=== PATIENT | male | born 1940 | race Caucasian/White ===

== ENCOUNTER 2018-07-29 11:56 | Observation (INO) | payer OTHER ==
[2018-07-29 12:14] LABS: Absolute Lymphocytes (CBC) 5.3 K/uL (0.7-4.9); Absolute Neutrophil 5.7 K/uL (1.8-8.0); Basophils % 0.9 % (0-1.3); Eosinophils % 2.3 % (0-4.4); Hematocrit 43.7 % (39.6-49.0); Lymphocytes % 42.9 % (15.3-44.8); MPV 7.6 fL (7.6-11.3); RBC Red Blood Cell Count 4.57 M/uL (4.33-5.43)
[2018-07-29 12:20] LABS: Protime INR 1.13
[2018-07-29] MEDS ORDERED: ONDANSETRON 4 MG/2 ML VIAL ONE ×2 (12:21→16:03)
--- NOTE | 2018-07-29 12:21 | RAD REPORT ---
EXAM DESCRIPTION: CT - CTHCSPWOC - 07/29/2018 12:07 pm CLINICAL HISTORY: Trauma, head and neck injury. TRAUMA COMPARISON: No comparisons TECHNIQUE: Axial 5 mm thick images of the head were obtained. Axial 2 mm thick images of the cervical spine were obtained with sagittal and coronal reconstruction images generated and reviewed. All CT scans are performed using dose optimization technique as appropriate and may include automated exposure control or mA/KV adjustment according to patient size. FINDINGS: CT HEAD WITHOUT CONTRAST: No acute hemorrhage, hydrocephalus or extra-axial collection is identified.Generalized brain atrophy is noted.No areas of brain edema or midline shift. Chronic sphenoid sinusitis is present. The remainder of the paranasal sinuses and mastoids are clear. The calvarium is intact. Moderate right posterior scalp hematoma. CT CERVICAL SPINE WITHOUT CONTRAST: No fracture or subluxation.Moderate lower cervical degenerative changes are present.No prevertebral s oft tissues swelling is identified. Atherosclerotic carotid arteries. IMPRESSION: No acute intracranial or cervical spine findings.
[2018-07-29 12:50] LABS: ALT/SGPT 53 U/L (12-78); AST/SGOT 80 U/L (15-37); Albumin 3.7 g/dL (3.4-5.0); Alkaline Phosphatase 48 U/L (45-117); BUN Blood Urea Nitrogen 13 mg/dL (7-18); Bicarbonate 26 mmol/L (21-32); Bilirubin Direct 0.2 mg/dL (0-0.2); Bilirubin Total 0.5 mg/dL (0.2-1.0); Glucose Level 165 mg/dL (74-106); Magnesium 1.8 mg/dL (1.8-2.4); NT PRO-BNP 203 pg/mL (<450); Potassium 3.3 mmol/L (3.5-5.1); Protein, Total 7.2 g/dL (6.4-8.2); Sodium Level 139 mmol/L (136-145); Troponin (Emerg Dept Use Only) < 0.02 ng/mL (0.0-0.045)
--- NOTE | 2018-07-29 12:59 | RAD REPORT ---
EXAM DESCRIPTION: RAD - Chest Single View - 07/29/2018 12:50 pm CLINICAL HISTORY: TRAUMA Chest pain. COMPARISON: Chest Pa And Lat (2 Views) dated 12/15/2016; CHEST SINGLE VIEW dated 11/08/2014; CHEST PA AND LAT 2 VIEW dated 06/25/2014; CHEST PA AND LAT 2 VIEW dated 05/31/2013; Head C Spine Mpr Wo Con raisa ed 07/29/2018 FINDINGS: Portable technique limits examination quality. Backboard artifact is present. The lungs appear grossly clear. The heart is normal in size.Sternotomy wires present. IMPRESSION: No acute intrathoracic process suspected.
[2018-07-29 13:17] LABS: Blood Morphology Comment NOT SEEN (NOT SEEN); Platelet Estimate ADEQ; Urine White Blood Cell Casts OK
[2018-07-29] MEDS ORDERED: ACETAMINOPHEN 500 MG TAB ONE (14:16)
--- NOTE | 2018-07-29 16:14 | EKG ---
Test Date: 2018-07-29 Test Time: 12:18:03 Patternmaker Hand: PABLO MEASUREMENT RESULTS: Intervals: Rate: 72 NJ: 176 QRSD: 92 QT: 406 QTc: 444 Turney: P: 46 NJ: 176 QRS: 13 T: 74 INTERPRETIVE STATEMENTS: Normal sinus rhythm Nonspecific ST abnormality Abnormal ECG Compared to ECG 12/12/2016 09:46:14 ST (T wave) deviation now present Electronically Signed On 07-29-18 16:13:50 PEDIATRIC NEPHROLOGIST by Parish Liao
--- NOTE | 2018-07-29 16:41 | RAD REPORT ---
EXAM DESCRIPTION: MRI - Brain Wo Cont - 07/29/2018 4:25 pm CLINICAL HISTORY: Confused;Dizziness;Headache COMPARISON: Head Brain Wo Cont dated 12/12/2016 TECHNIQUE: Multi-sequence, multiplanar MR imaging of the brain was performed without contrast. FINDINGS: No intracranial hemorrhage, hydrocephalus or extra-axial fluid collections.Mild T2/FLAIR h yperintensities in the periventricular region are most compatible chronic microvascular ischemic dey ges. No edema or shift of midline structures. No findings to suspect brain mass. DWI is negative for acute CVA. Midline structures are normally formed. Chronic sphenoid sinus thickening is noted. Right posterior scalp hematoma seen. IMPRESSION: No acute intracranial abnormality is seen. Chronic sphenoid sinusitis.
--- NOTE | 2018-07-29 17:30 | ER ---
Nurse's Notes [facility] Name: Bebeto Wells Age: 78 yrs Sex: Male : 1940 Arrival Date: 07/29/2018 Time: 11:59 Bed 4 Private MD: Diagnosis: Syncope and collapse;Superficial injury of head;Vomiting;Confusional arousals;Concussion Presentation: 07/29 11:54 Presenting complaint: EMS states: Fell down several stairs at bank. Positive LOC. Vomit hb x 3. AOx2, does not recall event. Skin tears to left forearm and left hand, no other obvious injuries. CCollar and backboard in place. 18g RIGHT AC, Zofran 4 mg IVP administered TAGMAN. Care prior to arrival: None. Mechanism of Injury: Fall down steps. Trauma event details: Injury occurred in the [facility], Injury occurred: in a public building. Injury occurred: July 29, 2018. 11:54 Acuity: KRISTIAN 2 hb 11:54 Method Of Arrival: EMS: [facility] hb 12:07 Transition of care: patient was not received from another setting of care. Onset of hb symptoms was July 29, 2018. Risk Assessment: Do you want to hurt yourself or someone else? Patient reports no desire to harm self or others. Initial Sepsis Screen: Does the patient meet any 2 criteria? No. Patient's initial sepsis screen is negative. Does the patient have a suspected source of infection? No. Patient's initial sepsis screen is negative. Trauma Activation: Alert Physician: ED Physician; Name: ; Notified At: ; Arrived At: Physician: General Surgeon; Name: ; Notified At: ; Arrived At: Physician: Radiology; Name: ; Notified At: ; Arrived At: Physician: Respiratory; Name: ; Notified At: ; Arrived At: Physician: Lab; Name: ; Notified At: ; Arrived At: Historical: - Allergies: 12:18 Codeine; hb 12:18 PENICILLINS; hb 12:18 Sulfa (Sulfonamide Antibiotics); hb - Home Meds: 12:18 allopurinol 300 mg Oral tab 1 tab 2 times per day [Active]; aspirin 81 mg Oral chew 1 hb tab once daily [Active]; colchicine 0.6 mg Oral cap 1 cap once daily [Active]; furosemide 20 mg Oral tab 1 tab 2 times per day [Active]; loratadine 10 mg Oral tab 1 tab once daily [Active]; metformin 1,000 mg Oral tab 1 tab 2 times per day [Active]; metoprolol tartrate 25 mg Oral tab [Active]; sildenafil 100mg Oral tab [Active]; simvastatin 20 mg Oral tab 1 tab once daily [Active]; - PMHx: 12:18 Diabetes - NIDDM; Gout; Hypertension; hb - Immunization history:: Adult Immunizations up to date. - Social history:: Smoking status: Patient/guardian denies using tobacco. - Immunization history: Last tetanus immunization: - up to date. - Ebola Screening: : No symptoms or risks identified at this time. Screenin:17 Abuse screen: Denies threats or abuse. Denies injuries from another. Tuberculosis hb screening: No symptoms or risk factors identified. 12:19 Nutritional screening: No deficits noted. Fall Risk Total Franklin Fall Scale indicates hb High Risk Score (45 or more points). Fall prevention measures have been instituted. Side Rails Up X 2 Frequent Obs/Assessments Occuring As available patient and family educated on Fall Prevention Program and Strategies. Primary Survey: 12:06 NO uncontrolled hemorrhage observed. A: The patient is alert. Airway: patent, No hb supplemental oxygen in use on arrival. Oral cavity: clear. Breathing/Chest: Respiratory pattern: regular, Respiratory effort: spontaneous, unlabored, Chest inspection: symmetrical rise and fall of the chest. Circulation: Skin color: pink, Skin temperature: warm, dry. Disability Alert. Exposure/Environment: There is no evidence of uncontrolled external bleeding. Obvious injury(ies) are noted at this time: skin tears to left hand and forearm. 12:35 Reassessment Airway Airway Patent Breathing/Chest Respiratory pattern Regular sg Respiratory effort Spontaneous Unlabored Breath sounds Clear Chest inspection Symmetrical Disability Alert. Secondary Survey: 12:20 HEENT: Head No injury/deformity Face No injury/deformity Eyes: No injury or deformity sg noted. Ears: clear bilaterally. Nose: clear to bilateral nares. Throat: No injury or deformity noted. is clear. Gastrointestinal: Abdomen is soft, Bowel sounds present in all quadrants. : No signs and/or symptoms were reported regarding the genitourinary system. Musculoskeletal: Circulation, motion, and sensation intact. Range of motion: intact in all extremities, Swelling absent Reports pain in coccyx, right knee and neck. Injury Description: Skin tears sustained to left hand, left elbow and palmar aspect of left forearm. Assessment: 11:50 General: Appears in no apparent distress. slender, well developed, well nourished, sg Behavior is calm, cooperative, appropriate for age. Pain: Complains of pain in coccyx and right knee Pain does not radiate. Quality of pain is described as tender. Neuro: Level of Consciousness is awake, alert, obeys commands, Oriented to person, place, time, situation, Intelligence Applications are equal bilaterally Moves all extremities. Full function Gait is steady, Speech is normal, Facial symmetry appears normal. Cardiovascular: Capillary refill is brisk in bilateral fingers Chest pain is denied. Respiratory: Airway is patent Respiratory effort is even, unlabored, Respiratory pattern is regular, symmetrical. GI: No signs and/or symptoms were reported involving the gastrointestinal system. : No signs and/or symptoms were reported regarding the genitourinary system. EENT: No signs and/or symptoms were reported regarding the EENT system. Derm: Skin is intact, is thin, Skin is dry, Skin is pale, Skin temperature is cool. Musculoskeletal: Circulation, motion, and sensation intact. Range of motion: Swelling absent Reports pain in coccyx, right knee and neck. 12:17 Reassessment: $1779 and one $2 dollar bill counted and given to security to place in safe. 12:17 Reassessment: counting of money and given to security as witnessed with Michelle ALANIS and sg security. 14:40 Reassessment: Patient appears in no apparent distress at this time. Patient and/or sg family updated on plan of care and expected duration. Pain level reassessed. Patient is alert, oriented x 3, equal unlabored respirations, skin warm/dry/pink. pt aa\T\ox4 at this time, pt speaking on cell phone with family members, awaiting new orders at this time. Derm: Bruising that is dark purple, green, on right parietal area. 15:27 Reassessment: Patient and/or family updated on plan of care and expected duration. Pain sg level reassessed. Patient is alert, oriented x 3, equal unlabored respirations, skin warm/dry/pink. pt family/friend at bedside at this time. 15:40 Reassessment: Patient appears in no apparent distress at this time. Patient and/or sg family updated on plan of care and expected duration. Pain level reassessed. Patient is alert, oriented x 3, equal unlabored respirations, skin warm/dry/pink. Neuro: Level of Consciousness is awake, alert, obeys commands, Oriented to person, place, time, Speech is normal. Neuro: Reports dizziness, notified of pt complaints of dizziness while sitting up at the side of the bed using a urinal, pt girlfrienyara Be remains at bedside a tt his time, pt using a urinal while sitting upright in bed with back flat on bed surface, no falls encountered. Derm: Skin is pink, warm \T\ dry. 16:00 Reassessment: pt reports nausea and vomiting per Katlyln in MRI, notified, sg pt medicated see EMAR. 16:10 Reassessment: pt Aminahienyara Be has taken the dawn money and bank cards in her sg possesion. 17:20 Reassessment: Patient appears in no apparent distress at this time. Patient and/or sg family updated on plan of care and expected duration. Pain level reassessed. Patient is alert, oriented x 3, equal unlabored respirations, skin warm/dry/pink. 17:35 Reassessment: at bedside evaluating pt at this time. sg Vital Signs: 11:55 BP 104 / 58; Pulse 88; Resp 16; Temp 97.9; Pulse Ox 100% on R/A; hb 12:45 BP 131 / 70; Pulse 70; Resp 19; Temp 98.2; Pulse Ox 93% on R/A; sg 13:40 BP 133 / 70; Pulse 77; Resp 17; Temp 98.2; Pulse Ox 97% on R/A; sg 14:40 BP 142 / 70; Pulse 77; Resp 16; Temp 98.2; Pulse Ox 97% on R/A; sg 15:24 BP 148 / 64; Pulse 72; Resp 17; Temp 98.2; Pulse Ox 98% on R/A; sg 16:24 BP 145 / 62; Pulse 72; Resp 16; Temp 98.2; Pulse Ox 97% on R/A; sg Onyx Coma Score: 12:45 Eye Response: spontaneous(4). Verbal Response: oriented(5). Motor Response: obeys sg commands(6). Total: 15. 13:40 Eye Response: spontaneous(4). Verbal Response: oriented(5). Motor Response: obeys sg commands(6). Total: 15. 13:40 Eye Response: spontaneous(4). Verbal Response: oriented(5). Motor Response: obeys sg commands(6). Total: 15. 16:24 Eye Response: spontaneous(4). Verbal Response: oriented(5). Motor Response: obeys sg commands(6). Total: 15. Trauma Score (Adult): 11:55 Eye Response: spontaneous(1); Verbal Response: confused(1); Motor Response: obeys hb commands(2); Systolic BP: > 89 mm Hg(4); Respiratory Rate: 10 to 29 per min(4); Sandhya Score: 14; Trauma Score: 12 13:40 Eye Response: spontaneous(1); Verbal Response: oriented(1); Motor Response: obeys sg commands(2); Systolic BP: > 89 mm Hg(4); Respiratory Rate: 10 to 29 per min(4); Onyx Score: 15; Trauma Score: 12 15:24 Eye Response: spontaneous(1); Verbal Response: oriented(1); Motor Response: obeys sg commands(2); Systolic BP: > 89 mm Hg(4); Respiratory Rate: 10 to 29 per min(4); Sandhya Score: 15; Trauma Score: 12 16:24 Eye Response: spontaneous(1); Verbal Response: oriented(1); Motor Response: obeys sg commands(2); Systolic BP: > 89 mm Hg(4); Respiratory Rate: 10 to 29 per min(4); Onyx Score: 15; Trauma Score: 12 ED Course: 11:50 Patient has correct armband on for positive identification. Bed in low position. Side sg rails up X2. longwall shearer operator on. Pulse ox on. NIBP on. Warm blanket given. Head of bed elevated. 11:59 Patient arrived in ED. hb 12:00 Patient maintains SpO2 saturation greater than 95% on room air. Thermoregulation: warm hb blanket given to patient. 12:06 Triage completed. hb 12:07 CT Head C Spine In Process Unspecified. EDMS 12:07 Sandro Hancock MD is Attending Physician. kdr 12:07 Arm band placed on. hb 12:39 Yaya Cedeño, RN is Primary Nurse. sg 12:51 XRAY Chest (1 view) In Process Unspecified. EDMS 16:00 Patient moved to MRI via stretcher. ka 16:12 MRI - Brain Wo Cont In Process Unspecified. EDMS 17:28 Veena Salgado MD is Hospitalizing Provider. kdr 18:20 No provider procedures requiring assistance completed. Patient admitted, IV remains in sg place. intact, No redness/swelling at site. Administered Medications: 14:33 Drug: Tylenol 1000 mg Route: PO; sg 15:31 Follow up: Response: No adverse reaction; Pain is unchanged, physician notified sg 16:01 Drug: Zofran 4 mg Route: IVP; Site: right antecubital; bp Output: 18:40 Urine: 300ml (Voided); Total: 300ml. sg Outcome: 17:30 Decision to Hospitalize by Provider. kdr 18:35 Admitted to Tele accompanied by tech, via wheelchair, room 201, with chart. sg 18:35 Condition: stable 18:35 Instructed on the need for admit, safety practices, Demonstrated understanding of instructions. 18:35 Patient's length of stay in the Emergency Department was greater than 2 hours. sg Patient's length of stay was extended due to staffing issues within the emergency department. 18:40 Patient left the ED. sg Signatures: Dispatcher [employer] EDMS Yaya Cedeño, RN RN Sandro Hancock MD MD kdr Aguilera, Katelyn ka Baxter, Heather, RN RN hb Peltier, Brian, RN RN bp Corrections: (The following items were deleted from the chart) 12:08 11:54 Presenting complaint: EMS states: Fell down several stairs at bank. Positive LOC. hb AOx2, Does not recall event. Skin tears to left forearm and left hand, no other obvious injuries. CCollar and backboard i nplace hb
--- NOTE | 2018-07-29 17:31 | EDPHYS ---
Physician Documentation [facility] Name: Bebeto Wells Age: 78 yrs Sex: Male : 1940 Arrival Date: 07/29/2018 Time: 11:59 Bed 4 Private MD: ED Physician Sandro Hancock HPI: 07/29 18:45 This 78 yrs old Male presents to ER via EMS with complaints of Fall Injury. kdr 18:45 The patient was found down on the ground where he may have fallen down two steps. He kdr was noted to be confused. He was put on back brd and c-clr. On arrival, he was vomiting and require tilting the board to the side to protect his airway. He was A\T\O x 1 on arrival. Onset: The symptoms/episode began/occurred suddenly, just prior to arrival. Severity of symptoms: At their worst the symptoms were mild in the emergency department the symptoms are unchanged. It is unknown whether or not the patient has had similar symptoms in the past. It is unknown whether or not the patient has recently seen a physician. Historical: - Allergies: 12:18 Codeine; hb 12:18 PENICILLINS; hb 12:18 Sulfa (Sulfonamide Antibiotics); hb - Home Meds: 12:18 allopurinol 300 mg Oral tab 1 tab 2 times per day [Active]; aspirin 81 mg Oral chew 1 hb tab once daily [Active]; colchicine 0.6 mg Oral cap 1 cap once daily [Active]; furosemide 20 mg Oral tab 1 tab 2 times per day [Active]; loratadine 10 mg Oral tab 1 tab once daily [Active]; metformin 1,000 mg Oral tab 1 tab 2 times per day [Active]; metoprolol tartrate 25 mg Oral tab [Active]; sildenafil 100mg Oral tab [Active]; simvastatin 20 mg Oral tab 1 tab once daily [Active]; - PMHx: 12:18 Diabetes - NIDDM; Gout; Hypertension; hb - Immunization history:: Adult Immunizations up to date. - Social history:: Smoking status: Patient/guardian denies using tobacco. - Immunization history: Last tetanus immunization: - up to date. - Ebola Screening: : No symptoms or risks identified at this time. ROS: 18:45 Constitutional: The patient is a poor historian and confused Eyes: Negative for injury, kdr pain, redness, and discharge. 18:45 Unable to obtain ROS due to altered mental status. Exam: 18:45 Constitutional: This is a well developed, well nourished patient who is awake, alert, kdr and in no acute distress. Head/Face: Normocephalic, constuion posteriorly Eyes: Pupils equal round and reactive to light, extra-ocular motions intact. Lids and lashes normal. Conjunctiva and sclera are non-icteric and not injected. Cornea within normal limits. Periorbital areas with no swelling, redness, or edema. Neck: Trachea midline, no thyromegaly or masses palpated, and no cervical lymphadenopathy. Supple, full range of motion without nuchal rigidity, or vertebral point tenderness. No Meningismus. Chest/axilla: Normal chest wall appearance and motion. Nontender with no deformity. No lesions are appreciated. Cardiovascular: Regular rate and rhythm with a normal S1 and S2. No gallops, murmurs, or rubs. Normal PMI, no JVD. No pulse deficits. Respiratory: Lungs have equal breath sounds bilaterally, clear to auscultation and percussion. No rales, rhonchi or wheezes noted. No increased work of breathing, no retractions or nasal flaring. Abdomen/GI: Soft, non-tender, with normal bowel sounds. No distension or tympany. No guarding or rebound. No evidence of tenderness throughout. Back: No spinal tenderness. No costovertebral tenderness. Full range of motion. Skin: Warm, dry with normal turgor. Normal color with no rashes, no lesions, and no evidence of cellulitis. MS/ Extremity: Pulses equal, no cyanosis. Neurovascular intact. Full, normal range of motion. 18:45 Neuro: Orientation: to person, Mentation: able to follow commands, slow to respond, confused, Cerebellar function: no acute changes, Motor: is grossly normal based on the patient's age, moves all fours. Vital Signs: 11:55 BP 104 / 58; Pulse 88; Resp 16; Temp 97.9; Pulse Ox 100% on R/A; hb 12:45 BP 131 / 70; Pulse 70; Resp 19; Temp 98.2; Pulse Ox 93% on R/A; sg 13:40 BP 133 / 70; Pulse 77; Resp 17; Temp 98.2; Pulse Ox 97% on R/A; sg 14:40 BP 142 / 70; Pulse 77; Resp 16; Temp 98.2; Pulse Ox 97% on R/A; sg 15:24 BP 148 / 64; Pulse 72; Resp 17; Temp 98.2; Pulse Ox 98% on R/A; sg 16:24 BP 145 / 62; Pulse 72; Resp 16; Temp 98.2; Pulse Ox 97% on R/A; sg Porterfield Coma Score: 12:45 Eye Response: spontaneous(4). Verbal Response: oriented(5). Motor Response: obeys sg commands(6). Total: 15. 13:40 Eye Response: spontaneous(4). Verbal Response: oriented(5). Motor Response: obeys sg commands(6). Total: 15. 13:40 Eye Response: spontaneous(4). Verbal Response: oriented(5). Motor Response: obeys sg commands(6). Total: 15. 16:24 Eye Response: spontaneous(4). Verbal Response: oriented(5). Motor Response: obeys sg commands(6). Total: 15. Trauma Score (Adult): 11:55 Eye Response: spontaneous(1); Verbal Response: confused(1); Motor Response: obeys hb commands(2); Systolic BP: > 89 mm Hg(4); Respiratory Rate: 10 to 29 per min(4); Sandhya Score: 14; Trauma Score: 12 13:40 Eye Response: spontaneous(1); Verbal Response: oriented(1); Motor Response: obeys sg commands(2); Systolic BP: > 89 mm Hg(4); Respiratory Rate: 10 to 29 per min(4); Sandhya Score: 15; Trauma Score: 12 15:24 Eye Response: spontaneous(1); Verbal Response: oriented(1); Motor Response: obeys sg commands(2); Systolic BP: > 89 mm Hg(4); Respiratory Rate: 10 to 29 per min(4); Sandhya Score: 15; Trauma Score: 12 16:24 Eye Response: spontaneous(1); Verbal Response: oriented(1); Motor Response: obeys sg commands(2); Systolic BP: > 89 mm Hg(4); Respiratory Rate: 10 to 29 per min(4); Sandhya Score: 15; Trauma Score: 12 MDM: 17:30 Patient medically screened. kdr 18:45 Data reviewed: vital signs, nurses notes. Counseling: I had a detailed discussion with kdr the patient and/or guardian regarding: the historical points, exam findings, and any diagnostic results supporting the discharge/admit diagnosis, lab results, radiology results, the need for further work-up and treatment in the hospital. 07/29 12:01 Order name: Basic Metabolic Panel; Complete Time: 13:09 hb 07/29 12:01 Order name: CBC with Diff; Complete Time: 14:04 hb 07/29 12:01 Order name: LFT's; Complete Time: 13:09 hb 07/29 12:01 Order name: Magnesium; Complete Time: 13:09 hb 07/29 12:01 Order name: NT PRO-BNP; Complete Time: 13:09 hb 07/29 12:01 Order name: PT-INR; Complete Time: 12:24 hb 07/29 12:01 Order name: Troponin (emerg Dept Use Only); Complete Time: 13:09 hb 07/29 12:16 Order name: CBC Smear Scan; Complete Time: 14:04 EDMS 07/29 18:08 Order name: CBC with Automated Diff EDMS 07/29 18:08 Order name: CBC with Automated Diff EDMS 07/29 18:08 Order name: CBC with Automated Diff EDMS 07/29 18:08 Order name: CBC with Automated Diff EDMS / 18:08 Order name: Comprehensive Metabolic Panel EDMS 07/29 18:08 Order name: Comprehensive Metabolic Panel EDMS 07/29 12:01 Order name: XRAY Chest (1 view); Complete Time: 13:09 hb 07/29 12:01 Order name: EKG; Complete Time: 12:02 hb 07/29 12:01 Order name: Cardiac monitoring; Complete Time: 12:31 hb 07/29 12:01 Order name: EKG - Nurse/Tech; Complete Time: 12:31 hb 07/29 12:01 Order name: IV Saline Lock; Complete Time: 12:31 hb 07/29 12:01 Order name: Labs collected and sent; Complete Time: 12:31 hb 07/29 12:01 Order name: O2 Per Protocol; Complete Time: 12:31 hb 07/29 12:01 Order name: O2 Sat Monitoring; Complete Time: 12:31 hb 07/29 12:01 Order name: CT Head C Spine; Complete Time: 12:24 hb 07/29 15:01 Order name: MRI - Brain Wo Cont; Complete Time: 17:19 kdr 07/29 18:08 Order name: Physical Therapy Consult [facility] 07/29 18:08 Order name: Heart Healthy [facility] 07/29 18:08 Order name: Comprehensive Metabolic Panel [facility] 07/29 18:08 Order name: Comprehensive Metabolic Panel [facility] Administered Medications: 14:33 Drug: Tylenol 1000 mg Route: PO; 15:31 Follow up: Response: No adverse reaction; Pain is unchanged, physician notified 16:01 Drug: Zofran 4 mg Route: IVP; Site: right antecubital; bp Disposition: 07/29/18 17:30 Hospitalization ordered by Veena Salgado for Observation. Preliminary diagnosis are Syncope and collapse, Superficial injury of head, Vomiting, Confusional arousals, Concussion. - Bed requested for Telemetry/MedSurg (observation). - Status is Observation. sg - Condition is Fair. - Problem is new. - Symptoms have improved. UTI on Admission? No Signatures: Dispatcher [employer] EDCO Yaya Cedeño RN RN sg Sandro Hancock MD MD kdr Michelle Mendez RN RN Renan Herrera RN RN bp Jo-Ann Jimenes Corrections: (The following items were deleted from the chart) 18:15 17:30 Hospitalization Ordered by Veena Salgado MD for Observation. Preliminary eb diagnosis is Syncope and collapse; Superficial injury of head; Vomiting; Confusional arousals; Concussion. Bed requested for Telemetry/MedSurg (observation). Status is Observation. Condition is Fair. Problem is new. Symptoms have improved. UTI on Admission? No. kdr 18:40 18:15 07/29/2018 17:30 Hospitalization Ordered by Veena Salgado MD for Observation. sg Preliminary diagnosis is Syncope and collapse; Superficial injury of head; Vomiting; Confusional arousals; Concussion. Bed requested for Telemetry/MedSurg (observation). Status is Observation. Condition is Fair. Problem is new. Symptoms have improved. UTI on Admission? No. eb
[2018-07-29] MEDS ORDERED: ONDANSETRON 4 MG/2 ML VIAL IV PRN (18:06)
[2018-07-29] MEDS ORDERED: GLUCAGON 1 MG/VIAL IM PRN (18:08)
[2018-07-29] MEDS ORDERED: D50W 25 GM/50 ML SYRINGE IV PRN (18:08)
--- NOTE | 2018-07-29 18:17 | P.HP ---
Certification for Inpatient Patient admitted to: Observation With expected LOS: <2 Midnights Patient will require the following post-hospital care: None Practitioner: I am a practitioner with admitting privileges, knowledge of patient current condition, hospital course, and medical plan of care. Services: Services provided to patient in accordance with Admission requirements found in Title 42 Section 412.3 of the Code of Federal Regulations Patient History Date of Service: 07/29/18 Reason for admission: Fall History of Present Illness: 78 y/o M hx of HTN and type 2 DM presented to the ED after having mechanical fall at the [place] from the stairs. Pt fall and passed out. EMS was called and was brought to the hospital for further evaluation. Pt LOC < 30mins and does not recollect any information of the fall and ambulance ride. Now denies having NAVARRETE, Blurry vision, CP or SOB. C/o of having dizziness and n/v on movement. Allergies codeine Allergy (Verified 11/08/14 04:30) Itching Penicillins Allergy (Verified 11/08/14 04:29) Hives/Rash Sulfa (Sulfonamide Antibiotics) Allergy (Verified 11/08/14 04:30) Itching/Hives/Rash Home Medications: Furosemide [Lasix] 20 mg PO BIDL 11/08/14 Metformin HCl [Glucophage] 500 mg PO BID 11/08/14 Aspirin [Adult Low Dose Aspirin EC] 81 mg PO DAILY 08/27/16 Codeine/APAP [Tylenol W/Codeine #3 tab] 1 tab PO Q4HP PRN #30 tab 08/28/16 - Past Medical/Surgical History Diabetic: Yes -: htn -: high cholesterol -: Diabetes -: triple bypass -: tonsilectomy -: Left Knee Surgery x2 for Gout -: Right Elbow Surgery (Gout) - Family History Family History: Reviewed- Non-Contributory - Family History Father -: Cancer, Other (see notes) Notes: cerebral hemmorhage Brother -: Lung disease - Social History Alcohol use: No CD- Drugs: No Caffeine use: Yes Review of Systems 10-point ROS is otherwise unremarkable Physical Examination - Physical Exam General: Alert, In no apparent distress HEENT: PERRLA, Mucous membr. moist/pink, Other (hematoma on the back of the head on the right side. No active bleeding noted. ), EOMI, Sclerae nonicteric Neck: Supple, 2+ carotid pulse no bruit, No LAD, Without JVD or thyroid abnormality Respiratory: Clear to auscultation bilaterally, Normal air movement Cardiovascular: Regular rate/rhythm, Normal S1 S2 Gastrointestinal: Normal bowel sounds, No tenderness Musculoskeletal: No tenderness Integumentary: No rashes Neurological: Normal speech, Normal strength at 5/5 x4 extr, Normal tone, Cranial nerves 3-12 intact, Normal reflexes 2+, Normal affect Lymphatics: No axilla or inguinal lymphadenopathy - Studies Laboratory Data (last 24 hrs) 07/29/18 12:08: PT 13.3 H, INR 1.13 07/29/18 12:08: WBC 12.3 H, Hgb 14.8, Hct 43.7, Plt Count 359 07/29/18 12:08: Sodium 139, Potassium 3.3 L, BUN 13, Creatinine 1.28, Glucose 165 H, Magnesium 1.8, Total Bilirubin 0.5, AST 80 H, ALT 53, Alkaline Phosphatase 48 Assessment and Plan - Problems (Diagnosis) (1) Fall Current Visit: Yes Status: Acute Plan: S/P mechanical fall -Fall precautions -PT consulted. Qualifiers: Encounter type: initial encounter Qualified Code(s): W19.XXXA - Unspecified fall, initial encounter (2) Head contusion Current Visit: Yes Status: Acute Plan: S/p Fall head Contusion -head CT and MRI negative for acute abnormality -neurocheck q4h -Monitor for next 24 hrs for worsening -Vertigo Noted in the ER Qualifiers: Encounter type: initial encounter Contusion of head detail: other part of head Qualified Code(s): S00.83XA - Contusion of other part of head, initial encounter (3) Concussion Current Visit: Yes Status: Acute Plan: Concussion LOC < 30 mins -Currently AAOX3 -Head CT negative and MRI negative -Continue to monitor for next 24 hrs Qualifiers: Encounter type: initial encounter Loss of consciousness presence/duration: with LOC of 30 min or less Qualified Code(s): S06.0X1A - Concussion with loss of consciousness of 30 minutes or less, initial encounter (4) Hypertension Current Visit: No Status: Chronic Plan: Will restart home medication Qualifiers: Hypertension type: essential hypertension (5) Diabetes mellitus Onset Date: 11/08/14 Current Visit: No Status: Chronic Plan: Insulin Sliding scale Qualifiers: Diabetes mellitus type: type 2 Diabetes mellitus 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
[2018-07-29 18:50] VITALS: O2SAT 97
[2018-07-29] MEDS ORDERED: POTASSIUM 25 MEQ EFFERV TAB PO ONE (19:58)
[2018-07-29] MEDS: INSULIN -REGULAR HUMAN 50 UNIT/0.5 ML ML SQ SCH (21:00)
[2018-07-30 00:15] VITALS: BMI 26.3
[2018-07-30] MEDS: ACETAMINOPHEN 500 MG TAB PO PRN (03:45)
[2018-07-30 05:42] LABS: Absolute Lymphocytes (CBC) 2.5 K/uL (0.7-4.9); Absolute Neutrophil 5.8 K/uL (1.8-8.0); Basophils % 0.5 % (0-1.3); Eosinophils % 1.1 % (0-4.4); Lymphocytes % 26.2 % (15.3-44.8); MPV 7.6 fL (7.6-11.3); Monocytes % 10.4 % (3.3-12.3)
[2018-07-30 06:11] LABS: Albumin 3.4 g/dL (3.4-5.0); Bilirubin Total 0.9 mg/dL (0.2-1.0); Potassium 4.1 mmol/L (3.5-5.1); Protein, Total 6.4 g/dL (6.4-8.2)
[2018-07-30] MEDS: INSULIN -REGULAR HUMAN 50 UNIT/0.5 ML ML SQ SCH ×4 (07:30→21:00)
--- NOTE | 2018-07-30 11:25 | P.PN ---
Subjective Date of Service: 07/30/18 Chief Complaint: Fall Subjective: Tolerating diet, Ambulating, Improving, C/O voiced (Right Rib pain and Right Ear Pain), Working w/ PT, Doing well Review of Systems 10-point ROS is otherwise unremarkable Physical Examination - Vital Signs Temperature: 97.9 F Blood Pressure: 119/60 Pulse: 75 Respirations: 16 Pulse Ox (%): 96 - Physical Exam General: Alert, In no apparent distress HEENT: PERRLA, Other (hematoma of the right scalp and Behind the right ear), EOMI Neck: Supple, JVD not distended Respiratory: Clear to auscultation bilaterally, Normal air movement Cardiovascular: Regular rate/rhythm, Normal S1 S2 Gastrointestinal: Normal bowel sounds, No tenderness Musculoskeletal: No tenderness Integumentary: No rashes Neurological: Normal speech, Normal tone, Normal affect Lymphatics: No axilla or inguinal lymphadenopathy - Studies Laboratory Data (last 24 hrs) 07/29/18 12:08: PT 13.3 H, INR 1.13 07/29/18 12:08: WBC 12.3 H, Hgb 14.8, Hct 43.7, Plt Count 359 07/29/18 12:08: Sodium 139, Potassium 3.3 L, BUN 13, Creatinine 1.28, Glucose 165 H, Magnesium 1.8, Total Bilirubin 0.5, AST 80 H, ALT 53, Alkaline Phosphatase 48 Medications List Reviewed: Yes Assessment And Plan - Current Problems (Diagnosis) (1) Fall Current Visit: Yes Status: Acute Plan: S/P mechanical fall -Fall precautions -PT consulted. Qualifiers: Encounter type: initial encounter Qualified Code(s): W19.XXXA - Unspecified fall, initial encounter (2) Head contusion Current Visit: Yes Status: Acute Plan: S/p Fall head Contusion -head CT and MRI negative for acute abnormality -neurocheck q4h WNL -Complaining of NAVARRETE and earache. -Repeat Head CT as still having vertigo -Monitor for next 24 hrs for worsening Qualifiers: Encounter type: initial encounter Contusion of head detail: other part of head Qualified Code(s): S00.83XA - Contusion of other part of head, initial encounter (3) Concussion Current Visit: Yes Status: Acute Plan: Concussion LOC < 30 mins -Currently AAOX3 -Head CT negative and MRI negative -Continue to monitor for next 24 hrs Qualifiers: Encounter type: initial encounter Loss of consciousness presence/duration: with LOC of 30 min or less Qualified Code(s): S06.0X1A - Concussion with loss of consciousness of 30 minutes or less, initial encounter (4) Hypertension Current Visit: No Status: Chronic Plan: Will restart home medication Qualifiers: Hypertension type: essential hypertension (5) Diabetes mellitus Onset Date: 11/08/14 Current Visit: No Status: Chronic Plan: Insulin Sliding scale Qualifiers: Diabetes mellitus type: type 2 Diabetes mellitus mcfp insulin use: without terminal clerk use Diabetes mellitus complication status: without complication Qualified Code(s): E11.9 - Type 2 diabetes mellitus without complications Discharge Plan: Home Plan to discharge in: 48 Hours - Code Status/Comfort Care Code Status Assessed: Yes Critical Care: No
--- NOTE | 2018-07-30 13:58 | RAD REPORT ---
EXAM DESCRIPTION: CT - Head Brain Wo Cont - 07/30/2018 12:53 pm CLINICAL HISTORY: Fall, head injury COMPARISON: MRI July 29 TECHNIQUE: Axial 5 mm thick images of the head were obtained without IV contrast. All CT scans are performed using dose optimization technique as appropriate and may include automated exposure control or mA/KV adjustment according to patient size. FINDINGS: No intracranial hemorrhage, mass, edema or shift of mid-line structures. No acute infarcti on changes seen. No cortical edema or sulcal effacement identified. Mild atrophy and chronic ischemic changes are present. Ventricles are in proportion to volume loss. Small posterior right scalp hemato ma is present. Mastoid air cells and visualized portions of the paranasal sinuses are clear. No acute bony findings. IMPRESSION: No hemorrhage or acute intracranial finding. Small posterior scalp hematoma is present. No identifiable changes from prior day imaging.
--- NOTE | 2018-07-30 14:19 | RAD REPORT ---
EXAM DESCRIPTION: RAD - Elbow Right 2 View - 07/30/2018 12:59 pm CLINICAL HISTORY: Fall, elbow pain COMPARISON: None. FINDINGS: No fracture is identified and no elevated posterior fat pad. There is no dislocation or pe riosteal reaction noted. No destructive bone process identifiable. Degenerative changes are present a long the posterior margin of the olecranon. Patient has a large spur at the triceps tendon attachment . Calcification proximal to the olecranon spur is probably a triceps tendon posttraumatic calcificati on. A 5 millimeter oval calcification is present in the posterior soft tissues possibly posttraumatic soft tissue calcification or possible calcified loose body within the olecranon bursa. Joint effusio n is not seen. No air or foreign body in the soft tissues. IMPRESSION: Degenerative changes are present to the posterior ulna with large spur at the triceps at tachment. Probable triceps tendon calcification seen. Soft tissue or possible olecranon bursa soft tissue calcification.
[2018-07-30] MEDS ORDERED: COLCHICINE 0.6 MG TAB PO ONE (16:54)
[2018-07-30] MEDS: MORPHINE 4 MG/ML SYR IV PRN (21:47)
[2018-07-31 05:07] LABS: Absolute Lymphocytes (CBC) 2.3 K/uL (0.7-4.9); Absolute Monocytes 1.3 K/uL (0.1-1.3); Absolute Neutrophil 7.4 K/uL (1.8-8.0); Basophils % 0.7 % (0-1.3); Eosinophils % 1.2 % (0-4.4); Lymphocytes % 20.4 % (15.3-44.8); MPV 7.4 fL (7.6-11.3); Monocytes % 11.5 % (3.3-12.3); RBC Red Blood Cell Count 4.43 M/uL (4.33-5.43)
[2018-07-31] MEDS: ACETAMINOPHEN 500 MG TAB PO PRN (05:08)
[2018-07-31] MEDS: MORPHINE 4 MG/ML SYR IV PRN (05:22)
[2018-07-31 05:24] LABS: Albumin 3.5 g/dL (3.4-5.0); Bilirubin Total 0.9 mg/dL (0.2-1.0); Potassium 4.4 mmol/L (3.5-5.1); Protein, Total 6.9 g/dL (6.4-8.2)
[2018-07-31] MEDS: INSULIN -REGULAR HUMAN 50 UNIT/0.5 ML ML SQ SCH ×2 (07:30→11:30)
--- NOTE | 2018-07-31 11:05 | P.DS ---
Admission Date: 07/29/18 Discharge Date: 07/31/18 Disposition: ROUTINE DISCHARGE Discharge Condition: GOOD Reason for Admission: Fall - Problems (1) Fall Current Visit: Yes Status: Acute Qualifiers: Encounter type: initial encounter Qualified Code(s): W19.XXXA - Unspecified fall, initial encounter (2) Head contusion Current Visit: Yes Status: Acute Qualifiers: Encounter type: initial encounter Contusion of head detail: other part of head Qualified Code(s): S00.83XA - Contusion of other part of head, initial encounter (3) Concussion Current Visit: Yes Status: Acute Qualifiers: Encounter type: initial encounter Loss of consciousness presence/duration: with LOC of 30 min or less Qualified Code(s): S06.0X1A - Concussion with loss of consciousness of 30 minutes or less, initial encounter (4) Hypertension Current Visit: No Status: Chronic Qualifiers: Hypertension type: essential hypertension (5) Diabetes mellitus Onset Date: 11/08/14 Current Visit: No Status: Chronic Qualifiers: Diabetes mellitus type: type 2 Diabetes mellitus 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 Pt fall and passed out. EMS was called and was brought to the hospital for further evaluation. Pt LOC < 30mins and does not recollect any information of the fall and ambulance ride. Now denies having NAVARRETE, Blurry vision, CP or SOB. C/o of having dizziness and n/v on movement. Hospital Course: Overall during the hospital stay patient remained stable Patient was initially admitted to the hospital status post fall and having concussion. Patient was monitored here in the hospital had head CT and MRI of the brain done which was negative for any acute abnormality. Patient had a scalp hematoma which remained stable while here in the hospital. Patient initially was exhibiting symptoms of vertigo and dizziness upon getting up and out of bed. Most likely secondary to orthostatics hypotension. Patient worked with physical therapy here had marked improvement in his symptoms and thus was discharged home under stable condition. Patient also noted having right-sided elbow swelling in his acute gout attack from the fall. Patient was started on colchicine and had improvement in his symptoms. Patient then was discharged home under stable condition was asked to resume taking his aspirin from tomorrow. Was asked to follow up with primary care provider in about 1-2 days post discharge Vital Signs/Physical Exam: Temp Pulse Resp BP Pulse Ox 97.2 F 82 18 125/65 91 07/31/18 08:00 07/31/18 08:00 07/31/18 08:00 07/31/18 08:00 07/31/18 08:00 General: Alert, In no apparent distress HEENT: Atraumatic, PERRLA, EOMI Neck: Supple, JVD not distended Respiratory: Clear to auscultation bilaterally, Normal air movement Cardiovascular: Regular rate/rhythm, Normal S1 S2 Gastrointestinal: Normal bowel sounds, No tenderness Musculoskeletal: No tenderness Integumentary: No rashes Neurological: Normal speech, Normal tone, Normal affect Lymphatics: No axilla or inguinal lymphadenopathy Laboratory Data at Discharge: WBC 11.1 K/uL (4.3-10.9) H D 07/31/18 04:41 Hgb 14.5 g/dL (13.6-17.9) 07/31/18 04:41 Hct 42.0 % (39.6-49.0) 07/31/18 04:41 Plt Count 289 K/uL (152-406) 07/31/18 04:41 PT 13.3 SECONDS (9.5-12.5) H 07/29/18 12:08 INR 1.13 07/29/18 12:08 Sodium 137 mmol/L (136-145) 07/31/18 04:41 Potassium 4.4 mmol/L (3.5-5.1) 07/31/18 04:41 BUN 10 mg/dL (7-18) 07/31/18 04:41 Creatinine 1.01 mg/dL (0.55-1.3) 07/31/18 04:41 Glucose 139 mg/dL (74-106) H 07/31/18 04:41 Magnesium 3.0 mg/dL (1.8-2.4) H D 07/30/18 05:07 Total Bilirubin 0.9 mg/dL (0.2-1.0) 07/31/18 04:41 AST 20 U/L (15-37) 07/31/18 04:41 ALT 29 U/L (12-78) 07/31/18 04:41 Alkaline Phosphatase 48 U/L (45-117) 07/31/18 04:41 Home Medications: Metformin HCl [Glucophage] 1,000 mg PO BID 11/08/14 Aspirin [Adult Low Dose Aspirin EC] 81 mg PO DAILY 08/27/16 Cyanocobalamin (Vitamin B-12) [Vitamin B-12] 2,500 mcg PO DAILY 07/30/18 Furosemide 10 mg PO BID 07/30/18 Levothyroxine [Synthroid*] 50 mcg PO [id number] 07/30/18 Metoprolol Tartrate [Lopressor*] 12.5 mg PO DAILY 07/30/18 Pioglitazone HCl 30 mg PO DAILY 07/30/18 Simvastatin 20 mg PO DAILY 07/30/18 Diet: Regular Activity: Ad rupali
[2018-07-31 12:04] VITALS: BP 158/66; TEMP 98.5
== END 2018-07-31 12:35 | disposition home or self-care (01) ==
LOC: ER 11:56 → ERHOLD 18:05 → 2ND 18:29
PROVIDERS: ADMIT Family Medicine; ATTEND Family Medicine
DX: S06.0X1A Concussion with loss of consciousness of 30 minutes or less, initial encounter (principal); S00.03XA Contusion of scalp, initial encounter; W01.0XXA Fall on same level from slipping, tripping and stumbling without subsequent striking against object, initial encounter; Y92.510 Bank as the place of occurrence of the external cause; I10 Essential (primary) hypertension; E11.9 Type 2 diabetes mellitus without complications; M10.9 Gout, unspecified; Z88.0 Allergy status to penicillin; Z88.2 Allergy status to sulfonamides; Z95.1 Presence of aortocoronary bypass graft
CPT/HCPCS: 36415 ×2; 70450 ×2; 70551; 71045; 72125; 73070; 80048; 80053 ×2; 80076; 82962 ×7; 83735 ×2; 83880; 84484; 85025 ×3; 85610; 93005; 96374; 97162; 99285; G0378 ×2; J2405 ×2

== ENCOUNTER 2019-04-29 03:57 | Emergency (ER) | payer OTHER ==
--- NOTE | 2019-04-29 05:02 | ER ---
Nurse's Notes [facility] Name: Bebeto Wells Age: 79 yrs Sex: Male : 1940 Arrival Date: 04/29/2019 Time: 03:58 Bed 5 Private MD: Diagnosis: Gout;Type 2 diabetes mellitus Presentation: 04/29 04:08 Presenting complaint: Patient states: L hand pain x 2 days; States hx of gout. lp1 Transition of care: patient was not received from another setting of care. Onset of symptoms was April 27, 2019. Risk Assessment: Do you want to hurt yourself or someone else? Patient reports no desire to harm self or others. Initial Sepsis Screen: Does the patient meet any 2 criteria? No. Patient's initial sepsis screen is negative. Does the patient have a suspected source of infection? No. Patient's initial sepsis screen is negative. Care prior to arrival: None. 04:08 Method Of Arrival: Ambulatory lp1 04:08 Acuity: KRISTIAN 4 lp1 Historical: - Allergies: 04:10 Codeine; lp1 04:10 PENICILLINS; lp1 04:10 Sulfa (Sulfonamide Antibiotics); lp1 - Home Meds: 04:10 allopurinol 300 mg Oral tab 1 tab 2 times per day [Active]; aspirin 81 mg Oral chew 1 lp1 tab once daily [Active]; colchicine 0.6 mg Oral cap 1 cap once daily [Active]; furosemide 20 mg Oral tab 1 tab 2 times per day [Active]; metformin 1,000 mg Oral tab 1 tab 2 times per day [Active]; metoprolol tartrate 25 mg Oral tab [Active]; - PMHx: 04:10 Diabetes - NIDDM; Gout; Hypertension; lp1 - PSHx: 04:10 CABG; lp1 - Immunization history:: Adult Immunizations up to date. - Social history:: Smoking status: Patient/guardian denies using tobacco. - Ebola Screening: : No symptoms or risks identified at this time. - Family history:: not pertinent. Screenin:11 Abuse screen: Denies threats or abuse. Denies injuries from another. Nutritional lp1 screening: No deficits noted. Tuberculosis screening: No symptoms or risk factors identified. Fall Risk None identified. Assessment: 04:10 General: Appears in no apparent distress. Behavior is calm, cooperative, appropriate lp1 for age. Pain: Complains of pain in left hand Pain currently is 10 out of 10 on a pain scale. Neuro: No deficits noted. Cardiovascular: No deficits noted. Respiratory: No deficits noted. GI: No deficits noted. : No deficits noted. EENT: No deficits noted. Derm: Skin is pink, warm \T\ dry. Musculoskeletal: Swelling present in left hand. 05:15 Reassessment: Patient appears in no apparent distress at this time. Patient and/or jb4 family updated on plan of care and expected duration. Pain level reassessed. Patient is alert, oriented x 3, equal unlabored respirations, skin warm/dry/pink. D/c pending adminstration of second dose of Colcrys per providers orders to administer second dose one hour after the first. 06:22 Reassessment: Patient appears in no apparent distress at this time. Patient and/or jb4 family updated on plan of care and expected duration. Pain level reassessed. Patient is alert, oriented x 3, equal unlabored respirations, skin warm/dry/pink. PT refused wrist x-ray. Administered 0.6 mg of Colcrys at discharge. Pt verbalized understanding of d/c and follow up instructions. Ambulated out of ED with a steady gait. Vital Signs: 04:09 BP 154 / 72; Pulse 62; Resp 18; Temp 97.5(O); Pulse Ox 100% on R/A; Weight 83.01 kg; lp1 Height 5 ft. 9 in. (175.26 cm); Pain 10/10; 06:00 BP 128 / 71; Pulse 63; Resp 16; Pulse Ox 98% on R/A; jb4 04:09 Body Mass Index 27.02 (83.01 kg, 175.26 cm) lp1 ED Course: 03:58 Patient arrived in ED. ds1 04:08 Mary Delgado, ZEKE is Primary Nurse. lp1 04:09 Triage completed. lp1 04:09 Arm band placed on right wrist. lp1 04:11 Patient has correct armband on for positive identification. lp1 04:17 Dontae Sellers MD is Attending Physician. enriqueta 05:01 Yaya Noriega MD is Referral Physician. enriqueta 06:00 No provider procedures requiring assistance completed. Patient did not have IV access jb4 during this emergency room visit. Velcro wrist splint applied to left wrist. Administered Medications: 05:14 Drug: Colcrys 1.2 mg Route: PO; jb4 05:14 Drug: predniSONE 20 mg Route: PO; jb4 05:14 Drug: TORadol 60 mg Route: IM; Site: left gluteus; jb4 Outcome: 05:01 Discharge ordered by . enriqueta 06:25 Discharged to home ambulatory. jb4 06:25 Condition: stable 06:25 Discharge instructions given to patient, family, Instructed on discharge instructions, follow up and referral plans. medication usage, Demonstrated understanding of instructions, follow-up care, medications, Prescriptions given X 2. 06:25 Patient left the ED. jb4 Signatures: Dontae Sellers MD MD cha Sanford, Demi ds1 Mary Delgado, RN RN lp1 Sai Nichols RN RN jb4
--- NOTE | 2019-04-29 05:02 | EDPHYS ---
Physician Documentation [facility] Name: Bebeto Wells Age: 79 yrs Sex: Male : 1940 Arrival Date: 04/29/2019 Time: 03:58 Bed 5 Private MD: ED Physician Dontae Sellers HPI: 04/29 04:50 This 79 yrs old Male presents to ER via Ambulatory with complaints of Hand enriqueta Pain. 04:50 The patient or guardian reports decreased range of motion. The complaints affect the enriqueta left hand diffusely. Context: The problem was sustained at home. Onset: The symptoms/episode began/occurred 3 day(s) ago. Modifying factors: The symptoms are alleviated by holding still, splinting, the symptoms are aggravated by movement, dependent position. Associated signs and symptoms: The patient has no apparent associated signs or symptoms. Severity of symptoms: At their worst the symptoms were mild, moderate, in the emergency department the symptoms are unchanged. The patient has not experienced similar symptoms in the past. 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 - Social history:: Smoking status: Patient/guardian denies using tobacco. - Ebola Screening: : No symptoms or risks identified at this time. - Family history:: not pertinent. ROS: 04:50 Constitutional: Negative for fever, chills, and weight loss, Eyes: Negative for injury, enriqueta pain, redness, and discharge, ENT: Negative for injury, pain, and discharge, Neck: Negative for injury, pain, and swelling, Cardiovascular: Negative for chest pain, palpitations, and edema, Respiratory: Negative for shortness of breath, cough, wheezing, and pleuritic chest pain, Abdomen/GI: Negative for abdominal pain, nausea, vomiting, diarrhea, and constipation, Back: Negative for injury and pain, : Negative for injury, bleeding, discharge, and swelling, Skin: Negative for injury, rash, and discoloration, Neuro: Negative for headache, weakness, numbness, tingling, and seizure, Psych: Negative for depression, anxiety, suicide ideation, homicidal ideation, and hallucinations, Allergy/Immunology: Negative for hives, rash, and allergies, Endocrine: Negative for neck swelling, polydipsia, polyuria, polyphagia, and marked weight changes, Hematologic/Lymphatic: Negative for swollen nodes, abnormal bleeding, and unusual bruising. 04:50 MS/extremity: Positive for decreased range of motion, pain, swelling, tenderness. Exam: 04:50 Constitutional: This is a well developed, well nourished patient who is awake, alert, enriqueta and in no acute distress. Head/Face: Normocephalic, atraumatic. Eyes: Pupils equal round and reactive to light, extra-ocular motions intact. Lids and lashes normal. Conjunctiva and sclera are non-icteric and not injected. Cornea within normal limits. Periorbital areas with no swelling, redness, or edema. ENT: Nares patent. No nasal discharge, no septal abnormalities noted. Tympanic membranes are normal and external auditory canals are clear. Oropharynx with no redness, swelling, or masses, exudates, or evidence of obstruction, uvula midline. Mucous membranes moist. Neck: Trachea midline, no thyromegaly or masses palpated, and no cervical lymphadenopathy. Supple, full range of motion without nuchal rigidity, or vertebral point tenderness. No Meningismus. Chest/axilla: Normal chest wall appearance and motion. Nontender with no deformity. No lesions are appreciated. Cardiovascular: Regular rate and rhythm with a normal S1 and S2. No gallops, murmurs, or rubs. Normal PMI, no JVD. No pulse deficits. Respiratory: Lungs have equal breath sounds bilaterally, clear to auscultation and percussion. No rales, rhonchi or wheezes noted. No increased work of breathing, no retractions or nasal flaring. Abdomen/GI: Soft, non-tender, with normal bowel sounds. No distension or tympany. No guarding or rebound. No evidence of tenderness throughout. Back: No spinal tenderness. No costovertebral tenderness. Full range of motion. Male : Normal genitalia with no discharge or lesions. Skin: Warm, dry with normal turgor. Normal color with no rashes, no lesions, and no evidence of cellulitis. Neuro: Awake and alert, GCS 15, oriented to person, place, time, and situation. Cranial nerves II-XII grossly intact. Motor strength 5/5 in all extremities. Sensory grossly intact. Cerebellar exam normal. Normal gait. Psych: Awake, alert, with orientation to person, place and time. Behavior, mood, and affect are within normal limits. 04:50 Musculoskeletal/extremity: Extremities: noted in the left wrist: decreased ROM, pain, ROM: no acute changes, Pulses: are normal with no appreciated deficits, Perfusion: the patient is normally perfused throughout, Perfusion: the extremity is normally perfused throughout, Sensation intact. Compartment Syndrome exam of affected extremity: is normal. Joints: effusion, limited range of motion, pain at rest, painful range of motion, swelling, DVT Exam: negative Homans' sign noted on exam, no appreciated bluish discoloration, pain, swelling, tenderness, erythema, increased warmth. Vital Signs: 04:09 BP 154 / 72; Pulse 62; Resp 18; Temp 97.5(O); Pulse Ox 100% on R/A; Weight 83.01 kg; lp1 Height 5 ft. 9 in. (175.26 cm); Pain 10/10; 06:00 BP 128 / 71; Pulse 63; Resp 16; Pulse Ox 98% on R/A; jb4 04:09 Body Mass Index 27.02 (83.01 kg, 175.26 cm) lp1 MDM: 04:17 Patient medically screened. [facility] 04:54 Data reviewed: vital signs, nurses notes, radiologic studies, plain films. [facility] 04/29 04:56 Order name: Splint - Wrist: COCK UP; Complete Time: 05:42 [facility] 04/29 04:56 Order name: Ice pack; Complete Time: 05:14 enriqueta Administered Medications: 05:14 Drug: Colcrys 1.2 mg Route: PO; jb4 05:14 Drug: predniSONE 20 mg Route: PO; jb4 05:14 Drug: TORadol 60 mg Route: IM; Site: left gluteus; jb4 Disposition: 04/29/19 05:01 Discharged to Home. Impression: Gout, Type 2 diabetes mellitus. - Condition is Stable. - Discharge Instructions: Type 2 Diabetes Mellitus, Diagnosis, Adult, Gout, Gout, [id number], Type 2 Diabetes Mellitus, Diagnosis, Adult, Inym-ng-Prpz, Type 2 Diabetes Mellitus, Self Care, Adult. - Prescriptions for indomethacin 25 mg Oral capsule - take 1 capsule by ORAL route 3 times per day with food; 21 capsule. Medrol (Rancho) 4 mg Oral Tablets, Dose Pack - take 1 tablet by ORAL route as directed - follow package instructions; 1 packet. - Medication Reconciliation Form, Thank You Letter, Antibiotic Education, Prescription Opioid Use form. - Follow up: Private Physician; When: 2 - 3 days; Reason: Recheck today's complaints, Continuance of care, Re-evaluation by your physician. Follow up: Yaya Noriega; When: 2 - 3 days; Reason: Recheck today's complaints, Continuance of care, Re-evaluation by your physician. - Problem is new. - Symptoms have improved. Signatures: Dispatcher [employer] Dontae Sellers MD MD cha Pena, Laura, RN RN lp1 Sai Nichols RN RN jb4 Corrections: (The following items were deleted from the chart) 06:23 06:11 Wrist Left 2 View ordered. [facility] 06:25 05:01 04/29/2019 05:01 Discharged to Home. Impression: Gout; Type 2 diabetes mellitus. jb4 Condition is Stable. Discharge Instructions: Gout, Gout, [id number], Type 2 Diabetes Mellitus, Diagnosis, Adult, Type 2 Diabetes Mellitus, Diagnosis, Adult, Amue-cg-Eufc, Type 2 Diabetes Mellitus, Self Care, Adult. Prescriptions for indomethacin 25 mg Oral capsule - take 1 capsule by ORAL route 3 times per day with food; 21 capsule, Medrol (Rancho) 4 mg Oral Tablets, Dose Pack - take 1 tablet by ORAL route as directed - follow package instructions; 1 packet. and Forms are Medication Reconciliation Form, Thank You Letter, Antibiotic Education, Prescription Opioid Use. Follow up: Private Physician; When: 2 - 3 days; Reason: Recheck today's complaints, Continuance of care, Re-evaluation by your physician. Follow up: Yaya Noriega; When: 2 - 3 days; Reason: Recheck today's complaints, Continuance of care, Re-evaluation by your physician. Problem is new. Symptoms have improved. enriqueta
[2019-04-29] MEDS ORDERED: predniSONE 20 MG TAB ONE (05:08)
[2019-04-29] MEDS ORDERED: KETOROLAC 30 MG/ML INJ ONE (05:08)
[2019-04-29] MEDS ORDERED: COLCHICINE 0.6 MG TAB ONE ×2 (05:09→06:19)
[2019-04-29 06:37] VITALS: TEMP 97.5
[2019-04-29 06:39] VITALS: BP 128/71; O2SAT 98
== END 2019-04-29 06:25 | disposition home or self-care (01) ==
LOC: ER 03:57
DX: M10.9 Gout, unspecified (principal); E11.9 Type 2 diabetes mellitus without complications; Z88.0 Allergy status to penicillin; Z88.6 Allergy status to analgesic agent; Z88.2 Allergy status to sulfonamides; I10 Essential (primary) hypertension
CPT/HCPCS: 96372; 99283; J7512

== ENCOUNTER 2019-05-26 09:56 | Emergency (ER) | payer OTHER ==
[2019-05-26] MEDS ORDERED: COLCHICINE 0.6 MG TAB ONE (11:07)
[2019-05-26] MEDS ORDERED: predniSONE 10 MG TAB ONE (11:07)
[2019-05-26] MEDS ORDERED: KETOROLAC 30 MG/ML INJ ONE (11:07)
--- NOTE | 2019-05-26 11:09 | EDPHYS ---
Physician Documentation [facility] Name: Bebeto Wells Age: 79 yrs Sex: Male : 1940 Arrival Date: 05/26/2019 Time: 09:58 Bed 25 Private MD: Renan Bernardo ED Physician Sandro Hancock HPI: 05/26 11:21 This 79 yrs old Male presents to ER via Ambulatory with complaints of Hand kdr Swelling. 11:21 The patient or guardian complains of Pain and swelling to left wrist that has spread in kdr to the left hand. The patient had similar problems a few months ago which have resolved. This is his typical gout presentation in the same wrist/hand. The complaints affect the left wrist and left hand. Context: The problem was sustained at home, resulted from Gout flare. Onset: The symptoms/episode began/occurred gradually, 2 day(s) ago. Treatment prior to arrival includes: no previous treatment. Modifying factors: The symptoms are alleviated by nothing. the symptoms are aggravated by movement. Associated signs and symptoms: Pertinent positives: decreased range of motion, erythema, pain, swelling, warmth. Historical: - Allergies: 10:06 Codeine; aa5 10:06 PENICILLINS; aa5 10:06 Sulfa (Sulfonamide Antibiotics); aa5 - PMHx: 10:06 Diabetes - NIDDM; Gout; Hypertension; aa5 - PSHx: 10:06 CABG; aa5 - Immunization history:: Adult Immunizations unknown. - Social history:: Smoking status: Patient/guardian denies using tobacco. - Ebola Screening: : No symptoms or risks identified at this time. ROS: 17:19 Constitutional: Negative for fever, chills, and weight loss, Eyes: Negative for injury, kdr pain, redness, and discharge, Neck: Negative for injury, pain, and swelling, Cardiovascular: Negative for chest pain, palpitations, and edema, Respiratory: Negative for shortness of breath, cough, wheezing, and pleuritic chest pain, Abdomen/GI: Negative for abdominal pain, nausea, vomiting, diarrhea, and constipation. 17:19 MS/extremity: Positive for erythema, pain, swelling, tenderness, warmth, of the Dorsum of left wrist and hand with mild restrictive motion due to swelling and pain. Exam: 17:19 Constitutional: This is a well developed, well nourished patient who is awake, alert, kdr and in no acute distress. Head/Face: Normocephalic, atraumatic. 17:19 Musculoskeletal/extremity: Extremities: grossly normal except: pain, As noted above with left hand erythema and swelling. Vital Signs: 10:07 BP 127 / 79; Pulse 74; Resp 16 S; Temp 98.0(TE); Pulse Ox 100% on R/A; Pain 6/10; aa5 MDM: 11:08 Patient medically screened. kdr 17:19 Data reviewed: vital signs, nurses notes, lab test result(s), radiologic studies. kdr Counseling: I had a detailed discussion with the patient and/or guardian regarding: the historical points, exam findings, and any diagnostic results supporting the discharge/admit diagnosis, the need for outpatient follow up. Administered Medications: 11:11 Drug: TORadol - Ketorolac 15 mg Route: IM; Site: right deltoid; 11:20 Follow up: Response: No adverse reaction 11:11 Drug: predniSONE 20 mg Route: PO; 11:19 Follow up: Response: No adverse reaction 11:12 Drug: Colchicine-Probenecid 2 tabs Route: PO; 11:20 Follow up: Response: No adverse reaction Disposition: 05/26/19 11:08 Discharged to Home. Impression: Gout. - Condition is Stable. - Discharge Instructions: Gout, Mbcg-ei-Hpon. - Prescriptions for indomethacin 25 mg Oral capsule - take 1 capsule by ORAL route 3 times per day with food; 21 capsule. Medrol (Rancho) 4 mg Oral Tablets, Dose Pack - take 1 tablet by ORAL route as directed - follow package instructions; 1 packet. Tramadol 50 mg Oral Tablet - take 1 tablet by ORAL route every 8 hours As needed as needed; 12 tablet. - Medication Reconciliation Form, Thank You Letter, Prescription Opioid Use form. - Follow up: Renan Bernardo MD; When: 2 - 3 days; Reason: If symptoms return, Further diagnostic work-up, Recheck today's complaints, Continuance of care, Re-evaluation by your physician. - Problem is an acute exacerbation. - Symptoms have improved. Signatures: Sandro Hancock MD MD [facility] Renetta Strong RN RN aa5 Stephany Gaston Corrections: (The following items were deleted from the chart) 11:20 11:08 05/26/2019 11:08 Discharged to Home. Impression: Gout. Condition is Stable. Forms wh are Medication Reconciliation Form, Thank You Letter, Antibiotic Education, Prescription Opioid Use. Follow up: Renan Bernardo; When: 2 - 3 days; Reason: If symptoms return, Further diagnostic work-up, Recheck today's complaints, Continuance of care, Re-evaluation by your physician. Problem is an acute exacerbation. Symptoms have improved. kdr
--- NOTE | 2019-05-26 11:09 | ER ---
Nurse's Notes [facility] Name: Bebeto Wells Age: 79 yrs Sex: Male : 1940 Arrival Date: 05/26/2019 Time: 09:58 Bed 25 Private MD: Renan Bernardo Diagnosis: Gout Presentation: 05/26 10:05 Presenting complaint: Patient states: "It started with my left wrist swelling and now aa5 it's spreading to my left hand". Transition of care: patient was not received from another setting of care. Onset of symptoms was April 2019. Risk Assessment: Do you want to hurt yourself or someone else? Patient reports no desire to harm self or others. Initial Sepsis Screen: Does the patient meet any 2 criteria? No. Patient's initial sepsis screen is negative. Does the patient have a suspected source of infection? No. Patient's initial sepsis screen is negative. Care prior to arrival: None. 10:05 Acuity: KRISTIAN 5 aa5 10:05 Method Of Arrival: Ambulatory aa5 Historical: - Allergies: 10:06 Codeine; aa5 10:06 PENICILLINS; aa5 10:06 Sulfa (Sulfonamide Antibiotics); aa5 - PMHx: 10:06 Diabetes - NIDDM; Gout; Hypertension; aa5 - PSHx: 10:06 CABG; aa5 - Immunization history:: Adult Immunizations unknown. - Social history:: Smoking status: Patient/guardian denies using tobacco. - Ebola Screening: : No symptoms or risks identified at this time. Screenin:09 Abuse screen: Denies threats or abuse. Denies injuries from another. Nutritional wh screening: No deficits noted. Tuberculosis screening: No symptoms or risk factors identified. Fall Risk None identified. Assessment: 10:09 General: Appears in no apparent distress. Behavior is calm, cooperative, appropriate wh for age. Neuro: Level of Consciousness is awake, alert, obeys commands, Oriented to person, place, time, situation, Appropriate for age. Cardiovascular: Heart tones S1 S2. Respiratory: Airway is patent Respiratory effort is even, unlabored, Respiratory pattern is regular, symmetrical, Breath sounds are clear bilaterally. : No signs and/or symptoms were reported regarding the genitourinary system. EENT: No signs and/or symptoms were reported regarding the EENT system. Derm: Skin is intact, is healthy with good turgor, Skin is pink, warm \\T\\ dry. normal. Musculoskeletal: Circulation, motion, and sensation intact. 10:09 Pain: Complains of pain in Left wrist Pain does not radiate. Pain currently is 8 out of wh 10 on a pain scale. Pain began 5 days ago. GI: Abdomen is flat, non-distended. 11:18 Reassessment: Patient appears in no apparent distress at this time. No changes from previously documented assessment. Patient and/or family updated on plan of care and expected duration. Pain level reassessed. Patient is alert, oriented x 3, equal unlabored respirations, skin warm/dry/pink. Vital Signs: 10:07 BP 127 / 79; Pulse 74; Resp 16 S; Temp 98.0(TE); Pulse Ox 100% on R/A; Pain 6/10; aa5 ED Course: 09:58 Patient arrived in ED. mr 09:59 Renan Bernardo MD is Private Physician. mr 10:04 Sandro Hancock MD is Attending Physician. kdr 10:05 Arm band placed on. aa5 10:06 Triage completed. aa5 10:08 Stephany Gaston is Primary Nurse. wh 10:11 Patient has correct armband on for positive identification. Bed in low position. Call light in reach. Side rails up X 1. Pulse ox on. NIBP on. 11:07 Renan Bernardo MD is Referral Physician. kdr 11:18 No provider procedures requiring assistance completed. Patient did not have IV access during this emergency room visit. Administered Medications: 11:11 Drug: TORadol - Ketorolac 15 mg Route: IM; Site: right deltoid; 11:20 Follow up: Response: No adverse reaction 11:11 Drug: predniSONE 20 mg Route: PO; wh 11:19 Follow up: Response: No adverse reaction 11:12 Drug: Colchicine-Probenecid 2 tabs Route: PO; 11:20 Follow up: Response: No adverse reaction Outcome: 11:08 Discharge ordered by . kdr 11:19 Discharged to home ambulatory. wh 11:19 Condition: stable 11:19 Discharge instructions given to patient, Instructed on discharge instructions, follow up and referral plans. no drinking with medication, no driving heavy equipment, medication usage, POC Gout Demonstrated understanding of instructions, follow-up care, medications, POC Prescriptions given X 3. 11:20 Patient left the ED. Signatures: Sandro Hancock MD MD [facility] Lian Armendariz Audri RN RN aa5 Stephany Gaston Corrections: (The following items were deleted from the chart) 10:08 10:07 BP 127 / 79; Pulse 74bpm; Resp 16bpm; Spontaneous; Pulse Ox 100% RA; Temp 98.0F aa5 Temporal; aa5 10:17 10:09 Pain: Complains of pain in right upper quadrant Pain does not radiate. Pain wh currently is 8 out of 10 on a pain scale. Quality of pain is described as burning, Pain began 2 hours ago. 10:17 10:09 GI: Abdomen is flat, non-distended, Bowel sounds present X 4 quads. Abd is soft wh Abdomen is tender to palpation in right upper quadrant 11:03 10:11 Patient has correct armband on for positive identification. Placed in gown. Bed wh in low position. Call light in reach. Side rails up X 1. wh
[2019-05-26 18:04] VITALS: BP 127/79; TEMP 98; O2SAT 100
== END 2019-05-26 11:20 | disposition home or self-care (01) ==
LOC: ER 09:56
DX: M10.9 Gout, unspecified (principal); I10 Essential (primary) hypertension; E11.9 Type 2 diabetes mellitus without complications; Z95.1 Presence of aortocoronary bypass graft; Z88.0 Allergy status to penicillin; Z88.2 Allergy status to sulfonamides; Z88.5 Allergy status to narcotic agent
CPT/HCPCS: 96372; 99283; J7512

== ENCOUNTER 2019-06-25 15:16 | Emergency (ER) | payer OTHER ==
--- OUTSIDE RECORDS SUMMARY | 2019-06-25 15:18 | XMS REPORT ---
:1940 Author [facility] Address [address] [place] [address] Dr. Pena [address] [place] [id number] Care Team Providers Name Role Phone Unavailable Unavailable Unavailable Problems This patient has no known problems. Allergies, Adverse Reactions, Alerts This patient has no known allergies or adverse reactions. Medications This patient has no known medications.
[2019-06-25 17:16] LABS: Absolute Lymphocytes (CBC) 2.5 K/uL (0.7-4.9); Basophils % 0.6 % (0-1.3); Hematocrit 42.8 % (39.6-49.0); Lymphocytes % 22.5 % (15.3-44.8); MPV 7.3 fL (7.6-11.3); RBC Red Blood Cell Count 4.55 M/uL (4.33-5.43)
[2019-06-25 17:33] LABS: Albumin 3.6 g/dL (3.4-5.0); Bilirubin Direct 0.2 mg/dL (0-0.2); Bilirubin Total 0.8 mg/dL (0.2-1.0); Potassium 3.9 mmol/L (3.5-5.1); Protein, Total 7.3 g/dL (6.4-8.2)
[2019-06-25] MEDS ORDERED: FENTANYL CITR 100 MCG/2 ML ONE (17:35)
--- NOTE | 2019-06-25 17:51 | RAD REPORT ---
EXAM DESCRIPTION: CT - Stone Protocol - 06/25/2019 5:30 pm CLINICAL HISTORY: Abdominal pain. COMPARISON: 2014 TECHNIQUE: Computed axial tomography of the abdomen pelvis was obtained without oral or IV contrast. Lack of IV and oral contrast limits evaluation of solid organs, bowel, and vessels. Coronal reformat apollo images were obtained and reviewed. All CT scans are performed using dose optimization technique as appropriate and may include automated exposure control or mA/KV adjustment according to patient size. FINDINGS: A renal calculus is not seen. An ureteral calculus is not noted. A bladder calculus is not present. The prostate gland is mildly to moderately enlarged The liver, spleen, pancreas and adrenals appear grossly normal There is no evidence of diverticulitis. The appendix appears normal Spondylolysis L5 . Atherosclerotic disease Moderate amount of stool throughout the colon IMPRESSION: Negative for a genitourinary calculus
--- NOTE | 2019-06-25 18:15 | EDPHYS ---
Physician Documentation [facility] Name: Bebeto Wells Age: 79 yrs Sex: Male : 1940 Arrival Date: 06/25/2019 Time: 15:19 Bed 23 Private MD: Renan Bernardo ED Physician Dontae Sellers HPI: 06/25 16:44 This 79 yrs old Male presents to ER via Ambulatory with complaints of Back pm1 Pain. 16:44 The patient presents with pain that is acute, with no known mechanism of injury. The pm1 symptoms are located in the left low back. Onset: The symptoms/episode began/occurred today. The pain does not radiate. Associated signs and symptoms: Pertinent negatives: abdominal pain, chest pain, dysuria, fever, headache, nausea, numbness, tingling, vomiting. The problem was sustained from unknown cause, history of kidney stones. Modifying factors: The patient symptoms are alleviated by remaining still, the patient symptoms are aggravated by movement. Severity of symptoms: in the emergency department the symptoms are actually worse. The patient has experienced similar episodes in the past, a few times. Historical: - Allergies: 16:05 Codeine; rb1 16:05 PENICILLINS; rb1 16:05 Sulfa (Sulfonamide Antibiotics); rb1 - PMHx: 16:05 Diabetes - NIDDM; Gout; Hypertension; rb1 - PSHx: 16:05 CABG; rb1 - Immunization history:: Adult Immunizations up to date. - Social history:: Smoking status: Patient/guardian denies using tobacco. - Ebola Screening: : Patient negative for fever greater than or equal to 101.5 degrees Fahrenheit, and additional compatible Ebola Virus Disease symptoms. ROS: 16:44 Constitutional: Negative for fever, chills, and weight loss, Neck: Negative for injury, pm1 pain, and swelling, Cardiovascular: Negative for chest pain, palpitations, and edema, Respiratory: Negative for shortness of breath, cough, wheezing, and pleuritic chest pain, Abdomen/GI: Negative for abdominal pain, nausea, vomiting, diarrhea, and constipation, MS/Extremity: Negative for injury and deformity. 16:44 : Negative for injury, bleeding, discharge, and swelling, Skin: Negative for injury, rash, and discoloration, Neuro: Negative for headache, weakness, numbness, tingling, and seizure. 16:44 Back: Positive for pain with movement, of the left low back, Negative for pain at rest. Exam: 16:44 Constitutional: This is a well developed, well nourished patient who is awake, alert, pm1 and in no acute distress. Head/Face: Normocephalic, atraumatic. Neck: Trachea midline, no thyromegaly or masses palpated, and no cervical lymphadenopathy. Supple, full range of motion without nuchal rigidity, or vertebral point tenderness. No Meningismus. Chest/axilla: Normal chest wall appearance and motion. Nontender with no deformity. No lesions are appreciated. Cardiovascular: Regular rate and rhythm with a normal S1 and S2. No gallops, murmurs, or rubs. Normal PMI, no JVD. No pulse deficits. Respiratory: Lungs have equal breath sounds bilaterally, clear to auscultation and percussion. No rales, rhonchi or wheezes noted. No increased work of breathing, no retractions or nasal flaring. Abdomen/GI: Soft, non-tender, with normal bowel sounds. No distension or tympany. No guarding or rebound. No evidence of tenderness throughout. Skin: Warm, dry with normal turgor. Normal color with no rashes, no lesions, and no evidence of cellulitis. MS/ Extremity: Pulses equal, no cyanosis. Neurovascular intact. Full, normal range of motion. 16:44 Back: pain, that is mild, of the left low back, vertebral tenderness, is not appreciated. 16:44 Neuro: Orientation: is normal, to person, place, time, situation, Mentation: is normal, pm1 Cranial nerves: CN II- XII are normal as tested, Motor: is normal, Gait: is steady, at a normal pace, without difficulty. Vital Signs: 16:05 BP 108 / 89; Pulse 84; Resp 17; Temp 97.9(O); Pulse Ox 96% on R/A; Weight 81.65 kg (R); rb1 Height 5 ft. 9 in. (175.26 cm); Pain 10/10; 17:55 BP 113 / 69; Pulse 78; Resp 18; Pulse Ox 100% ; Pain 10/10; jp3 16:05 Body Mass Index 26.58 (81.65 kg, 175.26 cm) rb1 MDM: 16:18 Patient medically screened. pm1 16:48 Data reviewed: vital signs. Data interpreted: Pulse oximetry: on room air is 96 %. pm1 Interpretation: normal. 18:12 Counseling: I had a detailed discussion with the patient and/or guardian regarding: the pm1 historical points, exam findings, and any diagnostic results supporting the discharge/admit diagnosis, lab results, radiology results, the need for outpatient follow up, to return to the emergency department if symptoms worsen or persist or if there are any questions or concerns that arise at home. 06/25 16:44 Order name: Basic Metabolic Panel; Complete Time: 17:39 pm1 06/25 16:44 Order name: CBC with Diff; Complete Time: 17:23 pm1 06/25 16:44 Order name: Creatinine for Radiology; Complete Time: 17:39 pm1 06/25 16:44 Order name: Hepatic Function; Complete Time: 17:39 pm1 06/25 16:44 Order name: Lipase; Complete Time: 17:39 pm1 06/25 16:44 Order name: CT Stone Protocol; Complete Time: 18:12 pm1 06/25 16:44 Order name: IV Saline Lock; Complete Time: 16:52 pm1 06/25 16:44 Order name: Labs collected and sent; Complete Time: 16:52 pm1 Administered Medications: 17:40 Drug: NS 0.9% 1000 ml Route: IV; Rate: 1000 ml; Site: left antecubital; tr5 20:38 Follow up: IV Status: Completed infusion; IV Intake: 1000ml tr5 17:40 Drug: fentaNYL (PF) 25 mcg {Note: Rass:0.} Route: IVP; Site: left antecubital; tr5 18:20 Follow up: Response: Pain is decreased; RASS: Alert and Calm (0) tr5 Disposition: 06/25/19 18:13 Discharged to Home. Impression: Low back pain. - Condition is Stable. - Discharge Instructions: Back Pain, Adult. - Prescriptions for Tramadol 50 mg Oral Tablet - take 1 tablet by ORAL route every 8 hours As needed as needed; 20 tablet. - Medication Reconciliation Form, Thank You Letter, Antibiotic Education, Prescription Opioid Use form. - Follow up: Emergency Department; When: As needed; Reason: Worsening of condition. Follow up: Private Physician; When: 2 - 3 days; Reason: Recheck today's complaints, Continuance of care, Re-evaluation by your physician. - Problem is new. - Symptoms have improved. Addendum: 07/03/2019 11:14 Co-signature as Attending Physician, Dontae Sellers MD I agree with the assessment and c perez plan of care. Signatures: Dispatcher [employer] EDDontae Storm MD MD cha Barber, Rebecca, RN RN rb1 Ruddy Dumas NP WEIGHT CONTROL ENGINEER pm1 Ozzy Tavera RN RN tr5 Corrections: (The following items were deleted from the chart) 06/25 18:42 18:13 06/25/2019 18:13 Discharged to Home. Impression: Low back pain. Condition is tr5 Stable. Forms are Medication Reconciliation Form, Thank You Letter, Antibiotic Education, Prescription Opioid Use. Follow up: Emergency Department; When: As needed; Reason: Worsening of condition. Follow up: Private Physician; When: 2 - 3 days; Reason: Recheck today's complaints, Continuance of care, Re-evaluation by your physician. Problem is new. Symptoms have improved. pm1
--- NOTE | 2019-06-25 18:15 | ER ---
Nurse's Notes [facility] Name: Bebeto Wells Age: 79 yrs Sex: Male : 1940 Arrival Date: 06/25/2019 Time: 15:19 Bed 23 Private MD: Renan Bernardo Diagnosis: Low back pain Presentation: 06/25 16:04 Presenting complaint: Patient states: Left lower back pain 10/10 x 1 day. Transition of rb1 care: patient was not received from another setting of care. Onset of symptoms was June 24, 2019. 16:04 Method Of Arrival: Ambulatory rb1 16:04 Acuity: KRISTIAN 3 rb1 18:41 Risk Assessment: Do you want to hurt yourself or someone else? Patient reports no tr5 desire to harm self or others. Initial Sepsis Screen: Does the patient meet any 2 criteria? No. Patient's initial sepsis screen is negative. Does the patient have a suspected source of infection? No. Patient's initial sepsis screen is negative. Care prior to arrival: None. Triage Assessment: 16:05 Pain: Complains of pain in left lower back Pain currently is 10 out of 10 on a pain rb1 scale. Neuro: Level of Consciousness is awake, alert, obeys commands, Oriented to person, place, time, situation. Respiratory: Airway is patent Respiratory effort is even, unlabored, Respiratory pattern is regular, symmetrical. : No signs and/or symptoms were reported regarding the genitourinary system. Musculoskeletal: Range of motion: intact in all extremities. 18:41 General: Behavior is. tr5 Historical: - Allergies: 16:05 Codeine; rb1 16:05 PENICILLINS; rb1 16:05 Sulfa (Sulfonamide Antibiotics); rb1 - PMHx: 16:05 Diabetes - NIDDM; Gout; Hypertension; rb1 - PSHx: 16:05 CABG; rb1 - Immunization history:: Adult Immunizations up to date. - Social history:: Smoking status: Patient/guardian denies using tobacco. - Ebola Screening: : Patient negative for fever greater than or equal to 101.5 degrees Fahrenheit, and additional compatible Ebola Virus Disease symptoms. Screenin:30 Abuse screen: Denies threats or abuse. Nutritional screening: No deficits noted. tr5 Tuberculosis screening: No symptoms or risk factors identified. Fall Risk None identified. Assessment: 17:30 General: Appears in no apparent distress. Pain: Complains of pain in back. Neuro: Level tr5 of Consciousness is awake, alert, obeys commands, Oriented to person, place, time. Cardiovascular: Heart tones present. Respiratory: Airway is patent Respiratory effort is even, unlabored, Respiratory pattern is regular, symmetrical. GI: No signs and/or symptoms were reported involving the gastrointestinal system. : No signs and/or symptoms were reported regarding the genitourinary system. EENT: No signs and/or symptoms were reported regarding the EENT system. Derm: No signs and/or symptoms reported regarding the dermatologic system. Musculoskeletal: No signs and/or symptoms reported regarding the musculoskeletal system. Vital Signs: 16:05 BP 108 / 89; Pulse 84; Resp 17; Temp 97.9(O); Pulse Ox 96% on R/A; Weight 81.65 kg (R); rb1 Height 5 ft. 9 in. (175.26 cm); Pain 10/10; 17:55 BP 113 / 69; Pulse 78; Resp 18; Pulse Ox 100% ; Pain 10/10; jp3 16:05 Body Mass Index 26.58 (81.65 kg, 175.26 cm) rb1 ED Course: 15:19 Patient arrived in ED. ag5 15:19 Renan Bernardo MD is Private Physician. ag5 16:05 Arm band placed on left wrist. rb1 16:06 Triage completed. rb1 16:14 Ruddy Dumas NP is PHCP. pm1 16:14 Dontae Sellers MD is Attending Physician. pm1 16:30 Ozzy Tavera, ZEKE is Primary Nurse. tr5 16:55 Missed attempt(s): 22 gauge in right forearm. jp3 17:00 Inserted saline lock: 20 gauge in left antecubital area, using aseptic technique. Blood jp3 collected. Patient maintains SpO2 saturation greater than 95% on room air. 17:00 Initial lab(s) drawn, by me, sent to lab. jp3 17:02 CT Stone Protocol In Process Unspecified. EDMS 17:07 Safety checks: Family/friend present: yes. Family/friends encouraged to stay with jp3 patient. Bed in low position. Call light in reach. Side rails up X 1. Warm blanket given. Pillow given. Verbal reassurance given. Pulse ox on. NIBP on. 17:31 CT completed. Patient tolerated procedure well. Patient moved back from CT. bq 18:39 No provider procedures requiring assistance completed. Patient did not have IV access tr5 during this emergency room visit. Administered Medications: 17:40 Drug: NS 0.9% 1000 ml Route: IV; Rate: 1000 ml; Site: left antecubital; tr5 20:38 Follow up: IV Status: Completed infusion; IV Intake: 1000ml tr5 17:40 Drug: fentaNYL (PF) 25 mcg {Note: Rass:0.} Route: IVP; Site: left antecubital; tr5 18:20 Follow up: Response: Pain is decreased; RASS: Alert and Calm (0) tr5 Intake: 20:38 IV: 1000ml; Total: 1000ml. tr5 Outcome: 18:13 Discharge ordered by . pm1 18:39 Discharged to home ambulatory, with family. tr5 18:39 Condition: stable 18:39 Discharge instructions given to patient, Instructed on discharge instructions, follow up and referral plans. medication usage, Demonstrated understanding of instructions, follow-up care, medications, Prescriptions given X 1. 18:42 Patient left the ED. tr5 Signatures: Dispatcher [employer] EDMS Ruthann Peterson Rebecca, RN RN rb1 Ruddy Dumas NP INFORMATION SYSTEMS OPERATOR pm1 Primitivo Manuel 3 Félix Moran 5 Ozzy Tavera RN RN tr5 Corrections: (The following items were deleted from the chart) 18:40 18:39 Patient did not have IV access during this emergency room visit. tr5 tr5
[2019-06-25 20:32] VITALS: TEMP 97.9
[2019-06-25 20:33] VITALS: BP 113/69; O2SAT 100
[2019-06-26] MEDS ORDERED: ONDANSETRON 4 MG/2 ML VIAL ONE (10:59)
== END 2019-06-25 18:42 | disposition home or self-care (01) ==
LOC: ER 15:16
DX: M54.5 Low back pain (principal); I10 Essential (primary) hypertension; E11.9 Type 2 diabetes mellitus without complications; Z88.0 Allergy status to penicillin; Z88.2 Allergy status to sulfonamides; Z88.5 Allergy status to narcotic agent; Z95.1 Presence of aortocoronary bypass graft
CPT/HCPCS: 96361; 85025; 80048; 36415; 80076; 83690; 76377; 74176; 96374; 99285; J3010

== ENCOUNTER 2022-06-08 15:53 | Emergency (ER) | payer OTHER ==
--- OUTSIDE RECORDS SUMMARY | 2022-06-08 16:00 | XMS REPORT | Continuity of Care Document ---
:1940 Author Organization [facility] t Address [address] [place] [address] Care Team Providers Name Role Phone FELIPE MORFIN Primary Care Physician Unavailable JUAN ANTONIO ROGERS Attending Clinician Unavailable LAB90 Attending Clinician Unavailable MADHAVI GOLDMAN Attending Clinician Unavailable Juan Antonio Rogers DO Attending Clinician DINO BARCENAS Attending Clinician Unavailable Madhavi Goldman MD Attending Clinician [phone] SHAYNA DIAMOND Attending Clinician Unavailable SHIKHA STALLINGS Attending Clinician Unavailable RADIOLOGY Attending Clinician Unavailable Radiology Attending Clinician Unavailable Doctor Unassigned, Porter Attending Clinician Unavailable Shayna Johnson Attending Clinician KIRAN LEIJA Attending Clinician Unavailable DARRIAN SIDDIQUI Attending Clinician Unavailable Meagan Doe MD Attending Clinician ANA HAJI Attending Clinician Unavailable Darrian Siddiqui MD Attending Clinician [facility], [facility] Neurology Continuity Attending Clinician Unavail able ALYSSIA OCONNOR Admitting Clinician Unavailable MIS SILVER Admitting Clinician Unavailable Payers Payer Name Policy Type Policy Number Effective Date Expiration Date S ource KCNoel [place] HMO 7 [id number] 2022 00:00:00 CIGNA TOTAL CARE [id number] 2021 MEDICARE HMO DSNP 00:00:00 [place] [id number] 2020 HEALTHCARE/AARP 00:00:00 MEDICARE PART A \T\ [id number] 2007 B 00:00:00 [place] [facility] [id number] 2007 MEDICARE SUPPLEMENT 00:00:00 AETNA MEDICARE ADV [id number] 2018 00:00:00 Problems Condition Condition Condition Status Onset Resolution Last Treating Co mments Source Name Details Category Date Date Treatment Clinician Date Primary Primary Disease Active 2021-06 Daisy hypertensi hypertensi 1-16 Se ybold on on 00:00: - 00 Externa l Primary Primary Disease Active 2021-06 Daisy osteoarthr osteoarthr 1-16 Se ybold itis of itis of 00:00: - right knee right knee 00 Ex terna l Acquired Acquired Disease Active 2021-06 Kelse y hypothyroi hypothyroi 1-16 Se ybold dism dism 00:00: - 00 Externa l 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 1-16 Seybold gout gout 00:00: - 00 Externa l PVD PVD Disease Active 2021-06 Daisy (periphera (periphera 1-16 Se ybold l vascular l vascular 00:00: - disease) disease) 00 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 Acute pain Acute pain Disease Active K elsey of right of right 4-11 Seybol d knee knee 00:00: - 00 Externa l 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 4-11 Se ybold gout of gout of 00:00: - right knee right knee 00 Ex terna l Acute gout Acute gout Disease Active K elsey of left of left 3-01 Seybold wrist wrist 00:00: - 00 Externa l Pulmonary Pulmonary Disease Active Josue sey emphysema emphysema 1-18 Seyb old 00:00: - 00 Externa l 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 00:00: - with with 00 Externa atheroscle atheroscle l rosis rosis 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 Alfredo quiroz sterolemia sterolemia 02-07 Se ybold 00:00: - 00 Externa l History of History of Disease Active K richie 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 Seybol d artery artery 00:00: - bypass bypass 00 Externa graft x 3 graft x 3 l Hx of Hx of Disease Active Daisy acute acute 02-07 Seybold myocardial myocardial 00:00: - infarction infarction 00 Ex terna l 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 00:00: - carotid carotid 00 Externa arteries arteries l CAD CAD Disease Active Daisy (coronary (coronary 02-07 Seyb old artery artery 00:00: - disease) disease) 00 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 [id number] Arthritis Problem Co mmon [id number] of knee, [facility] No known No known Disease [facility] active active Levasy problems problems of Medicin e Allergies, Adverse Reactions, Alerts Allergy Allergy Status Severity Reaction(s) Onset Inactive Treating Comm ents Source Name Type Date Date Clinician Penicill Propensi Active Hiv 2018-06 Daisy ins ty to 08-06 Seybold adverse 00:00: reaction 00 s Penicill Propensi Active Hives 2018-06 Daisy ins ty to 08-06 Seybold adverse 00:00: - reaction 00 Externa s l Penicill Propensi Active 2018-06 [facility] ins ty to 08-06 Levasy adverse 00:00: of reaction 00 Medicin s to e drug penicill penicill Active Unknown Commo n in V in V [facility] NO KNOWN Drug Active [facility]ERGIE [facility] [place] [facility] Social History Social Habit Start Date Stop Date Quantity Comments Source Sex Assigned At Common Sp rodolfo - [facility] History of tobacco Smoker Daisy Sewell use - External History SDOH Daisy mosley Alcohol Frequency - Exter nal History HAJA mosley Alcohol Std Drinks - Exte rnal History SOFIYAOH Daisy mosley Alcohol Binge - External Alcohol intake 2022-06-08 2022-06-08 Current drinker of Juan mendoza Seybhoward 00:00:00 00:00:00 alcohol (finding) - Exter nal Cigarettes smoked 2022-05-13 2022-05-13 Daisy Sewell current (pack per 00:00:00 00:00:00 - Exter nal day) - Reported Cigarette 2022-05-13 2022-05-13 Daisy Sewell pack-years 00:00:00 00:00:00 - External Tobacco use and 2022-05-13 2022-05-13 Smokeless tobacco Ke tashiey Seybold exposure 00:00:00 00:00:00 non-user - External Alcohol Comment 2022-05-13 2022-05-13 occasionally Daisy Sewell 00:00:00 00:00:00 - External Education 2022-05-13 2022-05-13 16 Daisy Sewell 00:00:00 00:00:00 - External Exposure to 2021-07-22 2021-08-21 Not sure Daisy livingston SARS-CoV-2 (event) 00:00:00 17:05:00 Smoking Status Start Date Stop Date Source Ex-smoker 2022-05-13 00:00:00 2022-05-13 00:00:00 Daisy khanbold - External Unknown if ever smoked [facility] Never smoker [facility] Medications Ordered Filled Start Stop Current Ordering Indication Dosage Frequency Signature Comments Components Source Medication Medication Date Date Medication? Clinician (SIG) Name Name Simvastatin 2021-06 Yes 10mg Take 10 mg Daisy 10 MG oral 2-12 by mouth Seybo ld Tablet 10:12: at bedtime - 33 Externa l Thyroid 2021-06 Yes .05mg Take 0.05 Megha ey (LEVOTHYROX 2-12 mg by Seybold INE-LIOTHYR 10:12: mouth once - ONINE OR) 33 Externa l Loratadine 2021-06 Yes 10mg Take 10 mg K elsey 10 MG oral 2-12 by mouth Seybo ld Capsule 10:12: daily - 33 Externa l Aspirin 81 2021-06 Yes 81mg Take 81 mg K elsey MG oral 2-12 by mouth Seybold Tablet 10:12: every - Delayed 33 other day Externa Response l Lisinopril 2021-06 Yes 5mg Take 5 mg Ke lsey 5 MG oral 2-12 by mouth Seybol d Tablet 10:12: daily - 33 Externa l Cyanocobala 2021-06 Yes 1000ug Take 1,000 Daisy min (B-12 2-12 mcg by Seybhoward TR) 1000 10:12: mouth - MCG oral 33 daily Externa Tab CR l predniSONE 2021-06 Yes [id number] 10mg Take 1 Daisy (DELTASONE) 2-12 tablet (10 Se ybold 10 MG oral 00:00: mg total) - tablet 00 by mouth Externa daily l Meloxicam 2021-06 Yes [id number] 15mg QD Take 1 Daisy 15 MG oral 2-12 9100 tablet (15 Sey bold Tablet 00:00: mg total) - 00 by mouth Externa daily as l needed for pain Simvastatin 2021-06 Yes 10mg Take 10 mg Daisy 10 MG oral 1-16 by mouth Seybo ld Tablet 07:55: at bedtime - 05 Externa l Thyroid 2021-06 Yes .05mg Take 0.05 Megha ey (LEVOTHYROX 1-16 mg by Seybold INE-LIOTHYR 07:55: mouth once - ONINE OR) 05 Externa l Loratadine 2021-06 Yes 10mg Take 10 mg K elsey 10 MG oral 1-16 by mouth Seybo ld Capsule 07:55: daily - 05 Externa l Aspirin 81 2021-06 Yes 81mg Take 81 mg K elsey MG oral 1-16 by mouth Seybold Tablet 07:55: every - Delayed 05 other day Externa Response l Lisinopril 2021-06 Yes 5mg Take 5 mg Ke lsey 5 MG oral 1-16 by mouth Seybol d Tablet 07:55: daily - 05 Externa l Cyanocobala 2021-06 Yes 1000ug Take 1,000 Daisy min (B-12 1-16 mcg by Melodie TR) 1000 07:55: mouth - MCG oral 05 daily Externa Tab CR l Simvastatin 2021-06 Yes 10mg Take 10 mg Daisy 10 MG oral 0-12 by mouth Seybo ld Tablet 09:47: at bedtime - 32 Externa l Thyroid 2021-06 Yes .05mg Take 0.05 Megha ey (LEVOTHYROX 0-12 mg by Seybold INE-LIOTHYR 09:47: mouth once - ONINE OR) 32 Externa l Loratadine 2021-06 Yes 10mg Take 10 mg K elsey 10 MG oral 0-12 by mouth Seybo ld Capsule 09:47: daily - 32 Externa l Aspirin 81 2021-06 Yes 81mg Take 81 mg K elsey MG oral 0-12 by mouth Seybold Tablet 09:47: every - Delayed 32 other day Externa Response l Lisinopril 2021-06 Yes 5mg Take 5 mg Ke lsey 5 MG oral 0-12 by mouth Seybol d Tablet 09:47: daily - 32 Externa l Cyanocobala 2021-06 Yes 1000ug Take 1,000 Daisy min (B-12 0-12 mcg by Seybold TR) 1000 09:47: mouth - MCG oral 32 daily Externa Tab CR l Glimepiride Yes [id number] 2mg Take 1 Daisy 2 MG oral 9-09 tablet (2 Seybo ld Tablet 00:00: mg total) - 00 by mouth Externa every l morning (before breakfast) Glimepiride Yes [id number] 2mg Take 1 Daisy 2 MG oral 9-09 tablet (2 Seybo ld Tablet 00:00: mg total) - 00 by mouth Externa every l morning (before breakfast) Glimepiride Yes [id number] 2mg Take 1 Daisy 2 MG oral 9-09 tablet (2 Seybo ld Tablet 00:00: mg total) - 00 by mouth Externa every l morning (before breakfast) predniSONE 2021- No [id number] One pill Daisy (DELTASONE) 03-05 10-12 twice Seybol d 10 MG oral 00:00: 00:00 daily for - tablet 00 :00 5 days Externa then one l pill daily for 5 days. Meloxicam Yes TAKE 1 Daisy 15 MG oral 6-06 TABLET BY Seyb old Tablet 00:00: MOUTH - 00 EVERY DAY Externa NEEDED l FOR PAIN Meloxicam Yes TAKE 1 Daisy 15 MG oral 6-06 TABLET BY Seyb old Tablet 00:00: MOUTH - 00 EVERY DAY Externa NEEDED l FOR PAIN Meloxicam 2021- No TAKE 1 Kelse y 15 MG oral 6-06 12-12 TABLET BY Sey bold Tablet 00:00: 00:00 MOUTH - 00 :00 EVERY DAY Externa NEEDED l FOR PAIN Simvastatin 2021-0 Yes 10mg Take 10 mg Daisy 10 MG oral 4-25 by mouth Seybo ld Tablet 08:05: at bedtime 13 Thyroid 2021-0 Yes .05mg Take 0.05 Megha ey (LEVOTHYROX 4-25 mg by Melodie INE-LIOTHYR 08:05: mouth once ONINE OR) 13 Loratadine 2021-0 Yes 10mg Take 10 mg K elsey 10 MG oral 4-25 by mouth Seybo ld Capsule 08:05: daily 13 Aspirin 81 2021-0 Yes 81mg Take 81 mg K elsey MG oral 4-25 by mouth Seybold Tablet 08:05: every Delayed 13 other day Response Lisinopril 0 Yes 5mg Take 5 mg Ke lsey 5 MG oral 4-25 by mouth Seybol d Tablet 08:05: daily 13 Cyanocobala Yes 1000ug Take 1,000 Dasiy min (B-12 4-25 mcg by Melodie TR) 1000 08:05: mouth MCG oral 13 daily Tab CR Allopurinol Yes [id number] 300mg Take 1 Daisy 300 MG oral 4-13 tablet Seybol d Tablet 00:00: (300 mg 00 total) by mouth daily Allopurinol 0 Yes [id number] 300mg Take 1 Daisy 300 MG oral 4-13 tablet Seybol d Tablet 00:00: (300 mg - 00 total) by Externa mouth l daily Allopurinol 2021-0 Yes [id number] 300mg Take 1 Daisy 300 MG oral 4-13 tablet Seybol d Tablet 00:00: (300 mg - 00 total) by Externa mouth l daily Allopurinol 0 Yes [id number] 300mg Take 1 Daisy 300 MG oral 4-13 tablet Seybol d Tablet 00:00: (300 mg - 00 total) by Externa mouth l daily Simvastatin 2021-0 Yes 10mg Take 10 mg Daisy 10 MG oral 4-11 by mouth Seybo ld Tablet 14:19: at bedtime 16 Thyroid 2021-0 Yes .05mg Take 0.05 Megha ey (LEVOTHYROX 4-11 mg by Seybold INE-LIOTHYR 14:19: mouth once ONINE OR) 16 Loratadine 0 Yes 10mg Take 10 mg K elsey 10 MG oral 4-11 by mouth Seybo ld Capsule 14:19: daily 16 Allopurinol 0 Yes 100mg Take 100 K elsey 100 MG oral 4-11 mg by Seybold Tablet 14:19: mouth 16 daily Aspirin 81 2021-0 Yes 81mg Take 81 mg K elsey MG oral 4-11 by mouth Seybold Tablet 14:19: every Delayed 16 other day Response Lisinopril 0 Yes 5mg Take 5 mg Ke lsey 5 MG oral 4-11 by mouth Seybol d Tablet 14:19: daily 16 Cyanocobala 0 Yes 1000ug Take 1,000 Daisy min (B-12 4-11 mcg by Seybold TR) 1000 14:19: mouth MCG oral 16 daily Tab CR predniSONE 0 Yes [id number] One pill Daisy (DELTASONE) 4-11 9105 twice Seybold 10 MG oral 00:00: daily for tablet 00 5 days then one pill daily for 5 days. Meloxicam 2021-0 Yes 15mg QD Take 1 Daisy 15 MG oral 4-11 tablet (15 Sey bold Tablet 00:00: mg total) 00 by mouth daily as needed for pain predniSONE 2021-0 Yes [id number] One pill Daisy (DELTASONE) 4-11 9105 twice Seybold 10 MG oral 00:00: daily for tablet 00 5 days then one pill daily for 5 days. Meloxicam 2021-0 Yes 15mg QD Take 1 Daisy 15 MG oral 4-11 tablet (15 Sey bold Tablet 00:00: mg total) 00 by mouth daily as needed for pain Simvastatin 2021-0 Yes 10mg Take 10 mg Daisy 10 MG oral 3-22 by mouth Seybo ld Tablet 08:28: at bedtime 58 Thyroid 2021-0 Yes .05mg Take 0.05 Megha ey (LEVOTHYROX 3-22 mg by Seybold INE-LIOTHYR 08:28: mouth once ONINE OR) 58 Loratadine 2021-0 Yes 10mg Take 10 mg K elsey 10 MG oral 3-22 by mouth Seybo ld Capsule 08:28: daily 58 Allopurinol 2021-0 Yes 100mg Take 100 K elsey 100 MG oral 3-22 mg by Seybold Tablet 08:28: mouth 58 daily Aspirin 81 2021-0 Yes 81mg Take 81 mg K elsey MG oral 3-22 by mouth Seybold Tablet 08:28: every Delayed 58 other day Response Lisinopril 2021-0 Yes 5mg Take 5 mg Ke lsey 5 MG oral 3-22 by mouth Seybol d Tablet 08:28: daily 58 Cyanocobala 2021-0 Yes 1000ug Take 1,000 Daisy min (B-12 3-22 mcg by Seybold TR) 1000 08:28: mouth MCG oral 58 daily Tab CR Simvastatin 2021-0 Yes 10mg Take 10 mg Daisy 10 MG oral 3-01 by mouth Seybo ld Tablet 08:58: at bedtime 41 Thyroid 2021-0 Yes .05mg Take 0.05 Megha ey (LEVOTHYROX 3-01 mg by Seybold INE-LIOTHYR 08:58: mouth once ONINE OR) 41 Loratadine 2021-0 Yes 10mg Take 10 mg K elsey 10 MG oral 3-01 by mouth Seybo ld Capsule 08:58: daily 41 Allopurinol 2021-0 Yes 100mg Take 100 K elsey 100 MG oral 3-01 mg by Seybold Tablet 08:58: mouth 41 daily Aspirin 2021-0 Yes 81mg Take 81 mg Megha ey (Baljinder 3-01 by mouth Seybold Aspirin EC 08:58: every Low Dose) 41 other day 81 MG oral Tablet Delayed Response Lisinopril 2021-0 Yes 5mg Take 5 mg Ke lsey 5 MG oral 3-01 by mouth Seybol d Tablet 08:58: daily 41 Cyanocobala 2021-0 Yes 1000ug Take 1,000 Daisy min (B-12 3-01 mcg by Seybold TR) 1000 08:58: mouth MCG oral 41 daily Tab CR predniSONE 2021-0 Yes [id number] Take 3 Daisy (DELTASONE) 3-01 9101 tablets by Se ybold 10 MG oral 00:00: mouth for tablet 00 7 days then 1 tablet by mouth for 7 day predniSONE 2-0 Yes [id number] Take 3 Daisy (DELTASONE) 3-01 9101 tablets by Se ybold 10 MG oral 00:00: mouth for tablet 00 7 days then 1 tablet by mouth for 7 day predniSONE 2021-0 2- No [id number] Take 3 Daisy (DELTASONE) 08-26 9101 tablets by Cornelius khanbold 10 MG oral 00:00: 00:00 mouth for tablet 00 :00 7 days then 1 tablet by mouth for 7 day Simvastatin 2021-0 Yes 10mg Take 10 mg Daisy 10 MG oral 2-22 by mouth Seybo ld Tablet 09:46: at bedtime 39 Thyroid 2021-0 Yes .05mg Take 0.05 Megha ey (LEVOTHYROX 2-22 mg by Seybold INE-LIOTHYR 09:46: mouth once ONINE OR) 39 Loratadine 0 Yes 10mg Take 10 mg K elsey 10 MG oral 2-22 by mouth Seybo ld Capsule 09:46: daily 39 Allopurinol 0 Yes 100mg Take 100 K elsey 100 MG oral 2-22 mg by Seybold Tablet 09:46: mouth 39 daily Aspirin 2021-0 Yes 81mg Take 81 mg Megha ey (Baljinder 2-22 by mouth Seybold Aspirin EC 09:46: every Low Dose) 39 other day 81 MG oral Tablet Delayed Response Lisinopril 0 Yes 5mg Take 5 mg Ke lsey 5 MG oral 2-22 by mouth Seybol d Tablet 09:46: daily 39 Cyanocobala 2021-0 Yes 1000ug Take 1,000 Daisy min (B-12 2-22 mcg by Melodie TR) 1000 09:46: mouth MCG oral 39 daily Tab CR Clindamycin 2021-0 Yes [id number] 300mg Take 1 Daisy HCl 300 MG 2-22 capsule Seybol d oral 00:00: (300 mg Capsule 00 total) by mouth 3 times daily Mupirocin 2021-0 Yes [id number] Apply to Daisy (BACTROBAN) 2-22 affected Seyb old 2 % apply 00:00: toe twice externally 00 a day Ointment Clindamycin 2021-0 Yes [id number] 300mg Take 1 Daisy HCl 300 MG 2-22 capsule Seybol d oral 00:00: (300 mg Capsule 00 total) by mouth 3 times daily Mupirocin 2022-0 Yes [id number] Apply to Daisy (BACTROBAN) 2-22 affected Seyb old 2 % apply 00:00: toe twice externally 00 a day Ointment Clindamycin 2021-0 Yes [id number] 300mg Take 1 Daisy HCl 300 MG 2-22 capsule Seybol d oral 00:00: (300 mg Capsule 00 total) by mouth 3 times daily Mupirocin 2021-0 Yes [id number] Apply to Daisy (BACTROBAN) 2-22 affected Seyb old 2 % apply 00:00: toe twice externally 00 a day Ointment Mupirocin 2021-0 Yes [id number] Apply to Daisy (BACTROBAN) 2-22 affected Seyb old 2 % apply 00:00: toe twice externally 00 a day Ointment Mupirocin 2021-0 Yes [id number] Apply to Daisy (BACTROBAN) 2-22 affected Seyb old 2 % apply 00:00: toe twice - externally 00 a day Externa Ointment l Mupirocin 2021-0 Yes [id number] Apply to Daisy (BACTROBAN) 2-22 affected Seyb old 2 % apply 00:00: toe twice - externally 00 a day Externa Ointment l Mupirocin 2021-0 Yes [id number] Apply to Daisy (BACTROBAN) 2-22 affected Seyb old 2 % apply 00:00: toe twice - externally 00 a day Externa Ointment l Clindamycin 2021-0 Yes [id number] 300mg Take 1 Daisy HCl 300 MG 2-22 capsule Seybol d oral 00:00: (300 mg Capsule 00 total) by mouth 3 times daily Mupirocin 2021-0 Yes [id number] Apply to Daisy (BACTROBAN) 2-22 affected Seyb old 2 % apply 00:00: toe twice externally 00 a day Ointment Clindamycin 2021-0 2- No [id number] 300mg Take 1 Daisy HCl 300 MG 2-22 04-25 capsule Seybo ld oral 00:00: 00:00 (300 mg Capsule 00 :00 total) by mouth 3 times daily Metoprolol 2021-0 Yes 50mg Take 50 mg K elsey Tartrate 50 2-10 by mouth Seyb old MG oral 13:37: Tablet 18 Simvastatin 2021-0 Yes 20mg Take 20 mg Daisy 20 MG oral 2-10 by mouth Seybo ld Tablet 13:37: 18 Celecoxib 2021-0 Yes [id number] 200mg Take 1 K elsey (CeleBREX) 2-10 capsule Seybol d 200 MG oral 00:00: (200 mg Capsule 00 total) by mouth 2 times daily Colchicine 2021-0 Yes TAKE 1 Kelse y 0.6 MG oral 2-04 TABLET BY Sey bold Tablet 00:00: MOUTH 00 EVERY DAY Gabapentin 2021-0 Yes TAKE 1 Kelse y 300 MG oral 2-01 CAPSULE BY Se ybold Capsule 00:00: MOUTH 00 THREE TIMES A DAY Empaglifloz 2021-0 Yes [id number] 1{tbl} Take 1 Daisy in 1-20 tablet by Seybold (Jardiance) 00:00: mouth 10 MG oral 00 daily Tablet Furosemide 2021-0 2022- No 20mg Take 20 mg Daisy 20 MG oral 1-18 01-18 by mouth Seyb old Tablet 10:08: 00:00 37 :00 Metformin 2-0 2022- No 500mg Take 500 Ke lsey HCl 500 MG 1-18 01-18 mg by Seybold oral Tablet 10:00: 00:00 mouth 30 :00 Metoprolol 2021-0 Yes 50mg Take 50 mg K elsey Tartrate 50 1-18 by mouth Seyb old MG oral 09:39: Tablet 16 Simvastatin 2021-0 Yes 20mg Take 20 mg Daisy 20 MG oral 1-18 by mouth Seybo ld Tablet 09:39: 16 Colchicine 2021-0 Yes TAKE 1 Kelse y 0.6 MG oral 1-12 TABLET BY Sey bold Tablet 00:00: MOUTH 00 EVERY DAY Tramadol 2020-06 Yes 50mg Q6H Take 1 Daisy HCl 50 MG 2-27 tablet (50 Seyb old oral Tablet 00:00: mg total) 00 by mouth every 6 hours as needed FOR PAIN Gabapentin 2020-06 Yes 300mg Take 1 Megha ey 300 MG oral 2-27 capsule Seybo ld Capsule 00:00: (300 mg 00 total) by mouth 3 times daily Tramadol 2020-06 Yes 50mg Q6H Take 1 Daisy HCl 50 MG 2-27 tablet (50 Seyb old oral Tablet 00:00: mg total) 00 by mouth every 6 hours as needed FOR PAIN Albuterol Yes Daisy HFA 108 (90 5-07 Seybold Base) 00:00: MCG/ACT IN 00 AERS Albuterol 0 Yes Daisy HFA 108 (90 5-07 Seybold Base) 00:00: MCG/ACT IN 00 AERS metformin 2019-06 Yes 500mg Take 500 Spink neha (GLUCOPHAGE 0-23 mg by College ) 500 MG 12:43: mouth. of tablet 32 Medicin e simvastatin 2019-06 Yes 20mg Take 20 mg David (ZOCOR) 20 0-23 by mouth. Justin ege MG tablet 12:43: of 32 Medicin e metoprolol 2019-06 Yes 50mg Take 50 mg B aylor (LOPRESSOR) 0-23 by mouth. Col lege 50 MG 12:43: of tablet 32 Medicin e furosemide 2019-06 Yes 20mg Take 20 mg B aylor (LASIX) 20 0-23 by mouth. Justin ege MG tablet 12:43: of 32 Medicin e tramadol Yes TAKE 1 David (ULTRAM) 50 8-13 TABLET BY Col lege MG tablet 00:00: MOUTH of 00 EVERY 6 Medicin HOURS e NEEDED FOR PAIN furosemide Yes 20mg Take 20 mg U nivers 20 mg 6-17 by mouth. ity of tablet 15:37: [address] metFORMIN 0 Yes 500mg Take 500 Uni vers 500 mg 6-17 mg by ity of tablet 15:37: mouth. [address] metoprolol Yes 50mg Take 50 mg U nivers tartrate 50 6-17 by mouth. ity of mg tablet 15:37: [address] simvastatin 0 Yes 20mg Take 20 mg Univers 20 mg 6-17 by mouth. ity of tablet 15:37: [address] furosemide 0 Yes 20mg Take 20 mg U nivers 20 mg 6-17 by mouth. ity of tablet 15:37: [address] metFORMIN 0 Yes 500mg Take 500 Uni vers 500 mg 6-17 mg by ity of tablet 15:37: mouth. [address] metoprolol 0 Yes 50mg Take 50 mg U nivers tartrate 50 6-17 by mouth. ity of mg tablet 15:37: [address] simvastatin 2020-0 Yes 20mg Take 20 mg Univers 20 mg 6-17 by mouth. ity of tablet 15:37: [address] furosemide 2020-0 Yes 20mg Take 20 mg U nivers 20 mg 6-17 by mouth. ity of tablet 10:37: [address] metFORMIN 2020-0 Yes 500mg Take 500 Uni vers 500 mg 6-17 mg by ity of tablet 10:37: mouth. [address] metoprolol 2020-0 Yes 50mg Take 50 mg U nivers tartrate 50 6-17 by mouth. ity of mg tablet 10:37: [address] simvastatin 2020-0 Yes 20mg Take 20 mg Univers 20 mg 6-17 by mouth. ity of tablet 10:37: [address] furosemide 2020-0 Yes 20mg Take 20 mg U nivers 20 mg 6-17 by mouth. ity of tablet 10:37: [address] metFORMIN 2020-0 Yes 500mg Take 500 Uni vers 500 mg 6-17 mg by ity of tablet 10:37: mouth. [address] metoprolol 2020-0 Yes 50mg Take 50 mg U nivers tartrate 50 6-17 by mouth. ity of mg tablet 10:37: [address] simvastatin 2020-0 Yes 20mg Take 20 mg Univers 20 mg 6-17 by mouth. ity of tablet 10:37: [address] colchicine 2020-0 2020- No .6mg Take 0.6 Un lennox 0.6 mg 5-24 06-17 mg by ity of tablet 00:00: 00:00 mouth [place] 00 :00 daily. [facility] colchicine 2020-0 2020- No .6mg Take 0.6 Un lennox 0.6 mg 5-24 06-17 mg by ity of tablet 00:00: 00:00 mouth [place] 00 :00 daily. [facility] indomethaci 2018- Yes TAKE 1 Univ ers n 25 mg - CAPSULE BY ity of capsule 00:00: MOUTH 3 [place] 00 TIMES A Medical DAY WITH Branch FOOD traMADol 50 2018-06 Yes Univer s mg tablet 07-26 ity of 00:00: [place] 00 [facility] indomethaci 2018- Yes TAKE 1 Univ ers n 25 mg - CAPSULE BY ity of capsule 00:00: MOUTH 3 [place] 00 TIMES A Medical DAY WITH Branch FOOD traMADol 50 2018-06 Yes Univer s mg tablet 07-26 ity of 00:00: [place] [facility] indomethaci 2018-06 Yes TAKE 1 Univ ers n 25 mg -29 CAPSULE BY ity of capsule 00:00: MOUTH 3 TIMES A Medical DAY WITH Branch FOOD traMADol 50 2018-06 Yes Univer s mg tablet 29 ity of 00:00: [place] [facility] Branch indomethaci 2018-06 Yes TAKE 1 Univ ers n 25 mg -29 CAPSULE BY ity of capsule 00:00: MOUTH 3 TIMES A Medical DAY WITH Branch FOOD traMADol 50 2018-06 Yes Univer s mg tablet 07-26 ity of 00:00: [address] indomethaci 2018-06 Yes TAKE 1 [facility] (INDOCIN) 07-26 CAPSULE BY Co llege 25 MG 00:00: MOUTH 3 of capsule 00 TIMES A Medicin DAY WITH e FOOD febuxostat 2018-06 Yes 40mg Take 40 mg U nivers 40 mg 1-26 by mouth. ity of tablet 00:00: [facility] febuxostat 2018-06 Yes 40mg Take 40 mg U nivers 40 mg 1-26 by mouth. ity of tablet 00:00: [place] [facility] febuxostat 2018-06 Yes 40mg Take 40 mg U nivers 40 mg 1-26 by mouth. ity of tablet 00:00: [facility] febuxostat 2018-06 Yes 40mg Take 40 mg U nivers 40 mg 1-26 by mouth. ity of tablet 00:00: [place] [facility] tiZANidine 2018-06 Yes Univers 4 mg tablet 0-14 ity of 00:00: [facility] tiZANidine 2018-06 Yes Univers 4 mg tablet 0-14 ity of 00:00: [place] [facility] tiZANidine 2018-06 Yes Univers 4 mg tablet 0-14 ity of 00:00: [place] [facility] tiZANidine 2018-06 Yes Univers 4 mg tablet 0-14 ity of 00:00: [facility] tizanidine 2018-06 Yes David (ZANAFLEX) 0-14 College 4 MG tablet 00:00: Medicin e gabapentin 2018-06 Yes Univers 300 mg 0-07 ity of capsule 00:00: [address] gabapentin 2018- Yes Univers 300 mg 0-07 ity of capsule 00:00: [place] [facility] gabapentin 2018- Yes Univers 300 mg 0-07 ity of capsule 00:00: [address] gabapentin 2018- Yes Univers 300 mg 0-07 ity of capsule 00:00: [address] gabapentin 2018- Yes [facility] (NEURONTIN) 0-07 College 300 MG 00:00: of capsule 00 Medicin e allopurinoL Yes Univer s 100 mg 9-24 ity of tablet 00:00: [address] allopurinoL Yes Univer s 100 mg 9-24 ity of tablet 00:00: [address] allopurinoL Yes Univer s 100 mg 9-24 ity of tablet 00:00: [address] allopurinoL Yes Univer s 100 mg 9-24 ity of tablet 00:00: [address] allopurinol Yes [facility] (ZYLOPRIM) 9-24 College 100 MG 00:00: of tablet 00 Medicin e Jardiance Jardiance No Jardiance Glimepiride Glimepiride No Glimepirid e ASA-APAP-Ca ASA-APAP-Ca No ASA-APAP-C ff Buffered ff Buffered aff Buffered Simvastatin Simvastatin No Simvastati n Metoprolol Metoprolol No Metoprolol Tartrate Tartrate Tartrate Levothyroxi Levothyroxi No Levothyrox ne Sodium ne Sodium ine Sodium Lisinopril Lisinopril No Lisinopril Aspirin Aspirin No Aspirin Allopurinol Allopurinol No Allopurino l Loratadine Loratadine No Loratadine B-12 B-12 No B-12 Immunizations Ordered Immunization Filled Immunization Date Status Commen ts Source Name Name COVID-19 Bivalent 2022-05-13 Completed Daisy Martinezold Booster vaccine 00:00:00 - Externa l PFIZER 12+ COVID-19 Bivalent 2022-05-13 Completed Daisy Iveyybold Booster vaccine 00:00:00 - Externa l PFIZER 12+ Influenza Virus 2022-04-08 Completed Daisy sanders Vaccine, 00:00:00 - External Quadrivalent, High Dose, Age 65 And Up Influenza Virus 2022-04-08 Completed Daisy Se ybold Vaccine, 00:00:00 - External Quadrivalent, High Dose, Age 65 And Up Influenza Virus 2022-04-08 Completed Daisy Se ybold Vaccine, 00:00:00 - External Quadrivalent, High Dose, Age 65 And Up Shingles IM 2021-07-03 Completed Daisy Seybol d (Shingrix) 00:00:00 - External Shingles IM 2021-07-03 Completed Daisy Seybol d (Shingrix) 00:00:00 - External Shingles IM 2021-07-03 Completed Daisy Seybol d (Shingrix) 00:00:00 - External Influenza vaccine, 2021-03-19 Completed Daisy Seybold quadrivalent, 00:00:00 - External adjuvanted Shingles IM 2021-03-19 Completed Daisy Seybol d (Shingrix) 00:00:00 - External Influenza vaccine, 2021-03-19 Completed Daisy Seybold quadrivalent, 00:00:00 - External adjuvanted Shingles IM 2021-03-19 Completed Daisy Seybol d (Shingrix) 00:00:00 - External Influenza vaccine, 2021-03-19 Completed Daisy Seybold quadrivalent, 00:00:00 - External adjuvanted Shingles IM 2021-03-19 Completed Daisy Seybol d (Shingrix) 00:00:00 - External Covid-19 Vaccine 2020-08-30 Completed Daisy silverman ([employer]), Mrna-lnp, 00:00:00 - Ext ernal Mark Protein, Pf, 30mcg/0.3ml,IM Covid-19 Vaccine 2020-08-30 Completed Daisy silverman ([facility]), Mrna-lnp, 00:00:00 - Ext ernal Mark Protein, Pf, 30mcg/0.3ml,IM Covid-19 Vaccine 2020-08-30 Completed Daisy silverman ([facility]), Mrna-lnp, 00:00:00 - Ext ernal Mark Protein, Pf, 30mcg/0.3ml,IM Covid-19 Vaccine 2020-08-09 Completed Daisy silverman ([facility]), Mrna-lnp, 00:00:00 Mark Protein, Pf, 30mcg/0.3ml,IM Covid-19 Vaccine 2020-08-09 Completed Daisy Stanley eybold (Pfizer), Mrna-lnp, 00:00:00 Mark Protein, Pf, 30mcg/0.3ml,IM Covid-19 Vaccine 2020-08-09 Completed Daisy Stanley eybold (Pfizer), Mrna-lnp, 00:00:00 Mark Protein, Pf, 30mcg/0.3ml,IM Covid-19 Vaccine 2020-08-09 Completed Daisy khanbold ([facility]), Mrna-lnp, 00:00:00 Mark Protein, Pf, 30mcg/0.3ml,IM Covid-19 Vaccine 2020-08-09 Completed Daisy khanbomelany ([employer]), Mrna-lnp, 00:00:00 - Ext ernal Mark Protein, Pf, 30mcg/0.3ml,IM Covid-19 Vaccine 2020-08-09 Completed Daisy khanbomelany ([facility]), Mrna-lnp, 00:00:00 - Ext ernal Mark Protein, Pf, 30mcg/0.3ml,IM Covid-19 Vaccine 2020-08-09 Completed Daisy Stanley eybold ([facility]), Mrna-lnp, 00:00:00 Mark Protein, Pf, 30mcg/0.3ml,IM Covid-19 Vaccine 2020-08-09 Completed Daisy khanbold (Pfizer), Mrna-lnp, 00:00:00 - Ext ernal Mark Protein, Pf, 30mcg/0.3ml,IM Covid-19 Vaccine 2020-08-09 Completed Daisy khanbomelany ([facility]), Mrna-lnp, 00:00:00 Mark Protein, Pf, 30mcg/0.3ml,IM Covid-19 Vaccine 2020-08-09 Completed Daisy khanbold (Pfizer), Mrna-lnp, 00:00:00 Mark Protein, Pf, 30mcg/0.3ml,IM Influenza Virus 2020-04-23 Completed Daisy Ivey ybold Vaccine, Unspecified 00:00:00 - Ex ternal Formulation Influenza Virus 2020-04-23 Completed Daisy Ivey ybold Vaccine, Unspecified 00:00:00 - Ex ternal Formulation Influenza Virus 2020-04-23 Completed Daisy Se ybold Vaccine, Unspecified 00:00:00 - Ex ternal Formulation Influenza Virus 2020-04-04 Completed Daisy Se ybold Vaccine, age 6 months 00:00:00 and up Influenza Virus 2020-04-04 Completed Daisy Se ybold Vaccine, age 6 months 00:00:00 and up Influenza Virus 2020-04-04 Completed Daisy Se ybold Vaccine, age 6 months 00:00:00 and up Influenza Virus 2020-04-04 Completed Daisy Se ybold Vaccine, age 6 months 00:00:00 and up Influenza Virus 2020-04-04 Completed Daisy Se ybold Vaccine, age 6 months 00:00:00 - E xternal and up Influenza Virus 2020-04-04 Completed Daisy Se ybold Vaccine, age 6 months 00:00:00 - E xternal and up Influenza Virus 2020-04-04 Completed Daisy Se ybold Vaccine, age 6 months 00:00:00 and up Influenza Virus 2020-04-04 Completed Daisy Se ybold Vaccine, age 6 months 00:00:00 - E xternal and up Influenza Virus 2020-04-04 Completed Daisy Se ybold Vaccine, age 6 months 00:00:00 and up Influenza Virus 2020-04-04 Completed Daisy Se ybold Vaccine, age 6 months 00:00:00 and up Pneumococcal Vaccine, 2019-05-30 Completed Josue sey Seybold Polysaccharide 00:00:00 - External Pneumococcal Vaccine, 2019-05-30 Completed Josue sey Seybold Polysaccharide 00:00:00 - External Pneumococcal Vaccine, 2019-05-30 Completed Josue sey Seybold Polysaccharide 00:00:00 - External Influenza Virus 2019-04-04 Completed Daisy Se ybold Vaccine, Unspecified 00:00:00 - Ex ternal Formulation Influenza Virus 2019-04-04 Completed Daisy Se ybold Vaccine, Unspecified 00:00:00 - Ex ternal Formulation Influenza Virus 2019-04-04 Completed Daisy Se ybold Vaccine, Unspecified 00:00:00 - Ex ternal Formulation Influenza Virus 2019-04-03 Completed Daisy Se ybold Vaccine, age 6 months 00:00:00 and up Influenza Virus 2019-04-03 Completed Daisy Se ybold Vaccine, age 6 months 00:00:00 and up Influenza Virus 2019-04-03 Completed Daisy Se ybold Vaccine, age 6 months 00:00:00 and up Influenza Virus 2019-04-03 Completed Daisy Se ybold Vaccine, age 6 months 00:00:00 and up Influenza Virus 2019-04-03 Completed Daisy Se ybold Vaccine, age 6 months 00:00:00 - E xternal and up Influenza Virus 2019-04-03 Completed Daisy Se ybold Vaccine, age 6 months 00:00:00 - E xternal and up Influenza Virus 2019-04-03 Completed Daisy Se ybold Vaccine, age 6 months 00:00:00 and up Influenza Virus 2019-04-03 Completed Daisy Se ybold Vaccine, age 6 months 00:00:00 - E xternal and up Influenza Virus 2019-04-03 Completed Daisy Se ybold Vaccine, age 6 months 00:00:00 and up Influenza Virus 2019-04-03 Completed Daisy Se ybold Vaccine, age 6 months 00:00:00 and up Seasonal Trivalent 2018-03-29 Completed Daisy Seybold Influenza Vaccine, 00:00:00 - Exte rnal Adjuvanted, Preserve Seasonal Trivalent 2018-03-29 Completed Daisy Seybold Influenza Vaccine, 00:00:00 - Exte rnal Adjuvanted, Preserve Seasonal Trivalent 2018-03-29 Completed Daisy Seybold Influenza Vaccine, 00:00:00 - Exte rnal Adjuvanted, Preserve Pneumococcal Vaccine, 2018-01-24 Completed Josue sey Seybold Conjugate 13 00:00:00 - External Tdap- (Boostrix, 2018-01-24 Completed Daisy S eybold Adacel) 00:00:00 - External Pneumococcal Vaccine, 2018-01-24 Completed Josue sey Seybold Conjugate 13 00:00:00 - External Tdap- (Boostrix, 2018-01-24 Completed Daisy S eybold Adacel) 00:00:00 - External Pneumococcal Vaccine, 2018-01-24 Completed Josue sey Seybold Conjugate 13 00:00:00 - External Tdap- (Boostrix, 2018-01-24 Completed Daisy S eybold Adacel) 00:00:00 - External Influenza Virus 2017-04-26 Completed Daisy Se ybold Vaccine, age 6 months 00:00:00 and up Influenza Virus 2017-04-26 Completed Daisy Se ybold Vaccine, age 6 months 00:00:00 and up Influenza Virus 2017-04-26 Completed Daisy Se ybold Vaccine, age 6 months 00:00:00 and up Influenza Virus 2017-04-26 Completed Daisy Se ybold Vaccine, age 6 months 00:00:00 and up Influenza Virus 2017-04-26 Completed Daisy Se ybold Vaccine, age 6 months 00:00:00 - E xternal and up Influenza Virus 2017-04-26 Completed Daisy Se ybold Vaccine, age 6 months 00:00:00 - E xternal and up Influenza Virus 2017-04-26 Completed Daisy Se ybold Vaccine, age 6 months 00:00:00 and up Influenza Virus 2017-04-26 Completed Daisy Se ybold Vaccine, age 6 months 00:00:00 - E xternal and up Influenza Virus 2017-04-26 Completed Daisy Se ybold Vaccine, age 6 months 00:00:00 and up Influenza Virus 2017-04-26 Completed Daisy Se ybold Vaccine, age 6 months 00:00:00 and up Influenza Virus 2016-04-15 Completed Daisy Se ybold Vaccine, High Dose, 00:00:00 - Ext ernal Age 65 And Up Influenza Virus 2016-04-15 Completed Daisy Se ybold Vaccine, High Dose, 00:00:00 - Ext ernal Age 65 And Up Influenza Virus 2016-04-15 Completed Daisy Se ybold Vaccine, High Dose, 00:00:00 - Ext ernal Age 65 And Up Influenza Virus 2015-06-14 Completed Daisy Se ybold Vaccine, High Dose, 00:00:00 - Ext ernal Age 65 And Up Influenza Virus 2015-06-14 Completed Daisy Se ybold Vaccine, High Dose, 00:00:00 - Ext ernal Age 65 And Up Influenza Virus 2015-06-14 Completed Daisy Se ybold Vaccine, High Dose, 00:00:00 - Ext ernal Age 65 And Up Td- Tetanus & 2014-11-20 Completed Daisy Seyb old Diphtheria Vaccine 00:00:00 (age 7+ years) Td- Tetanus & 2014-11-20 Completed Daisy Seyb old Diphtheria Vaccine 00:00:00 (age 7+ years) Td- Tetanus & 2014-11-20 Completed Daisy Seyb old Diphtheria Vaccine 00:00:00 (age 7+ years) Td- Tetanus & 2014-11-20 Completed Daisy Seyb old Diphtheria Vaccine 00:00:00 (age 7+ years) Td- Tetanus & 2014-11-20 Completed Daisy Seyb old Diphtheria Vaccine 00:00:00 - Exte rnal (age 7+ years) Td- Tetanus & 2014-11-20 Completed Daisy Seyb old Diphtheria Vaccine 00:00:00 - Exte rnal (age 7+ years) Td- Tetanus & 2014-11-20 Completed Daisy Seyb old Diphtheria Vaccine 00:00:00 (age 7+ years) Td- Tetanus & 2014-11-20 Completed Daisy Seyb old Diphtheria Vaccine 00:00:00 - Exte rnal (age 7+ years) Td- Tetanus & 2014-11-20 Completed Daisy Seyb old Diphtheria Vaccine 00:00:00 (age 7+ years) Td- Tetanus & 2014-11-20 Completed Daisy Seyb old Diphtheria Vaccine 00:00:00 (age 7+ years) Influenza Virus 2014-05-01 Completed Daisy Se ybold Vaccine, High Dose, 00:00:00 - Ext ernal Age 65 And Up Influenza Virus 2014-05-01 Completed Daisy Se ybold Vaccine, High Dose, 00:00:00 - Ext ernal Age 65 And Up Influenza Virus 2014-05-01 Completed Daisy Se ybold Vaccine, High Dose, 00:00:00 - Ext ernal Age 65 And Up Influenza Virus 2013-05-11 Completed Daisy Se ybold Vaccine, High Dose, 00:00:00 - Ext ernal Age 65 And Up Influenza Virus 2013-05-11 Completed Daisy Se ybold Vaccine, High Dose, 00:00:00 - Ext ernal Age 65 And Up Influenza Virus 2013-05-11 Completed Daisy Se ybold Vaccine, High Dose, 00:00:00 - Ext ernal Age 65 And Up Shingles SQ 2012-10-10 Completed Daisy Seybol d (Zostavax) 00:00:00 - External Shingles SQ 2012-10-10 Completed Daisy Seybol d (Zostavax) 00:00:00 - External Shingles SQ 2012-10-10 Completed Daisy Seybol d (Zostavax) 00:00:00 - External Influenza Virus 2012-03-21 Completed Daisy Se ybold Vaccine, Unspecified 00:00:00 - Ex ternal Formulation Influenza Virus 2012-03-21 Completed Daisy Se ybold Vaccine, Unspecified 00:00:00 - Ex ternal Formulation Influenza Virus 2012-03-21 Completed Daisy Se ybold Vaccine, Unspecified 00:00:00 - Ex ternal Formulation Influenza Virus 2010-04-28 Completed Daisy Se ybold Vaccine, Unspecified 00:00:00 - Ex ternal Formulation Influenza Virus 2010-04-28 Completed Daisy Se ybold Vaccine, Unspecified 00:00:00 - Ex ternal Formulation Influenza Virus 2010-04-28 Completed Daisy Se ybold Vaccine, Unspecified 00:00:00 - Ex ternal Formulation Influenza Virus 2009-02-26 Completed Daisy Se ybold Vaccine, Unspecified 00:00:00 - Ex ternal Formulation Influenza Virus 2009-02-26 Completed Daisy Se ybold Vaccine, Unspecified 00:00:00 - Ex ternal Formulation Influenza Virus 2009-02-26 Completed Daisy Se ybold Vaccine, Unspecified 00:00:00 - Ex ternal Formulation Influenza Virus 2008-05-04 Completed Daisy Se ybold Vaccine, Unspecified 00:00:00 - Ex ternal Formulation Influenza Virus 2008-05-04 Completed Daisy Se ybold Vaccine, Unspecified 00:00:00 - Ex ternal Formulation Influenza Virus 2008-05-04 Completed Daisy Se ybold Vaccine, Unspecified 00:00:00 - Ex ternal Formulation Influenza Virus 2007-04-28 Completed Daisy Se ybold Vaccine, Unspecified 00:00:00 - Ex ternal Formulation Influenza Virus 2007-04-28 Completed Daisy Se ybold Vaccine, Unspecified 00:00:00 - Ex ternal Formulation Influenza Virus 2007-04-28 Completed Daisy Se ybold Vaccine, Unspecified 00:00:00 - Ex ternal Formulation Influenza Virus 2006-04-05 Completed Daisy Se ybold Vaccine, Unspecified 00:00:00 - Ex ternal Formulation pneumococcal, 2006-04-05 Completed Daisy lawrence unspecified 00:00:00 - External formulation Influenza Virus 2006-04-05 Completed Daisy Se ybold Vaccine, Unspecified 00:00:00 - Ex ternal Formulation pneumococcal, 2006-04-05 Completed Daisy lawrence unspecified 00:00:00 - External formulation Influenza Virus 2006-04-05 Completed Daisy Ivey ybold Vaccine, Unspecified 00:00:00 - Ex ternal Formulation pneumococcal, 2006-04-05 Completed Daisy Iveyyb old unspecified 00:00:00 - External formulation Influenza Virus 2006-03-28 Completed Daisy Ivey ybold Vaccine, Unspecified 00:00:00 - Ex ternal Formulation Influenza Virus 2006-03-28 Completed Daisy Ivey ybold Vaccine, Unspecified 00:00:00 - Ex ternal Formulation Influenza Virus 2006-03-28 Completed Daisy Ivey ybold Vaccine, Unspecified 00:00:00 - Ex ternal Formulation Influenza Virus 2005-03-28 Completed Daisy Ivey ybold Vaccine, Unspecified 00:00:00 - Ex ternal Formulation Influenza Virus 2005-03-28 Completed Daisy Ivey ybold Vaccine, Unspecified 00:00:00 - Ex ternal Formulation Influenza Virus 2005-03-28 Completed Daisy pinedaold Vaccine, Unspecified 00:00:00 - Ex ternal Formulation Vital Signs Vital Name Observation Time Observation Value Comments Source Systolic blood 2022-06-08 16:09:00 140 mm[Hg] Daisy Seybold - pressure External Diastolic blood 2022-06-08 16:09:00 62 mm[Hg] Kelse y Seybold - pressure External Heart rate 2022-06-08 16:09:00 88 /min Daisy S eybold - External Body temperature 2022-06-08 16:09:00 36.56 Luisana Megha khan Seybold - External Respiratory rate 2022-06-08 16:09:00 14 /min Megha khan Seybold - External Body height 2022-06-08 16:09:00 175.3 cm Daisy Stanley eybold - External Body weight 2022-06-08 16:09:00 88.451 kg Daisy Stanley eybold - External BMI 2022-06-08 16:09:00 28.80 kg/m2 Daisy Stanley eybold - External Systolic blood 2022-05-13 14:03:00 110 mm[Hg] Daisy Seybold - pressure External Diastolic blood 2022-05-13 14:03:00 60 mm[Hg] Kelse y Seybold - pressure External Heart rate 2022-05-13 13:50:00 70 /min Daisy S eybold - External Body temperature 2022-05-13 13:50:00 35.67 Luisana Megha ey Seybold - External Respiratory rate 2022-05-13 13:50:00 16 /min Megha ey Seybold - External Body height 2022-05-13 13:50:00 175.3 cm Daisy Stanley eybold - External Body weight 2022-05-13 13:50:00 87.998 kg Daisy Stanley eybold - External BMI 2022-05-13 13:50:00 28.65 kg/m2 Daisy Stanley eybold - External height 2022-04-28 08:00:00 69 [in_i] [facility] weight 2022-04-28 08:00:00 183 [lb_av] [facility] temperature 2022-04-28 08:00:00 97.5 [degF] [facility] bmi 2022-04-28 08:00:00 27.02 kg/m2 [facility] blood pressure 2022-04-28 08:00:00 126 mm[Hg] [facility] - systolic [facility] blood pressure 2022-04-28 08:00:00 76 mm[Hg] [facility] - diastolic [facility] Systolic blood 2022-04-08 14:45:00 123 mm[Hg] Daisy Iveyybold - pressure External Diastolic blood 2022-04-08 14:45:00 59 mm[Hg] Denny y Seybold - pressure External Heart rate 2022-04-08 14:45:00 65 /min Daisy Stanley eybold - External Body temperature 2022-04-08 14:45:00 36.56 Luisana Megha ey Seybold - External Respiratory rate 2022-04-08 14:45:00 14 /min Megha ey Seybold - External Body height 2022-04-08 14:45:00 175.3 cm Daisy khanbold - External Body weight 2022-04-08 14:45:00 84.278 kg Daisy Stanley eybold - External BMI 2022-04-08 14:45:00 27.44 kg/m2 Daisy Stanley eybold - External Oxygen saturation in 2022-04-08 14:45:00 99 /min Daisy Iveyybold - Arterial blood by External Pulse oximetry Systolic blood 2021-10-20 13:00:00 116 mm[Hg] Daisy Seybold pressure Diastolic blood 2021-10-20 13:00:00 54 mm[Hg] Kelse y Seybold pressure Heart rate 2021-10-20 13:00:00 66 /min Daisy S eybold Body temperature 2021-10-20 13:00:00 36.67 Luisana Megha ey Seybold Respiratory rate 2021-10-20 13:00:00 15 /min Megha ey Seybold Body height 2021-10-20 13:00:00 175.3 cm Daisy S eybold Body weight 2021-10-20 13:00:00 82.555 kg Daisy S eybold BMI 2021-10-20 13:00:00 26.88 kg/m2 Daisy S eybold Systolic blood 2021-10-06 19:17:00 104 mm[Hg] Daisy Seybold pressure Diastolic blood 2021-10-06 19:17:00 53 mm[Hg] Kelse y Seybold pressure Heart rate 2021-10-06 19:17:00 75 /min Daisy S eybold Body temperature 2021-10-06 19:17:00 37.83 Luisana Megha ey Seybold Respiratory rate 2021-10-06 19:17:00 15 /min Megha ey Seybold Body height 2021-10-06 19:17:00 175.3 cm Daisy S eybold Body weight 2021-10-06 19:17:00 83.008 kg Daisy S eybold BMI 2021-10-06 19:17:00 27.02 kg/m2 Daisy S eybold Oxygen saturation in 2021-10-06 19:17:00 98 /min Daisy Iveyybold Arterial blood by Pulse oximetry Systolic blood 2021-09-16 13:23:00 102 mm[Hg] Daisy Seybold pressure Diastolic blood 2021-09-16 13:23:00 58 mm[Hg] Kelse y Seybold pressure Heart rate 2021-09-16 13:23:00 76 /min Daisy S eybold Body temperature 2021-09-16 13:23:00 36.06 Luisana Megha ey Seybold Respiratory rate 2021-09-16 13:23:00 14 /min Megha ey Seybold Body height 2021-09-16 13:23:00 175.3 cm Daisy S eybold Body weight 2021-09-16 13:23:00 80.74 kg Daisy S eybold BMI 2021-09-16 13:23:00 26.29 kg/m2 Daisy S eybold Systolic blood 2021-08-26 14:53:00 126 mm[Hg] Daisy Seybold pressure Diastolic blood 2021-08-26 14:53:00 52 mm[Hg] Kelse y Seybold pressure Heart rate 2021-08-26 14:53:00 99 /min Daisy S eybold Body temperature 2021-08-26 14:53:00 36 Luisana Megha ey Seybold Respiratory rate 2021-08-26 14:53:00 14 /min Megha ey Seybold Body height 2021-08-26 14:53:00 175.3 cm Daisy S eybold Body weight 2021-08-26 14:53:00 83.462 kg Daisy S eybold BMI 2021-08-26 14:53:00 27.17 kg/m2 Daisy S eybold Systolic blood 2021-08-19 15:44:00 103 mm[Hg] Daisy Seybold pressure Diastolic blood 2021-08-19 15:44:00 66 mm[Hg] Kelse y Seybold pressure Heart rate 2021-08-19 15:44:00 67 /min Daisy S eybold Body temperature 2021-08-19 15:44:00 36.94 Luisana Megha ey Seybold Respiratory rate 2021-08-19 15:44:00 14 /min Megha ey Seybold Body height 2021-08-19 15:44:00 175.3 cm Daisy S eybold Body weight 2021-08-19 15:44:00 83.462 kg Daisy S eybold BMI 2021-08-19 15:44:00 27.17 kg/m2 Daisy S eybold Systolic blood 2021-08-07 19:35:00 100 mm[Hg] Daisy Seybold pressure Diastolic blood 2021-08-07 19:35:00 62 mm[Hg] Kelse y Seybold pressure Heart rate 2021-08-07 19:35:00 98 /min Daisy Stanley eybold Body temperature 2021-08-07 19:35:00 36.56 Luisana Megha ey Seybold Respiratory rate 2021-08-07 19:35:00 14 /min Megha ey Seybold Body height 2021-08-07 19:35:00 175.3 cm Daisy Stanley eybold Body weight 2021-08-07 19:35:00 81.194 kg Daisy Stanley eybold BMI 2021-08-07 19:35:00 26.43 kg/m2 Daisy S eybold Systolic blood 2021-07-15 15:34:00 100 mm[Hg] Daisy Seybold pressure Diastolic blood 2021-07-15 15:34:00 52 mm[Hg] Kelse y Seybold pressure Heart rate 2021-07-15 15:34:00 84 /min Daisy Stanley eybold Body temperature 2021-07-15 15:34:00 36.39 Luisana Megha ey Seybold Respiratory rate 2021-07-15 15:34:00 14 /min Megha khan Seybold Body height 2021-07-15 15:34:00 175.3 cm Daisy Stanley eybold Body weight 2021-07-15 15:34:00 82.555 kg Daisy Stanley eybold BMI 2021-07-15 15:34:00 26.88 kg/m2 Daisy Stanley eybold Systolic blood 2019-12-13 15:37:00 127 mm[Hg] Univer sity of pressure [facility] Diastolic blood 2019-12-13 15:37:00 82 mm[Hg] Unive rsity of pressure [facility] Heart rate 2019-12-13 15:37:00 66 /[facility] 2019-12-13 15:37:00 [facility].56 [facility] 2019-12-13 15:37:00 175.3 cm [facility] Body weight 2019-12-13 15:37:00 72.576 kg [facility] BMI 2019-12-13 15:37:00 23.63 kg/m2 Universi ty [facility] Oxygen saturation in 2019-12-13 15:37:00 95 /min University of Arterial blood by [facility] Pulse oximetry Branch Systolic blood 2019-12-13 15:37:00 127 mm[Hg] Univer sity of pressure [facility] Diastolic blood 2019-12-13 15:37:00 82 mm[Hg] Unive rsity of pressure [facility] Heart rate 2019-12-13 15:37:00 66 /min Universi ty [facility] Body temperature 2019-12-13 15:37:00 36.56 Luisana Univ ersity of [facility] Body height 2019-12-13 15:37:00 [facility] Body weight 2019-12-13 15:37:00 [facility] BMI 2019-12-13 15:37:00 23.63 kg/m2 [facility] Oxygen saturation in 2019-12-13 15:37:00 95 /min [facility] Arterial blood by [facility] Pulse oximetry Branch Procedures Procedure Date / Time Performed Performing Clinician Chang WALTER 2022-05-13 14:27:33 Juan Antonio Rogers ld - External XR CHEST 2 VW 2021-12-22 16:14:26 Alyssia Oconnor [facility] ASSIGNMENT OF BENEFITS 2021-12-22 15:46:38 Doctor Unassigned, No [facility] Plan of Care Planned Activity Planned Date Details Comments Source Future Scheduled [place] DESTRUC Ordered: [facility] ege of Test PREMALIGNANT, FIRST 04/19/2020 Medicine LESION([id number]) [code = 55055] Future Scheduled [place] DESTRUC Ordered: [facility] Justin ege of Test PREMALIGNANT,2-14 04/19/2020 Medicine LESIONS([id number]) [code = 49884] Future Scheduled TETANUS SHOT [facility] ege of Test (ADULT) [code = Medicine TETANUS SHOT (ADULT)] Future Scheduled HEPATITIS C [facility] ege of Test SCREENING [code = Medicine HEPATITIS C SCREENING] Future Scheduled ZOSTER VACCINE (1 [facility] of Test of 2) [code = Medicine ZOSTER VACCINE (1 of 2)] Future Scheduled MEDICARE AWV [facility] Justin ege of Test (Initial) [code = Medicine MEDICARE AWV (Initial)] Future Scheduled FALL SCREEN [code = [facility] of Test FALL SCREEN] Medicine Future Scheduled PNEUMOVAX >=65 [facility] of Test (PPSV23) [code = Medicine PNEUMOVAX >=65 (PPSV23)] Future Scheduled FLU VACCINE > 6 [facility] C [facility]lege of Test MONTHS [code = FLU Medicine VACCINE > 6 MONTHS] Encounters Start End Encounter Admission Attending Care Care Encounter Source Date/Time Date/Time Type Type Clinicians Facility Department ID 2022-04-28 Outpatient [facility] [id number] [facility] 08:01:02 [id number] [facility] 2022-06-08 2022-06-08 Outpatient DAISY ROGERS [id number] Daisy 16:45:00 16:45:00 JUAN ANTONIO Seybol d 2022-06-05 2022-06-05 Outpatient DAISY HASKINS [id number] Daisy 00:00:00 00:00:00 Seybol d 2022-05-13 2022-05-13 Outpatient LAB90 DAISY HASKINS [id number] Daisy 08:45:00 08:45:00 Seybol d 2022-05-13 2022-05-13 Outpatient DAISY ROGERS [id number] Daisy 08:15:00 08:15:00 JUAN ANTONIO Seybol d 2022-05-12 2022-05-12 Outpatient DAISY ROGERS [id number] Daisy 08:00:00 08:00:00 JUAN ANTONIO Seybol d 2022-04-28 2022-04-28 OFFICE [facility] [id number] [facility] 00:00:00 00:00:00 [facility] [facility] PT - CHI LEVEL 4 [facility] 2022-04-08 2022-04-08 Outpatient LAB90 DAISY HASKINS [id number] Daisy 10:15:00 10:15:00 Seybol d 2022-04-08 2022-04-08 Outpatient DAISY ROGERS [id number] Daisy 09:45:00 09:45:00 JUAN ANTONIO Seybol d 2022-04-082022-04-08 Outpatient LOW DAISY HASKINS [id number] Daisy 00:00:00 00:00:00 JUAN ANTONIO Seybol d 2022-03-18 2022-03-18 Outpatient DAISY GOLDMAN [id number] Daisy 00:00:00 00:00:00 MADHAVI Seybol d 2022-03-16 2022-03-16 Outpatient DAISY ROGERS [id number] Daisy 10:30:00 10:30:00 JUAN ANTONIO Seybol d 2022-03-12 2022-03-12 Outpatient DAISY ROGERS [id number] Daisy 00:00:00 00:00:00 JUAN ANTONIO Seybol d 2022-03-10 2022-03-10 Outpatient DAISY ROGERS [id number] Daisy 00:00:00 00:00:00 JUAN ANTONIO Seybol d 2022-03-05 2022-03-05 Office Dino Rogers 1.2.840.114 [id number] Daisy 11:45:00 12:00:00 Visit Juan Antonio Lin 350.1.13.13 Se ybold 1.2.7.2.686 [id number] 2022-03-05 2022-03-05 Outpatient LAB90 DAISY HASKINS [id number] Daisy 11:05:00 11:05:00 Seybol d 2022-02-27 2022-02-27 Outpatient DINO BARCENAS [id number] Daisy 11:30:00 11:30:00 Seybol d 2022-02-27 2022-02-27 Outpatient DINO BARCENAS [id number] Daisy 11:00:00 11:00:00 Seybol d 2022-02-27 2022-02-27 Outpatient DAISY ROGERS [id number] Daisy 00:00:00 00:00:00 JUAN ANTONIO Seybol d 2022-02-25 2022-02-25 Outpatient DAISY GOLDMAN [id number] Daisy 00:00:00 00:00:00 MADHAVI Seybol d 2022-02-19 2022-02-19 Outpatient LAB90 DAISY HASKINS [id number] Daisy 09:00:00 09:00:00 Seybol d 2022-02-19 2022-02-19 Office Ary, Whyte 1.2.840.114 [id number] Daisy 08:00:00 08:45:00 Visit Madhavi Lin 350.1.13.13 Se ybold Somogyi 1.2.7.2.686 [id number] 2022-02-18 2022-02-18 Outpatient DAISY DIAMOND [id number] Daisy 00:00:00 00:00:00 SHAYNA Seybol d 2022-02-17 2022-02-17 Office HonorioDino 1.2.840.114 [id number] Daisy 14:45:00 15:15:00 Visit Madhavi Lin 350.1.13.13 Se ybold Somogyi 1.2.7.2.686 [id number] 2022-02-17 2022-02-17 Outpatient DAISY GOLDMAN [id number] Daisy 00:00:00 00:00:00 MADHAVI Seybol d 2022-02-12 2022-02-12 Outpatient LAB90 DAISY HASKINS [id number] Daisy 10:10:00 10:10:00 Seybol d 2022-02-12 2022-02-12 Office Honorio, Whyte 1.2.840.114 [id number] Daisy 09:15:00 09:45:00 Visit Madhavi Lin 350.1.13.13 Se ybold Somogyi 1.2.7.2.686 [id number] 2022-02-09 2022-02-09 Outpatient DAISY GOLDMAN [id number] Daisy 00:00:00 00:00:00 MADHAVI Seybol d 2022-02-02 2022-02-02 Outpatient DAISY STALLINGS [id number] Daisy 00:00:00 00:00:00 SHIKHA Seybol d 2022-01-26 2022-01-26 Outpatient DAISY GOLDMAN [id number] Daisy 00:00:00 00:00:00 MADHAVI Seybol d 2021-12-22 2021-12-22 Outpatient R RADIOLOGY [facility] [id number] Univers 10:51:29 23:59:00 ity of [facility] 2021-12-22 2021-12-22 Hospital Radiology [facility] 1.2.840.114 [id number] Univers 10:45:00 23:59:00 Encounter [place] 350.1.13.10 ity of [place] 4.2.7.2.686 [facility] [id number] [facility] [address] 2021-12-22 2021-12-22 Orders Doctor ELE 1.2.840.114 [id number] Univers 00:00:00 00:00:00 Only Unassigned, VIVIENNE 350.1.13.[address] [facility] 4.2.7.2.686 [facility] [id number] [facility] [address] 2021-11-20 2021-11-20 Outpatient LAB90 DAISY HASKINS [id number] Daisy 09:05:00 09:05:00 Seybol d 2021-11-19 2021-11-19 Outpatient DAISY GOLDMAN [id number] Daisy 00:00:00 00:00:00 MADHAVI Seybol d 2021-11-19 2021-11-19 Outpatient DAISY GOLDMAN [id number] Daisy 00:00:00 00:00:00 MADHAVI Seybol d 2021-10-27 2021-10-27 Outpatient DAISY GOLDMAN [id number] Daisy 00:00:00 00:00:00 MADHAVI Seybol d 2021-10-20 2021-10-20 Outpatient LAB90 DAISY HASKINS [id number] Daisy 09:00:00 09:00:00 Seybol d 2021-10-20 2021-10-20 Office Dino Goldman 1.2.840.114 [id number] Daisy 08:00:00 08:45:00 Visit Madhavi Lin 350.1.13.13 Se ybold Jess 1.2.7.2.686 [id number] 2021-10-20 2021-10-20 Outpatient DAISY GOLDMAN [id number] Daisy 00:00:00 00:00:00 MADHAVI Seybol d 2021-10-15 2021-10-15 Outpatient DAISY GOLDMAN [id number] Daisy 00:00:00 00:00:00 MADHAVI Seybol d 2021-10-07 2021-10-07 Outpatient JOSUE ROGERSCHRIST HASKINS [id number] Daisy 00:00:00 00:00:00 JUAN ANTONIO Seybol d 2021-10-06 2021-10-06 Outpatient LAB90 DAISY HASKINS [id number] Daisy 15:05:00 15:05:00 Seybol d 2021-10-06 2021-10-06 Office Dino Rogers 1.2.840.114 [id number] Daisy 14:15:00 14:30:00 Visit Juan Antonio Riley 350.1.13.13 Se ybold 1.2.7.2.686 [id number] 2021-09-16 2021-09-16 Outpatient LAB90 DAISY HASKINS [id number] Daisy 09:20:00 09:20:00 Seybol d 2021-09-16 2021-09-16 Office Dino Goldman 1.2.840.114 [id number] Daisy 08:45:00 09:00:00 Visit Madhavi Riley 350.1.13.13 Se ybold Somogyi 1.2.7.2.686 [id number] 2021-09-16 2021-09-16 Outpatient DAISY HASKINS [id number] Daisy 00:00:00 00:00:00 Seybol d 2021-09-16 2021-09-16 Outpatient DAISY HASKINS [id number] Daisy 00:00:00 00:00:00 Seybol d 2021-08-26 2021-08-26 Outpatient DAISY GOLDMAN [id number] Daisy 10:00:00 10:00:00 MADHAVI Seybol d 2021-08-26 2021-08-26 Office Dino Goldman 1.2.840.114 [id number] Daisy 09:00:00 09:45:00 Visit Madhavi Riley 350.1.13.13 Se ybold Somogyi 1.2.7.2.686 [id number] 2021-08-19 2021-08-19 Office Dino Goldman 1.2.840.114 [id number] Daisy 10:00:00 10:15:00 Visit Madhavi Lin 350.1.13.13 Se ybold Somogyi 1.2.7.2.686 [id number] 2021-08-08 2021-08-08 Outpatient DAISY DIAMOND [id number] Daisy 00:00:00 00:00:00 SHAYNA Seybol d 2021-08-07 2021-08-07 Office Radha Whyte 1.2.840.114 [id number] Daisy 13:30:00 14:00:00 Visit Shayna Lin 350.1.13.13 Se ybold 1.2.7.2.686 [id number] 2021-08-07 2021-08-07 Outpatient DAISY DIAMOND [id number] Daisy 00:00:00 00:00:00 SHAYNA Seybol d 2021-08-01 2021-08-01 Outpatient DAISY GOLDMAN [id number] Daisy 00:00:00 00:00:00 MADHAVI Seybol d 2021-07-29 2021-07-29 Outpatient DAISY GOLDMAN [id number] Daisy 00:00:00 00:00:00 MADHAVI Seybol d 2021-07-17 2021-07-17 Outpatient DAISY DIAMOND [id number] Daisy 00:00:00 00:00:00 SHAYNA Seybol d 2021-07-15 2021-07-15 Outpatient LAB90 DAISY HASKINS [id number] Daisy 10:30:00 10:30:00 Seybol d 2021-07-15 2021-07-15 Office Radha Dino 1.2.840.114 [id number] Daisy 09:45:00 10:15:00 Visit Shayna Lin 350.1.13.13 Se ybold 1.2.7.2.686 [id number] 2021-07-06 2021-07-06 Outpatient DAISY GOLDMAN [id number] Daisy 00:00:00 00:00:00 MADHAVI Seybol d 2021-06-23 2021-06-23 Outpatient DAISY GOLDMAN [id number] Daisy 00:00:00 00:00:00 MADHAVI Seybol d 2021-06-23 2021-06-23 Outpatient DAISY GOLDMAN [id number] Daisy 00:00:00 00:00:00 MADHAVI Seybol d 2021-06-23 2021-06-23 Outpatient DAISY GOLDMAN [id number] Daisy 00:00:00 00:00:00 MADHAVI Seybol d 2021-06-12 2021-06-12 Outpatient DAISY GOLDMAN [id number] Daisy 00:00:00 00:00:00 MADHAVI Seybol d 2021-05-21 2021-05-21 Outpatient DAISY GOLDMAN [id number] Daisy 00:00:00 00:00:00 MADHAVI Seybol d 2021-03-10 2021-03-10 Outpatient LAB90 DAISY HASKINS [id number] Daisy 10:25:00 10:25:00 Seybol d 2021-02-28 2021-02-28 Outpatient DAISY GOLDMAN [id number] Daisy 13:30:00 13:30:00 MADHAVI Seybol d 2021-02-20 2021-02-20 Outpatient DAISY GOLDMAN [id number] Daisy 00:00:00 00:00:00 MADHAVI Seybol d 2021-02-10 2021-02-10 Outpatient LAB90 DAISY HASKINS [id number] Daisy 09:15:00 09:15:00 Seybol d 2021-02-07 2021-02-07 Outpatient DAISY GOLDMAN [id number] Daisy 08:30:00 08:30:00 MADHAVI Seybol d 2021-01-07 2021-01-07 Outpatient DAISY LEIJA [id number] Daisy 13:45:00 13:45:00 KIRAN Seybol d 2021-01-07 2021-01-07 Outpatient DAISY HASKINS [id number] Daisy 13:05:00 13:05:00 Seybol yara 2021-01-06 2021-01-06 Outpatient HELADIO, DAISY HASKINS [id number] Daisy 00:00:00 00:00:00 KIRAN livingston 2020-05-16 2020-05-16 Outpatient R DARRIAN SIDDIQUI [facility] [id number] Univers 10:30:00 10:30:00 [facility] 2020-04-19 2020-04-19 Office Meagan Doe 1.2.840.114 [id number] 07:23:34 07:38:34 Visit AMBULATOR 350.1.13.21 Y 0.2.7.2.686 [id number] 2020-04-19 2020-04-19 Office Meagan Doe 1.2.840.114 [id number] [facility] 07:23:34 07:38:34 Visit AMBULATOR 350.1.13.21 College Y 0.2.7.2.686 of [id number] [facility] 300 e 2020-02-15 2020-02-15 Outpatient R ADITHYA [facility] [id number] Univers 08:30:00 08:30:00 ANA [facility] 2019-12-13 2019-12-13 Office Darrian Siddiqui [facility] 1.2.840.114 [id number] 10:19:19 11:35:41 Visit Health 350.1.13.10 [place] 4.2.7.2.686 Whyte [id number] [place] [address] Office Building 2019-12-13 2019-12-13 Office Darrian Siddiqui [facility] 1.2.840.114 [id number] Univers 10:19:19 11:35:41 Visit Health 350.1.13.10 it y of [place] 4.2.7.2.686 Alexa cornelius Whyte [id number] [address] Office Building 2019-12-13 2019-12-13 Outpatient R DARRIAN SIDDIQUI [facility] [id number] Univers 11:00:00 11:00:00 [facility] 2019-07-25 2019-07-25 Letter Clinic, [facility] UNIVERSIT 1.2.840.114 [id number] Univers 00:00:00 00:00:00 (Out) Neurology Y HEALTH 350.1.13.10 ity of [facility] CLINICS 4.2.7.2.686 T estefania [id number] [place] [id number] Branch 2019-06-13 2019-06-13 Outpatient R RADIOLOGY [facility] [id number] Univers 11:21:12 23:59:00 ity of [facility] Results Test Description Test Time Test Comments Results Result Comments Source [place] 2022-05-13 14:28:32 Test Item Value Reference Range Interpretation Comme nts [facility] left side (test code See_Comment L [Automated message] The system = 75562-0J) which generated this result transmitted ref erence range: 1.40 - 0.90 NA. The reference range was not u sed to interpret this result as normal/abnormal. [facility] right [facility] (test See_Comment L P resentation Factors: code = 61028-1H) Hypertensio n, Hyperlipidemia, DiabetesExercis e Modality: At RestNormal - 1. 40 - 1.00Borderline - 0.99 - 0.90Mild - 0.89 - 0.60Mo derate - 0.59 - 0.30Severe - 0. 29 - 0.00 [Automated mess age] The system which generated this result transmitted ref erence range: 1.40 - 0.90 NA. The reference range was not u sed to interpret this result as normal/abnormal. Lab Interpretation (test code Abnormal = 99364-2) Daisy Sewell - External
--- NOTE | 2022-06-08 17:07 | RAD REPORT ---
EXAM DESCRIPTION: US - Extremity Venous Uni Ltd - 06/08/2022 4:49 pm CLINICAL HISTORY: Pain COMPARISON: None. TECHNIQUE: Real-time sonographic evaluation of the right lower extremity deep venous system was perf ormed. FINDINGS: Normal compressibility, flow augmentation, phasic flow and spontaneous flow is identified in the right lower extremity deep venous system. No intraluminal filling defects seen. IMPRESSION: No DVT in the right lower extremity.
[2022-06-08] MEDS ORDERED: IBUPROFEN 400 MG TAB ONE (17:33)
[2022-06-08] MEDS ORDERED: HYDROCODONE/APAP 7.5/325 MG TAB ONE (17:33)
--- NOTE | 2022-06-08 18:45 | RAD REPORT ---
EXAM DESCRIPTION: RAD - Knee Right 3 View - 06/08/2022 6:27 pm CLINICAL HISTORY: Pain COMPARISON: Knee Right 3 View dated 08/08/2021; Knee Right 3 View dated 06/23/2021 FINDINGS/IMPRESSION: No acute fracture. No malalignment. Moderate medial compartmental narrowing. Mi ld lateral compartment spurring. Moderate patellofemoral compartment degenerative changes. Peripheral vascular calcifications.
--- NOTE | 2022-06-08 18:58 | ER ---
Nurse's Notes [facility] Name: Bebeto Wells Age: 82 yrs Sex: Male : 1940 Arrival Date: 06/08/2022 Time: 15:58 Bed 10 Private MD: Diagnosis: Pain in right knee Presentation: 06/08 16:16 Chief complaint: Patient states: Right knee pain - trying to schedule knee replacement ld1 with Dr. Boss. Chronic knee pain. Coronavirus screen: At this time, the client does not indicate any symptoms associated with coronavirus-19. Ebola Screen: No symptoms or risks identified at this time. Initial Sepsis Screen: Does the patient meet any 2 criteria? No. Patient's initial sepsis screen is negative. Does the patient have a suspected source of infection? No. Patient's initial sepsis screen is negative. Risk Assessment: Do you want to hurt yourself or someone else? Patient reports no desire to harm self or others. Onset of symptoms was June 08, 2022. 16:16 Method Of Arrival: Ambulatory ld1 16:16 Acuity: KRISTIAN 4 ld1 Triage Assessment: 16:17 General: Appears in no apparent distress. comfortable, Behavior is calm, cooperative, ld1 appropriate for age. Pain: Complains of pain in right knee Pain does not radiate. Pain currently is 9 out of 10 on a pain scale. Quality of pain is described as throbbing. EENT: No signs and/or symptoms were reported regarding the EENT system. Neuro: Level of Consciousness is awake, alert, obeys commands, Oriented to person, place, time, situation. Cardiovascular: Capillary refill < 3 seconds Patient's skin is warm and dry. Respiratory: Airway is patent Respiratory effort is even, unlabored. GI: Abdomen is flat, non-distended. : No signs and/or symptoms were reported regarding the genitourinary system. Derm: No signs and/or symptoms reported regarding the dermatologic system. Musculoskeletal: No signs and/or symptoms reported regarding the musculoskeletal system. Historical: - Allergies: 16:17 Codeine; ld1 16:17 PENICILLINS; ld1 16:17 Sulfa (Sulfonamide Antibiotics); ld1 - PMHx: 16:17 Gout; Diabetes - NIDDM; Hypertension; ld1 - PSHx: 16:17 Triple Bypass; ld1 - Immunization history:: Adult Immunizations up to date, Client reports receiving the 2nd dose of the Covid vaccine. - Social history:: Smoking status: Patient denies any tobacco usage or history of. Patient/guardian denies using alcohol. Screenin:57 Abuse screen: Denies threats or abuse. Nutritional screening: No deficits noted. em6 Tuberculosis screening: No symptoms or risk factors identified. Fall Risk Total Franklin Fall Scale indicates No Risk (0-24 pts). Assessment: 18:56 General: Appears in no apparent distress. Behavior is cooperative. Pain: Complains of em6 pain in right leg and right knee Pain does not radiate. Pain currently is 6 out of 10 on a pain scale. Quality of pain is described as pressure, throbbing. Neuro: Level of Consciousness is awake, alert, obeys commands, Oriented to person, place, time, situation. Cardiovascular: Patient's skin is warm and dry. Respiratory: Airway is patent Respiratory effort is even, unlabored, Respiratory pattern is regular, symmetrical. GI: No signs and/or symptoms were reported involving the gastrointestinal system. : No signs and/or symptoms were reported regarding the genitourinary system. EENT: No signs and/or symptoms were reported regarding the EENT system. Derm: No signs and/or symptoms reported regarding the dermatologic system. Musculoskeletal: Range of motion: limited in right leg. Vital Signs: 16:17 BP 141 / 67; Pulse 77; Resp 18; Temp 97.6(TE); Pulse Ox 97% on R/A; Weight 84.37 kg; ld1 Height 5 ft. 11 in. (180.34 cm); Pain 9/10; 19:07 BP 136 / 74; Pulse 74; Resp 18; Pulse Ox 97% on R/A; em6 16:17 Body Mass Index 25.94 (84.37 kg, 180.34 cm) ld1 ED Course: 15:58 Patient arrived in ED. rg4 16:01 Dontae Li PA is PHCP. cp 16:01 Tank Campa DO is Attending Physician. cp 16:17 Triage completed. ld1 16:51 US Extremity Venous Unilateral Ltd In Process Unspecified. EDMS 18:29 XRAY Knee RIGHT 3 view In Process Unspecified. EDMS 18:55 Diane Cooper, RN is Primary Nurse. em6 18:57 Eyal Boss MD is Referral Physician. cp 18:57 Arm band placed on. em6 18:57 Bed in low position. Call light in reach. Side rails up X 1. Pulse ox on. NIBP on. Warm em6 blanket given. 19:07 Alberto wrap to right knee. em6 19:08 No provider procedures requiring assistance completed. Patient did not have IV access em6 during this emergency room visit. Administered Medications: 17:34 Drug: Hydrocodone-Acetaminophen (7.5 mg-325 mg) 1 tabs Route: PO; ld1 19:07 Follow up: Response: No adverse reaction; RASS: Alert and Calm (0) em6 17:34 Drug: Ibuprofen 800 mg Route: PO; ld1 19:07 Follow up: Response: No adverse reaction em6 Medication: 18:57 VIS not applicable for this client. em6 Outcome: 18:58 Discharge ordered by MD. cp 19:13 Discharged to home via wheelchair, with significant other. em6 19:13 Condition: stable 19:13 Discharge instructions given to patient, significant other, Instructed on discharge instructions, follow up and referral plans. medication usage, Demonstrated understanding of instructions, follow-up care, medications, Prescriptions given X 2. 19:13 Patient left the ED. em6 Signatures: Dispatcher [employer] EDMS Dontae Li PA PA cp Garcia, Rubi rg4 Mirna Griffin RN RN ld1 Diane Cooper RN RN em6
--- NOTE | 2022-06-08 18:58 | EDPHYS ---
Physician Documentation [facility] Name: Bebeto Wells Age: 82 yrs Sex: Male : 1940 Arrival Date: 06/08/2022 Time: 15:58 Bed 10 Private MD: ED Physician Tank Campa HPI: 06/08 16:30 This 82 yrs old Male presents to ER via Ambulatory with complaints of Knee Pain. cp 16:30 The patient presents with pain, swelling, tenderness. cp 16:30 The complaints affect the right knee. Onset: The symptoms/episode began/occurred cp chronic right knee pain, increased pain and swelling over past several days. Associated signs and symptoms: The patient has no apparent associated signs or symptoms. Severity of symptoms: in the emergency department the symptoms are unchanged, despite home interventions. Historical: - Allergies: 16:17 Codeine; ld1 16:17 PENICILLINS; ld1 16:17 Sulfa (Sulfonamide Antibiotics); ld1 - PMHx: 16:17 Gout; Diabetes - NIDDM; Hypertension; ld1 - PSHx: 16:17 Triple Bypass; ld1 - Immunization history:: Adult Immunizations up to date, Client reports receiving the 2nd dose of the Covid vaccine. - Social history:: Smoking status: Patient denies any tobacco usage or history of. Patient/guardian denies using alcohol. ROS: 16:35 Constitutional: Negative for body aches, chills, fever, poor PO intake. cp 16:35 Eyes: Negative for injury, pain, redness, and discharge. cp 16:35 ENT: Negative for drainage from ear(s), ear pain, sore throat, difficulty swallowing, difficulty handling secretions. 16:35 Cardiovascular: Negative for chest pain, edema, palpitations. 16:35 Respiratory: Negative for cough, shortness of breath, wheezing. 16:35 Abdomen/GI: Negative for abdominal pain, nausea, vomiting, and diarrhea. 16:35 Back: Negative for injury or acute deformity, decreased range of motion. 16:35 MS/extremity: Positive for pain, swelling, tenderness, of the right knee, Negative for injury or acute deformity, decreased range of motion, erythema, paresthesias. 16:35 Neuro: Negative for altered mental status, dizziness, headache, weakness. 16:35 All other systems are negative. Exam: 16:40 Constitutional: The patient appears in no acute distress, alert, awake, cp non-diaphoretic, non-toxic, well developed, well nourished, uncomfortable. 16:40 Head/Face: Normocephalic, atraumatic. cp 16:40 Chest/axilla: Inspection: normal. 16:40 Cardiovascular: Rate: normal, Edema: is not appreciated, JVD: is not appreciated. 16:40 Respiratory: the patient does not display signs of respiratory distress, Respirations: normal, no use of accessory muscles, no retractions, labored breathing, is not present. 16:40 Abdomen/GI: Inspection: abdomen appears normal, Palpation: abdomen is soft and non-tender, in all quadrants. 16:40 Back: pain, is absent, ROM is normal. 16:40 Musculoskeletal/extremity: Extremities: noted in the right knee: pain, swelling, medial and lateral joint line tenderness, posterior knee tenderness, ROM: limited passive range of motion due to pain, in the right knee, Weight bearing: able to fully bear weight, DVT Exam: no erythema, no increased warmth, pain, that is moderate, of the posterior knee. 16:40 Skin: overlying skin of right knee appears w/o erythema. Vital Signs: 16:17 BP 141 / 67; Pulse 77; Resp 18; Temp 97.6(TE); Pulse Ox 97% on R/A; Weight 84.37 kg; ld1 Height 5 ft. 11 in. (180.34 cm); Pain 9/10; 19:07 BP 136 / 74; Pulse 74; Resp 18; Pulse Ox 97% on R/A; em6 16:17 Body Mass Index 25.94 (84.37 kg, 180.34 cm) ld1 MDM: 16:35 Patient medically screened. cp 17:00 Differential diagnosis: closed fracture, tendonitis, septic joint, effusion, cp cellulitis, DVT. 18:58 Data reviewed: vital signs, nurses notes, radiologic studies, plain films. cp 18:58 Test interpretation: by ED physician or midlevel provider: plain radiologic studies. cp Counseling: I had a detailed discussion with the patient and/or guardian regarding: the historical points, exam findings, and any diagnostic results supporting the discharge/admit diagnosis, radiology results, the need for outpatient follow up, a orthopedic surgeon, to return to the emergency department if symptoms worsen or persist or if there are any questions or concerns that arise at home. Response to treatment: the patient's symptoms have mildly improved after treatment. ED course: VSS. Pain improved with meds. Radiology studies negative for acute findings. Low suspicion for septic joint. Will discharge to home for continued monitoring. 06/08 16:17 Order name: XRAY Knee RIGHT 3 view; Complete Time: 18:48 cp 06/08 18:48 Interpretation: Report reviewed. cp 06/08 16:17 Order name: US Extremity Venous Unilateral Ltd; Complete Time: 17:30 cp 06/08 17:30 Interpretation: Report reviewed. cp 06/08 18:48 Order name: Alberto wrap-joint; Complete Time: 19:07 cp Administered Medications: 17:34 Drug: Hydrocodone-Acetaminophen (7.5 mg-325 mg) 1 tabs Route: PO; ld1 19:07 Follow up: Response: No adverse reaction; RASS: Alert and Calm (0) em6 17:34 Drug: Ibuprofen 800 mg Route: PO; ld1 19:07 Follow up: Response: No adverse reaction em6 Disposition: 06/09 18:48 Co-signature as Attending Physician, Tank Campa DO I was immediately available onsite ms3 in the emergency department for consultation in the care of the patient. Disposition Summary: 06/08/22 18:58 Discharge Ordered Location: Home cp Problem: an acute exacerbation cp Symptoms: have improved cp Condition: Stable cp Diagnosis - Pain in right knee cp Followup: cp - With: Eyal Boss MD - When: 2 - 3 days - Reason: Recheck today's complaints Discharge Instructions: - Discharge Summary Sheet cp - Elastic Bandage and RICE Therapy cp - Chronic Knee Pain, Adult cp Forms: - Medication Reconciliation Form cp - Thank You Letter cp - Antibiotic Education cp - Prescription Opioid Use cp Prescriptions: - Mobic 7.5 mg Oral Tablet - take 1 tablet by ORAL route once daily take with food; 20 tablet; Refills: 0, cp Product Selection Permitted - Tramadol 50 mg Oral Tablet - take 1 tablet by ORAL route every 8 hours as needed; 12 tablet; Refills: 0, cp Product Selection Permitted Signatures: Dispatcher [employer] EDMS Dontae Li PA PA cp Sims, Marcus, DO DO ms3 Mirna Griffin RN RN ld1 Kenneth, Diane RN em6
[2022-06-08 19:18] VITALS: TEMP 97.6; O2SAT 97
[2022-06-08 19:20] VITALS: BP 136/74
== END 2022-06-08 19:13 | disposition home or self-care (01) ==
LOC: ER 15:53
DX: M25.561 Pain in right knee (principal); Z88.0 Allergy status to penicillin; Z88.2 Allergy status to sulfonamides; Z88.5 Allergy status to narcotic agent
CPT/HCPCS: 93971; 99284

== ENCOUNTER 2022-08-12 06:00 | Observation (INO) | payer OTHER ==
[2022-08-07 09:39] LABS: Absolute Lymphocytes (CBC) 3.1 K/uL (0.7-4.9); Hematocrit 43.2 % (39.6-49.0); Lymphocytes % 37.1 % (15.3-44.8); MPV 7.1 fL (7.6-11.3)
[2022-08-07 09:41] LABS: Protime INR 1.1
--- NOTE | 2022-08-07 09:41 | RAD REPORT ---
EXAM DESCRIPTION: Xavier Land (2 Views)08/07/2022 9:33 am CLINICAL HISTORY: Cough COMPARISON: 2019 FINDINGS: The lungs appear clear of acute infiltrate. The heart is normal size Postsurgical changes involve the chest IMPRESSION: No acute abnormalities displayed
[2022-08-07 10:01] LABS: Potassium 4.3 mmol/L (3.5-5.1)
[2022-08-07 10:16] LABS: SARS-CoV-2 Antigen Rapid Res Negative (Negative)
[2022-08-12] MEDS ORDERED: LIDOCAINE 1% MPF 5 ML VIAL ONE (06:18)
[2022-08-12] MEDS ORDERED: GABAPENTIN 100 MG CAP ONE (06:19)
[2022-08-12] MEDS ORDERED: dexAMETHasone 10 MG/ML VIAL ONE ×2 (06:19→09:09)
[2022-08-12] MEDS ORDERED: CELECOXIB 100 MG CAPSULE ONE (06:19)
[2022-08-12] MEDS ORDERED: EPINEPHRINE/PF 1 MG/ML AMP ONE (06:19)
[2022-08-12] MEDS ORDERED: propofoL 200 MG/20 ML VIAL IV ONE ×3 (06:19→08:18)
[2022-08-12] MEDS ORDERED: MIDAZOLAM HCL 2 MG/2 ML INJ ONE (06:19)
[2022-08-12] MEDS ORDERED: FENTANYL CITR 100 MCG/2 ML ONE (06:19)
[2022-08-12] MEDS ORDERED: CLINDAMYCIN 600MG/D5W 0 ML IV ONE (06:20)
[2022-08-12] MEDS ORDERED: NA CHLORIDE 0.9% 1,000 ML ONE ×2 (06:20→10:39)
[2022-08-12] MEDS ORDERED: ACETAMINOPHEN 500 MG TAB ONE (06:20)
[2022-08-12] MEDS ORDERED: Oxycodone HCl/Acetaminophen 1 TAB TAB ONE (06:20)
[2022-08-12] MEDS ORDERED: BUPIVACAINE 0.25% PF 30 ML VIAL ONE (06:20)
[2022-08-12] MEDS ORDERED: HYDROMORPHONE HCL 1 MG/ML INJ ONE (06:34)
[2022-08-12] MEDS ORDERED: CLINDAMYCIN 600MG/D5W 50 ML IV SCH (07:00)
[2022-08-12] MEDS ORDERED: TRANEXAMIC ACID 1,000 MG/10 ML VIAL IV ONE (08:06)
[2022-08-12] MEDS ORDERED: ONDANSETRON 4 MG/2 ML VIAL ONE (08:18)
[2022-08-12] MEDS ORDERED: KETOROLAC 30 MG/ML INJ ONE (08:18)
[2022-08-12] MEDS ORDERED: LIDOCAINE 2% MPF 5 ML VIAL ONE (08:18)
[2022-08-12] MEDS ORDERED: KETAMINE HCL 500 MG/5 ML VIAL ONE (08:27)
[2022-08-12] MEDS ORDERED: Phenylephrine HCl 10 MG/ML 1 ML VIAL ONE (08:46)
[2022-08-12] MEDS ORDERED: EPHEDRINE SULF 50 MG/ML VIAL ONE (08:46)
[2022-08-12] MEDS ORDERED: NS 0.9% VIAL 20 ML ONE (08:47)
--- NOTE | 2022-08-12 11:03 | P.BOP ---
Preoperative diagnosis: right knee osteoarthritis Postoperative diagnosis: same Primary procedure: right total knee arthroplasty Brand Executive: NONE,NONE Estimated blood loss: 40 cc Specimen: right knee bone remnants Findings: see dictation Anesthesia: General Complications: None Implants: Biomet Roland Persona 9 CR femur, F tibia, 32 patella, 10 mm poly Fluids & blood products: per anesthesia record; TT: 69 mins @ 300 mmHg Transferred to: Recovery Room Condition: Good
[2022-08-12] MEDS ORDERED: ACETAMINOPHEN 325 MG TABLET PO PRN (11:04)
[2022-08-12] MEDS ORDERED: ONDANSETRON 4 MG/2 ML VIAL IV PRN (11:04)
[2022-08-12] MEDS ORDERED: DOCUSATE NA 100 MG CAP PO PRN (11:04)
[2022-08-12] MEDS ORDERED: TRAMADOL HCL 50 MG TAB PO PRN (11:07)
--- OUTSIDE RECORDS SUMMARY | 2022-08-12 11:23 | XMS REPORT | Continuity of Care Document ---
:1940 Author Organization [facility] t Address [address] [place] [address] Care Team Providers Name Role Phone TOMFELIPE GERMAIN Primary Care Physician Unavailable JUAN ANTONIO ROGESR Attending Clinician Unavailable LAB90 Attending Clinician Unavailable MADHAVI GOLDMAN Attending Clinician Unavailable Juan Antonio Rogers DO Attending Clinician DINO BARCENAS Attending Clinician Unavailable Madhavi Goldman MD Attending Clinician [phone] SHAYNA DIAMOND Attending Clinician Unavailable SHIKHA STALLINGS Attending Clinician Unavailable RADIOLOGY Attending Clinician Unavailable Radiology Attending Clinician Unavailable Doctor Unassigned, [place] Attending Clinician Unavailable Shayna Johnson Attending Clinician KIRAN LEIJA Attending Clinician Unavailable DARRIAN SIDDIQUI Attending Clinician Unavailable Meagan Doe MD Attending Clinician ANA HAJI Attending Clinician Unavailable Darrian Siddiqui MD Attending Clinician [facility] Neurology Continuity Attending Clinician Unavail able ALYSSIA WU Admitting Clinician Unavailable MIS SILVER Admitting Clinician Unavailable Payers Payer Name Policy Type Policy Number Effective Date Expiration Date S ource KCNoel [place] HMO 7 [id number] 2022 00:00:00 [employer] TOTAL CARE [id number] 2021 MEDICARE HMO DSNP 00:00:00 [place] [id number] 2020 HEALTHCARE/AARP 00:00:00 MEDICARE PART A \T\ [id number] 2007 B 00:00:00 [place] [facility] [id number] 2007 MEDICARE SUPPLEMENT 00:00:00 AETNA MEDICARE ADV [id number] 2018 00:00:00 Problems Condition Condition Condition Status Onset Resolution Last Treating Co mments Source Name Details Category Date Date Treatment Clinician Date Primary Primary Disease Active 2021-06 Daisy hypertensi hypertensi 1-16 Se ybold on on 00:00: - 00 Externa l Acquired Acquired Disease Active 2021-06 Kelse y hypothyroi hypothyroi -16 Se ybold dism dism 00:00: - 00 Externa l 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 1-16 Seybold gout gout 00:00: - 00 Externa l PVD PVD Disease Active 2021-06 Daisy (periphera (periphera -16 Se ybold l vascular l vascular 00:00: - disease) disease) 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 Acute pain Acute pain Disease [...] Artery Bilateral Bilateral Hyperchole Hyperchole Disease Active K elsey sterolemia sterolemia 8-13 Se ybold 00:00: - 00 Externa l 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 [...] artery artery 00:00: - disease) disease) 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 No known No known Disease [facility] problems problems of Medicin e [id number] Arthritis Problem Co mmon [id number] of knee, [facility] [id number] Primary Problem Comm on osteoarthr [facility] right knee [facility] Allergies, Adverse Reactions, Alerts Allergy Allergy Status Severity Reaction(s) Onset Inactive Treating Comm ents Source Name Type Date Date Clinician Penicill Propensi Active [facility] 2018-06 Daisy ins ty to 2-09 Seybold adverse 00:00: reaction 00 s Penicill Propensi Active [facility] 2018-06 Daisy ins ty to 2 Seybold adverse 00:00: - reaction 00 Externa s l Penicill Propensi Active 2018-06 [facility] ins ty to 209 Morgan adverse 00:00: of reaction 00 Medicin s to e drug Codeine Propensi Active Other Daisy ty to 5-17 reaction( Seybold adverse 00:00: s): - reaction 00 Itching Externa s l Sulfa Propensi Active Daisy Drugs ty to 5-17 Seybold adverse 00:00: - reaction 00 Externa s l NO KNOWN Drug Active Univers ALLERGIE Class ity of S [facility] [id number] Drug Active Unknown Common 85 allergy [facility] Social History Social Habit Start Date Stop Date Quantity Comments Source Sex Assigned At Common Sp rodolfo - [facility] History of tobacco Smoker Daisy Sewell use - External History SDOH Daisy Mixon ld Alcohol Frequency - Exter nal History SDOH Daisy mosley Alcohol Std Drinks - Exte rnal History SDOH Daisy mosley Alcohol Binge - External Alcohol intake 2022-07-30 2022-07-30 Current drinker of Juan tashibill Iveymarilyn 00:00:00 00:00:00 alcohol (finding) - Exter nal Cigarettes smoked 2022-05-13 2022-05-13 Daisy Sewell current (pack per 00:00:00 00:00:00 - Exter nal day) - Reported Cigarette 2022-05-13 2022-05-13 Daisy Sewell pack-years 00:00:00 00:00:00 - External Tobacco use and 2022-05-13 2022-05-13 Smokeless tobacco Juan tashibill Iveymarilyn exposure 00:00:00 00:00:00 non-user - External Alcohol Comment 2022-05-13 2022-05-13 occasionally Daisy Sewell 00:00:00 00:00:00 - External Education 2022-05-13 2022-05-13 16 Daisy Sewell 00:00:00 00:00:00 - External Exposure to 2021-07-22 2021-08-21 Not sure Daisy livingstno SARS-CoV-2 (event) 00:00:00 17:05:00 Smoking Status Start Date Stop Date Source Ex-smoker 2022-05-13 00:00:00 2022-05-13 00:00:00 Daisy silverman - External Unknown if ever smoked [facility] Never smoker [facility] Medications Ordered Filled Start Stop Current Ordering Indication Dosage Frequency Signature Comments Components Source Medication Medication Date Date Medication? Clinician (SIG) Name Name Simvastatin Yes 10mg Take 10 mg Daisy 10 MG oral 2-02 by mouth Seybo ld Tablet 11:45: at bedtime - 26 Externa l Thyroid Yes .05mg Take 0.05 Megha ey (LEVOTHYROX 2-02 mg by Seybold INE-LIOTHYR 11:45: mouth once - ONINE OR) 26 Externa l Loratadine Yes 10mg Take 10 mg K elsey 10 MG oral 2-02 by mouth Seybo ld Capsule 11:45: daily - 25 Externa l Aspirin 81 Yes 81mg Take 81 mg K elsey MG oral 2-02 by mouth Seybold Tablet 11:45: every - Delayed 25 other day Externa Response l Lisinopril Yes 5mg Take 5 mg Ke lsey 5 MG oral 2-02 by mouth Seybol d Tablet 11:45: daily - 25 Externa l Cyanocobala Yes 1000ug Take 1,000 Daisy min (B-12 2-02 mcg by Seybold TR) 1000 11:45: mouth - MCG oral 25 daily Externa Tab CR l Allopurinol Yes [id number] TAKE 1 Daisy 300 MG oral 1-03 TABLET BY Sey bold Tablet 00:00: MOUTH - 00 EVERY DAY Externa l Tramadol 2021-06 Yes 1{tbl} [id number] Take 1 Daisy HCl 2-13 [id number] tablet by Seyb old (ULTRAM) 50 00:00: 3D mouth - MG oral 00 every 8 Externa Tablet hours as l needed Simvastatin 2021-06 Yes 10mg Take 10 mg [...] 1,000 Daisy min (B-12 2-12 mcg by Seybold TR) 1000 10:12: mouth - MCG oral 33 daily Externa Tab CR l predniSONE 2021-06 Yes [id number] 10mg Take 1 Daisy (DELTASONE) 2-12 tablet (10 Se ybold 10 MG oral 00:00: mg total) - tablet 00 by mouth Externa daily l Meloxicam 2021-06 Yes [id number] 15mg QD Take 1 Daiys 15 MG oral 2-12 9100 tablet (15 Sey bold Tablet 00:00: mg total) - 00 by mouth Externa daily as l needed for pain predniSONE 2021-06 Yes [id number] 10mg Take 1 Daisy (DELTASONE) 2-12 tablet (10 Se ybold 10 MG oral 00:00: mg total) - tablet 00 by mouth Externa daily l Meloxicam 2021-06 Yes [id number] 15mg QD Take 1 Daisy 15 MG [...] 1,000 Daisy min (B-12 1-16 mcg by Seybold TR) 1000 07:55: mouth - MCG oral [...] 1,000 Daisy min (B-12 0-12 mcg by ybhoward TR) 1000 09:47: mouth - MCG oral 32 daily Externa Tab CR l Glimepiride Yes [id number] 2mg Take 1 Daisy 2 MG oral 9-09 tablet (2 Seybo ld Tablet 00:00: mg total) - 00 by mouth Externa every l morning (before breakfast) Glimepiride Yes [id number] 2mg Take 1 Daisy 2 MG oral 9-09 tablet (2 Seybo ld Tablet 00:00: mg total) - 00 by mouth Externa every l morning (before breakfast) Glimepiride Yes [id number] 2mg Take 1 Daisy 2 MG oral 9-09 tablet (2 Seybo ld Tablet 00:00: mg total) - 00 by mouth Externa every l morning (before breakfast) Glimepiride Yes [id number] 2mg Take 1 Daisy 2 MG oral 9-09 tablet (2 Seybo ld Tablet 00:00: mg total) - 00 by mouth Externa every l morning (before breakfast) predniSONE 2021-0 2021- No [id number] One pill Daisy (DELTASONE) 03-05 10-12 twice [...] DAY Externa NEEDED l FOR PAIN Meloxicam 2021-0 2021- No TAKE 1 Kelse y 15 MG oral 6-06 12-12 TABLET BY Sey bold Tablet 00:00: 00:00 MOUTH - 00 :00 EVERY DAY Externa NEEDED l FOR PAIN Simvastatin 2021-0 Yes 10mg Take 10 mg Daisy 10 MG oral 4-25 by mouth Seybo ld Tablet 08:05: at bedtime 13 Thyroid 2021-0 Yes .05mg Take 0.05 Megha ey (LEVOTHYROX 4-25 mg by Seybold INE-LIOTHYR 08:05: mouth once ONINE OR) 13 Loratadine Yes 10mg Take 10 mg K elsey 10 MG oral 4-25 by mouth Seybo ld Capsule 08:05: daily 13 Aspirin 81 2021-0 Yes 81mg Take 81 mg K elsey MG oral 4-25 by mouth Seybold Tablet 08:05: every Delayed 13 other day Response Lisinopril Yes 5mg Take 5 mg Ke lsey 5 MG oral 4-25 by mouth Seybol d Tablet 08:05: daily 13 Cyanocobala Yes 1000ug Take 1,000 Daisy min (B-12 4-25 mcg by Melodie TR) 1000 08:05: mouth MCG oral 13 daily Tab CR Allopurinol Yes [id number] 300mg Take 1 Daisy 300 MG oral 4-13 tablet Seybol d Tablet 00:00: (300 mg 00 total) by mouth daily Allopurinol 2021- Yes [id number] 300mg Take 1 Daisy 300 MG oral 4-13 tablet Seybol d Tablet 00:00: (300 mg - 00 total) by Externa mouth l daily Allopurinol 2021- Yes [id number] 300mg Take 1 Daisy 300 MG oral 4-13 tablet Seybol d Tablet 00:00: (300 mg - 00 total) by Externa mouth l daily Allopurinol 2021- Yes [id number] 300mg Take 1 Daisy 300 MG oral [...] 16 daily Tab CR predniSONE 0 Yes [id number] One pill Daisy (DELTASONE) 4-11 9105 twice Seybold 10 MG oral 00:00: daily for tablet 00 5 days then one pill daily for 5 days. Meloxicam 2021-0 Yes 15mg QD Take 1 Daisy 15 MG oral 4-11 tablet (15 Sey bold Tablet 00:00: mg total) 00 by mouth daily as needed for pain predniSONE 2021-0 Yes [id number] One pill Daisy (DELTASONE) 4-11 9105 twice [...] Seybol d Tablet 08:58: daily 41 Cyanocobala 202-0 Yes 1000ug Take 1,000 Daisy min (B-12 3-01 mcg by Seybold TR) 1000 08:58: mouth MCG oral 41 daily Tab CR predniSONE 2021-0 Yes [id number] Take 3 Daisy (DELTASONE) 3-9100 tablets by Se ybold 10 MG oral 00:00: mouth for tablet 00 7 days then 1 tablet by mouth for 7 day predniSONE 2021-0 Yes [id number] Take 3 Daisy (DELTASONE) 3- 91 tablets by Se ybold 10 MG oral 00:00: mouth for tablet 00 7 days then 1 tablet by mouth for 7 day predniSONE 2021-0 2022- No [id number] Take 3 Daisy (DELTASONE) 3- 04- 91 tablets by S eybold 10 MG oral 00:00: 00:00 mouth for tablet 00 :00 7 days then 1 tablet by mouth for 7 day Simvastatin 2021-0 Yes 10mg Take 10 mg Daisy 10 MG oral 2-22 by mouth Seybo ld Tablet 09:46: at bedtime 39 Thyroid 2021-0 Yes .05mg Take 0.05 Megha ey (LEVOTHYROX 2-22 mg by Seybold INE-LIOTHYR 09:46: mouth once ONINE OR) 39 Loratadine Yes 10mg Take 10 mg K elsey [...] 1,000 Daisy min (B-12 2-22 mcg by Seybold TR) 1000 09:46: mouth MCG oral 39 daily Tab CR Clindamycin Yes [id number] 300mg Take 1 Daisy HCl 300 MG 2-22 capsule Seybol d oral 00:00: (300 mg Capsule 00 total) by mouth 3 times daily Mupirocin 0 Yes [id number] Apply to Daisy (BACTROBAN) 2-22 affected Seyb old 2 % apply 00:00: toe twice externally 00 a day Ointment Clindamycin 2022-0 Yes [id number] 300mg Take 1 Daisy HCl 300 MG 2-22 capsule Seybol d oral 00:00: (300 mg Capsule 00 total) by mouth 3 times daily Mupirocin 2022-0 Yes [id number] Apply to Daisy (BACTROBAN) 2-22 affected Seyb old 2 % apply 00:00: toe twice externally 00 a day Ointment Clindamycin 2022-0 Yes [id number] 300mg Take 1 Daisy HCl 300 MG 2-22 capsule Seybol d oral 00:00: (300 mg Capsule 00 total) by mouth 3 times daily Mupirocin 2022-0 Yes [id number] Apply to Daisy (BACTROBAN) 2-22 affected Seyb old 2 % apply 00:00: toe twice externally 00 a day Ointment Mupirocin 2-0 Yes [id number] Apply to Daisy (BACTROBAN) 2-22 affected Seyb old 2 % apply 00:00: toe twice externally 00 a day Ointment Mupirocin 2-0 Yes [id number] Apply to Daisy (BACTROBAN) 2-22 affected Seyb old 2 % apply 00:00: toe twice - externally 00 a day Externa Ointment l Mupirocin 2-0 Yes [id number] Apply to Daisy (BACTROBAN) 2-22 affected Seyb old 2 % apply 00:00: toe twice - externally 00 a day Externa Ointment l Mupirocin 2-0 Yes [id number] Apply to Daisy (BACTROBAN) 2-22 affected Seyb old 2 % apply 00:00: toe twice - externally 00 a day Externa Ointment l Mupirocin 2-0 Yes [id number] Apply to Daisy (BACTROBAN) 2-22 affected Seyb old 2 % apply 00:00: toe twice - externally 00 a day Externa Ointment l Clindamycin 2022-0 Yes [id number] 300mg Take 1 Daisy HCl 300 MG 2-22 capsule Seybol d oral 00:00: (300 mg Capsule 00 total) by mouth 3 times daily Mupirocin 2022-0 Yes [id number] Apply to Daisy (BACTROBAN) 2-22 affected Seyb old 2 % apply 00:00: toe twice externally 00 a day Ointment Clindamycin 0 2021- No [id number] 300mg Take 1 Daisy HCl 300 MG 2-22 04-25 capsule Seybo ld oral 00:00: 00:00 (300 mg Capsule 00 :00 total) by mouth 3 times daily Metoprolol 2021-0 Yes 50mg Take 50 mg K elsey Tartrate 50 2-10 by mouth Seyb old MG oral 13:37: Tablet 18 Simvastatin 0 Yes 20mg Take 20 mg Daisy 20 MG oral 2-10 by mouth Seybo ld Tablet 13:37: 18 Celecoxib Yes [id number] 200mg Take 1 K elsey (CeleBREX) 2-10 capsule Seybol d 200 MG oral 00:00: (200 mg Capsule 00 total) by mouth 2 times daily Colchicine Yes TAKE 1 Kelse y 0.6 MG oral 2-04 TABLET BY Sey bold Tablet 00:00: MOUTH 00 EVERY DAY Gabapentin Yes TAKE 1 Kelse y 300 MG oral 2-01 CAPSULE BY Se ybold Capsule 00:00: MOUTH 00 THREE TIMES A DAY Empaglifloz Yes [id number] 1{tbl} Take 1 Daisy in 1-20 tablet by Seybold (Jardiance) 00:00: mouth 10 MG oral 00 daily Tablet Furosemide 2021-0 2021- No 20mg Take 20 mg Daisy 20 MG oral -18 01-18 by mouth Seyb old Tablet 10:08: 00:00 37 :00 Metformin 2021-0 2021- No 500mg Take 500 Ke lsey HCl 500 MG 1-18 01-18 mg by Seybold oral Tablet 10:00: 00:00 mouth 30 :00 Metoprolol 2021-0 Yes 50mg Take 50 mg K elsey Tartrate 50 1-18 by mouth Seyb old MG oral 09:39: Tablet 16 Simvastatin 0 Yes 20mg Take 20 mg Daisy 20 [...] Base) 00:00: MCG/ACT IN 00 AERS Albuterol Yes Daisy HFA 108 (90 5-07 Seybold Base) 00:00: MCG/ACT IN 00 AERS metformin 2019-06 Yes 500mg Take 500 [place] neha (GLUCOPHAGE 0-23 mg by College ) 500 MG 12:43: mouth. of tablet 32 Medicin e simvastatin 2019-06 Yes 20mg Take 20 mg [facility] (ZOCOR) 20 0-23 by mouth. Justin ege [...] 6-17 by mouth. ity of tablet 15:37: [address] metFORMIN 0 Yes 500mg Take 500 Uni vers 500 mg 6-17 mg by ity of tablet 15:37: mouth. [address] metoprolol Yes 50mg Take 50 mg U nivers tartrate 50 6-17 by mouth. ity of mg tablet 15:37: [address] simvastatin Yes 20mg Take 20 mg Univers 20 mg 6-17 by mouth. ity of tablet 15:37: [address] furosemide 2020-0 Yes 20mg Take 20 mg U nivers 20 mg 6-17 by mouth. ity of tablet 15:37: [address] metFORMIN 2020-0 Yes 500mg Take 500 Uni vers 500 mg 6-17 mg by ity of tablet 15:37: mouth. [address] metoprolol 2020-0 Yes 50mg Take 50 mg U nivers tartrate 50 6-17 by mouth. ity of mg tablet 15:37: [address] simvastatin 2020-0 Yes 20mg Take 20 mg Univers 20 mg 6-17 by mouth. ity of tablet 15:37: [address] furosemide 2020-0 Yes 20mg Take 20 mg U nivers 20 mg 6-17 by mouth. ity of tablet 10:37: [address] metFORMIN 2020-0 Yes 500mg Take 500 Uni vers 500 mg 6-17 mg by ity of tablet 10:37: mouth. [address] metoprolol 2020-0 Yes 50mg Take 50 mg U nivers tartrate 50 6-17 by mouth. ity of mg tablet 10:37: [address] simvastatin 2020-0 Yes 20mg Take 20 mg Univers 20 mg 6-17 by mouth. ity of tablet 10:37: [address] furosemide 2020-0 Yes 20mg Take 20 mg U nivers 20 mg 6-17 by mouth. ity of tablet 10:37: [address] metFORMIN 2020-0 Yes 500mg Take 500 Uni vers 500 mg 6-17 mg by ity of tablet 10:37: mouth. [address] metoprolol 2020-0 Yes 50mg Take 50 mg U nivers tartrate 50 6-17 by mouth. ity of mg tablet 10:37: [address] simvastatin 2020-0 Yes 20mg Take 20 mg Univers 20 mg 6-17 by mouth. ity of tablet 10:37: [address] colchicine 2020-0 2020- No .6mg Take 0.6 Un lennox 0.6 mg 5-24 06-17 mg by ity of tablet 00:00: 00:00 mouth [place] 00 :[address] [facility] colchicine 2020-0 2020- No .6mg Take 0.6 Un lennox 0.6 mg 5-24 06-17 mg by ity of tablet 00:00: 00:00 mouth [place] 00 :00 daily. [facility] indomethaci 2018-06 Yes TAKE 1 Univ ers n 25 mg 1-29 CAPSULE BY ity of capsule 00:00: MOUTH 3 [place] 00 TIMES A Medical DAY WITH Branch FOOD traMADol 50 2018-06 Yes Univer s mg tablet 1-29 ity of 00:00: [place] 00 [facility] indomethaci 2018-06 Yes TAKE 1 Univ ers n 25 mg 1-29 CAPSULE BY ity of capsule 00:00: MOUTH 3 [place] 00 TIMES A Medical DAY WITH Branch FOOD traMADol 50 2018-06 Yes Univer s mg tablet 1-29 ity of 00:00: [place] 00 [facility] indomethaci 2018-06 Yes TAKE 1 Univ ers n 25 mg 1-29 CAPSULE BY ity of capsule 00:00: MOUTH 3 [place] 00 TIMES A Medical DAY WITH Branch FOOD traMADol 50 2018-06 Yes Univer s mg tablet 1-29 ity of 00:00: [place] 00 [facility] indomethaci 2018-06 Yes TAKE 1 Univ ers n 25 mg 1-29 CAPSULE BY ity of capsule 00:00: MOUTH 3 [place] 00 TIMES A Medical DAY WITH Branch FOOD traMADol 50 2018-06 Yes Univer s mg tablet 1-29 ity of 00:00: [place] 00 [facility] indomethaci 2018-06 Yes TAKE 1 [facility] (INDOCIN) 1-29 CAPSULE BY Co llege 25 MG 00:00: MOUTH 3 of capsule 00 TIMES A Medicin DAY WITH e FOOD febuxostat 2018-06 Yes 40mg Take 40 mg U nivers 40 mg 1-26 by mouth. ity of tablet 00:00: [place] [facility] febuxostat 2018-06 Yes 40mg Take 40 mg U nivers 40 mg 1-26 by mouth. ity of tablet 00:00: [place] [facility] febuxostat 2018-06 Yes 40mg Take 40 mg U nivers 40 mg 1-26 by mouth. ity of tablet 00:00: [place] [facility] febuxostat 2018-06 Yes 40mg Take 40 mg U nivers 40 mg 1-26 by mouth. ity of tablet 00:00: [place] [facility] tiZANidine 2018-06 Yes Univers 4 mg tablet 0-14 ity of 00:00: [place] [facility] tiZANidine 2018-06 Yes Univers 4 mg tablet 0-14 ity of 00:00: [place] [facility] tiZANidine 2019- Yes Univers 4 mg tablet 0-14 ity of 00:00: [place] [facility] tiZANidine 2019- Yes Univers 4 mg tablet 0-14 ity of 00:00: [place] [facility] tizanidine 2018-06 Yes [facility] (ZANAFLEX) 0-14 College 4 MG tablet 00:00: of Medicin e gabapentin 2019- Yes Univers 300 mg 0-07 ity of capsule 00:00: [address] gabapentin 2019- Yes Univers 300 mg 0-07 ity of capsule 00:00: [address] gabapentin 2019- Yes Univers 300 mg 0-07 ity of capsule 00:00: [address] gabapentin 2019- Yes Univers 300 mg 0-07 ity of capsule 00:00: [address] gabapentin 2019- Yes [facility] (NEURONTIN) 0-07 College 300 MG 00:00: of capsule 00 Medicin e allopurinoL 2019-0 Yes Univer s 100 mg 9-24 ity of tablet 00:00: [address] allopurinoL 2019-0 Yes Univer s 100 mg 9-24 ity of tablet 00:00: [address] allopurinoL 2019-0 Yes Univer s 100 mg 9-24 ity of tablet 00:00: [address] allopurinoL 2019-0 Yes Univer s 100 mg 9-24 ity of tablet 00:00: [address] allopurinol 2019-0 Yes [facility] (ZYLOPRIM) 9-24 College 100 MG 00:00: of tablet 00 Medicin e B-12 B-12 No B-12 Jardiance Jardiance No Jardiance Glimepiride Glimepiride No Glimepirid e ASA-APAP-Ca ASA-APAP-Ca No ASA-APAP-C ff Buffered ff Buffered aff Buffered Simvastatin Simvastatin No Simvastati n Metoprolol Metoprolol No Metoprolol Tartrate Tartrate Tartrate Levothyroxi Levothyroxi No Levothyrox ne Sodium ne Sodium ine Sodium Lisinopril Lisinopril No Lisinopril Aspirin Aspirin No Aspirin Allopurinol Allopurinol No Allopurino l Loratadine Loratadine No Loratadine B-12 B-12 No B-12 Jardiance Jardiance No Jardiance Glimepiride Glimepiride No Glimepirid e ASA-APAP-Ca ASA-APAP-Ca No ASA-APAP-C ff Buffered ff Buffered aff Buffered Simvastatin Simvastatin No Simvastati n Metoprolol Metoprolol No Metoprolol Tartrate Tartrate Tartrate Levothyroxi Levothyroxi No Levothyrox ne Sodium ne Sodium ine Sodium Lisinopril Lisinopril No Lisinopril Aspirin Aspirin No Aspirin Allopurinol Allopurinol No Allopurino l Loratadine Loratadine No Loratadine B-12 B-12 No B-12 Jardiance Jardiance No Jardiance Glimepiride Glimepiride No Glimepirid e ASA-APAP-Ca ASA-APAP-Ca No ASA-APAP-C ff Buffered ff Buffered aff Buffered Simvastatin Simvastatin No Simvastati n Metoprolol Metoprolol No Metoprolol Tartrate Tartrate Tartrate Levothyroxi Levothyroxi No Levothyrox ne Sodium ne Sodium ine Sodium Lisinopril Lisinopril No Lisinopril Aspirin Aspirin No Aspirin Allopurinol Allopurinol No Allopurino l Loratadine Loratadine No Loratadine B-12 B-12 No B-12 Jardiance Jardiance No Jardiance Glimepiride Glimepiride No Glimepirid e ASA-APAP-Ca ASA-APAP-Ca No ASA-APAP-C ff Buffered ff Buffered aff Buffered Simvastatin Simvastatin No Simvastati n Metoprolol Metoprolol No Metoprolol Tartrate Tartrate Tartrate Levothyroxi Levothyroxi No Levothyrox ne Sodium ne Sodium ine Sodium Lisinopril Lisinopril No Lisinopril Aspirin Aspirin No Aspirin Allopurinol Allopurinol No Allopurino l Loratadine Loratadine No Loratadine Immunizations Ordered Immunization Filled Immunization Date Status Commen ts Source Name Name COVID-19 Bivalent 2022-05-13 Completed Daisy Sewell Booster vaccine 00:00:00 - Externa l PFIZER + COVID-19 Bivalent 2022-05-13 Completed Daisy Sewell Booster vaccine 00:00:00 - Externa l PFIZER + COVID-19 Bivalent 2022-05-13 Completed Daisy Sewell Booster vaccine 00:00:00 - Externa l PFIZER 12+ Influenza Virus 2022-04-08 Completed Daisy Se ybold [...] And Up Shingles IM 2021-07-03 Completed Daisy Iveyybol d (Shingrix) 00:00:00 - External Shingles IM 2021-07-03 Completed Daisy Seybol d (Shingrix) 00:00:00 - External Shingles IM 2021-07-03 Completed Daisy Martinezol d (Shingrix) 00:00:00 - External Shingles IM 2021-07-03 Completed Daisy Seybol d (Shingrix) 00:00:00 - External Influenza vaccine, 2021-03-19 Completed Daisy Sewell quadrivalent, 00:00:00 - External adjuvanted Shingles IM 2021-03-19 Completed Daisy Seybol d (Shingrix) 00:00:00 - External Influenza vaccine, 2021-03-19 Completed Daisy Sewell quadrivalent, 00:00:00 - External adjuvanted Shingles IM 2021-03-19 Completed Daisy Seybol d (Shingrix) 00:00:00 - External Influenza vaccine, 2021-03-19 Completed Daisy Iveyybold quadrivalent, 00:00:00 - External adjuvanted Shingles IM 2021-03-19 Completed Daisy Seybol d (Shingrix) 00:00:00 - External Influenza vaccine, 2021-03-19 Completed Daisy Semiriamold quadrivalent, 00:00:00 - External adjuvanted Shingles IM 2021-03-19 Completed Daisy Seybol d (Shingrix) 00:00:00 - External Covid-19 Vaccine 2020-08-30 Completed Daisy silverman ([facility]), Mrna-lnp, 00:00:00 - Ext ernal Mark Protein, Pf, 30mcg/0.3ml,IM Covid-19 Vaccine 2020-08-30 Completed Daisy Stanley eybold ([facility]), Mrna-lnp, 00:00:00 - Ext ernal Mark Protein, Pf, 30mcg/0.3ml,IM Covid-19 Vaccine 2020-08-30 Completed Daisy Stanley eybold ([facility]), Mrna-lnp, 00:00:00 - Ext ernal Mark Protein, Pf, 30mcg/0.3ml,IM Covid-19 Vaccine 2020-08-30 Completed Daisy Stanley eybold ([facility]), Mrna-lnp, 00:00:00 - Ext ernal Mark Protein, Pf, 30mcg/0.3ml,IM Covid-19 Vaccine 2020-08-09 Completed Daisy Stanley eybold ([facility]), Mrna-lnp, 00:00:00 Mark Protein, Pf, 30mcg/0.3ml,IM Covid-19 Vaccine 2020-08-09 Completed Daisy S eybold ([facility]), Mrna-lnp, 00:00:00 Mark Protein, Pf, 30mcg/0.3ml,IM Covid-19 Vaccine 2020-08-09 Completed Daisy Stanley eybold ([facility]), Mrna-lnp, 00:00:00 Mark Protein, Pf, 30mcg/0.3ml,IM Covid-19 Vaccine 2020-08-09 Completed Daisy Stanley eybold ([facility]), Mrna-lnp, 00:00:00 Mark Protein, Pf, 30mcg/0.3ml,IM Covid-19 Vaccine 2020-08-09 Completed Daisy Stanley eybold ([facility]), Mrna-lnp, 00:00:00 - Ext ernal Mark Protein, Pf, 30mcg/0.3ml,IM Covid-19 Vaccine 2020-08-09 Completed Daisy S eybold ([facility]), Mrna-lnp, 00:00:00 - Ext ernal Mark Protein, Pf, 30mcg/0.3ml,IM Covid-19 Vaccine 2020-08-09 Completed Daisy S eybold ([facility] [facility] Mrna-lnp, 00:00:00 Mark Protein, Pf, 30mcg/0.3ml,IM Covid-19 Vaccine 2020-08-09 Completed Daisy S eybold ([employer]), Mrna-lnp, 00:00:00 - Ext ernal Mark Protein, Pf, 30mcg/0.3ml,IM Covid-19 Vaccine 2020-08-09 Completed Daisy S eybold ([employer]), Mrna-lnp, 00:00:00 - Ext ernal Mark Protein, Pf, 30mcg/0.3ml,IM Covid-19 Vaccine 2020-08-09 Completed Daisy S eybold ([employer]), Mrna-lnp, 00:00:00 Mark Protein, Pf, 30mcg/0.3ml,IM Covid-19 Vaccine 2020-08-09 Completed Daisy S eybold ([employer]), Mrna-lnp, 00:00:00 Mark Protein, Pf, 30mcg/0.3ml,IM Influenza Virus 2020-04-23 Completed Daisy Se ybold [...] Up Td- Tetanus & 2014-11-20 Completed Daisy Iveyyb old Diphtheria Vaccine 00:00:00 (age 7+ years) Td- Tetanus & 2014-11-20 Completed Daisy Seyb old Diphtheria Vaccine 00:00:00 (age 7+ years) Td- Tetanus & 2014-11-20 Completed Daisy Iveyyb old Diphtheria Vaccine 00:00:00 (age 7+ years) Td- Tetanus & 2014-11-20 Completed Daisy Seyb old Diphtheria Vaccine 00:00:00 (age 7+ years) Td- Tetanus & 2014-11-20 Completed Daisy Seyb old Diphtheria Vaccine 00:00:00 - Exte rnal (age 7+ years) Td- Tetanus & 2014-11-20 Completed Daisy Iveyyb old Diphtheria Vaccine 00:00:00 - Exte rnal (age 7+ years) Td- Tetanus & 2014-11-20 Completed Daisy Iveyyb old Diphtheria Vaccine 00:00:00 (age 7+ years) Td- Tetanus & 2014-11-20 Completed Daisy Iveyyb old Diphtheria Vaccine 00:00:00 - Exte rnal (age 7+ years) Td- Tetanus & 2014-11-20 Completed Daisy Iveyyb old Diphtheria Vaccine 00:00:00 - Exte rnal (age 7+ years) Td- Tetanus & 2014-11-20 Completed Daisy Iveyyb old Diphtheria Vaccine 00:00:00 (age 7+ years) Td- Tetanus & 2014-11-20 Completed Daisy Iveyyb old Diphtheria Vaccine 00:00:00 (age 7+ years) [...] Ex ternal Formulation pneumococcal, 2006-04-05 Completed Daisy Martinez old unspecified 00:00:00 - External formulation Influenza Virus 2006-04-05 Completed Daisy Se ybold Vaccine, Unspecified 00:00:00 - Ex ternal Formulation pneumococcal, 2006-04-05 Completed Daisy Martinez old unspecified 00:00:00 - External formulation Influenza Virus 2006-04-05 Completed Daisy Se ybold Vaccine, Unspecified 00:00:00 - Ex ternal Formulation pneumococcal, 2006-04-05 Completed aDisy Iveyyb old unspecified 00:00:00 - External formulation Influenza Virus 2006-04-05 Completed Daisy Se ybold Vaccine, Unspecified 00:00:00 - Ex ternal Formulation pneumococcal, 2006-04-05 Completed Daisy Iveyyb old unspecified 00:00:00 - External formulation Influenza Virus 2006-03-28 Completed Daisy Se ybold Vaccine, Unspecified 00:00:00 - Ex ternal Formulation Influenza Virus 2006-03-28 Completed Daisy Se ybold Vaccine, Unspecified 00:00:00 - Ex ternal Formulation Influenza Virus 2006-03-28 Completed Daisy sanders Vaccine, Unspecified 00:00:00 - Ex ternal Formulation Influenza Virus 2006-03-28 Completed Daisy pinedaold Vaccine, Unspecified 00:00:00 - [...] Time Observation Value Comments Source Systolic blood 2022-07-30 17:44:00 115 mm[Hg] Daisy Iveyybold - pressure External Diastolic blood 2022-07-30 17:44:00 67 mm[Hg] Denny manley Seybold - pressure External Heart rate 2022-07-30 17:44:00 72 /min Daisy khanbomelany - External Body temperature 2022-07-30 17:44:00 36.72 Luisana Megha ey Seybold - External Respiratory rate 2022-07-30 17:44:00 14 /min Megha khan Seybold - External Body height 2022-07-30 17:44:00 175.3 cm Daisy khanbomelany - External Body weight 2022-07-30 17:44:00 84.823 kg Daisy khanbomelany - External BMI 2022-07-30 17:44:00 27.62 kg/m2 Daisy khanbomelany - External Oxygen saturation in 2022-07-30 17:44:00 99 /min Daisy Sewell - Arterial blood by External Pulse oximetry Systolic blood 2022-06-08 16:09:00 140 mm[Hg] Daisy Iveyybold - pressure External Diastolic blood 2022-06-08 16:09:00 62 mm[Hg] Kelse y Seybold - pressure External Heart rate 2022-06-08 16:09:00 88 /min Daisy khanbold - External Body temperature 2022-06-08 16:09:00 36.56 Luisana Megha ey Seybold - External Respiratory rate 2022-06-08 16:09:00 14 /min Megha khan Seybold - External Body height 2022-06-08 16:09:00 175.3 cm Daisy Stanley eybold - External Body weight 2022-06-08 16:09:00 88.451 kg Daisy Stanley eybold - External BMI 2022-06-08 16:09:00 28.80 kg/m2 Daisy Stanley eybold - External Systolic blood 2022-05-13 14:03:00 110 mm[Hg] Daisy Seybold - pressure External Diastolic blood 2022-05-13 14:03:00 60 mm[Hg] Denny manley Seybold - pressure External Heart rate 2022-05-13 13:50:00 70 /min Daisy Stanley eybold - External Body temperature 2022-05-13 13:50:00 35.67 Luisana eMgha khan Seybold - External Respiratory rate 2022-05-13 13:50:00 16 /min Megha khan Seybold - External Body height 2022-05-13 13:50:00 175.3 cm Daisy Stanley eybold - External Body weight 2022-05-13 13:50:00 87.998 kg Daisy Stanley eybold - External BMI 2022-05-13 13:50:00 28.65 kg/m2 Daisy Stanley eybold - External height 2022-04-28 08:00:00 69 [in_i] [facility] 2022-04-28 08:00:00 183 [lb_av] Common S [facility] temperature 2022-04-28 08:00:00 97.5 [degF] Common [facility] bmi 2022-04-28 08:00:00 27.02 kg/m2 Common S [facility] blood pressure 2022-04-28 08:00:00 126 mm[Hg] [facility] - [facility] blood pressure 2022-04-28 08:00:00 76 mm[Hg] [facility] - diastolic [facility] Systolic blood 2022-04-08 14:45:00 123 mm[Hg] Daisy Seybold - pressure External Diastolic blood 2022-04-08 14:45:00 59 mm[Hg] Kelse y Seybold - pressure External Heart rate 2022-04-08 14:45:00 65 /min Daisy S eybold - External Body temperature 2022-04-08 14:45:00 36.56 Luisana Megha ey Seybold - External Respiratory rate 2022-04-08 14:45:00 14 /min Megha ey Seybold - External Body height 2022-04-08 14:45:00 175.3 cm Daisy S eybold - External Body weight 2022-04-08 14:45:00 84.278 kg Daisy S eybold - External BMI 2022-04-08 14:45:00 27.44 kg/m2 Daisy S eybold - External Oxygen saturation in 2022-04-08 [...] saturation in 2021-10-06 19:17:00 98 /min Daisy Seybold Arterial blood by Pulse oximetry Systolic blood [...] Heart rate 2021-08-07 19:35:00 98 /min Daisy S eybold Body temperature 2021-08-07 19:35:00 36.56 Luisana Megha ey Seybold Respiratory rate 2021-08-07 19:35:00 14 /min Megha ey Seybold Body height 2021-08-07 19:35:00 175.3 cm Daisy S eybold Body weight 2021-08-07 19:35:00 81.194 kg Daisy S eybold BMI 2021-08-07 19:35:00 26.43 kg/m2 Daisy S eybold Systolic blood 2021-07-15 15:34:00 100 mm[Hg] Daisy Seybold pressure Diastolic blood 2021-07-15 15:34:00 52 mm[Hg] Kelse y Seybold pressure Heart rate 2021-07-15 15:34:00 84 /min Daisy S eybold Body temperature 2021-07-15 15:34:00 36.39 Luisana Megha ey Seybold Respiratory rate 2021-07-15 15:34:00 14 /min Megha ey Seybold Body height 2021-07-15 15:34:00 175.3 cm Daisy S eybold Body weight 2021-07-15 15:34:00 82.555 kg Daisy Stanley eybold BMI 2021-07-15 15:34:00 26.88 kg/m2 Daisy khanbomelany Systolic blood 2019-12-13 15:37:00 127 mm[Hg] Univer sity of pressure [facility] Diastolic blood 2019-12-13 15:37:00 82 mm[Hg] Unive rsity of pressure [facility] Heart rate 2019-12-13 15:37:00 66 /min Universi ty of [facility] Body temperature 2019-12-13 15:37:00 36.56 Luisana Univ ersity of [facility] Body height 2019-12-13 15:37:00 175.3 cm Universi ty of [facility] Body weight 2019-12-13 15:37:00 72.576 kg [facility]i ty [facility] BMI 2019-12-13 15:37:00 23.63 kg/m2 Universi ty of [facility] Oxygen saturation in 2019-12-13 15:37:00 95 /min University of Arterial blood by [facility] Pulse oximetry Branch Systolic blood 2019-12-13 15:37:00 127 mm[Hg] Univer sity of pressure [facility] Diastolic blood 2019-12-13 15:37:00 82 mm[Hg] Unive rsity of pressure [facility] Heart rate 2019-12-13 15:37:00 66 /min [facility]i ty [facility] Body temperature 2019-12-13 15:37:00 36.56 Luisana Univ ersity of [facility] Body height 2019-12-13 15:37:00 175.3 cm Universi ty of [facility] Body weight 2019-12-13 15:37:00 72.576 kg [facility] BMI 2019-12-13 15:37:00 23.63 kg/m2 Universi ty of [facility] Branch Oxygen saturation in 2019-12-13 15:37:00 95 /min University of Arterial blood by [facility] Pulse oximetry Branch Procedures Procedure Date / Time Performed Performing Clinician Chang WALTER 2022-05-13 14:27:33 Juan Antonio Rogers ld - External XR CHEST 2 VW 2021-12-22 16:14:26 Colbert NatachaAlyssia [facility] ASSIGNMENT OF BENEFITS 2021-12-22 15:46:38 Doctor Unassigned, No [facility] Plan of Care Planned Activity Planned Date Details Comments Source Future Scheduled NH DESTRUC Ordered: David Justin ege of Test PREMALIGNANT, FIRST 04/19/2020 Medicine LESION(84853) [code = 21196] Future Scheduled NH DESTRUC Ordered: [facility] Justin ege of Test PREMALIGNANT,2-14 04/19/2020 Medicine LESIONS(26438) [code = 04863] Future Scheduled TETANUS SHOT [facility] Justin ege of Test (ADULT) [code = Medicine TETANUS SHOT (ADULT)] Future Scheduled HEPATITIS C [facility] Justin ege of Test SCREENING [code = Medicine HEPATITIS C SCREENING] Future Scheduled ZOSTER VACCINE (1 [facility] of Test of 2) [code = Medicine ZOSTER VACCINE (1 of 2)] Future Scheduled MEDICARE AWV [facility] Justin ege of Test (Initial) [code = Medicine MEDICARE AWV (Initial)] Future Scheduled FALL SCREEN [code = [facility] of Test FALL SCREEN] Medicine Future Scheduled PNEUMOVAX >=65 [facility] llege of Test (PPSV23) [code = Medicine PNEUMOVAX >=65 (PPSV23)] Future Scheduled FLU VACCINE > 6 [facility] C ollege of Test MONTHS [code = FLU Medicine VACCINE > 6 MONTHS] Encounters Start End Encounter Admission Attending Care Care Encounter Source Date/Time Date/Time Type Type Clinicians Facility Department ID 2022-04-28 Outpatient [facility] [id number] Common 08:01:02 [id number] [facility] 2022-08-11 2022-08-11 Outpatient DAISY ROGERS [id number] Daisy 00:00:00 00:00:00 JUAN ANTONIO Seybol d 2022-08-06 2022-08-06 Outpatient DAISY HASKINS [id number] Daisy 00:00:00 00:00:00 Seybol d 2022-07-30 2022-07-30 Outpatient DAISY ROGERS [id number] Daisy 11:45:00 11:45:00 JUAN ANTONIO Seybol d 2022-07-29 2022-07-29 (TEL) [facility] [id number] Co mmon 00:00:00 00:00:00 [facility] 2022-07-27 2022-07-27 Outpatient DAISY ROGERS [id number] Daisy 00:00:00 00:00:00 JUAN ANTONIO Seybol d 2022-07-08 2022-07-08 Outpatient DAISY HASKINS [id number] Daisy 00:00:00 00:00:00 Seybol d 2022-06-30 2022-06-30 Outpatient DAISY HASKINS [id number] Daisy 00:00:00 00:00:00 Seybol d 2022-06-28 2022-06-28 Outpatient PREZADAISY Stanley [id number] Daisy 00:00:00 00:00:00 JUAN ANTONIO Seybol d 2022-06-26 2022-06-26 Outpatient DAISY HASKINS [id number] Daisy 00:00:00 00:00:00 Seybol d 2022-06-18 2022-06-18 Outpatient DAISY ROGERS [id number] Daisy 00:00:00 00:00:00 JUAN ANTONIO Seybol d 2022-06-08 2022-06-08 Outpatient DAISY ROGERS [id number] Daiys 16:45:00 16:45:00 JUAN ANTONIO Seybol d 2022-06-08 2022-06-08 (TEL) STLMLC STLMLC [id number] Co mmon 00:00:00 00:00:00 [facility] 2022-06-05 2022-06-05 Outpatient DAISY HASKINS [id number] Daisy 00:00:00 00:00:00 Seybol d 2022-05-13 2022-05-13 Outpatient LAB90 DAISY HASKINS [id number] Daisy 08:45:00 08:45:00 Seybol d 2022-05-13 2022-05-13 Outpatient DAISY ROGERS [id number] Daisy 08:15:00 08:15:00 JUAN ANTONIO Seybol d 2022-05-12 2022-05-12 Outpatient DAISY ROGERS [id number] Daisy 08:00:00 08:00:00 JUAN ANTONIO Seybol d 2022-04-29 2022-04-29 [facility]TEL[facility] [id number] Co mmon 00:00:00 00:00:00 [facility] - [facility] 2022-04-28 2022-04-28 OFFICE STLMLC STLMLC [id number] Co mmon 00:00:00 00:00:00 VISIT Spirit ESTAB PT - [facility] LEVEL 4 [facility] 2022-04-08 2022-04-08 Outpatient LAB90 DAISY HASKINS [id number] Daisy 10:15:00 10:15:00 Seybol d 2022-04-08 2022-04-08 Outpatient DAISY ROGERS [id number] Daisy 09:45:00 09:45:00 JUAN ANTONIO Seybol d 2022-04-08 2022-04-08 Outpatient DAISY ROGERS [id number] Daisy 00:00:00 00:00:00 JUAN ANTONIO Seybol d 2022-03-18 2022-03-18 Outpatient DAISY GOLDMAN [id number] Daisy 00:00:00 00:00:00 MADHAVI Seybol d 2022-03-16 2022-03-16 Outpatient DAISY ROGERS [id number] Daisy 10:30:00 10:30:00 JUAN ANTONIO Seybol d 2022-03-12 2022-03-12 Outpatient PREDAISY CHACON [id number] Daisy 00:00:00 00:00:00 JUAN ANTONIO Seybol d 2022-03-10 2022-03-10 Outpatient PREZASDAISY [id number] Daisy 00:00:00 00:00:00 JUAN ANTONIO Seybol d 2022-03-05 2022-03-05 Office Dino Rogers 1.2.840.114 [id number] Daisy 11:45:00 12:00:00 Visit Juan Antonio Lin 350.1.13.13 Se ybold 1.2.7.2.686 [id number] 2022-03-05 2022-03-05 Outpatient LAB90 DAISY HASKINS [id number] Daisy 11:05:00 11:05:00 Seybol d 2022-02-27 2022-02-27 Outpatient DINO BARCENAS DAISY HASKINS [id number] Daisy 11:30:00 11:30:00 Seybol d 2022-02-27 2022-02-27 Outpatient DINO BARCENAS DAISY [id number] Daisy 11:00:00 11:00:00 Seybol d 2022-02-27 2022-02-27 Outpatient PREZAJaden DAISY HASKINS [id number] Daisy 00:00:00 00:00:00 JUAN ANTONIO Seybol d 2022-02-25 2022-02-25 Outpatient DAISY GOLDMAN [id number] Daisy 00:00:00 00:00:00 MADHAVI Seybol d 2022-02-19 2022-02-19 Outpatient LAB90 DAISY HASKINS [id number] Daisy 09:00:00 09:00:00 Seybol d 2022-02-19 2022-02-19 Office Dino Goldman 1.2.840.114 [id number] Daisy 08:00:00 08:45:00 Visit Madhavikalie Lin 350.1.13.13 Se ybold Somogyi 1.2.7.2.686 [id number] 2022-02-18 2022-02-18 Outpatient LOBO DAISY HASKINS [id number] Daisy 00:00:00 00:00:00 SHAYNA Seybol d 2022-02-17 2022-02-17 Office Dino Goldman 1.2.840.114 [id number] Daisy 14:45:00 15:15:00 Visit Madhavi Riley 350.1.13.13 Se ybold Somogyi 1.2.7.2.686 [id number] 2022-02-17 2022-02-17 Outpatient DAISY GOLDMAN [id number] Daisy 00:00:00 00:00:00 MADHAVI Seybol d 2022-02-12 2022-02-12 Outpatient LAB90 DAISY HASKINS [id number] Daisy 10:10:00 10:10:00 Seybol d 2022-02-12 2022-02-12 Office Dino Goldman 1.2.840.114 [id number] Daisy 09:15:00 09:45:00 Visit Madhavi Lin 350.1.13.13 Se marilyn Mercado 1.2.7.2.686 [id number] 2022-02-09 2022-02-09 Outpatient DAISY GOLDMAN [id number] Daisy 00:00:00 00:00:00 MADHAVI Seybol yara 2022-02-02 2022-02-02 Outpatient DAISY STALLNIGS [id number] Daisy 00:00:00 00:00:00 SHIKHA Seybol yara 2022-01-26 2022-01-26 Outpatient DAISY GOLDMAN [id number] Daisy 00:00:00 00:00:00 MADHAVI Seybol yara 2021-12-22 2021-12-[address] [facility] [id number] Univers 10:51:29 23:59:00 ity of [facility] 2021-12-22 2021-12-22 Hospital Radiology [facility] 1.2.840.114 [id number] Univers 10:45:00 23:59:00 Encounter TYRELL 350.1.13.10 ity of [place] 4.2.7.2.686 [facility] [id number] [facility] 8[address] Branch 2021-12-22 2021-12-22 Orders Doctor ELE 1.2.840.114 [id number] Univers 00:00:00 00:00:00 Only Unassigned, VIVIENNE 350.1.13.10 ity of [facility] 4.2.7.2.[address] [facility] [id number] [facility] 009 Branch 2021-11-20 2021-11-20 Outpatient LAB90 DAISY HASKINS [id number] Daisy 09:05:00 09:05:00 Seybol d 2021-11-19 2021-11-19 Outpatient DAISY GOLDMAN [id number] Daisy 00:00:00 00:00:00 MADHAVI Seybol yara 2021-11-19 2021-11-19 Outpatient DAISY GOLDMAN [id number] Daisy 00:00:00 00:00:00 MADHAVI Seybol d 2021-10-27 2021-10-27 Outpatient DAISY GOLDMAN [id number] Daisy 00:00:00 00:00:00 MADHAVI Seybol d 2021-10-20 2021-10-20 Outpatient LAB90 DAISY HASKINS [id number] Daisy 09:00:00 09:00:00 Seybol d 2021-10-20 2021-10-20 Office Dino Goldman 1.2.840.114 [id number] Daisy 08:00:00 08:45:00 Visit Madhavi Lin 350.1.13.13 Se ybold Somogyi 1.2.7.2.686 [id number] 2021-10-20 2021-10-20 Outpatient DAISY GOLDMAN [id number] Daisy 00:00:00 00:00:00 MADHAVI Seybol d 2021-10-15 2021-10-15 Outpatient DAISY GOLDMAN [id number] Daisy 00:00:00 00:00:00 MADHAVI Seybol d 2021-10-07 2021-10-07 Outpatient LAURENKENNETHJaden DAISY HASKINS [id number] Daisy 00:00:00 00:00:00 JUAN ANTONIO Seybol d 2021-10-06 2021-10-06 Outpatient LAB90 DAISY HASKINS [id number] Daisy 15:05:00 15:05:00 Seybol d 2021-10-06 2021-10-06 Office Dino Rogers 1.2.840.114 [id number] Daisy 14:15:00 14:30:00 Visit Juan Antonio Lin 350.1.13.13 Se ybold 1.2.7.2.686 [id number] 2021-09-16 2021-09-16 Outpatient LAB90 DAISY HASKINS [id number] Daisy 09:20:00 09:20:00 Seybol d 2021-09-16 2021-09-16 Office HonorioDino 1.2.840.114 [id number] Daisy 08:45:00 09:00:00 Visit Madhavi Lin 350.1.13.13 Se ybold Somogyi 1.2.7.2.686 [id number] 2021-09-16 2021-09-16 Outpatient DAISY HASKINS [id number] Daisy 00:00:00 00:00:00 Seybol d 2021-09-16 2021-09-16 Outpatient DAISY HASKINS [id number] Daisy 00:00:00 00:00:00 Seybol d 2021-08-26 2021-08-26 Outpatient DAISY GOLDMAN [id number] Daisy 10:00:00 10:00:00 MADHAVI Seybol d 2021-08-26 2021-08-26 Office iDno Goldman 1.2.840.114 [id number] Daisy 09:00:00 09:45:00 Visit Madhavi Lin 350.1.13.13 Se ybold Somogyi 1.2.7.2.686 [id number] 2021-08-19 2021-08-19 Office Dino Goldman 1.2.840.114 [id number] Daisy 10:00:00 10:15:00 Visit Madhavi Lin 350.1.13.13 Se ybold Somogyi 1.2.7.2.686 [id number] 2021-08-08 2021-08-08 Outpatient DAISY DIAMOND [id number] Daisy 00:00:00 00:00:00 SHAYNA Seybol d 2021-08-07 2021-08-07 Office Dino Diamond 1.2.840.114 [id number] Daisy 13:30:00 14:00:00 Visit Shayna Lin 350.1.13.13 Se ybold 1.2.7.2.686 [id number] 2021-08-07 2021-08-07 Outpatient DAISY DIAMOND [id number] Daisy 00:00:00 00:00:00 SHAYNA Seybol d 2021-08-01 2021-08-01 Outpatient DAISY GOLDMAN [id number] Daisy 00:00:00 00:00:00 MADHAVI Seybol d 2021-07-29 2021-07-29 Outpatient DAISY GOLDMAN [id number] Daisy 00:00:00 00:00:00 MADHAVI Seybol d 2021-07-17 2021-07-17 Outpatient DAISY DIAMOND [id number] Daisy 00:00:00 00:00:00 SHAYNA Seybol d 2021-07-15 2021-07-15 Outpatient LAB90 DAISY HASKINS [id number] Daisy 10:30:00 10:30:00 Seybol d 2021-07-15 2021-07-15 Office Dino Diamond 1.2.840.114 [id number] Daisy 09:45:00 10:15:00 Visit Shayna Riley 350.1.13.13 Se miriamhoward 1.2.7.2.686 [id number] 2021-07-06 2021-07-06 Outpatient DAISY GOLDMAN [id number] Daisy 00:00:00 00:00:00 MADHAVI Seybol d 2021-06-23 2021-06-23 Outpatient DAISY GOLDMAN [id number] Daisy 00:00:00 00:00:00 MADHAVI Seybol d 2021-06-23 2021-06-23 Outpatient DAISY GOLDMAN [id number] Daisy 00:00:00 00:00:00 MADHAVI Seybol d 2021-06-23 2021-06-23 Outpatient DAISY GOLDMAN [id number] Daisy 00:00:00 00:00:00 MADHAVI Seybol d 2021-06-12 2021-06-12 Outpatient DAISY GOLDMAN [id number] Daisy 00:00:00 00:00:00 MADHAVI Seybol d 2021-05-21 2021-05-21 Outpatient DAISY GOLDMAN [id number] Daisy 00:00:00 00:00:00 MADHAVI Seybol d 2021-03-10 2021-03-10 Outpatient LAB90 DAISY HASKINS [id number] Daisy 10:25:00 10:25:00 Seybol d 2021-02-28 2021-02-28 Outpatient DAISY GOLDMAN [id number] Daisy 13:30:00 13:30:00 MADHAVI Seybol d 2021-02-20 2021-02-20 Outpatient DAISY GOLDMAN [id number] Daisy 00:00:00 00:00:00 MADHAVI Seybol d 2021-02-10 2021-02-10 Outpatient LAB90 DAISY HASKINS [id number] Daisy 09:15:00 09:15:00 Seybol d 2021-02-07 2021-02-07 Outpatient DAISY GOLDMAN [id number] Daisy 08:30:00 08:30:00 MADHAVI Seybol d 2021-01-07 2021-01-07 Outpatient DAISY LEIJA [id number] Daisy 13:45:00 13:45:00 KIRAN Seybol d 2021-01-07 2021-01-07 Outpatient DAISY HASKINS [id number] Daisy 13:05:00 13:05:00 Seybol d 2021-01-06 2021-01-06 Outpatient DAISY LEIJA [id number] Daisy 00:00:00 00:00:00 KIRAN Seybol d 2020-05-16 2020-05-16 Outpatient R DARRIAN SIDDIQUI [facility] [id number] Univers 10:30:00 10:30:00 [facility] 2020-04-19 2020-04-19 Office Meagan Doe 1.2.840.114 [id number] 07:23:34 07:38:34 Visit AMBULATOR 350.1.13.21 Y 0.2.7.2.686 [id number] [facility] 2020-04-19 2020-04-19 Office Meagan Doe 1.2.840.114 [id number] [facility] 07:23:34 07:38:34 Visit AMBULATOR 350.1.13.21 College Y 0.2.7.2.[id number] [facility] 300 e 2020-02-15 2020-02-[address] [facility] [id number] Univers 08:30:00 08:30:00 ANA [facility] 2019-12-13 2019-12-13 Office Darrian Siddiqui [facility] 1.2.840.114 [id number] 10:19:19 11:35:41 Visit Health 350.1.13.10 Clear 4.2.7.2.686 Whyte [id number] Medical [facility] Office Building 2019-12-13 2019-12-13 Office Darrian Siddiqui [facility] 1.2.840.114 [id number] Univers 10:19:19 11:35:41 Visit Health 350.1.13.10 it y of [place] 4.2.7.2.686 Yohannes Whyte [id number] [place] [address] Branch Office Building 2019-12-13 2019-12-13 Outpatient R DARRIAN SIDDIQUI [facility] [id number] Univers 11:00:00 11:00:00 ity of [facility] 2019-07-25 2019-07-25 Letter Clinic, [facility] UNIVERSIT 1.2.840.114 [id number] Univers 00:00:00 00:00:00 (Out) Neurology Y HEALTH 350.1.13.10 ity of [facility] 4.2.7.2.686 [place] [id number] [address] 2019-06-13 2019-06-[address] [facility] [id number] Univers 11:21:12 23:59:00 ity of [facility] Results Test Description Test Time Test Comments Results Result Comments Source [facility] 2022-05-13 14:28:32 Test Item Value Reference Range Interpretation Comme nts [facility] left side (test code See_Comment L [Automated message] The system = 38462-4V) which generated this result transmitted ref erence range: 1.40 - 0.90 NA. The reference range was not u sed to interpret this result as normal/abnormal. [facility] right side (test See_Comment L P resentation Factors: code = 92791-7C) Hypertensio n, Hyperlipidemia, DiabetesExercis e Modality: At [...] normal/abnormal. Lab Interpretation (test code Abnormal = 35721-4) Daisy Sewell - ExternalMRI Knee Right Wo ContMRI Knee Right Wo Cont
[2022-08-12 11:47] LABS: Hematocrit 36.8 % (39.6-49.0)
--- NOTE | 2022-08-12 11:49 | RAD REPORT ---
EXAM DESCRIPTION: RAD - Knee Right 2 View - 08/12/2022 11:26 am CLINICAL HISTORY: Knee surgery FINDINGS: Postoperative changes knee arthroplasty. Prosthesis is in good position. No fracture or dislocation
[2022-08-12 12:48] VITALS: BMI 26.7
[2022-08-12] MEDS ORDERED: D50W 25 GM/50 ML SYRINGE IV PRN (12:58)
[2022-08-12] MEDS ORDERED: GLUCAGON 1 MG/VIAL IM PRN (12:58)
--- NOTE | 2022-08-12 13:00 | P.CNS ---
Date of Consult: 08/12/22 Reason for Consult: Medical management. Requesting Physician: Eyal Boss Chief Complaint: Right knee pain History of Present Illness: Patient is an 82-year-old male with a past medical history significant for hypothyroidism, DM2, hypertension, osteoarthritis, CAD, CABG, gout who presents for a planned procedure with his orthopedic surgeon. Patient reported that he has been having pain in the right knee for the past 5 years. Patient has attempted conservative measures to include use of NSAIDs and home exercise therapy but patient had no relief but patient indicates that symptoms have become worse over time. Patient reported that pain is aggravated with movement\walking and relieved by nothing. Patient agreed with his surgeon to perform a right knee arthroplasty. Patient successfully had the procedure. Patient currently denies any signs and symptoms of distress. Patient resting in bed with right knee on a CPM machine. Allergies Penicillins Allergy (Verified 08/12/22 07:16) Hives/Rash Sulfa (Sulfonamide Antibiotics) Allergy (Verified 08/12/22 07:16) Itching/Hives/Rash banana Adverse Reaction (Verified 08/12/22 07:16) High potassium codeine Adverse Reaction (Verified 08/12/22 07:16) Itching Home Medications: Aspirin [Adult Low Dose Aspirin EC] 81 mg PO DAILY 08/27/16 Cyanocobalamin (Vitamin B-12) [Vitamin B-12] 1,000 mcg PO DAILY 07/30/18 Levothyroxine [Synthroid*] 50 mcg PO [id number] 07/30/18 Metoprolol Tartrate [Lopressor*] 12.5 mg PO BEDTIME 07/30/18 Simvastatin 10 mg PO BEDTIME 07/30/18 Allopurinol 300 mg PO DAILY 08/07/22 Glimepiride [Amaryl] 2 mg PO DAILY 08/07/22 Lisinopril [Zestril] 5 mg PO DAILY 08/07/22 Loratadine [Claritin] 10 mg PO DAILY 08/07/22 - Past Medical/Surgical History Diabetic: Yes -: Hypo thyroid -: CAD -: HTN -: OA -: Goit -: arthritis -: triple bypass 2000 -: foot -: left knee arthroscopy -: Right Elbow Surgery (Gout) - Family History Mother History Unknown: Yes Father Medical History: Cancer, Other (see notes) Notes: cerebral hemmorhage Brother Medical History: Lung disease, Diabetes - Social History Smoking Status: Former smoker Alcohol use: Yes CD- Drugs: No Caffeine use: Yes Place of Residence: Home Review of Systems General: Unremarkable Eyes: Unremarkable ENT: Unremarkable Respiratory: Unremarkable Cardiovascular: Unremarkable Gastrointestinal: Unremarkable Genitourinary: Unremarkable Musculoskeletal: Other (Right knee pain) Integumentary: Unremarkable Neurological: Unremarkable Lymphatics: Unremarkable Physical Examination Temp Pulse Resp BP Pulse Ox 97.8 F 66 18 114/56 L 08/12/22 11:34 08/12/22 11:34 08/12/22 11:34 08/12/22 11:34 General: Alert, In no apparent distress, Oriented x3, Cooperative HEENT: Atraumatic, Normocephalic, PERRLA Neck: Supple, 2+ carotid pulse no bruit, JVD not distended, No Thyromegaly, Without JVD or thyroid abnormality Respiratory: Clear to auscultation bilaterally, Normal air movement Cardiovascular: No edema, Normal pulses, Regular rate/rhythm, Normal S1 S2, No murmurs Capillary refill: <2 Seconds Gastrointestinal: Normal bowel sounds, Soft and benign Musculoskeletal: No clubbing, No contractures Integumentary: No rashes, No breakdown, No significant lesion Neurological: Normal speech, Sensation intact, Normal affect Lymphatics: No axilla or inguinal lymphadenopathy Laboratory Data (last 24 hrs) 08/12/22 11:26: Hgb 12.5 L, Hct 36.8 L Conclusions/Impression: --Right knee pain. Status post right total knee arthroplasty. Continue CPM therapy. Orthopedic surgeon on board. . Further management per orthopedic surgery. --DM2. BS monitor with sliding scale insulin. --Osteoarthritis. Continue current pain medication regimen --Hyperlipidemia. Continue statin. --Hypothyroidism. Continue Synthroid. --History of CAD\CABG. Continue statin. Continue aspirin when appropriate. --Hypertension. Stable. Continue home medications. --CKD 2. Stable. Continue to monitor renal functions. --DVT prophylaxis with SCDs. Continue chemical prophylaxis in a.m. Physician Review: Patient Assessed, Agree with Above Assessment and Plan Critical Care: No
[2022-08-12] MEDS ORDERED: D10W 125 ML IV PRN (13:01)
[2022-08-12 15:11] LABS: Magnesium 1.9 mg/dL (1.6-2.4); Phosphorus 2.9 mg/dL (2.5-4.9)
[2022-08-12] MEDS: CLINDAMYCIN 600MG/D5W 50 ML IV SCH (16:10)
[2022-08-12] MEDS: INSULIN -REGULAR HUMAN 50 UNIT/0.5 ML ML SQ SCH ×2 (16:10→20:56)
[2022-08-12 19:12] LABS: Specific Gravity 1.017 (1.005-1.030); Urine Bacteria None Seen /HPF (<20); Urine Bilirubin NEGATIVE (Negative); Urine Blood Negative (Negative); Urine Clarity Clear (Clear); Urine Color Light-Yellow (Yellow); Urine Glucose NEGATIVE (Negative); Urine Mucus Slight /HPF (None Seen); Urine Protein NEGATIVE (Negative); Urine RBC <5 /HPF (None Seen); Urine Urobilinogen Normal (Normal); Urine pH 5.5 (5.0-7.0)
--- NOTE | 2022-08-12 19:26 | P.OP ---
Preoperative diagnosis: right knee osteoarthritis Postoperative diagnosis: same Primary procedure: right total knee arthroplasty Anesthesia: general Estimated blood loss: 40 cc Specimen: right knee bone remnants Findings: see dictation Operative Technique: Indication For Procedure: Bebeto is an 82 year-old male presenting to my clinic with signs, symptoms and x-ray findings consistent with severe right knee osteoarthritis. I discussed with the patient at length risks and benefits associated with operative and nonoperative treatment. He had failed conservative treatment measures and had significant difficulties with ADLs secondary to his pain. We discussed operative treatment and elected to proceed with right total knee arthroplasty. He expressed understanding and elected to proceed with operative treatment. Description Of Procedure: After informed consent was obtained, the patient was identified in the preoperative holding area. The right lower extremity was marked. The patient was then taken to the PACU where he underwent a right lower extremity adductor canal block performed by Anesthesia. He was then taken to the operating room, transferred to the operating table in supine fashion, and placed under general anesthesia. The right lower extremity was then prepped and draped in usual sterile fashion. A time-out was initiated. The correct patient and procedure were confirmed and identified. The patient did receive his preoperative prophylactic antibiotics. The right lower extremity was then exsanguinated and tourniquet was inflated to 300 mmHg. Approximately 18 cm longitudinal incision was made centered over the anterior aspect of the right knee. Dissection was then taken to the extensor mechanism and a medial parapatellar arthrotomy was performed. The patella was everted and dislocated laterally and the knee was flexed in the fat pad. Medial lateral meniscus and ACL were all excised exposing the distal femur. Excess hypertrophic synovium was also excised within the suprapatellar pouch. The patient had an MRI of his right knee preoperatively for surgical planning and creation of cutting blocks. The cutting block was then placed over the distal femur and pins were then placed. The distal femoral cutting block was then placed over the pins. Knee joint was then used to ensure proper depth cut and the distal femur was then cut. The chamfer cutting guide was then placed over the distal end of the femur. Anterior, posterior cuts as well as anterior and posterior chamfer cuts were then made again confirming proper depth of the cut using an Azar wing. Excess bone remnants were then sent to pathology for further evaluation. Next, attention was taken to the proximal tibia. A tibial jig and tibial cutting bl ock was then placed on proximal aspect of the right tibia and locked into position. Pins were then placed and alignment guide was then used to confirm proper alignment of the cut and then coronal and sagittal planes. Once this was confirmed, the cutting jig was placed over the pins and the proximal tibia was cut. Sizing trays were then selected and size 10 mm spacer was used and there was good overall balance in flexion and extension. Next, the trial implants were then placed using the size 9 standard CR femur and a size F tibia with an 10 mm CR poly. There was overall good range of motion and good stability. The trial implants were then removed. This improved the overall stability of the knee and components. The wound was then irrigated thoroughly with normal saline and the knee was then injected with 30 cc of 0.5% Marcaine both in the posterior capsule and mediallateral gutters as well as quadriceps tendon and periosteum. The tibia was then punched. The femur was drilled. The cement was then prepared on the back table. Cement was then placed first on the tibial surface followed by size F tibia. Excess cement was removed with Lovejoy elevators. Size 9 standard CR femur was then placed on the distal femur after cement was placed on the distal femur. Excess cement was then removed and a size 10 mm CR trial poly was then placed. The knee was held in extension as the cement hardened. Undersurface of the patella was prepared debriding osteophytes using rongeurs as well as osteophytes.. Cement was placed on the undersurface of the patella after it was cut and a size 32 patella was placed. Once the cement was hardened, the knee was ranged, there was good overall stability both in flexion, extension and as well as stability with varus and valgus stresses. Trial poly was then removed and a size 10 mm CR poly was then placed and locked into position. The knee was then ranged again. There was good overall range of motion both for flexion and extension with good stability. The wound was then irrigated again thoroughly with normal saline using pulse lavage. Tourniquet was let down. Hemostasis was achieved using Bovie electrocautery. Extensor mechanism was then approximated using a #1 Vicryl both in interrupted and running fashion. The fascia was then approximated using 0 Vicryl. Subcutaneous tissue was approximated with a 2-0 Vicryl. Skin was approximated using max. Sterile dressings were applied. The patient was awakened and transferred back in stable condition Complications: None Implants: Biomet Roland Persona 9 CR femur, F tibia, 32 patella, 10 CR poly Fluids & blood products: per anesthesia record; TT: 69 mins @ 300 mmHg Transferred to: Recovery Room Condition: Good
[2022-08-12] MEDS ORDERED: ATORVASTATIN 10 MG TAB PO SCH (21:00)
[2022-08-12] MEDS ORDERED: METOPROLOL TAR 25 MG TAB PO SCH (21:00)
[2022-08-12] MEDS ORDERED: HOME MED 1 EA UNK (Simvastatin [Simvastatin] 20 MG Tablet) PO SCH (21:00)
[2022-08-13] MEDS ORDERED: MELATONIN 5 MG TABLET PO PRN
[2022-08-13] MEDS: CLINDAMYCIN 600MG/D5W 50 ML IV SCH ×2 (00:13→07:53)
[2022-08-13 04:31] LABS: Absolute Lymphocytes (CBC) 1.6 K/uL (0.7-4.9); Hematocrit 35.4 % (39.6-49.0); Lymphocytes % 11.3 % (15.3-44.8); MCV 95.6 fL (80-100); MPV 7.2 fL (7.6-11.3)
[2022-08-13 04:46] LABS: Potassium 4.1 mmol/L (3.5-5.1)
[2022-08-13] MEDS ORDERED: LEVOTHYROXINE SOD 0.05 MG TABLET PO SCH (06:00)
[2022-08-13] MEDS: INSULIN -REGULAR HUMAN 50 UNIT/0.5 ML ML SQ SCH ×2 (07:56→12:04)
[2022-08-13] MEDS ORDERED: GLIMEPIRIDE 2 MG TABLET PO SCH (08:00)
[2022-08-13] MEDS ORDERED: LORATADINE 10 MG TAB PO SCH (09:00)
[2022-08-13] MEDS ORDERED: CYANOCOBALAMIN 1,000 MCG TAB PO SCH (09:00)
[2022-08-13] MEDS ORDERED: lisinopriL 5 MG TAB PO SCH (09:00)
[2022-08-13] MEDS ORDERED: CELECOXIB 100 MG CAPSULE PO SCH (09:00)
[2022-08-13] MEDS ORDERED: allopurinoL 300 MG TAB PO SCH (09:00)
[2022-08-13] MEDS ORDERED: ENOXAPARIN 30 MG/0.3 ML SQ ONE (12:33)
[2022-08-13 12:55] VITALS: O2SAT 99
[2022-08-13 16:04] VITALS: BP 134/62; TEMP 96.9
--- NOTE | 2022-08-13 22:40 | P.PN ---
Date of Service: 08/13/22 Subjective: no acute events overnight feeling well, ambulating with PT pain tolerable, looking forward to going home ROS: A complete review of systems was performed and is negative except as mentioned above Physical Exam: Gen: NAD, AOx3 HEENT: normal conjunctiva, sclera anicteric CV: regular rate & rhythm, no edema Pulm: non-labored respirations, clear bilaterally Abd: soft, non-tender, non-distended MSK: surgical dressing c/d/i Neuro: normal speech, normal affect vitals reviewed Problem List R knee arthritis, now s/o right total knee arthroplasty NIDDM2 HTN HLD Hypothyroidism h/o CAD, s/p CABG CKD2 stable doing well post-op ambulating ~300 ft with walker, working with PT pain tolerable with medication continue home meds has support, reports neighbor is caregiver, and will be planning to help him for the next week or longer if needed stable for discharge home, once cleared by ortho
== END 2022-08-13 16:32 | disposition home health service (06) ==
LOC: OR 06:00 → 4TH 11:18
PROVIDERS: ADMIT Orthopaedic Surgery Sports Medicine; ATTEND Orthopaedic Surgery Sports Medicine
PROC: 0SRC069 Replacement of Right Knee Joint with Oxidized Zirconium on Polyethylene Synthetic Substitute, Cemented, Open Approach (ICD-10-PCS; principal; 2022-08-12 08:00)
DX: M17.11 Unilateral primary osteoarthritis, right knee (principal)
CPT/HCPCS: 85025 ×2; 81001; 80048 ×2; 36415 ×3; 83735; 84100; 85610; 82947 ×6; 88305; 88311; 85018; 85014; 71046; 73560; 97116 ×3; 97139; 97161; 97530 ×2; 94010; 87811; 27447; J2704 ×3; J0171; J2001 ×2; J2370; J1815 ×4; J1650; J3010; J1100 ×2; A4216; J1170; J7030 ×2; J2405; 88304; G0378; G0379; J2250

== ENCOUNTER 2024-04-18 16:41 | Emergency (ER) | payer MEDICAID ==
--- OUTSIDE RECORDS SUMMARY | 2024-04-18 16:47 | XMS REPORT | Continuity of Care Document ---
Author Name Unknown Address [address] [facility] [place]. [address] [place] [address] [facility] thconnect Address [address] [facility] [place]. [address] [place] [address] Care Team Providers Care Director Of Radio Services Name Role Phone FELIPE MORFIN Primary Care Physician Unavaila ble [id number] Attending Clinician Unavailable SHAYNA DIAMOND Attending Clinician Unavailable FADY SCHAFFER Attending Clinician Unavailab le LAB90 Attending Clinician Unavailable NT90 Attending Clinician Unavailable JUAN ANTONIO ROGERS Attending Clinician Unavailable [facility] Attending Clinician UnavailMATEUS Contreras Attending Clinician Unavailable SAMUEL Attending Clinician Unavailable MADHAVI GOLDMAN Attending Clinician Unava ilNATA Rodriguez Attending Clinician UnavailHARIKA Abreu Attending Clinician Unavailable SHAWNEE HAAS Attending Clinician Unavaila ble FRANCOISE CARY Attending Clinician Unavail able Juan Antonio Rogers DO Attending Clinician [phone] Madhavi Goldman MD Attending Clinician [phone] SHIKHA STALLINGS Attending Clinician Unavailable RADIOLOGY Attending Clinician Unavailable Radiology Attending Clinician Unavailable Doctor Unassigned, [place] Attending Clinician U jeniseailchaz CRUZ-Shayna Perez Attending Clinician [phone] KIRAN LEIJA Attending Clinician Unavail able DARRIAN SIDDIQUI Attending Clinician Unavailable ANA HAJI Attending Clinician Unavailable Darrian Siddiqui MD Attending Clinician Clinic, [facility] Neurology Continuity Attending Deshaun rodrigues Unavailable [id number] Admitting Clinician Unavailable ALYSSIA OCONNOR Admitting Clinician Unavail able MIS SILVER Admitting Clinician Unavailable Payers Payer Name Policy Type Policy Number Effective Date Expirati on Date Source HUMAIRA GERARDO [id number] [employer] SIGNATURE HMO 7 [id number] 2022 00:00:00 [employer] (MEDICARE REPLACEMENT HMO) [id number] 2023 00:00:00 CIGNA TOTAL CARE MEDICARE HMO [id number] 2021 00:00:00 [facility] [id number] 2020 00:00:00 MEDICARE PART A \T\ B [id number] 2007 00:00:00 [facility] MEDICARE SUPPLEMENT [id number] 2007 00:00:00 [employer] MEDICARE ADV [id number] 00:00:00 Problems Condition Name Condition Details Condition Category Status Onset Date Resolution Date Last Treatment Date Treating Clinician Comments Source Chronic cough Chronic cough Disease Active 02-28 00:00: 00 Daisy Arnett Externa marlene Wheezing Wheezing Disease Active -03 00:00: 00 Daisy Mortona marlene Sprain of groin Sprain of groin Disease Active 2-20 00:00: 00 Daisy Sewell - Externa marlene 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 peripheral vascular disease (multi HCC) Disease Active 1- 00:00: 00 Daisy Arnett Externa marlene 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 peripheral vascular disease (multi HCC) Disease Active 1-04 00:00: 00 Daisy Sewell - Externa marlene Risk for falls Risk for falls Disease Active 03-09 00:00: 00 Daisy Sewell - Externa marlene Dementia Dementia Disease Active 9-12 00:00: 00 Daisy Sewell - Externa marlene Primary hypertensi on Primary hypertensi on Disease Active 2021-06 00:00: 00 Daisy Sewell - Externa l Acquired hypothyroi dism Acquired hypothyroi dism Disease Active 2021-06 00:00: 00 Daisy Sewell - Externa l 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 Active 2021-06 00:00: 00 Daisy Sewell - Externa marlene PVD (periphera l vascular disease) PVD (periphera l vascular disease) Disease Active 2021-06 00:00: 00 Daisy Sewell - Externa marlene 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 Active 2021-06 00:00: 00 Daisy Sewell - Externa marlene Acute pain of right knee Acute pain of right knee Disease Active 4 00:00: 00 Daisy Sewell - Externa marlene Acute idiopathic gout of right knee Acute idiopathic gout of right knee Disease Active 4 00:00: 00 Daisy Sewell - Externa marlene Acute gout of left wrist Acute gout of left wrist Disease Active 3- 00:00: 00 Daisy Sewell - Externa marlene Pulmonary emphysema Pulmonary emphysema Disease Active 07-15 00:00: 00 Daisy Sewell - Externa marlene Type 2 diabetes mellitus with atheroscle rosis Carotid Artery Bilateral Type 2 diabetes mellitus with atheroscle rosis Carotid Artery Bilateral Disease Active 02-07 00:00: 00 Daisy Sewell - Externa marlene Hyperchole sterolemia Hyperchole sterolemia Disease Active 02-07 00:00: 00 Daisy Sewell - Externa l 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 Disease Active 02-07 00:00: 00 Daisy Sewell - Externa marlene Hx of acute myocardial infarction Hx of acute myocardial infarction Disease Active 02-07 00:00: 00 Daisy Sewell - Externa marlene 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 Disease Active 02-07 00:00: 00 Daisy Martinezold - Externa l CAD (coronary artery disease) CAD (coronary artery disease) Disease Active 02-07 00:00: 00 Daisy Sewell - Externa l [id number] Status post total right knee replacemen t Problem [facility] [id number] Primary osteoarthr itis of left shoulder Problem [facility] [id number] Arthritis of knee, right Problem [facility] [id number] Primary osteoarthr itis of right knee Problem [facility] Allergies, Adverse Reactions, Alerts Allergy Name Allergy Type Status Severity Reaction(s) Onset Date Inactive Date Treating Clinician Comments Source Banana Propensi ty to adverse reaction s Active 08-07 00:00: 00 Other reaction( s): High potassium Daisy Sewell - Externa l Penicill ins Propensi ty to adverse reaction s Active [facility] 2018-06 00:00: 00 Daisy Sewell Penicill ins Propensi ty to adverse reaction s Active [facility] 2018-06 00:00: 00 Daisy Sewell - Externa l Codeine Propensi ty to adverse reaction s Active 11-11 00:00: 00 Other reaction( s): Itching Daisy Martinezold - Externa l Sulfa Drugs Propensi ty to adverse reaction s Active 11-11 00:00: 00 Daisy Martinezold - Externa l [id number] Drug allergy Active Unknown [facility] NO KNOWN ALLERGIE S Drug Class Active [facility] Social History Social Habit Start Date Stop Date Quantity Comments Source History of Occupation Daisy Iveyybhoward - External History of tobacco use Cigarette Smoker Daisy Iveyyb old - External History SDOH Alcohol Frequency Daisy pittman - External History SDOH Alcohol Std Drinks Daisy sanders - External History SDOH Alcohol Binge Daisy Sewell - External Gender identity Megha khan Seybold - External Sexual orientation Alfredo quiroz Seybold - External Sex Assigned At [facility] Alcoholic beverage intake 2024-04-11 00:00:00 2024-04-11 00:00:00 Current drinker of alcohol (finding) Daisy Sewell - External Cigarettes smoked current (pack per day) - Reported 2023-10-21 00:00:00 2023-10-21 00:00:00 Daisy Sewell - External Cigarette pack-years 2023-10-21 00:00:00 2023-10-21 00:00:00 Daisy Sewell - External Tobacco use and exposure 2023-10-21 00:00:00 2023-10-21 00:00:00 Smokeless tobacco non-user Daisy Sewell - External Alcohol intake 2023-09-02 00:00:00 2023-09-02 00:00:00 Current drinker of alcohol (finding) Daisy Sewell - External History of Social function 2023-03-15 00:00:00 2023-03-15 00:00:00 Daisy Sewell - External Alcohol Comment 2022-05-13 00:00:00 2022-05-13 00:00:00 occasionally Daisy Sewell - External Education 2022-05-13 00:00:00 2022-05-13 00:00:00 16 Daisy Sewell - External Exposure to SARS-CoV-2 (event) 2021-07-22 00:00:00 2021-08-21 17:05:00 Not sure Daisy Sewell Sex 2020-09-24 17:06:25 2020-09-24 17:06:25 Male (finding) Daisy Sewell - External Smoking Status Start Date Stop Date Source Unknown if ever smoked Unive [facility] Ex-smoker 2023-10-21 00:00:00 2023-10-21 00:00:00 Alfredo Sewell - External Never smoker [facility] Medications Ordered Medication Name Filled Medication Name Start Date Stop Date Current Medication? Ordering Clinician Indication Dosage Frequency Signature (SIG) Comments Components Source Aspirin 81 MG oral Tablet Delayed Response 2023-06 08:30: 26 Yes 81mg Take 1 tablet (81 mg total) by mouth every other day. Daisy Sewell - Externa l Cetirizine (ZYRTEC) 10 MG oral Tablet 2023-06 00:00: 00 Yes [id number] 10mg QD Take 1 tablet (10 mg total) by mouth daily. Daisy rosario FLUTICASONE PROPIONATE, NASAL, 50 MCG/ACT nasal Suspension 2023-06 00:00: 00 Yes [id number] 50ug QD Use 1 spray (50 mcg total) in each nostril daily. Daisy rosario Aspirin 81 MG oral Tablet Delayed Response 02-28 09:15: 24 Yes 81mg Take 1 tablet (81 mg total) by mouth every other day. Daisy rosario Lisinopril 5 MG oral Tablet 02-28 00:00: 00 Yes 5mg Take 1 tablet (5 mg total) by mouth. Daisy rosario methylPREDN ISolone 4 MG oral Tablet Therapy Pack 02-28 00:00: 00 04-11 00:00 :00 No [id number] 1{aditya} Take 1 aditya by mouth See Admin Instructio ns Use as directed. Daisy rosario Glimepiride 2 MG oral Tablet 02-23 00:00: 00 Yes [id number] 2mg Take 1 tablet (2 mg total) by mouth every morning (before breakfast) . Daisy rosario Albuterol-I pratropium 0.5-2.5 (3) MG/3ML inhalation Solution 02-23 00:00: 00 Yes [id number] 2.5mg Q6H Inhale 3 mL (2.5 mg total) into the lungs every 6 (six) hours. Daisy rosario Guaifenesin (Mucinex) 600 MG oral Tablet 12 Hour Sustained Release 02-23 00:00: 00 Yes [id number] 1200mg Q.5D Take 2 tablets (1,200 mg total) by mouth 2 times daily. Daisy rosario Respiratory Therapy Supplies (Nebulizer/ Tubing/Mout hpiece) does not apply Kit 02-23 00:00: 00 Yes [id number] Use every 6 hours as needed for SOB and wheezing.. Daisy rosario methylPREDN ISolone 4 MG oral Tablet Therapy Pack 02-23 00:00: 00 02-28 00:00 :00 No [id number] 1{aditya} Take 1 aditya by mouth See Admin Instructio ns Use as directed. Daisy rosario Cyanocobala min (B-12 TR) 1000 MCG oral Tab CR 11-28 09:33: 28 11-28 00:00 :00 No 1000ug Take 1 tablet (1,000 mcg total) by mouth daily. Daisy rosario Aspirin 81 MG oral Tablet Delayed Response 11-28 09:28: 30 Yes 81mg Take 1 tablet (81 mg total) by mouth every other day. Daisy rosario Guaifenesin (Mucinex) 600 MG oral Tablet 12 Hour Sustained Release 11-28 00:00: 00 Yes [id number] 1200mg Take 2 tablets (1,200 mg total) by mouth 2 times daily. Daisy rosario Albuterol-I pratropium 0.5-2.5 (3) MG/3ML inhalation Solution 11-28 00:00: 00 Yes [id number] 2.5mg Inhale 3 mL (2.5 mg total) into the lungs every 6 (six) hours. Daisy rosario Cetirizine (ZYRTEC) 10 MG oral Tablet 11-14 00:00: 00 04-11 00:00 :00 No [id number] 10mg QD Take 1 tablet (10 mg total) by mouth daily. Daisy rosario Benzonatate 100 MG oral Capsule 11-11 00:00: 00 02-28 00:00 :00 No TAKE 1 CAPSULE BY MOUTH 3 TIMES DAILY FOR 10 DAYS Daisy rosario methylPREDN ISolone 4 MG oral Tablet Therapy Pack 11-11 00:00: 00 11-28 00:00 :00 No Take by mouth See Admin Instructio ns DIRECTED. Daisy rosario predniSONE (DELTASONE) 5 MG oral Tablet -14 00:00: 00 11-28 00:00 :00 No [id number] Take 2 tabs for 5 days and then 1 tab for 5 days. Daisy rosario Capsaicin 0.025 % apply externally Cream 11-02 00:00: 00 Yes Apply topically. Daisy rosario Lidocaine 5 % apply externally Patch 11-02 00:00: [address] the skin. Daisy rosario Ibuprofen (MOTRIN) 800 MG oral Tablet 10-31 00:00: 00 Yes 800mg [id number] 3D Take 1 tablet (800 mg total) by mouth 3 times daily as needed. Daisy rosario Cetirizine HCl (ZyrTEC Allergy) 10 MG oral TABLET DISPERSIBLE 10-20 00:00: 00 Yes [id number] 1{tbl} Take 1 tablet by mouth daily. Daisy rosario Albuterol HFA 108 (90 Base) MCG/ACT IN AERS 10-20 00:00: 00 Yes [id number] 2{puff} Q.25D Inhale 2 puffs into the lungs every 6 hours as needed for wheezing. Daisy rosario Cetirizine (ZYRTEC) 10 MG oral Tablet 10-20 00:00: 00 02-28 00:00 :00 No 10mg QD Take 1 tablet (10 mg total) by mouth daily. Daisy rosario Trazodone HCl 50 MG oral Tablet 10-20 00:00: 00 11-28 00:00 :00 No [id number] 25mg Take 0.5 tablets (25 mg total) by mouth nightly. Daisy rosario Guaifenesin (Mucinex) 600 MG oral Tablet 12 Hour Sustained Release 10-20 00:00: 00 11-28 00:00 :00 No [id number] 1200mg Take 2 tablets (1,200 mg total) by mouth 2 times daily. Daiys rosario Loratadine (CLARITIN) 10 MG oral tablet 10-12 00:00: 00 04-11 00:00 :00 No [id number] 10mg Take 1 tablet (10 mg total) by mouth. Daisy Mortona l Loratadine 10 MG oral Capsule 09-01 12:57: 41 Yes 10mg Take 1 capsule (10 mg total) by mouth daily. Daisy Mortona l Aspirin 81 MG oral Tablet Delayed Response 09-01 12:57: 41 Yes 81mg Take 1 tablet (81 mg total) by mouth every other day. Daisy Mortona l Cyanocobala min (B-12 TR) 1000 MCG oral Tab CR 09-01 12:57: 41 Yes 1000ug Take 1 tablet (1,000 mcg total) by mouth daily. Daisy rosario Loratadine 10 MG oral Capsule 08-17 11:52: 38 Yes 10mg Take 1 capsule (10 mg total) by mouth daily. Daisy rosario Aspirin 81 MG oral Tablet Delayed Response 08-17 11:52: 38 Yes 81mg Take 1 tablet (81 mg total) by mouth every other day. Daisy Mortona l Cyanocobala min (B-12 TR) 1000 MCG oral Tab CR 08-17 11:52: 38 Yes 1000ug Take 1 tablet (1,000 mcg total) by mouth daily. Daisy rosario Trulicity 0.75 MG/0.5ML subcutaneou s Solution Pen-injecto r 08-05 00:00: 00 10-20 00:00 :00 No [id number] .75mg Inject 0.75 mg into the skin once a week. Daisy Mortona l Loratadine 10 MG oral Capsule 07-22 14:35: 27 Yes 10mg Take 1 capsule (10 mg total) by mouth daily. Daisy Mortona l Aspirin 81 MG oral Tablet Delayed Response 07-22 14:35: 27 Yes 81mg Take 1 tablet (81 mg total) by mouth every other day. Daisy Arnett Externa l Cyanocobala min (B-12 TR) 1000 MCG oral Tab CR 07-22 14:35: 27 Yes 1000ug Take 1 tablet (1,000 mcg total) by mouth daily. Daisy rosario Aspirin 81 MG oral Tablet Delayed Response 06-30 13:16: 54 Yes 81mg Take 1 tablet (81 mg total) by mouth every other day. Daisy rosario Cyanocobala min (B-12 TR) 1000 MCG oral Tab CR 06-30 13:16: 54 Yes 1000ug Take 1 tablet (1,000 mcg total) by mouth daily. Daisy rosario Loratadine 10 MG oral Capsule 06-30 13:16: 54 10-20 00:00 :00 No 10mg Take 1 capsule (10 mg total) by mouth daily. Daisy rosario Thyroid (LEVOTHYROX INE-LIOTHYR ONINE OR) 06-30 13:01: 37 06-30 00:00 :00 No .05mg Take 0.05 mg by mouth once Daisy rosario Lisinopril 5 MG oral Tablet 06-30 13:01: 18 06-30 00:00 :00 No 5mg Take 1 tablet (5 mg total) by mouth daily. Daisy rosario Azithromyci n 250 MG oral Tablet 06-30 00:00: 00 07-06 05:59 :00 No [id number] Take 2 tablets by mouth on day 1 then 1 tablet by mouth daily for 4 days thereafter .. Daisy rosario Thyroid (LEVOTHYROX INE-LIOTHYR ONINE OR) 2022-06 09:58: 28 Yes .05mg Take 0.05 mg by mouth once Daisy rosario Loratadine 10 MG oral Capsule 2022-06 09:58: 28 Yes 10mg Take 1 capsule (10 mg total) by mouth daily. Daisy rosario Aspirin 81 MG oral Tablet Delayed Response 2022-06 09:58: 28 Yes 81mg Take 1 tablet (81 mg total) by mouth every other day. Daisy rosario Lisinopril 5 MG oral Tablet 2022-06 09:58: 28 Yes 5mg Take 1 tablet (5 mg total) by mouth daily. Daisy rosario Cyanocobala min (B-12 TR) 1000 MCG oral Tab CR 2022-06 09:58: 28 Yes 1000ug Take 1 tablet (1,000 mcg total) by mouth daily. Daisy rosario OZEMPIC (1 mg/dose) 4 mg/3 mL SQ Solution Pen-Injecto r 2022-06 00:00: 00 07-22 00:00 :00 No [id number] 1mg Inject 1 mg into the skin once a week. Daisy rosario Glimepiride 2 MG oral Tablet 2022-06 00:00: 00 02-23 00:00 :00 No TAKE 1 TABLET (2 MG) BY MOUTH EVERY MORNING BEFORE BREAKFAST Daisy rosario DONEPEZIL HYDROCHLORI DE 10 MG oral Tablet 2022-06 00:00: 00 Yes Daisy rosario Memantine HCl 10 MG oral Tablet 2022-06 00:00: 00 Yes 5mg 0.5 tablets (5 mg total). Daisy rosario Semaglutide (0.25 or 0.5 mg/dose) 2 mg/3 mL SQ Solution Pen-Injecto r 2022-06 00:00: 00 04-11 00:00 :00 No Inject into the skin. Daisy rosario Simvastatin 20 MG oral Tablet 2022-0612 00:00: 00 Yes 20mg Take 1 tablet (20 mg total) by mouth at bedtime. Daisy rosario Simvastatin 10 MG oral Tablet 2022-06 09:36: 50 Yes 10mg Take 1 tablet (10 mg total) by mouth at bedtime. Daisy rosario Thyroid (LEVOTHYROX INE-LIOTHYR ONINE OR) 2022-06 09:36: 50 Yes .05mg Take 0.05 mg by mouth once Daisy rosario Loratadine 10 MG oral Capsule 2022-06 09:36: 50 Yes 10mg Take 1 capsule (10 mg total) by mouth daily. Daisy rosario Aspirin 81 MG oral Tablet Delayed Response 2022-06 09:36: 50 Yes 81mg Take 1 tablet (81 mg total) by mouth every other day. Daisy rosario Lisinopril 5 MG oral Tablet 2022-06 09:36: 50 Yes 5mg Take 1 tablet (5 mg total) by mouth daily. Daisy rosario Cyanocobala min (B-12 TR) 1000 MCG oral Tab CR 2022-06 09:36: 50 Yes 1000ug Take 1 tablet (1,000 mcg total) by mouth daily. Daisy rosario methylPREDN ISolone 4 MG oral Tablet Therapy Pack 2022-06 00:00: 00 06-30 00:00 :00 No [id number] 1{aditya} Take 1 aditya by mouth See Admin Instructio ns Use as directed. Daisy rosario OZEMPIC (0.25 or 0.5 mg/dose) 2 mg/3 mL SQ Solution Pen-Injecto r 2022-06 00:00: 00 06-02 05:59 :00 No [id number] .5mg Inject 0.5 mg into the skin once a week. Daisy rosario Simvastatin 10 MG oral Tablet 03-09 08:13: 31 Yes 10mg Take 1 tablet (10 mg total) by mouth at bedtime. Daisy rosario Thyroid (LEVOTHYROX INE-LIOTHYR ONINE OR) 03-09 08:13: 31 Yes .05mg Take 0.05 mg by mouth once Daisy rosario Loratadine 10 MG oral Capsule 03-09 08:13: 31 Yes 10mg Take 1 capsule (10 mg total) by mouth daily. Daisy rosario Aspirin 81 MG oral Tablet Delayed Response 03-09 08:13: 31 Yes 81mg Take 1 tablet (81 mg total) by mouth every other day. Daisy rosario Lisinopril 5 MG oral Tablet 03-09 08:13: 31 Yes 5mg Take 1 tablet (5 mg total) by mouth daily. Daisy rosario Cyanocobala min (B-12 TR) 1000 MCG oral Tab CR 03-09 08:13: 31 Yes 1000ug Take 1 tablet (1,000 mcg total) by mouth daily. Daisy rosario OZEMPIC (0.25 or 0.5 mg/dose) 2 mg/3 mL SQ Solution Pen-Injecto r 03-09 00:00: 00 05-05 05:59 :00 No [id number] .25mg Inject 0.25 mg into the skin once a week. Daisy rosario Glimepiride 2 MG oral Tablet 02-24 00:00: 00 03-09 00:00 :00 No [id number] TAKE 1 TABLET (2 MG) BY MOUTH EVERY MORNING BEFORE BREAKFAST Daisy rosario Bupivicaine [place] Bupivicaine [place] 02-11 00:00: 00 No 5mL [facility] Kenalog (Triamcinol one) Kenalog (Triamcinol one) 02-11 00:00: 00 No 1mL [facility] Bupivicaine [place] Bupivicaine [place] 0 02-11 00:00: 00 No 5mL [facility] Kenalog (Triamcinol one) Kenalog (Triamcinol one) 02-11 00:00: 00 No 1mL [facility] Bupivicaine [place] Bupivicaine [place] 2022-0 02-11 00:00: 00 No 5mL [facility] Kenalog (Triamcinol one) Kenalog (Triamcinol one) 02-11 00:00: 00 No 1mL [facility] Bupivicaine [place] Bupivicaine [place] 2022-0 8-17 00:00: 00 No 5mL [facility] Kenalog (Triamcinol one) Kenalog (Triamcinol one) 0 8-17 00:00: 00 No 1mL [facility] Bupivicaine [place] Bupivicaine [place] 2022-0 8-17 00:00: 00 No 5mL [facility] Kenalog (Triamcinol one) Kenalog (Triamcinol one) 0 8-17 00:00: 00 No 1mL [facility] Bupivicaine [place] Bupivicaine [place] 0 8-17 00:00: 00 No 5mL [facility] Kenalog (Triamcinol one) Kenalog (Triamcinol one) 0 8-17 00:00: 00 No 1mL [facility] Bupivicaine [place] Bupivicaine [place] 2022-0 817 00:00: 00 No 5mL [facility] Kenalog (Triamcinol one) Kenalog (Triamcinol one) 0 8-17 00:00: 00 No 1mL [facility] Bupivicaine [place] Bupivicaine [place] 2022-0 8-17 00:00: 00 No 5mL [facility] Kenalog (Triamcinol one) Kenalog (Triamcinol one) 0 8-17 00:00: 00 No 1mL [facility] Bupivicaine [place] Bupivicaine [place] 2022-0 8-17 00:00: 00 No 5mL [facility] Kenalog (Triamcinol one) Kenalog (Triamcinol one) 0 8-17 00:00: 00 No 1mL [facility] Bupivicaine [place] Bupivicaine [place] 2022-0 8-17 00:00: 00 No 5mL [facility] Kenalog (Triamcinol one) Kenalog (Triamcinol one) 2022-0 8-17 00:00: 00 No 1mL [facility] Bupivicaine [place] Bupivicaine [place] 2023-0 8-17 00:00: 00 No 5mL [facility] Kenalog (Triamcinol one) Kenalog (Triamcinol one) 0 8-17 00:00: 00 No 1mL [facility] Bupivicaine [place] Bupivicaine [place] 0 8-17 00:00: 00 No 5mL [facility] Kenalog (Triamcinol one) Kenalog (Triamcinol one) 0 8-17 00:00: 00 No 1mL [facility] Bupivicaine [place] Bupivicaine [place] 0 8-17 00:00: 00 No 5mL [facility] Kenalog (Triamcinol one) Kenalog (Triamcinol one) 0 8-17 00:00: 00 No 1mL [facility] Bupivicaine [place] Bupivicaine [place] 0 8-17 00:00: 00 No 5mL [facility] Kenalog (Triamcinol one) Kenalog (Triamcinol one) 0 8-17 00:00: 00 No 1mL [facility] Bupivicaine [place] Bupivicaine [place] 0 8-17 00:00: 00 No 5mL [facility] Kenalog (Triamcinol one) Kenalog (Triamcinol one) 0 8-17 00:00: 00 No 1mL [facility] DONEPEZIL HYDROCHLORI DE 5 MG oral Tablet 7-11 00:00: 00 06-30 00:00 :00 No 5mg Take 1 tablet (5 mg total) by mouth daily. Diasy rosario Simvastatin 10 MG oral Tablet 12-24 13:12: 08 Yes 10mg Take 1 tablet (10 mg total) by mouth at bedtime Daisy rosario Thyroid (LEVOTHYROX INE-LIOTHYR ONINE OR) 12-24 13:12: 08 Yes .05mg Take 0.05 mg by mouth once Daisy rosario Loratadine 10 MG oral Capsule 12-24 13:12: 08 Yes 10mg Take 1 capsule (10 mg total) by mouth daily Daisy rosario Aspirin 81 MG oral Tablet Delayed Response 12-24 13:12: 08 Yes 81mg Take 1 tablet (81 mg total) by mouth every other day Daisy rosario Lisinopril 5 MG oral Tablet 12-24 13:12: 08 Yes 5mg Take 1 tablet (5 mg total) by mouth daily Daisy rosario Cyanocobala min (B-12 TR) 1000 MCG oral Tab CR 12-24 13:12: 08 Yes 1000ug Take 1 tablet (1,000 mcg total) by mouth daily Daisy rosario predniSONE (DELTASONE) 10 MG oral tablet 12-09 00:00: 00 12-24 00:00 :00 No [id number] 10mg Take 1 tablet (10 mg total) by mouth daily Daisy rosario Allopurinol 300 MG oral Tablet 11-25 00:00: 00 Yes [id number] TAKE 1 TABLET BY MOUTH EVERY DAY Daisy rosario Simvastatin 10 MG oral Tablet 11-24 13:39: 35 Yes 10mg Take 1 tablet (10 mg total) by mouth at bedtime Daisy rosario Thyroid (LEVOTHYROX INE-LIOTHYR ONINE OR) 11-24 13:39: 35 Yes .05mg Take 0.05 mg by mouth once Daisy rosario Loratadine 10 MG oral Capsule 11-24 13:39: 35 Yes 10mg Take 1 capsule (10 mg total) by mouth daily Daisy rosario Aspirin 81 MG oral Tablet Delayed Response 11-24 13:39: 35 Yes 81mg Take 1 tablet (81 mg total) by mouth every other day Daisy rosario Lisinopril 5 MG oral Tablet 11-24 13:39: 35 Yes 5mg Take 1 tablet (5 mg total) by mouth daily Daisy rosario Cyanocobala min (B-12 TR) 1000 MCG oral Tab CR 11-24 13:39: 35 Yes 1000ug Take 1 tablet (1,000 mcg total) by mouth daily Daisy rosario predniSONE (DELTASONE) 10 MG oral tablet 11-24 00:00: 00 Yes [id number] One pill twice daily for 5 days then one pill daily for 5 days. Daisy rosario Lisinopril 5 MG oral Tablet 10-15 00:00: 00 09-01 00:00 :00 No 5mg 1 tablet (5 mg total). Daisy rosario Glimepiride 2 MG oral Tablet 10-14 00:00: 00 Yes [id number] 2mg Take 1 tablet (2 mg total) by mouth every morning (before breakfast) Daisy rosario Diclofenac Sodium 50 MG Diclofenac Sodium 50 MG 09-28 00:00: 00 No 1{table t_as_ne eded} BID Diclofenac Sodium 50 MG Diclofenac Sodium 50 MG Diclofenac Sodium 50 MG 0 09-28 00:00: 00 No 1{table t_as_ne eded} BID Diclofenac Sodium 50 MG Diclofenac Sodium 50 MG Diclofenac Sodium 50 MG 0 09-28 00:00: 00 No 1{table t_as_ne eded} BID Diclofenac Sodium 50 MG Diclofenac Sodium 50 MG Diclofenac Sodium 50 MG 09-28 00:00: 00 No 1{table t_as_ne eded} BID Diclofenac Sodium 50 MG Diclofenac Sodium 50 MG Diclofenac Sodium 50 MG 2022-0 09-28 00:00: 00 No 1{table t_as_ne eded} BID Diclofenac Sodium 50 MG Diclofenac Sodium 50 MG Diclofenac Sodium 50 MG 0 09-28 00:00: 00 No 1{table t_as_ne eded} BID Diclofenac Sodium 50 MG Diclofenac Sodium 50 MG Diclofenac Sodium 50 MG 0 09-28 00:00: 00 No 1{table t_as_ne eded} BID Diclofenac Sodium 50 MG Diclofenac Sodium 50 MG Diclofenac Sodium 50 MG 2022-0 09-28 00:00: 00 No 1{table t_as_ne eded} BID Diclofenac Sodium 50 MG Diclofenac Sodium 50 MG Diclofenac Sodium 50 MG 09-28 00:00: 00 No 1{table t_as_ne eded} BID Diclofenac Sodium 50 MG Diclofenac Sodium 50 MG Diclofenac Sodium 50 MG 0 09-28 00:00: 00 No 1{table t_as_ne eded} BID Diclofenac Sodium 50 MG Diclofenac Sodium 50 MG Diclofenac Sodium 50 MG 0 09-28 00:00: 00 No 1{table t_as_ne eded} BID Diclofenac Sodium 50 MG Diclofenac Sodium 50 MG Diclofenac Sodium 50 MG 0 09-28 00:00: 00 No 1{table t_as_ne eded} BID Diclofenac Sodium 50 MG Diclofenac Sodium 50 MG Diclofenac Sodium 50 MG 09-28 00:00: 00 No 1{table t_as_ne eded} BID Diclofenac Sodium 50 MG Diclofenac Sodium 50 MG Diclofenac Sodium 50 MG 0 09-28 00:00: 00 No 1{table t_as_ne eded} BID Diclofenac Sodium 50 MG Diclofenac Sodium 50 MG Diclofenac Sodium 50 MG 09-28 00:00: 00 No 1{table t_as_ne eded} BID Diclofenac Sodium 50 MG Simvastatin 10 MG oral Tablet 09-08 15:41: 30 Yes 10mg Take 10 mg by mouth at bedtime Daisy Bryson l Thyroid (LEVOTHYROX INE-LIOTHYR ONINE OR) 09-08 15:41: 30 Yes .05mg Take 0.05 mg by mouth once Daisy rosario Loratadine 10 MG oral Capsule 09-08 15:41: 30 Yes 10mg Take 10 mg by mouth daily Daisy Mortona marlene Aspirin 81 MG oral Tablet Delayed Response 09-08 15:41: 30 Yes 81mg Take 81 mg by mouth every other day Daisy Sewell - [place] rosario Lisinopril 5 MG oral Tablet 09-08 15:41: 30 Yes 5mg Take 5 mg by mouth daily Daisy Sewell - Praveena marlene Cyanocobala min (B-12 TR) 1000 MCG oral Tab CR 2023-0 3-14 15:41: 30 Yes 1000ug Take 1,000 mcg by mouth daily Daisy rosario traMADol HCl 50 MG traMADol HCl 50 MG 3-0 3- 00:00: 00 No 1{table t_as_ne eded} traMADol HCl 50 MG traMADol HCl 50 MG traMADol HCl 50 MG 2023-0 3- 00:00: 00 No 1{table t_as_ne eded} traMADol HCl 50 MG traMADol HCl 50 MG traMADol HCl 50 MG 3-0 3- 00:00: 00 No 1{table t_as_ne eded} traMADol HCl 50 MG traMADol HCl 50 MG traMADol HCl 50 MG 3-0 3- 00:00: 00 No 1{table t_as_ne eded} traMADol HCl 50 MG traMADol HCl 50 MG traMADol HCl 50 MG 3-0 3- 00:00: 00 No 1{table t_as_ne eded} traMADol HCl 50 MG traMADol HCl 50 MG traMADol HCl 50 MG 3-0 3- 00:00: 00 No 1{table t_as_ne eded} traMADol HCl 50 MG traMADol HCl 50 MG traMADol HCl 50 MG 3-0 3- 00:00: 00 No 1{table t_as_ne eded} traMADol HCl 50 MG traMADol HCl 50 MG traMADol HCl 50 MG 3-0 3- 00:00: 00 No 1{table t_as_ne eded} traMADol HCl 50 MG traMADol HCl 50 MG traMADol HCl 50 MG 3-0 3- 00:00: 00 No 1{table t_as_ne eded} traMADol HCl 50 MG traMADol HCl 50 MG traMADol HCl 50 MG 3-0 3- 00:00: 00 No 1{table t_as_ne eded} traMADol HCl 50 MG traMADol HCl 50 MG traMADol HCl 50 MG 2023-0 3- 00:00: 00 No 1{table t_as_ne eded} traMADol HCl 50 MG traMADol HCl 50 MG traMADol HCl 50 MG 2023-0 3- 00:00: 00 No 1{table t_as_ne eded} traMADol HCl 50 MG traMADol HCl 50 MG traMADol HCl 50 MG 2023-0 3-02 00:00: 00 No 1{table t_as_ne eded} traMADol HCl 50 MG traMADol HCl 50 MG traMADol HCl 50 MG 3-0 3-02 00:00: 00 No 1{table t_as_ne eded} traMADol HCl 50 MG traMADol HCl 50 MG traMADol HCl 50 MG 3-0 3-02 00:00: 00 No 1{table t_as_ne eded} traMADol HCl 50 MG Xarelto 10 MG Xarelto 10 MG 2023-0 2-16 00:00: 00 No 1{table t} QD Xarelto 10 MG traMADol HCl 50 MG traMADol HCl 50 MG 2023-0 2-16 00:00: 00 No 1{table t_as_ne eded} QD traMADol HCl 50 MG Xarelto 10 MG Xarelto 10 MG 2023-0 2-16 00:00: 00 No 1{table t} QD Xarelto 10 MG traMADol HCl 50 MG traMADol HCl 50 MG 3-0 2-16 00:00: 00 No 1{table t_as_ne eded} QD traMADol HCl 50 MG Xarelto 10 MG Xarelto 10 MG 3-0 2-16 00:00: 00 No 1{table t} QD Xarelto 10 MG traMADol HCl 50 MG traMADol HCl 50 MG 3-0 2-16 00:00: 00 No 1{table t_as_ne eded} QD traMADol HCl 50 MG Xarelto 10 MG Xarelto 10 MG 3-0 2-16 00:00: 00 No 1{table t} QD Xarelto 10 MG traMADol HCl 50 MG traMADol HCl 50 MG 3-0 2-16 00:00: 00 No 1{table t_as_ne eded} QD traMADol HCl 50 MG traMADol HCl 50 MG traMADol HCl 50 MG 3-0 2-16 00:00: 00 No 1{table t_as_ne eded} QD traMADol HCl 50 MG Xarelto 10 MG Xarelto 10 MG 2023-0 2-16 00:00: 00 No 1{table t} QD Xarelto 10 MG traMADol HCl 50 MG traMADol HCl 50 MG 2023-0 2-16 00:00: 00 No 1{table t_as_ne eded} QD traMADol HCl 50 MG Xarelto 10 MG Xarelto 10 MG 2023-0 2-16 00:00: 00 No 1{table t} QD Xarelto 10 MG Xarelto 10 MG Xarelto 10 MG 2023-0 2-16 00:00: 00 No 1{table t} QD Xarelto 10 MG traMADol HCl 50 MG traMADol HCl 50 MG 2023-0 2-16 00:00: 00 No 1{table t_as_ne eded} QD traMADol HCl 50 MG Xarelto 10 MG Xarelto 10 MG 2023-0 2-16 00:00: 00 No 1{table t} QD Xarelto 10 MG traMADol HCl 50 MG traMADol HCl 50 MG 2023-0 2-16 00:00: 00 No 1{table t_as_ne eded} QD traMADol HCl 50 MG Xarelto 10 MG Xarelto 10 MG 2023-0 2-16 00:00: 00 No 1{table t} QD Xarelto 10 MG traMADol HCl 50 MG traMADol HCl 50 MG 2023-0 2-16 00:00: 00 No 1{table t_as_ne eded} QD traMADol HCl 50 MG Xarelto 10 MG Xarelto 10 MG 2023-0 2-16 00:00: 00 No 1{table t} QD Xarelto 10 MG traMADol HCl 50 MG traMADol HCl 50 MG 2023-0 2-16 00:00: 00 No 1{table t_as_ne eded} QD traMADol HCl 50 MG Xarelto 10 MG Xarelto 10 MG 2023-0 2-16 00:00: 00 No 1{table t} QD Xarelto 10 MG traMADol HCl 50 MG traMADol HCl 50 MG 2023-0 2-16 00:00: 00 No 1{table t_as_ne eded} QD traMADol HCl 50 MG Xarelto 10 MG Xarelto 10 MG 2023-0 2-16 00:00: 00 No 1{table t} QD Xarelto 10 MG traMADol HCl 50 MG traMADol HCl 50 MG 2023-0 2-16 00:00: 00 No 1{table t_as_ne eded} QD traMADol HCl 50 MG Xarelto 10 MG Xarelto 10 MG 2-16 00:00: 00 No 1{table t} QD Xarelto 10 MG traMADol HCl 50 MG traMADol HCl 50 MG 0 2-16 00:00: 00 No 1{table t_as_ne eded} QD traMADol HCl 50 MG Xarelto 10 MG Xarelto 10 MG 0 2-16 00:00: 00 No 1{table t} QD Xarelto 10 MG traMADol HCl 50 MG traMADol HCl 50 MG 0 2-16 00:00: 00 No 1{table t_as_ne eded} QD traMADol HCl 50 MG Xarelto 10 MG Xarelto 10 MG 0 2-16 00:00: 00 No 1{table t} QD Xarelto 10 MG traMADol HCl 50 MG traMADol HCl 50 MG 0 2-16 00:00: 00 No 1{table t_as_ne eded} QD traMADol HCl 50 MG Simvastatin 10 MG oral Tablet 07-30 11:45: 26 Yes 10mg Take 10 mg by mouth at bedtime Daisy rosario Thyroid (LEVOTHYROX INE-LIOTHYR ONINE OR) 07-30 11:45: 26 Yes .05mg Take 0.05 mg by mouth once Daisy rosario Loratadine 10 MG oral Capsule 07-30 11:45: 25 Yes 10mg Take 10 mg by mouth daily Daisy rosario Aspirin 81 MG oral Tablet Delayed Response 07-30 11:45: 25 Yes 81mg Take 81 mg by mouth every other day Daisy rosario Lisinopril 5 MG oral Tablet 07-30 11:45: 25 Yes 5mg Take 5 mg by mouth daily Daisy rosario Cyanocobala min (B-12 TR) 1000 MCG oral Tab CR 07-30 11:45: 25 Yes 1000ug Take 1,000 mcg by mouth daily Daisy rosario Allopurinol 300 MG oral Tablet -03 00:00: 00 Yes [id number] TAKE 1 TABLET BY MOUTH EVERY DAY Daisy rosario Tramadol HCl (ULTRAM) 50 MG oral Tablet 2021-06 00:00: 00 Yes 50mg [id number] 3D Take 1 tablet (50 mg total) by mouth every 8 hours as needed. Daisy rosario Tramadol HCl (ULTRAM) 50 MG oral Tablet 2021-06 00:00: 00 06-30 00:00 :00 No 1{tbl} Q.[id number] 3D Take 1 tablet (50 mg total) by mouth every 8 hours as needed. Daisy rosario Simvastatin 10 MG oral Tablet 2021-06 10:12: 33 Yes 10mg Take 10 mg by mouth at bedtime Daisy rosario Thyroid (LEVOTHYROX INE-LIOTHYR ONINE OR) 2021-06 10:12: 33 Yes .05mg Take 0.05 mg by mouth once Daisy rosario Loratadine 10 MG oral Capsule 2021-06 10:12: 33 Yes 10mg Take 10 mg by mouth daily Daisy rosario Aspirin 81 MG oral Tablet Delayed Response 2021-06 10:12: 33 Yes 81mg Take 81 mg by mouth every other day Daisy rosario Lisinopril 5 MG oral Tablet 2021-06 10:12: 33 Yes 5mg Take 5 mg by mouth daily Daisy rosario Cyanocobala min (B-12 TR) 1000 MCG oral Tab CR 2021-06 10:12: 33 Yes 1000ug Take 1,000 mcg by mouth daily Daisy rosario Meloxicam 15 MG oral Tablet 2021-06 00:00: 00 12-24 00:00 :00 No [id number] 15mg QD Take 1 tablet (15 mg total) by mouth daily as needed for pain Daisy rosario predniSONE (DELTASONE) 10 MG oral tablet 2021-06 00:00: 00 11-13 00:00 :00 No [id number] 10mg Take 1 tablet (10 mg total) by mouth daily Daisy rosario Simvastatin 10 MG oral Tablet 2021-06 07:55: 05 Yes 10mg Take 10 mg by mouth at bedtime Daisy rosario Thyroid (LEVOTHYROX INE-LIOTHYR ONINE OR) 2021-06 07:55: 05 Yes .05mg Take 0.05 mg by mouth once Daisy rosario Loratadine 10 MG oral Capsule 2021-06 07:55: 05 Yes 10mg Take 10 mg by mouth daily Daisy rosario Aspirin 81 MG oral Tablet Delayed Response 2021-06 07:55: 05 Yes 81mg Take 81 mg by mouth every other day Daisy rosario Lisinopril 5 MG oral Tablet 2021-06 07:55: 05 Yes 5mg Take 5 mg by mouth daily Daisy rosario Cyanocobala min (B-12 TR) 1000 MCG oral Tab CR 2021-06 07:55: 05 Yes 1000ug Take 1,000 mcg by mouth daily Daisy rosario Simvastatin 10 MG oral Tablet 2021-06 09:47: 32 Yes 10mg Take 10 mg by mouth at bedtime Daisy rosario Thyroid (LEVOTHYROX INE-LIOTHYR ONINE OR) 2021-06 09:47: 32 Yes .05mg Take 0.05 mg by mouth once Daisy rosario Loratadine 10 MG oral Capsule 2021-06 09:47: 32 Yes 10mg Take 10 mg by mouth daily Daisy rosario Aspirin 81 MG oral Tablet Delayed Response 2021-06 09:47: 32 Yes 81mg Take 81 mg by mouth every other day Daisy rosario Lisinopril 5 MG oral Tablet 2021-06 09:47: 32 Yes 5mg Take 5 mg by mouth daily Daisy Mortona marlene Cyanocobala min (B-12 TR) 1000 MCG oral Tab CR 2021-06 09:47: 32 Yes 1000ug Take 1,000 mcg by mouth daily Daisy rosario Glimepiride 2 MG oral Tablet 03-06 00:00: 00 Yes [id number] 2mg Take 1 tablet (2 mg total) by mouth every morning (before breakfast) Daisy rosario predniSONE (DELTASONE) 10 MG oral tablet 03-05 00:00: 00 04-08 00:00 :00 No [id number] One pill twice daily for 5 days then one pill daily for 5 days. Daisy rosario Meloxicam 15 MG oral Tablet 12-01 00:00: 00 06-08 00:00 :00 No TAKE 1 TABLET BY MOUTH EVERY DAY NEEDED FOR PAIN Daisy rosario Simvastatin 10 MG oral Tablet 10-20 08:05: 13 Yes 10mg Take 10 mg by mouth at bedtime Daisy Sewell Thyroid (LEVOTHYROX INE-LIOTHYR ONINE OR) 10-20 08:05: 13 Yes .05mg Take 0.05 mg by mouth once Daisy Sewell Loratadine 10 MG oral Capsule 10-20 08:05: 13 Yes 10mg Take 10 mg by mouth daily Daisy Sewell Aspirin 81 MG oral Tablet Delayed Response 10-20 08:05: 13 Yes 81mg Take 81 mg by mouth every other day Daisy Sewell Lisinopril 5 MG oral Tablet 10-20 08:05: 13 Yes 5mg Take 5 mg by mouth daily Daisy Sewell Cyanocobala min (B-12 TR) 1000 MCG oral Tab CR 10-20 08:05: 13 Yes 1000ug Take 1,000 mcg by mouth daily Daisy Sewell Allopurinol 300 MG oral Tablet 10-08 00:00: 00 Yes [id number] 300mg Take 1 tablet (300 mg total) by mouth daily Daisy rosario Simvastatin 10 MG oral Tablet 10-06 14:19: 16 Yes 10mg Take 10 mg by mouth at bedtime Daisy Sewell Thyroid (LEVOTHYROX INE-LIOTHYR ONINE OR) 10-06 14:19: 16 Yes .05mg Take 0.05 mg by mouth once Daisy Sewell Loratadine 10 MG oral Capsule 10-06 14:19: 16 Yes 10mg Take 10 mg by mouth daily Daisy Sewell Allopurinol 100 MG oral Tablet 10-06 14:19: 16 Yes 100mg Take 100 mg by mouth daily Daisy Sewell Aspirin 81 MG oral Tablet Delayed Response 10-06 14:19: 16 Yes 81mg Take 81 mg by mouth every other day Daisy Sewell Lisinopril 5 MG oral Tablet 10-06 14:19: 16 Yes 5mg Take 5 mg by mouth daily Daisy Sewell Cyanocobala min (B-12 TR) 1000 MCG oral Tab CR 10-06 14:19: 16 Yes 1000ug Take 1,000 mcg by mouth daily Daisy Sewell predniSONE (DELTASONE) 10 MG oral tablet 10-06 00:00: 00 Yes [id number] One pill twice daily for 5 days then one pill daily for 5 days. Daisy Sewell Meloxicam 15 MG oral Tablet 10-06 00:00: 00 Yes 15mg QD Take 1 tablet (15 mg total) by mouth daily as needed for pain Daisy Sewell Simvastatin 10 MG oral Tablet 09-16 08:28: 58 Yes 10mg Take 10 mg by mouth at bedtime Daisy Sewell Thyroid (LEVOTHYROX INE-LIOTHYR ONINE OR) 09-16 08:28: 58 Yes .05mg Take 0.05 mg by mouth once Daisy Sewell Loratadine 10 MG oral Capsule 09-16 08:28: 58 Yes 10mg Take 10 mg by mouth daily Daisy Sewell Allopurinol 100 MG oral Tablet 09-16 08:28: 58 Yes 100mg Take 100 mg by mouth daily Daisy Sewell Aspirin 81 MG oral Tablet Delayed Response 09-16 08:28: 58 Yes 81mg Take 81 mg by mouth every other day Daisy Sewell Lisinopril 5 MG oral Tablet 09-16 08:28: 58 Yes 5mg Take 5 mg by mouth daily Daisy Seybold Cyanocobala min (B-12 TR) 1000 MCG oral Tab CR 09-16 08:28: 58 Yes 1000ug Take 1,000 mcg by mouth daily Daisy Sewell Simvastatin 10 MG oral Tablet 08-26 08:58: 41 Yes 10mg Take 10 mg by mouth at bedtime Daisy Sewell Thyroid (LEVOTHYROX INE-LIOTHYR ONINE OR) 08-26 08:58: 41 Yes .05mg Take 0.05 mg by mouth once Daisy Sewell Loratadine 10 MG oral Capsule 08-26 08:58: 41 Yes 10mg Take 10 mg by mouth daily Daisy Sewell Allopurinol 100 MG oral Tablet 08-26 08:58: 41 Yes 100mg Take 100 mg by mouth daily Daisy Sewell Aspirin (Baljinder Aspirin EC Low Dose) 81 MG oral Tablet Delayed Response 08-26 08:58: 41 Yes 81mg Take 81 mg by mouth every other day Daisy Sewell Lisinopril 5 MG oral Tablet 08-26 08:58: 41 Yes 5mg Take 5 mg by mouth daily Daisy Sewell Cyanocobala min (B-12 TR) 1000 MCG oral Tab CR 08-26 08:58: 41 Yes 1000ug Take 1,000 mcg by mouth daily Daisy Sewell predniSONE (DELTASONE) 10 MG oral tablet 08-26 00:00: 00 10-06 00:00 :00 No [id number] Take 3 tablets by mouth for 7 days then 1 tablet by mouth for 7 day Daisy Sewell Simvastatin 10 MG oral Tablet 08-19 09:46: 39 Yes 10mg Take 10 mg by mouth at bedtime Daisy Sewell Thyroid (LEVOTHYROX INE-LIOTHYR ONINE OR) 08-19 09:46: 39 Yes .05mg Take 0.05 mg by mouth once Daisy Sewell Loratadine 10 MG oral Capsule 08-19 09:46: 39 Yes 10mg Take 10 mg by mouth daily Daisy Sewell Allopurinol 100 MG oral Tablet 08-19 09:46: 39 Yes 100mg Take 100 mg by mouth daily Daisy Sewell Aspirin (Baljinder Aspirin EC Low Dose) 81 MG oral Tablet Delayed Response 08-19 09:46: 39 Yes 81mg Take 81 mg by mouth every other day Daisy Sewell Lisinopril 5 MG oral Tablet 08-19 09:46: 39 Yes 5mg Take 5 mg by mouth daily Daisy Sewell Cyanocobala min (B-12 TR) 1000 MCG oral Tab CR 08-19 09:46: 39 Yes 1000ug Take 1,000 mcg by mouth daily Daiys Sewell Mupirocin (BACTROBAN) 2 % apply externally Ointment 08-19 00:00: 00 12-24 00:00 :00 No [id number] Apply to affected toe twice a day Daisy Sewell - Externcece rosario Clindamycin HCl 300 MG oral Capsule 08-19 00:00: 00 10-20 00:00 :00 No [id number] 300mg Take 1 capsule (300 mg total) by mouth 3 times daily Daisy Sewell Metoprolol Tartrate 50 MG oral Tablet 08-07 13:37: 18 Yes 50mg Take 50 mg by mouth Daisy Sewell Simvastatin 20 MG oral Tablet 08-07 13:37: 18 Yes 20mg Take 20 mg by mouth Daisy Sewell Celecoxib (CeleBREX) 200 MG oral Capsule 08-07 00:00: 00 Yes [id number] 200mg Take 1 capsule (200 mg total) by mouth 2 times daily Daisy Sewell Colchicine 0.6 MG oral Tablet 08-01 00:00: 00 Yes TAKE 1 TABLET BY MOUTH EVERY DAY Daisy Sewell Empaglifloz in (Jardiance) 10 MG oral Tablet 07-17 00:00: 00 Yes [id number] 1{tbl} Take 1 tablet by mouth daily Daisy Sewell Furosemide 20 MG oral Tablet 07-15 10:08: 37 07-15 00:00 :00 No 20mg Take 20 mg by mouth Daisy Sewell Metformin HCl 500 MG oral Tablet 07-15 10:00: 30 07-15 00:00 :00 No 500mg Take 500 mg by mouth Daisy Iveymiriamhoward Metoprolol Tartrate 50 MG oral Tablet 07-15 09:39: 16 Yes 50mg Take 50 mg by mouth Daisy Iveymiriamhoward Simvastatin 20 MG oral Tablet 07-15 09:39: 16 Yes 20mg Take 20 mg by mouth Daisy Ievymiriamhoward Colchicine 0.6 MG oral Tablet 07-09 00:00: 00 Yes TAKE 1 TABLET BY MOUTH EVERY DAY Daisy Iveymiriamhoward Tramadol HCl 50 MG oral Tablet 2020-06 00:00: 00 Yes 50mg Q6H Take 1 tablet (50 mg total) by mouth every 6 hours as needed FOR PAIN Daisy Melodie Albuterol HFA 108 (90 Base) MCG/ACT IN AERS 11-01 00:00: 00 Yes Daisy Iveymiriamhoward furosemide 20 mg tablet 12-12 15:37: 29 Yes 20mg Take 20 mg by mouth. [facility] metFORMIN 500 mg tablet 12-12 15:37: 29 Yes 500mg Take 500 mg by mouth. [facility] metoprolol tartrate 50 mg tablet 12-12 15:37: 29 Yes 50mg Take 50 mg by mouth. [facility] simvastatin 20 mg tablet 12-12 15:37: 29 Yes 20mg Take 20 mg by mouth. [facility] furosemide 20 mg tablet 12-12 10:37: 29 Yes 20mg Take 20 mg by mouth. [facility] metFORMIN 500 mg tablet 12-12 10:37: 29 Yes 500mg Take 500 mg by mouth. [facility] metoprolol tartrate 50 mg tablet 12-12 10:37: 29 Yes 50mg Take 50 mg by mouth. [facility] simvastatin 20 mg tablet 12-12 10:37: 29 Yes 20mg Take 20 mg by mouth. [facility] colchicine 0.6 mg tablet 11-18 00:00: 00 12-12 00:00 :00 No .6mg Take 0.6 mg by mouth daily. [facility] indomethaci n 25 mg capsule 2018-06 00:00: 00 Yes TAKE 1 CAPSULE BY MOUTH 3 TIMES A DAY WITH FOOD [facility] traMADol 50 mg tablet 2018-06 00:00: 00 Yes [facility] febuxostat 40 mg tablet 2018-06 00:00: 00 Yes 40mg Take 40 mg by mouth. [facility] tiZANidine 4 mg tablet 2018-06 00:00: 00 Yes [facility] allopurinoL 100 mg tablet 03-21 00:00: 00 Yes [facility] ASA-APAP-Ca ff Buffered ASA-APAP-Ca ff Buffered No ASA-APAP-C aff Buffered B-12 B-12 No B-12 Gabapentin 300 MG Gabapentin 300 MG No Gabapentin 300 MG ASA-APAP-Ca ff Buffered ASA-APAP-Ca ff Buffered No ASA-APAP-C aff Buffered Donepezil HCl 5 MG Donepezil HCl 5 MG No Donepezil HCl 5 MG Loratadine Loratadine No Loratadine Gabapentin 300 MG Gabapentin 300 MG No Gabapentin 300 MG ASA-APAP-Ca ff Buffered ASA-APAP-Ca ff Buffered No ASA-APAP-C aff Buffered Donepezil HCl 5 MG Donepezil HCl 5 MG No Donepezil HCl 5 MG Gabapentin 300 MG Gabapentin 300 MG No Gabapentin 300 MG ASA-APAP-Ca ff Buffered ASA-APAP-Ca ff Buffered No ASA-APAP-C aff Buffered Donepezil HCl 5 MG Donepezil HCl 5 MG No Donepezil HCl 5 MG Gabapentin 300 MG Gabapentin 300 MG No Gabapentin 300 MG Glimepiride Glimepiride No Gl imepirid e Donepezil HCl 5 MG Donepezil HCl 5 MG No Donepezil HCl 5 MG Gabapentin 300 MG Gabapentin 300 MG No Gabapentin 300 MG Glimepiride Glimepiride No Gl imepirid e Donepezil HCl 5 MG Donepezil HCl 5 MG No Donepezil HCl 5 MG Gabapentin 300 MG Gabapentin 300 MG No Gabapentin 300 MG Metoprolol Tartrate Metoprolol Tartrate No Metoprolol Tartrate Gabapentin 300 MG Gabapentin 300 MG No Gabapentin 300 MG Donepezil HCl 5 MG Donepezil HCl 5 MG No Donepezil HCl 5 MG Metoprolol Tartrate Metoprolol Tartrate No Metoprolol Tartrate Gabapentin 300 MG Gabapentin 300 MG No Gabapentin 300 MG Donepezil HCl 5 MG Donepezil HCl 5 MG No Donepezil HCl 5 MG B-12 B-12 No B- Metoprolol Tartrate Metoprolol Tartrate No Metoprolol Tartrate Gabapentin 300 MG Gabapentin 300 MG No Gabapentin 300 MG Donepezil HCl 5 MG Donepezil HCl 5 MG No Donepezil HCl 5 MG Metoprolol Tartrate Metoprolol Tartrate No Metoprolol Tartrate Gabapentin 300 MG Gabapentin 300 MG No Gabapentin 300 MG Donepezil HCl 5 MG Donepezil HCl 5 MG No Donepezil HCl 5 MG Metoprolol Tartrate Metoprolol Tartrate No Metoprolol Tartrate Gabapentin 300 MG Gabapentin 300 MG No Gabapentin 300 MG Donepezil HCl 5 MG Donepezil HCl 5 MG No Donepezil HCl 5 MG Metoprolol Tartrate Metoprolol Tartrate No Metoprolol Tartrate Gabapentin 300 MG Gabapentin 300 MG No Gabapentin 300 MG Donepezil HCl 5 MG Donepezil HCl 5 MG No Donepezil HCl 5 MG Metoprolol Tartrate Metoprolol Tartrate No Metoprolol Tartrate Gabapentin 300 MG Gabapentin 300 MG No Gabapentin 300 MG Donepezil HCl 5 MG Donepezil HCl 5 MG No Donepezil HCl 5 MG B- B- No Jardiance Jardiance No Jardiance Donepezil HCl 5 MG Donepezil HCl 5 MG No Donepezil HCl 5 MG Gabapentin 300 MG Gabapentin 300 MG No Gabapentin 300 MG B-- No - ASA-APAP-Ca ff Buffered ASA-APAP-Ca ff Buffered No ASA-APAP-C aff Buffered Donepezil HCl 5 MG Donepezil HCl 5 MG No Donepezil HCl 5 MG Gabapentin 300 MG Gabapentin 300 MG No Gabapentin 300 MG Immunizations Ordered Immunization Name Filled Immunization Name Date Status Comments Source Influenza vaccine, quadrivalent, adjuvanted, + 2023-03-09 00:00:00 Janki Arnett External COVID-[address] [facility] 2022-05-13 00:00:00 Janki Arnett External COVID-[address] [facility] 2022-05-13 00:00:00 Completed Daisy Seybold - External COVID-19 Bivalent Booster vaccine [facility] 2022-05-13 00:00:00 Completed Daisy Seybold - External COVID-19 Bivalent Booster vaccine [facility] 2022-05-13 00:00:00 Completed Daisy Seybold - External COVID-19 Bivalent vaccine [facility] 2022-05-13 00:00:00 Completed Daisy Seybold - External COVID-19 Bivalent vaccine [facility] 2022-05-13 00:00:00 Completed Daisy Seybold - External COVID-19 Bivalent vaccine [facility] 2022-05-13 00:00:00 Completed Daisy Seybold - External COVID-[address] [facility] 2022-05-13 00:00:00 Completed Daisy Seybold - External Influenza Virus Vaccine, Quadrivalent, High Dose, Age 65 And Up 2022-04-08 00:00:00 Completed Daisy Seybold - External Influenza Virus Vaccine, Quadrivalent, High Dose, Age 65 And Up 2022-04-08 00:00:00 Completed Daisy Seybold - External Influenza Virus Vaccine, Quadrivalent, High Dose, Age 65 And Up 2022-04-08 00:00:00 Completed Daisy Seybold - External Influenza Virus Vaccine, Quadrivalent, High Dose, Age 65 And Up 2022-04-08 00:00:00 Completed Daisy Seybold - External Influenza Virus Vaccine, Quadrivalent, High Dose, Age 65 And Up 2022-04-08 00:00:00 Completed Daisy Seybold - External Influenza Virus Vaccine, Quadrivalent, High Dose, Age 65 And Up 2022-04-08 00:00:00 Completed Daisy Seybold - External Influenza Virus Vaccine, Quadrivalent, High Dose, Age 65 And Up 2022-04-08 00:00:00 Completed Daisy Seybold - External Influenza Virus Vaccine, Quadrivalent, High Dose, Age 65 And Up 2022-04-08 00:00:00 Completed Daisy Seybold - External Influenza Virus Vaccine, Quadrivalent, High Dose, Age 65 And Up 2022-04-08 00:00:00 Completed Daisy Seybold - External Shingles IM (Shingrix) 2021-07-03 00:00:00 Completed Daisy Seybold - External Shingles IM (Shingrix) 2021-07-03 00:00:00 Completed Daisy Seybold - External Shingles IM (Shingrix) 2021-07-03 00:00:00 Completed Daisy Seybold - External Shingles IM (Shingrix) 2021-07-03 00:00:00 Completed Daisy Seybold - External Shingles IM (Shingrix) 2021-07-03 00:00:00 Completed Daisy Seybold - External Shingles IM (Shingrix) 2021-07-03 00:00:00 Completed Daisy Seybold - External Shingles IM (Shingrix) 2021-07-03 00:00:00 Completed Daisy Seybold - External Shingles IM (Shingrix) 2021-07-03 00:00:00 Completed Daisy Seybold - External Shingles IM (Shingrix) 2021-07-03 00:00:00 Completed Daisy Seybold - External Influenza vaccine, quadrivalent, adjuvanted 2021-03-19 00:00:00 Completed Daisy Seybold - External Shingles IM (Shingrix) 2021-03-19 00:00:00 Completed Daisy Seybold - External Influenza vaccine, quadrivalent, adjuvanted 2021-03-19 00:00:00 Completed Daisy Seybold - External Shingles IM (Shingrix) 2021-03-19 00:00:00 Completed Daisy Seybold - External Influenza vaccine, quadrivalent, adjuvanted 2021-03-19 00:00:00 Completed Daisy Seybold - External Shingles IM (Shingrix) 2021-03-19 00:00:00 Completed Daisy Seybold - External Influenza vaccine, quadrivalent, adjuvanted 2021-03-19 00:00:00 Completed Daisy Seybold - External Shingles IM (Shingrix) 2021-03-19 00:00:00 Completed Daisy Seybold - External Influenza vaccine, quadrivalent, adjuvanted 2021-03-19 00:00:00 Completed Daisy Seybold - External Shingles IM (Shingrix) 2021-03-19 00:00:00 Completed Daisy Seybold - External Influenza vaccine, quadrivalent, adjuvanted 2021-03-19 00:00:00 Completed Daisy Seybold - External Shingles IM (Shingrix) 2021-03-19 00:00:00 Completed Daisy Seybold - External Influenza vaccine, quadrivalent, adjuvanted 2021-03-19 00:00:00 Completed Daisy Seybold - External Shingles IM (Shingrix) 2021-03-19 00:00:00 Completed Daisy Seybold - External Influenza vaccine, quadrivalent, adjuvanted 2021-03-19 00:00:00 Completed Daisy Seybold - External Shingles IM (Shingrix) 2021-03-19 00:00:00 Completed Daisy Seybold - External Influenza vaccine, quadrivalent, adjuvanted, 65+ 2021-03-19 00:00:00 Completed Daisy Seybold - External Shingles IM (Shingrix) 2021-03-19 00:00:00 Completed Daisy Seybold - External Covid-19 Vaccine (Pfizer), Mrna-lnp, Mark Protein, Pf, 30mcg/0.3ml,IM 2020-08-30 00:00:00 Completed Daisy Seybold - External Covid-19 Vaccine (Pfizer), Mrna-lnp, Mark Protein, Pf, 30mcg/0.3ml,IM 2020-08-30 00:00:00 Completed Daisy Seybold - External Covid-19 Vaccine (Pfizer), Mrna-lnp, Mark Protein, Pf, 30mcg/0.3ml,IM 2020-08-30 00:00:00 Completed Daisy Seybold - External Covid-19 Vaccine (Pfizer), Mrna-lnp, Mark Protein, Pf, 30mcg/0.3ml,IM 2020-08-30 00:00:00 Completed Daisy Seybold - External Covid-19 Vaccine (Pfizer), Mrna-lnp, Mark Protein, Pf, 30mcg/0.3ml,IM 2020-08-30 00:00:00 Completed Daisy Seybold - External Covid-19 Vaccine (Pfizer), Mrna-lnp, Mark Protein, Pf, 30mcg/0.3ml,IM 2020-08-30 00:00:00 Completed Daisy Seybold - External Covid-19 Vaccine (Pfizer), Mrna-lnp, Mark Protein, Pf, 30mcg/0.3ml,IM 2020-08-30 00:00:00 Completed Daisy Seybold - External Covid-19 Vaccine (Pfizer), Mrna-lnp, Mark Protein, Pf, 30mcg/0.3ml,IM 2020-08-30 00:00:00 Completed Daisy Seybold - External Covid-19 Vaccine (Pfizer), Mrna-lnp, Mark Protein, Pf, 30mcg/0.3ml,IM 2020-08-30 00:00:00 Completed Daisy Seybold - External Covid-19 Vaccine (Pfizer), Mrna-lnp, Mark Protein, Pf, 30mcg/0.3ml, 2020-08-09 00:00:00 Completed Daisy Seybold Covid-19 Vaccine (Pfizer), Mrna-lnp, Mark Protein, Pf, 30mcg/0.3ml, 2020-08-09 00:00:00 Completed Daisy Seybold Covid-19 Vaccine (Pfizer), Mrna-lnp, Mark Protein, Pf, 30mcg/0.3ml, 2020-08-09 00:00:00 Completed Daisy Seybold Covid-19 Vaccine (Pfizer), Mrna-lnp, Mark Protein, Pf, 30mcg/0.3ml, 2020-08-09 00:00:00 Completed Daisy Seybold Covid-19 Vaccine (Pfizer), Mrna-lnp, Mark Protein, Pf, 30mcg/0.3ml, 2020-08-09 00:00:00 Completed Daisy Seybold - External Covid-19 Vaccine (Pfizer), Mrna-lnp, Mark Protein, Pf, 30mcg/0.3ml,IM 2020-08-09 00:00:00 Completed Daisy Seybold - External Covid-19 Vaccine (Pfizer), Mrna-lnp, Mark Protein, Pf, 30mcg/0.3ml,IM 2020-08-09 00:00:00 Completed Daisy Seybold Covid-19 Vaccine (Pfizer), Mrna-lnp, Mark Protein, Pf, 30mcg/0.3ml,IM 2020-08-09 00:00:00 Completed Daisy Seybold - External Covid-19 Vaccine (Pfizer), Mrna-lnp, Mark Protein, Pf, 30mcg/0.3ml,IM 2020-08-09 00:00:00 Completed Daisy Seybold - External Covid-19 Vaccine (Pfizer), Mrna-lnp, Mark Protein, Pf, 30mcg/0.3ml,IM 2020-08-09 00:00:00 Completed Daisy Seybold - External Covid-19 Vaccine (Pfizer), Mrna-lnp, Mark Protein, Pf, 30mcg/0.3ml,IM 2020-08-09 00:00:00 Completed Daisy Seybold - External Covid-19 Vaccine (Pfizer), Mrna-lnp, Mark Protein, Pf, 30mcg/0.3ml,IM 2020-08-09 00:00:00 Completed Daisy Seybold - External Covid-19 Vaccine (Pfizer), Mrna-lnp, Mark Protein, Pf, 30mcg/0.3ml,IM 2020-08-09 00:00:00 Completed Daisy Seybold Covid-19 Vaccine (Pfizer), Mrna-lnp, Mark Protein, Pf, 30mcg/0.3ml,IM 2020-08-09 00:00:00 Completed Daisy Seybold - External Covid-19 Vaccine (Pfizer), Mrna-lnp, Mark Protein, Pf, 30mcg/0.3ml,IM 2020-08-09 00:00:00 Completed Daisy Seybold - External Covid-19 Vaccine (Pfizer), Mrna-lnp, Mark Protein, Pf, 30mcg/0.3ml,IM 2020-08-09 00:00:00 Completed Daisy Seybold Influenza Virus Vaccine, Unspecified Formulation 2020-04-23 00:00:00 Completed Daisy Seybold - External Influenza Virus Vaccine, Unspecified Formulation 2020-04-23 00:00:00 Completed Daisy Seybold - External Influenza Virus Vaccine, Unspecified Formulation 2020-04-23 00:00:00 Completed Daisy Seybold - External Influenza Virus Vaccine, Unspecified Formulation 2020-04-23 00:00:00 Completed Daisy Seybold - External Influenza Virus Vaccine, Unspecified Formulation 2020-04-23 00:00:00 Completed Daisy Seybold - External Influenza Virus Vaccine, Unspecified Formulation 2020-04-23 00:00:00 Completed Daisy Seybold - External Influenza Virus Vaccine, Unspecified Formulation 2020-04-23 00:00:00 Completed Daisy Seybold - External Influenza Virus Vaccine, Unspecified Formulation 2020-04-23 00:00:00 Completed Diasy Seybold - External Influenza Virus Vaccine, Unspecified Formulation 2020-04-23 00:00:00 Completed Daisy Seybold - External Influenza Virus Vaccine, age 6 months and up 2020-04-04 00:00:00 Completed Daisy Seybold Influenza Virus Vaccine, age 6 months and up 2020-04-04 00:00:00 Completed Daisy Seybold Influenza Virus Vaccine, age 6 months and up 2020-04-04 00:00:00 Completed Daisy Seybold Influenza Virus Vaccine, age 6 months and up 2020-04-04 00:00:00 Completed Daisy Seybold Influenza Virus Vaccine, age 6 months and up 2020-04-04 00:00:00 Completed Daisy Seybold - External Influenza Virus Vaccine, age 6 months and 2020-04-04 00:00:00 Completed Daisy Seybold - External Influenza Virus Vaccine, age 6 months and 2020-04-04 00:00:00 Completed Daisy Seybold Influenza Virus Vaccine, age 6 months and up 2020-04-04 00:00:00 Completed Daisy Seybold - External Influenza Virus Vaccine, age 6 months and 2020-04-04 00:00:00 Completed Daisy Seybold - External Influenza Virus Vaccine, age 6 months and 2020-04-04 00:00:00 Completed Daisy Seybold - External Influenza Virus Vaccine, age 6 months and 2020-04-04 00:00:00 Completed Daisy Seybold - External Influenza Virus Vaccine, age 6 months and up 2020-04-04 00:00:00 Completed Daisy Seybold - External Influenza Virus Vaccine, age 6 months and up 2020-04-04 00:00:00 Completed Daisy Seybold Influenza Virus Vaccine, age 6 months and up 2020-04-04 00:00:00 Completed Daisy Seybold - External Influenza Virus Vaccine, age 6 months and up 2020-04-04 00:00:00 Completed Daisy Seybold - External Influenza Virus Vaccine, age 6 months and up 2020-04-04 00:00:00 Completed Daisy Seybold Pneumococcal Vaccine, Polysaccharide 2019-05-30 00:00:00 Completed Daisy Seybold - External Pneumococcal Vaccine, Polysaccharide 2019-05-30 00:00:00 Completed Daisy Seybold - External Pneumococcal Vaccine, Polysaccharide 2019-05-30 00:00:00 Completed Daisy Seybold - External Pneumococcal Vaccine, Polysaccharide 2019-05-30 00:00:00 Completed Daisy Seybold - External Pneumococcal Vaccine, Polysaccharide 2019-05-30 00:00:00 Completed Daisy Seybold - External Pneumococcal Vaccine, Polysaccharide 2019-05-30 00:00:00 Completed Daisy Seybold - External Pneumococcal Vaccine, Polysaccharide 2019-05-30 00:00:00 Completed Daisy Seybold - External Pneumococcal Vaccine, Polysaccharide 2019-05-30 00:00:00 Completed Daisy Seybold - External Pneumococcal Vaccine, Polysaccharide 2019-05-30 00:00:00 Completed Daisy Seybold - External Influenza Virus Vaccine, Unspecified Formulation 2019-04-04 00:00:00 Completed Daisy Seybold - External Influenza Virus Vaccine, Unspecified Formulation 2019-04-04 00:00:00 Completed Daisy Seybold - External Influenza Virus Vaccine, Unspecified Formulation 2019-04-04 00:00:00 Completed Daisy Seybold - External Influenza Virus Vaccine, Unspecified Formulation 2019-04-04 00:00:00 Completed Daisy Seybold - External Influenza Virus Vaccine, Unspecified Formulation 2019-04-04 00:00:00 Completed Daisy Seybold - External Influenza Virus Vaccine, Unspecified Formulation 2019-04-04 00:00:00 Completed Daisy Seybold - External Influenza Virus Vaccine, Unspecified Formulation 2019-04-04 00:00:00 Completed Daisy Seybold - External Influenza Virus Vaccine, Unspecified Formulation 2019-04-04 00:00:00 Completed Daisy Seybold - External Influenza Virus Vaccine, Unspecified Formulation 2019-04-04 00:00:00 Completed Daisy Seybold - External Influenza Virus Vaccine, age 6 months and up 2019-04-03 00:00:00 Completed Daisy Seybold Influenza Virus Vaccine, age 6 months and up 2019-04-03 00:00:00 Completed Daisy Seybold Influenza Virus Vaccine, age 6 months and up 2019-04-03 00:00:00 Completed Daisy Seybold Influenza Virus Vaccine, age 6 months and up 2019-04-03 00:00:00 Completed Daisy Seybold Influenza Virus Vaccine, age 6 months and up 2019-04-03 00:00:00 Completed Daisy Seybold - External Influenza Virus Vaccine, age 6 months and up 2019-04-03 00:00:00 Completed Daisy Seybold - External Influenza Virus Vaccine, age 6 months and up 2019-04-03 00:00:00 Completed Daisy Seybold Influenza Virus Vaccine, age 6 months and up 2019-04-03 00:00:00 Completed Daisy Seybold - External Influenza Virus Vaccine, age 6 months and up 2019-04-03 00:00:00 Completed Daisy Seybold - External Influenza Virus Vaccine, age 6 months and up 2019-04-03 00:00:00 Completed Daisy Seybold - External Influenza Virus Vaccine, age 6 months and 2019-04-03 00:00:00 Completed Daisy Seybold - External Influenza Virus Vaccine, age 6 months and 2019-04-03 00:00:00 Completed Daisy Seybold Influenza Virus Vaccine, age 6 months and 2019-04-03 00:00:00 Completed Daisy Seybold - External Influenza Virus Vaccine, age 6 months and up 2019-04-03 00:00:00 Completed Daisy Seybold - External Influenza Virus Vaccine, age 6 months and up 2019-04-03 00:00:00 Completed Daisy Seybold - External Influenza Virus Vaccine, age 6 months and up 2019-04-03 00:00:00 Completed Daisy Seybold Seasonal Trivalent Influenza Vaccine, Adjuvanted, Preserve 2018-03-29 00:00:00 Completed Daisy Seybold - External Seasonal Trivalent Influenza Vaccine, Adjuvanted, Preserve 2018-03-29 00:00:00 Completed Daisy Seybold - External Seasonal Trivalent Influenza Vaccine, Adjuvanted, Preserve 2018-03-29 00:00:00 Completed Daisy Seybold - External Seasonal Trivalent Influenza Vaccine, Adjuvanted, Preserve 2018-03-29 00:00:00 Completed Daisy Seybold - External Seasonal Trivalent Influenza Vaccine, Adjuvanted, Preserve 2018-03-29 00:00:00 Completed Daisy Seybold - External Seasonal Trivalent Influenza Vaccine, Adjuvanted, Preserve 2018-03-29 00:00:00 Completed Daisy Seybold - External Seasonal Trivalent Influenza Vaccine, Adjuvanted, Preserve 2018-03-29 00:00:00 Completed Daisy Seybold - External Seasonal Trivalent Influenza Vaccine, Adjuvanted, Preserve 2018-03-29 00:00:00 Completed Daisy Seybold - External Seasonal Trivalent Influenza Vaccine, Adjuvanted, Preserve 2018-03-29 00:00:00 Completed Daisy Seybold - External Pneumococcal Vaccine, Conjugate 13 2018-01-24 00:00:00 Completed Daisy Seybold - External Tdap- (Boostrix, Adacel) 2018-01-24 00:00:00 Completed Daisy Seybold - External Pneumococcal Vaccine, Conjugate 13 2018-01-24 00:00:00 Completed Daisy Seybold - External Tdap- (Boostrix, Adacel) 2018-01-24 00:00:00 Completed Daisy Seybold - External Pneumococcal Vaccine, Conjugate 13 2018-01-24 00:00:00 Completed Daisy Seybold - External Tdap- (Boostrix, Adacel) 2018-01-24 00:00:00 Completed Daisy Seybold - External Pneumococcal Vaccine, Conjugate 13 2018-01-24 00:00:00 Completed Daisy Seybold - External Tdap- (Boostrix, Adacel) 2018-01-24 00:00:00 Completed Daisy Seybold - External Pneumococcal Vaccine, Conjugate 13 2018-01-24 00:00:00 Completed Daisy Seybold - External Tdap- (Boostrix, Adacel) 2018-01-24 00:00:00 Completed Daisy Seybold - External Pneumococcal Vaccine, Conjugate 13 2018-01-24 00:00:00 Completed Daisy Seybold - External Tdap- (Boostrix, Adacel) 2018-01-24 00:00:00 Completed Daisy Seybold - External Pneumococcal Vaccine, Conjugate 13 2018-01-24 00:00:00 Completed Daisy Seybold - External Tdap- (Boostrix, Adacel) 2018-01-24 00:00:00 Completed Daisy Seybold - External Pneumococcal Vaccine, Conjugate 13 2018-01-24 00:00:00 Completed Daisy Seybold - External Tdap- (Boostrix, Adacel) 2018-01-24 00:00:00 Completed Daisy Seybold - External Pneumococcal Vaccine, Conjugate 13 2018-01-24 00:00:00 Completed Daisy Seybold - External Tdap- (Boostrix, Adacel) 2018-01-24 00:00:00 Completed Daisy Seybold - External Influenza Virus Vaccine, age 6 months and up 2017-04-26 00:00:00 Completed Daisy Seybold Influenza Virus Vaccine, age 6 months and up 2017-04-26 00:00:00 Completed Daisy Seybold Influenza Virus Vaccine, age 6 months and up 2017-04-26 00:00:00 Completed Daisy Seybold Influenza Virus Vaccine, age 6 months and up 2017-04-26 00:00:00 Completed Daisy Seybold Influenza Virus Vaccine, age 6 months and up 2017-04-26 00:00:00 Completed Daisy Seybold - External Influenza Virus Vaccine, age 6 months and up 2017-04-26 00:00:00 Completed Daisy Seybold - External Influenza Virus Vaccine, age 6 months and up 2017-04-26 00:00:00 Completed Daisy Seybold Influenza Virus Vaccine, age 6 months and up 2017-04-26 00:00:00 Completed Daisy Seybold - External Influenza Virus Vaccine, age 6 months and up 2017-04-26 00:00:00 Completed Daisy Seybold - External Influenza Virus Vaccine, age 6 months and up 2017-04-26 00:00:00 Completed Daisy Seybold - External Influenza Virus Vaccine, age 6 months and up 2017-04-26 00:00:00 Completed Daisy Seybold - External Influenza Virus Vaccine, age 6 months and up 2017-04-26 00:00:00 Completed Diasy Seybold Influenza Virus Vaccine, age 6 months and up 2017-04-26 00:00:00 Completed Daisy Seybold - External Influenza Virus Vaccine, age 6 months and up 2017-04-26 00:00:00 Completed Daisy Seybold - External Influenza Virus Vaccine, age 6 months and up 2017-04-26 00:00:00 Completed Daisy Seybold - External Influenza Virus Vaccine, age 6 months and up 2017-04-26 00:00:00 Completed Daisy Seybold Influenza Virus Vaccine, High Dose, Age 65 And Up 2016-04-15 00:00:00 Completed Daisy Seybold - External Influenza Virus Vaccine, High Dose, Age 65 And Up 2016-04-15 00:00:00 Completed Daisy Seybold - External Influenza Virus Vaccine, High Dose, Age 65 And Up 2016-04-15 00:00:00 Completed Daisy Seybold - External Influenza Virus Vaccine, High Dose, Age 65 And Up 2016-04-15 00:00:00 Completed Daisy Seybold - External Influenza Virus Vaccine, High Dose, Age 65 And Up 2016-04-15 00:00:00 Completed Daisy Seybold - External Influenza Virus Vaccine, High Dose, Age 65 And Up 2016-04-15 00:00:00 Completed Daisy Seybold - External Influenza Virus Vaccine, High Dose, Age 65 And Up 2016-04-15 00:00:00 Completed Daisy Seybold - External Influenza Virus Vaccine, High Dose, Age 65 And Up 2016-04-15 00:00:00 Completed Daisy Seybold - External Influenza Virus Vaccine, High Dose, Age 65 And Up 2016-04-15 00:00:00 Completed Daisy Seybold - External Influenza Virus Vaccine, High Dose, Age 65 And Up 2015-06-14 00:00:00 Completed Daisy Seybold - External Influenza Virus Vaccine, High Dose, Age 65 And Up 2015-06-14 00:00:00 Completed Daisy Seybold - External Influenza Virus Vaccine, High Dose, Age 65 And Up 2015-06-14 00:00:00 Completed Daisy Seybold - External Influenza Virus Vaccine, High Dose, Age 65 And Up 2015-06-14 00:00:00 Completed Daisy Seybold - External Influenza Virus Vaccine, High Dose, Age 65 And Up 2015-06-14 00:00:00 Completed Daisy Seybold - External Influenza Virus Vaccine, High Dose, Age 65 And Up 2015-06-14 00:00:00 Completed Daiys Seybold - External Influenza Virus Vaccine, High Dose, Age 65 And Up 2015-06-14 00:00:00 Completed Daisy Seybold - External Influenza Virus Vaccine, High Dose, Age 65 And Up 2015-06-14 00:00:00 Completed Daisy Seybold - External Influenza Virus Vaccine, High Dose, Age 65 And Up 2015-06-14 00:00:00 Completed Daisy Seybold - External Td- Tetanus & Diphtheria Vaccine (age 7+ years) 2014-11-20 00:00:00 Completed Daisy Seybold Td- Tetanus & Diphtheria Vaccine (age 7+ years) 2014-11-20 00:00:00 Completed Daisy Seybold Td- Tetanus & Diphtheria Vaccine (age 7+ years) 2014-11-20 00:00:00 Completed Daisy Seybold Td- Tetanus & Diphtheria Vaccine (age 7+ years) 2014-11-20 00:00:00 Completed Daisy Seybold Td- Tetanus & Diphtheria Vaccine (age 7+ years) 2014-11-20 00:00:00 Completed Daisy Seybold - External Td- Tetanus & Diphtheria Vaccine (age 7+ years) 2014-11-20 00:00:00 Completed Daisy Seybold - External Td- Tetanus & Diphtheria Vaccine (age 7+ years) 2014-11-20 00:00:00 Completed Daisy Seybold Td- Tetanus & Diphtheria Vaccine (age 7+ years) 2014-11-20 00:00:00 Completed Daisy Seybold - External Td- Tetanus & Diphtheria Vaccine (age 7+ years) 2014-11-20 00:00:00 Completed Daisy Seybold - External Td- Tetanus & Diphtheria Vaccine (age 7+ years) 2014-11-20 00:00:00 Completed Daisy Seybold - External Td- Tetanus & Diphtheria Vaccine (age 7+ years) 2014-11-20 00:00:00 Completed Daisy Seybold - External Td- Tetanus & Diphtheria Vaccine (age 7+ years) 2014-11-20 00:00:00 Completed Daisy Seybold Td- Tetanus & Diphtheria Vaccine (age 7+ years) 2014-11-20 00:00:00 Completed Daisy Seybold - External Td- Tetanus & Diphtheria Vaccine (age 7+ years) 2014-11-20 00:00:00 Completed Daisy Seybold - External Td- Tetanus & Diphtheria Vaccine (age 7+ years) 2014-11-20 00:00:00 Completed Daisy Seybold - External Td- Tetanus & Diphtheria Vaccine (age 7+ years) 2014-11-20 00:00:00 Completed Daisy Seybold Influenza Virus Vaccine, High Dose, Age 65 And Up 2014-05-01 00:00:00 Completed Daisy Seybold - External Influenza Virus Vaccine, High Dose, Age 65 And Up 2014-05-01 00:00:00 Completed Daisy Seybold - External Influenza Virus Vaccine, High Dose, Age 65 And Up 2014-05-01 00:00:00 Completed Daisy Seybold - External Influenza Virus Vaccine, High Dose, Age 65 And Up 2014-05-01 00:00:00 Completed Daisy Seybold - External Influenza Virus Vaccine, High Dose, Age 65 And Up 2014-05-01 00:00:00 Completed Daisy Seybold - External Influenza Virus Vaccine, High Dose, Age 65 And Up 2014-05-01 00:00:00 Completed Daisy Seybold - External Influenza Virus Vaccine, High Dose, Age 65 And Up 2014-05-01 00:00:00 Completed Daisy Seybold - External Influenza Virus Vaccine, High Dose, Age 65 And Up 2014-05-01 00:00:00 Completed Daisy Seybold - External Influenza Virus Vaccine, High Dose, Age 65 And Up 2014-05-01 00:00:00 Completed Daisy Seybold - External Influenza Virus Vaccine, High Dose, Age 65 And Up 2013-05-11 00:00:00 Completed Daisy Seybold - External Influenza Virus Vaccine, High Dose, Age 65 And Up 2013-05-11 00:00:00 Completed Daisy Seybold - External Influenza Virus Vaccine, High Dose, Age 65 And Up 2013-05-11 00:00:00 Completed Daisy Seybold - External Influenza Virus Vaccine, High Dose, Age 65 And Up 2013-05-11 00:00:00 Completed Daisy Seybold - External Influenza Virus Vaccine, High Dose, Age 65 And Up 2013-05-11 00:00:00 Completed Daisy Seybold - External Influenza Virus Vaccine, High Dose, Age 65 And Up 2013-05-11 00:00:00 Completed Daisy Seybold - External Influenza Virus Vaccine, High Dose, Age 65 And Up 2013-05-11 00:00:00 Completed Daisy Seybold - External Influenza Virus Vaccine, High Dose, Age 65 And Up 2013-05-11 00:00:00 Completed Daisy Seybold - External Influenza Virus Vaccine, High Dose, Age 65 And Up 2013-05-11 00:00:00 Completed Daisy Seybold - External Shingles SQ (Zostavax) 2012-10-10 00:00:00 Completed Daisy Seybold - External Shingles SQ (Zostavax) 2012-10-10 00:00:00 Completed Daisy Seybold - External Shingles SQ (Zostavax) 2012-10-10 00:00:00 Completed Daisy Seybold - External Shingles SQ (Zostavax) 2012-10-10 00:00:00 Completed Daisy Seybold - External Shingles SQ (Zostavax) 2012-10-10 00:00:00 Completed Daisy Seybold - External Shingles SQ (Zostavax) 2012-10-10 00:00:00 Completed Daisy Seybold - External Shingles SQ (Zostavax) 2012-10-10 00:00:00 Completed Daisy Seybold - External Shingles SQ (Zostavax) 2012-10-10 00:00:00 Completed Daisy Seybold - External Shingles SQ (Zostavax) 2012-10-10 00:00:00 Completed Daisy Seybold - External Influenza Virus Vaccine, Unspecified Formulation 2012-03-21 00:00:00 Completed Daisy Seybold - External Influenza Virus Vaccine, Unspecified Formulation 2012-03-21 00:00:00 Completed Daisy Seybold - External Influenza Virus Vaccine, Unspecified Formulation 2012-03-21 00:00:00 Completed Daisy Seybold - External Influenza Virus Vaccine, Unspecified Formulation 2012-03-21 00:00:00 Completed Daisy Seybold - External Influenza Virus Vaccine, Unspecified Formulation 2012-03-21 00:00:00 Completed Daisy Seybold - External Influenza Virus Vaccine, Unspecified Formulation 2012-03-21 00:00:00 Completed Daisy Seybold - External Influenza Virus Vaccine, Unspecified Formulation 2012-03-21 00:00:00 Completed Daisy Seybold - External Influenza Virus Vaccine, Unspecified Formulation 2012-03-21 00:00:00 Completed Daisy Seybold - External Influenza Virus Vaccine, Unspecified Formulation 2012-03-21 00:00:00 Completed Daisy Seybold - External Influenza Virus Vaccine, Unspecified Formulation 2010-04-28 00:00:00 Completed Daisy Seybold - External Influenza Virus Vaccine, Unspecified Formulation 2010-04-28 00:00:00 Completed Daisy Seybold - External Influenza Virus Vaccine, Unspecified Formulation 2010-04-28 00:00:00 Completed Daisy Seybold - External Influenza Virus Vaccine, Unspecified Formulation 2010-04-28 00:00:00 Completed Daisy Seybold - External Influenza Virus Vaccine, Unspecified Formulation 2010-04-28 00:00:00 Completed Daisy Seybold - External Influenza Virus Vaccine, Unspecified Formulation 2010-04-28 00:00:00 Completed Daisy Seybold - External Influenza Virus Vaccine, Unspecified Formulation 2010-04-28 00:00:00 Completed Daisy Seybold - External Influenza Virus Vaccine, Unspecified Formulation 2010-04-28 00:00:00 Completed Daisy Seybold - External Influenza Virus Vaccine, Unspecified Formulation 2010-04-28 00:00:00 Completed Daisy Seybold - External Influenza Virus Vaccine, Unspecified Formulation 2009-02-26 00:00:00 Completed Daisy Seybold - External Influenza Virus Vaccine, Unspecified Formulation 2009-02-26 00:00:00 Completed Daisy Seybold - External Influenza Virus Vaccine, Unspecified Formulation 2009-02-26 00:00:00 Completed Daisy Seybold - External Influenza Virus Vaccine, Unspecified Formulation 2009-02-26 00:00:00 Completed Daisy Seybold - External Influenza Virus Vaccine, Unspecified Formulation 2009-02-26 00:00:00 Completed Daisy Seybold - External Influenza Virus Vaccine, Unspecified Formulation 2009-02-26 00:00:00 Completed Daisy Seybold - External Influenza Virus Vaccine, Unspecified Formulation 2009-02-26 00:00:00 Completed Daisy Seybold - External Influenza Virus Vaccine, Unspecified Formulation 2009-02-26 00:00:00 Completed Daisy Seybold - External Influenza Virus Vaccine, Unspecified Formulation 2009-02-26 00:00:00 Completed Daisy Seybold - External Influenza Virus Vaccine, Unspecified Formulation 2008-05-04 00:00:00 Completed Daisy Seybold - External Influenza Virus Vaccine, Unspecified Formulation 2008-05-04 00:00:00 Completed Daisy Seybold - External Influenza Virus Vaccine, Unspecified Formulation 2008-05-04 00:00:00 Completed Daisy Seybold - External Influenza Virus Vaccine, Unspecified Formulation 2008-05-04 00:00:00 Completed Daisy Seybold - External Influenza Virus Vaccine, Unspecified Formulation 2008-05-04 00:00:00 Completed Daisy Seybold - External Influenza Virus Vaccine, Unspecified Formulation 2008-05-04 00:00:00 Completed Daisy Seybold - External Influenza Virus Vaccine, Unspecified Formulation 2008-05-04 00:00:00 Completed Daisy Seybold - External Influenza Virus Vaccine, Unspecified Formulation 2008-05-04 00:00:00 Completed Daisy Seybold - External Influenza Virus Vaccine, Unspecified Formulation 2008-05-04 00:00:00 Completed Daisy Seybold - External Influenza Virus Vaccine, Unspecified Formulation 2007-04-28 00:00:00 Completed Daisy Seybold - External Influenza Virus Vaccine, Unspecified Formulation 2007-04-28 00:00:00 Completed Daisy Seybold - External Influenza Virus Vaccine, Unspecified Formulation 2007-04-28 00:00:00 Completed Daisy Seybold - External Influenza Virus Vaccine, Unspecified Formulation 2007-04-28 00:00:00 Completed Daisy Seybold - External Influenza Virus Vaccine, Unspecified Formulation 2007-04-28 00:00:00 Completed Daisy Seybold - External Influenza Virus Vaccine, Unspecified Formulation 2007-04-28 00:00:00 Completed Daisy Seybold - External Influenza Virus Vaccine, Unspecified Formulation 2007-04-28 00:00:00 Completed Daisy Seybold - External Influenza Virus Vaccine, Unspecified Formulation 2007-04-28 00:00:00 Completed Daisy Seybold - External Influenza Virus Vaccine, Unspecified Formulation 2007-04-28 00:00:00 Completed Daisy Seybold - External Influenza Virus Vaccine, Unspecified Formulation 2006-04-05 00:00:00 Completed Daisy Seybold - External pneumococcal, unspecified formulation 2006-04-05 00:00:00 Completed Daisy Seybold - External Influenza Virus Vaccine, Unspecified Formulation 2006-04-05 00:00:00 Completed Daisy Seybold - External pneumococcal, unspecified formulation 2006-04-05 00:00:00 Completed Daisy Seybold - External Influenza Virus Vaccine, Unspecified Formulation 2006-04-05 00:00:00 Completed Daisy Seybold - External pneumococcal, unspecified formulation 2006-04-05 00:00:00 Completed Daisy Seybold - External Influenza Virus Vaccine, Unspecified Formulation 2006-04-05 00:00:00 Completed Daisy Seybold - External pneumococcal, unspecified formulation 2006-04-05 00:00:00 Completed Daisy Seybold - External Influenza Virus Vaccine, Unspecified Formulation 2006-04-05 00:00:00 Completed Daisy Seybold - External pneumococcal, unspecified formulation 2006-04-05 00:00:00 Completed Daisy Seybold - External Influenza Virus Vaccine, Unspecified Formulation 2006-04-05 00:00:00 Completed Daisy Seybold - External pneumococcal, unspecified formulation 2006-04-05 00:00:00 Completed Daisy Seybold - External Influenza Virus Vaccine, Unspecified Formulation 2006-04-05 00:00:00 Completed Daisy Seybold - External pneumococcal, unspecified formulation 2006-04-05 00:00:00 Completed Daisy Seybold - External Influenza Virus Vaccine, Unspecified Formulation 2006-04-05 00:00:00 Completed Daisy Seybold - External pneumococcal, unspecified formulation 2006-04-05 00:00:00 Completed Daisy Seybold - External Influenza Virus Vaccine, Unspecified Formulation 2006-04-05 00:00:00 Completed Daisy Seybold - External pneumococcal, unspecified formulation 2006-04-05 00:00:00 Completed Daisy Seybold - External Influenza Virus Vaccine, Unspecified Formulation 2006-03-28 00:00:00 Completed Daisy Seybold - External Influenza Virus Vaccine, Unspecified Formulation 2006-03-28 00:00:00 Completed Daisy Seybold - External Influenza Virus Vaccine, Unspecified Formulation 2006-03-28 00:00:00 Completed Daisy Seybold - External Influenza Virus Vaccine, Unspecified Formulation 2006-03-28 00:00:00 Completed Daisy Seybold - External Influenza Virus Vaccine, Unspecified Formulation 2006-03-28 00:00:00 Completed Daisy Seybold - External Influenza Virus Vaccine, Unspecified Formulation 2006-03-28 00:00:00 Completed Daisy Seybold - External Influenza Virus Vaccine, Unspecified Formulation 2006-03-28 00:00:00 Completed Daisy Seybold - External Influenza Virus Vaccine, Unspecified Formulation 2006-03-28 00:00:00 Completed Daisy Seybold - External Influenza Virus Vaccine, Unspecified Formulation 2006-03-28 00:00:00 Completed Daisy Seybold - External Influenza Virus Vaccine, Unspecified Formulation 2005-03-28 00:00:00 Completed Daisy Seybold - External Influenza Virus Vaccine, Unspecified Formulation 2005-03-28 00:00:00 Completed Daisy Seybold - External Influenza Virus Vaccine, Unspecified Formulation 2005-03-28 00:00:00 Completed Daisy Seybold - External Influenza Virus Vaccine, Unspecified Formulation 2005-03-28 00:00:00 Completed Daisy Seybold - External Influenza Virus Vaccine, Unspecified Formulation 2005-03-28 00:00:00 Completed Daisy Seybold - External Influenza Virus Vaccine, Unspecified Formulation 2005-03-28 00:00:00 Completed Daisy Seybold - External Influenza Virus Vaccine, Unspecified Formulation 2005-03-28 00:00:00 Completed Daisy Seybold - External Influenza Virus Vaccine, Unspecified Formulation 2005-03-28 00:00:00 Completed Daisy Seybold - External Influenza Virus Vaccine, Unspecified Formulation 2005-03-28 00:00:00 Completed [employer] - External Td- Tetanus & Diphtheria Vaccine (age 7+ years) Unknown Completed [facility] - External Influenza Virus Vaccine, age 6 months and up Unknown Completed [facility] - External Covid-19 Vaccine (Nuroa), Mrna-lnp, Mark Protein, Pf, 30mcg/0.3ml,IM Unknown Completed [facility] - External Influenza Virus Vaccine, Unspecified Formulation Unknown Completed Daisy SeRMIold - External Influenza vaccine, quadrivalent, adjuvanted, 65+ Unknown Completed [facility] - External Influenza Virus Vaccine, High Dose, Age 65 And Up Unknown Completed [email or web address] - External Seasonal Trivalent Influenza Vaccine, Adjuvanted, Preserve Unknown Completed [facility] - External Pneumococcal Vaccine, Conjugate 13 Unknown Completed Dasiy Seybold - External Pneumococcal Vaccine, Polysaccharide Unknown Completed Daisy ol d - External pneumococcal, unspecified formulation Unknown Completed Daisy Seybold - External Tdap- (Boostrix, Adacel) Unknown Completed Daisy Seybold - External Shingles SQ (Zostavax) Unknown Completed Daisy ybold - External Shingles IM (Shingrix) Unknown Completed Daisy ybold - External Influenza Virus Vaccine, Quadrivalent, High Dose, Age 65 And Up Unknown Completed [facility] eybold - External COVID-19 Bivalent vaccine PFIZER 12+ Unknown Completed [facility] ybold - External Td- Tetanus & Diphtheria Vaccine (age 7+ years) Unknown Completed Daisy ol d - External Influenza Virus Vaccine, age 6 months and up [facility] Cov[facility] Vaccine (Nuroa), Mrna-lnp, Mark Protein, Pf, 30mcg/0.3ml,IM Unknown Completed Daisy Juanol d - External Influenza Virus Vaccine, Unspecified Formulation Unknown [facility] Influenza vaccine, quadrivalent, adjuvanted, 65+ Unknown Completed Daisy Juano ld - External Influenza Virus Vaccine, High Dose, Age 65 And Up Unknown Completed [facility] - External Seasonal Trivalent Influenza Vaccine, Adjuvanted, Preserve Unknown Completed Daisy ybold - External Pneumococcal Vaccine, Conjugate 13 Unknown Completed Daisy ybold - External Pneumococcal Vaccine, Polysaccharide Unknown [facility] pneum[facility], unspecified formulation Unknown Completed Daisy Seybold - External Tdap- (Boostrix, Adacel) Unknown Completed Daisy Seybold - External Shingles SQ (Zostavax) Unknown Completed Dais[facility] Martinezold - External Shingles IM (Shingrix) Unknown Completed Daisy ybold - External Influenza Virus Vaccine, Quadrivalent, High Dose, Age 65 And Up Unknown Completed [facility] eybold - External COVID-19 Bivalent vaccine PFIZER 12+ Unknown Completed Daisy Se ybold - External Td- Tetanus & Diphtheria Vaccine (age 7+ years) Unknown Completed Daisy ybol d - External Influenza Virus Vaccine, age 6 months and up Unknown Completed Daisy ybold - External Covid-19 Vaccine (Nuroa), Mrna-lnp, Mark Protein, Pf, 30mcg/0.3ml,IM Unknown Completed Daisy Seybol d - External Influenza Virus Vaccine, Unspecified Formulation Unknown Completed Daisy Seybold - External Influenza vaccine, quadrivalent, adjuvanted, 65+ Unknown Completed Daisy Seo ld - External Influenza Virus Vaccine, High Dose, Age 65 And Up Unknown Completed Daisy Seybold - External Seasonal Trivalent Influenza Vaccine, Adjuvanted, Preserve Unknown Completed Daisy Seybold - External Pneumococcal Vaccine, Conjugate 13 Unknown Completed Daisy Seybold - External Pneumococcal Vaccine, Polysaccharide Unknown [facility], unspecified formulation Unknown Completed Daisy Seybold - External Tdap- (Boostrix, Adacel) Unknown Completed Daisy Seybold - External Shingles SQ (Zostavax) Unknown Completed Daisy Seybold - External Shingles IM (Shingrix) Unknown Completed Daisy Seybold - External Influenza Virus Vaccine, Quadrivalent, High Dose, Age 65 And Up Unknown Completed [facility] eybold - External COVID-19 Bivalent vaccine PFIZER 12+ Unknown Completed [facility] ybold - External Td- Tetanus & Diphtheria Vaccine (age 7+ years) Unknown [facility] - [facility] Influenza Virus Vaccine, age 6 months and up Unknown Com[facility] - External Covid-19 Vaccine (Nuroa), Mrna-lnp, Mark Protein, Pf, 30mcg/0.3ml,IM Unknown Completed [facility] - External Influenza Virus Vaccine, Unspecified Formulation Unknown [facility] Influenza vaccine, quadrivalent, adjuvanted, 65+ Unknown Completed Daisy o ld - External Influenza Virus Vaccine, High Dose, Age 65 And Up Unknown Completed Daisy Seybold - External Seasonal Trivalent Influenza Vaccine, Adjuvanted, Preserve Unknown Completed Daisy Seybold - External Pneumococcal Vaccine, Conjugate 13 Unknown Completed Daisy Seybold - External Pneumococcal Vaccine, Polysaccharide Unknown Completed Daisy Seybol d - External pneumococcal, unspecified formulation Unknown Completed Daisy Seybold - External Tdap- (Boostrix, Adacel) Unknown Completed Daisy Seybold - External Shingles SQ (Zostavax) Unknown Completed Daisy Seybold - External Shingles IM (Shingrix) Unknown Completed Daisy Seybold - External Influenza Virus Vaccine, Quadrivalent, High Dose, Age 65 And Up Unknown Completed [facility] eybold - External COVID-19 Bivalent vaccine PFIZER 12+ [facility]- Tetanus & Diphtheria Vaccine (age 7+ years) Unknown Completed [facility] - External Influenza Virus Vaccine, age 6 months and up Unknown Completed [facility] - External Covid-19 Vaccine (Nuroa), Mrna-lnp, Mark Protein, Pf, 30mcg/0.3ml,IM Unknown Completed [facility] - External Influenza Virus Vaccine, Unspecified Formulation Unknown Completed Daisy Seybold - External Influenza vaccine, quadrivalent, adjuvanted, 65+ Unknown Completed [facility] - External Influenza Virus Vaccine, High Dose, Age 65 And Up [facility] Seasonal Trivalent Influenza Vaccine, Adjuvanted, Preserve Unknown [facility] Pneumococcal Vaccine, Conjugate 13 Unknown [facility] Pneumococcal Vaccine, Polysaccharide Unknown Completed [facility] - External pneumococcal, unspecified formulation Unknown Completed [facility] - External Tdap- (Boostrix, Adacel) Unknown Completed [facility] - External Shingles SQ (Zostavax) Unknown [facility] Shingles IM (Shingrix) Unknown Completed [facility] - External Influenza Virus Vaccine, Quadrivalent, High Dose, Age 65 And Up Unknown Completed [facility] eybold - External COVID-19 Bivalent vaccine PFIZER 12+ Unknown Completed [facility] - External Td- Tetanus & Diphtheria Vaccine (age 7+ years) Unknown Completed [facility] - External Influenza Virus Vaccine, age 6 months and up Unknown Completed [facility] - External Covid-19 Vaccine (Nuroa), Mrna-lnp, Mark Protein, Pf, 30mcg/0.3ml,IM Unknown Completed [facility] - External Influenza Virus Vaccine, Unspecified Formulation Unknown Completed Daisy Seybold - External Influenza vaccine, quadrivalent, adjuvanted, 65+ Unknown Completed [facility] - External Influenza Virus Vaccine, High Dose, Age 65 And Up Unknown [facility] Seasonal Trivalent Influenza Vaccine, Adjuvanted, Preserve Unknown Completed Daisy Seybold - External Pneumococcal Vaccine, Conjugate 13 Unknown Completed Daisy Seybold - External Pneumococcal Vaccine, Polysaccharide Unknown [facility] pneum[facility], unspecified formulation Unknown Completed Daisy ybold - External Tdap- (Boostrix, Adacel) Unknown Completed Daisy Seybold - External Shingles SQ (Zostavax) Unknown Completed Daisy Seybold - External Shingles IM (Shingrix) Unknown Completed Daisy ybold - External Influenza Virus Vaccine, Quadrivalent, High Dose, Age 65 And Up Unknown Completed [facility] eybold - External COVID-19 Bivalent vaccine PFIZER 12+ Unknown Completed [facility] ybold - External Td- Tetanus & Diphtheria Vaccine (age 7+ years) Unknown Completed Daisy ol d - External Influenza Virus Vaccine, age 6 months and up Unknown Completed [facility] ybold - External Covid-19 Vaccine (Nuroa), Mrna-lnp, Mark Protein, Pf, 30mcg/0.3ml,IM Unknown Completed Daisy ol d - External Influenza Virus Vaccine, Unspecified Formulation Unknown [facility] Influenza vaccine, quadrivalent, adjuvanted, 65+ Unknown Completed Daisy Juano ld - External Influenza Virus Vaccine, High Dose, Age 65 And Up Unknown Completed [facility] - External Seasonal Trivalent Influenza Vaccine, Adjuvanted, Preserve Unknown Completed Daisy ybold - External Pneumococcal Vaccine, Conjugate 13 Unknown [facility] Pneumococcal Vaccine, Polysaccharide Unknown Completed [facility] - External pneumococcal, unspecified formulation Unknown Completed Daisy Juanold - External Tdap- (Boostrix, Adacel) Unknown Completed Daisy Seybold - External Shingles SQ (Zostavax) Unknown Completed Daisy ybold - External Shingles IM (Shingrix) Unknown Completed Daisy ybold - External Influenza Virus Vaccine, Quadrivalent, High Dose, Age 65 And Up Unknown Completed [facility] eybold - External COVID-19 Bivalent vaccine PFIZER 12+ Unknown Completed Daisy Se ybold - External Td- Tetanus & Diphtheria Vaccine (age 7+ years) Unknown Completed Daisy ybol d - External Influenza Virus Vaccine, age 6 months and up Unknown Completed Daisy ybold - External Covid-19 Vaccine (Nuroa), Mrna-lnp, Mark Protein, Pf, 30mcg/0.3ml,IM Unknown Completed Daisy ybol d - External Influenza Virus Vaccine, Unspecified Formulation Unknown Completed Daisy Seybold - External Influenza vaccine, quadrivalent, adjuvanted, 65+ Unknown Completed [facility] - External Influenza Virus Vaccine, High Dose, Age 65 And Up [facility] Seasonal Trivalent Influenza Vaccine, Adjuvanted, Preserve Unknown [facility] External Pneumococcal Vaccine, Conjugate 13 Unknown [facility] Pneumococcal Vaccine, Polysaccharide Unknown Completed [facility] - External pneumococcal, unspecified formulation Unknown [facility] Tdap- (Boostrix, Adacel) Unknown [facility] Shingles SQ (Zostavax) Unknown Completed Daisy Seybold - External Shingles IM (Shingrix) Unknown [facility] Influenza Virus Vaccine, Quadrivalent, High Dose, Age 65 And Up [facility] [facility] 12+ Unknown Completed [facility] - External Td- Tetanus & Diphtheria Vaccine (age 7+ years) Unknown Completed [facility] - External Influenza Virus Vaccine, age 6 months and up Unknown [facility] Covid-19 Vaccine (Nuroa), Mrna-lnp, Mark Protein, Pf, 30mcg/0.3ml,IM Unknown Completed [facility] - External Influenza Virus Vaccine, Unspecified Formulation Unknown Completed [facility] - External Influenza vaccine, quadrivalent, adjuvanted, 65+ Unknown Completed [facility] ld - External Influenza Virus Vaccine, High Dose, Age 65 And Up Unknown Completed [facility] - External FLUAD TRIVALENT PF Influenza Vaccine, Adjuvanted, Preserve Unknown [facility] Pneumococcal Vaccine, Conjugate 13 Unknown [facility] - External Pneumococcal Vaccine, Polysaccharide Unknown Completed [facility] - External pneumococcal, unspecified formulation Unknown [facility] Tdap- (Boostrix, Adacel) Unknown [facility] Shingles SQ (Zostavax) Unknown [facility] Shingles IM (Shingrix) Unknown [facility] - [facility] Influenza Virus Vaccine, Quadrivalent, High Dose, Age 65 And Up Unknown Completed [facility] eybold - External COVID-19 Bivalent vaccine PFIZER 12+ Unknown Completed Daisy ybold - External Td- Tetanus & Diphtheria Vaccine (age 7+ years) Unknown Completed Daisy ol d - External Influenza Virus Vaccine, age 6 months and up Unknown Completed [facility] - External Covid-19 Vaccine (Nuroa), Mrna-lnp, Mark Protein, Pf, 30mcg/0.3ml,IM Unknown Completed [facility] - External Influenza Virus Vaccine, Unspecified Formulation Unknown [facility] Influenza vaccine, quadrivalent, adjuvanted, 65+ Unknown Completed [facility] - External Influenza Virus Vaccine, High Dose, Age 65 And Up Unknown Completed [facility] - External FLUAD TRIVALENT PF Influenza Vaccine, Adjuvanted, Preserve Unknown [facility] External Pneumococcal Vaccine, Conjugate 13 Unknown Completed [facility] - External Pneumococcal Vaccine, Polysaccharide Unknown Completed [facility] - External pneumococcal, unspecified formulation Unknown Completed [facility] - External Tdap- (Boostrix, Adacel) Unknown Completed [facility] - External Shingles SQ (Zostavax) Unknown Completed [facility] - External Shingles IM (Shingrix) Unknown Completed [facility] - External Influenza Virus Vaccine, Quadrivalent, High Dose, Age 65 And Up Unknown Completed Daisy billbold - External COVID-19 Bivalent vaccine PFIZER 12+ Unknown Com[facility] Td- Tetanus & Diphtheria Vaccine (age 7+ years) Unknown Completed [facility] d - External Influenza Virus Vaccine, age 6 months and up Unknown Completed [facility] - External Covid-19 Vaccine (Nuroa), Mrna-lnp, Mark Protein, Pf, 30mcg/0.3ml,IM Unknown Completed [facility] - External Influenza Virus Vaccine, Unspecified Formulation Unknown [facility] Influenza vaccine, quadrivalent, adjuvanted, 65+ Unknown Completed [facility] ld - External Influenza Virus Vaccine, High Dose, Age 65 And Up Unknown Completed [facility] - External Seasonal Trivalent Influenza Vaccine, Adjuvanted, Preserve Unknown [facility] - External Pneumococcal Vaccine, Conjugate 13 Unknown [facility] - External Pneumococcal Vaccine, Polysaccharide Unknown Completed [facility] - External pneumococcal, unspecified formulation Unknown Completed Daisy Iveyybold - External Tdap- (Boostrix, Adacel) Unknown Completed Daisy Iveyybold - External Shingles SQ (Zostavax) Unknown Completed Daisy Iveyybhoward - External Shingles IM (Shingrix) Unknown Completed Daisy Iveyybold - External Influenza Virus Vaccine, Quadrivalent, High Dose, Age 65 And Up Unknown Completed [facility] Stanley eybold - External COVID-19 Bivalent vaccine PFIZER 12+ Unknown Completed Daisy sanders - External Td- Tetanus & Diphtheria Vaccine (age 7+ years) Unknown Completed Daisy Martinezol d - External Influenza Virus Vaccine, age 6 months and up Unknown Completed Daisy Seybold - External Covid-19 Vaccine (Nuroa), Mrna-lnp, Mark Protein, Pf, 30mcg/0.3ml,IM Unknown Completed [facility] Martinezol d - External Influenza Virus Vaccine, Unspecified Formulation Unknown Completed Daisy Martinezold - External Influenza vaccine, quadrivalent, adjuvanted, 65+ Unknown Completed Daisy Martinezo ld - External Influenza Virus Vaccine, High Dose, Age 65 And Up Unknown Completed [facility] Sewell - External Seasonal Trivalent Influenza Vaccine, Adjuvanted, Preserve Unknown Completed Daisy Martinezold - External Pneumococcal Vaccine, Conjugate 13 Unknown Completed Daisy Sewell - External Pneumococcal Vaccine, Polysaccharide Unknown Completed Daisy Martinezol d - External pneumococcal, unspecified formulation Unknown Completed Daisy Sewell - External Tdap- (Boostrix, Adacel) Unknown Completed Daisy Sewell - External Shingles SQ (Zostavax) Unknown Completed Daisy Sewell - External Shingles IM (Shingrix) Unknown Completed Daisy Martinezold - External Influenza Virus Vaccine, Quadrivalent, High Dose, Age 65 And Up Unknown Completed Daisy khanbold - External COVID-19 Bivalent vaccine PFIZER 12+ Unknown Completed Daisy pinedaold - External Vital Signs Vital Name Observation Time Observation Value Comments S ource Heart rate 2024-04-11 13:25:00 64 /min Denny manley Seybold - External Body temperature 2024-04-11 13:25:00 36.33 Luisana Daisy Iveyybold - External Body height 2024-04-11 13:25:00 175.3 cm Megha ey Seybold - External Body weight 2024-04-11 13:25:00 83.915 kg Megha ey Seybold - External BMI 2024-04-11 13:25:00 27.32 kg/m2 Megha ey Seybold - External Systolic blood pressure 2024-02-29 14:13:00 136 mm[Hg] Daisy Seybo ld - External Diastolic blood pressure 2024-02-29 14:13:00 54 mm[Hg] Daisy Seybo ld - External Heart rate 2024-02-29 14:13:00 62 /min Kelse y Seybold - External Body temperature 2024-02-29 14:13:00 36.61 Luisana Daisy Seybold - External Respiratory rate 2024-02-29 14:13:00 15 /min Daisy Seybold - External Body height 2024-02-29 14:13:00 175.3 cm Megha ey Seybold - External Body weight 2024-02-29 14:13:00 81.194 kg Megha ey Seybold - External BMI 2024-02-29 14:13:00 26.43 kg/m2 Megha ey Seybold - External Oxygen saturation in Arterial blood by Pulse oximetry 2024-02-29 14:13:00 98 /min Daisy Seybo ld - External Systolic blood pressure 2023-11-29 14:25:00 130 mm[Hg] Daisy Seybo ld - External Diastolic blood pressure 2023-11-29 14:25:00 62 mm[Hg] Daisy Seybo ld - External Heart rate 2023-11-29 14:25:00 61 /min Josuese y Seybold - External Body temperature 2023-11-29 14:25:00 36.67 Luisana Daisy Seybold - External Respiratory rate 2023-11-29 14:25:00 14 /min Daisy Seybold - External Body height 2023-11-29 14:25:00 175.3 cm Megha ey Seybold - External Body weight 2023-11-29 14:25:00 82.101 kg Megha ey Seybold - External BMI 2023-11-29 14:25:00 26.73 kg/m2 Megha ey Seybold - External Oxygen saturation in Arterial blood by Pulse oximetry 2023-11-29 14:25:00 96 /min Daisy Seybo ld - External Systolic blood pressure 2023-11-02 12:59:00 104 mm[Hg] Daisy Seybo ld - External Diastolic blood pressure 2023-11-02 12:59:00 56 mm[Hg] Daisy Seybo ld - External Heart rate 2023-11-02 12:59:00 76 /min Kelse y Seybold - External Body temperature 2023-11-02 12:59:00 36.22 Luisana Daisy Seybold - External Respiratory rate 2023-11-02 12:59:00 14 /min Daisy Seybold - External Body height 2023-11-02 12:59:00 175.3 cm Megha ey Seybold - External Body weight 2023-11-02 12:59:00 83.462 kg Megha ey Seybold - External BMI 2023-11-02 12:59:00 27.17 kg/m2 Megha ey Seybold - External Systolic blood pressure 2023-10-21 15:13:00 134 mm[Hg] Daisy Seybo ld - External Diastolic blood pressure 2023-10-21 15:13:00 60 mm[Hg] Daisy Seybo ld - External Heart rate 2023-10-21 15:13:00 74 /min Kelse y Seybold - External Body temperature 2023-10-21 15:13:00 36.56 Luisana Daisy Seybold - External Respiratory rate 2023-10-21 15:13:00 14 /min Daisy Seybold - External Body height 2023-10-21 15:13:00 175.3 cm Megha ey Seybold - External Body weight 2023-10-21 15:13:00 83.462 kg Megha ey Seybold - External BMI 2023-10-21 15:13:00 27.17 kg/m2 Megha ey Seybold - External Systolic blood pressure 2023-09-02 18:55:00 108 mm[Hg] Daisy Seybo ld - External Diastolic blood pressure 2023-09-02 18:55:00 52 mm[Hg] Daisy Seybo ld - External Heart rate 2023-09-02 18:55:00 72 /min Kelse y Seybold - External Body temperature 2023-09-02 18:55:00 36.56 Luisana Daisy Seybold - External Respiratory rate 2023-09-02 18:55:00 14 /min Daisy Seybold - External Body height 2023-09-02 18:55:00 175.3 cm Megha ey Seybold - External Body weight 2023-09-02 18:55:00 83.915 kg Megha ey Seybold - External BMI 2023-09-02 18:55:00 27.32 kg/m2 Megha ey Seybold - External Systolic blood pressure 2023-08-17 17:51:00 128 mm[Hg] Daisy Seybo ld - External Diastolic blood pressure 2023-08-17 17:51:00 60 mm[Hg] Daisy Iveyybo ld - External Heart rate 2023-08-17 17:51:00 51 /min Denny manley Seybold - External Body temperature 2023-08-17 17:51:00 36.61 Luisana Daisy Seybold - External Respiratory rate 2023-08-17 17:51:00 16 /min Daisy Seybold - External Body height 2023-08-17 17:51:00 175.3 cm Megha ey Seybold - External Body weight 2023-08-17 17:51:00 84.823 kg Megha ey Seybold - External BMI 2023-08-17 17:51:00 27.62 kg/m2 Megha ey Seybold - External Oxygen saturation in Arterial blood by Pulse oximetry 2023-08-17 17:51:00 100 /min Daisy Martinezo ld - External height 2023-07-29 08:15:00 69 [in_i] Commo n [facility] weight 2023-07-29 08:15:00 185 [lb_av] Comm on [facility] temperature 2023-07-29 08:15:00 98.44 [degF] Co mmon [facility] bmi 2023-07-29 08:15:00 27.32 kg/m2 Comm on [facility] blood pressure systolic 2023-07-29 08:15:00 132 mm[Hg] Common Spiri t [facility] blood pressure diastolic 2023-07-29 08:15:00 74 mm[Hg] Common [facility]iri t - [facility] Systolic blood pressure 2023-07-22 20:32:00 108 mm[Hg] Daisy Seybo ld - External Diastolic blood pressure 2023-07-22 20:32:00 54 mm[Hg] Daisy Seybo ld - External Heart rate 2023-07-22 20:32:00 79 /min Kelse y Seybold - External Body temperature 2023-07-22 20:32:00 36.61 Luisana Daisy Seybold - External Respiratory rate 2023-07-22 20:32:00 14 /min Daisy Seybold - External Body height 2023-07-22 20:32:00 175.3 cm Megha ey Seybold - External Body weight 2023-07-22 20:32:00 83.462 kg Megha ey Seybold - External BMI 2023-07-22 20:32:00 27.17 kg/m2 Megha ey Seybold - External Systolic blood pressure 2023-07-01 18:52:00 115 mm[Hg] Daisy Seybo ld - External Diastolic blood pressure 2023-07-01 18:52:00 71 mm[Hg] Daisy Seybo ld - External Heart rate 2023-07-01 18:52:00 68 /min Kelse y Seybold - External Body temperature 2023-07-01 18:52:00 36.78 Luisana Daisy Seybold - External Respiratory rate 2023-07-01 18:52:00 20 /min Daisy Seybold - External Body height 2023-07-01 18:52:00 175.3 cm Megha ey Seybold - External Body weight 2023-07-01 18:52:00 84.823 kg Megha ey Seybold - External BMI 2023-07-01 18:52:00 27.62 kg/m2 Megha ey Seybold - External Oxygen saturation in Arterial blood by Pulse oximetry 2023-07-01 18:52:00 99 /min Daisy Seybo ld - External Systolic blood pressure 2023-06-30 19:11:00 119 mm[Hg] Daisy Seybo ld - External Diastolic blood pressure 2023-06-30 19:11:00 60 mm[Hg] Daisy Martinezo ld - External Heart rate 2023-06-30 19:11:00 68 /min Kelse y Seybold - External Body temperature 2023-06-30 19:11:00 36.83 Luisana Daisy Iveyybold - External Respiratory rate 2023-06-30 19:11:00 16 /min Daisy Iveyybold - External Body height 2023-06-30 19:11:00 175.3 cm Megha khan Seybold - External Body weight 2023-06-30 19:11:00 84.879 kg Megha ey Seybold - External BMI 2023-06-30 19:11:00 27.63 kg/m2 Megha bill Iveyybold - External Oxygen saturation in Arterial blood by Pulse oximetry 2023-06-30 19:11:00 98 /min Daisy Martinezo ld - External height 2023-06-07 15:30:00 69 [in_i] Commo n [facility] weight 2023-06-07 15:30:00 188 [lb_av] Comm on [facility] temperature 2023-06-07 15:30:00 98.4 [degF] Com mon [facility] bmi 2023-06-07 15:30:00 27.76 kg/m2 Comm on [facility] blood pressure systolic 2023-06-07 15:30:00 136 mm[Hg] Common [facility] blood pressure diastolic 2023-06-07 15:30:00 78 mm[Hg] Common [facility] Systolic blood pressure 2023-06-03 15:56:00 116 mm[Hg] Daisy Martinezo ld - External Diastolic blood pressure 2023-06-03 15:56:00 62 mm[Hg] Daisy Iveyybo ld - External Heart rate 2023-06-03 15:56:00 73 /min Josuese y Seybold - External Body temperature 2023-06-03 15:56:00 36.44 Luisana Daisy Iveyybold - External Respiratory rate 2023-06-03 15:56:00 14 /min Daisy Seybold - External Body height 2023-06-03 15:56:00 175.3 cm Megha ey Seybold - External Body weight 2023-06-03 15:56:00 86.637 kg Megha ey Seybold - External BMI 2023-06-03 15:56:00 28.21 kg/m2 Megha ey Seybold - External height 2023-04-26 10:45:00 69 [in_i] Commo n [facility] weight 2023-04-26 10:45:00 188 [lb_av] Comm on [facility] temperature 2023-04-26 10:45:00 98.0 [degF] Com mon [facility] bmi 2023-04-26 10:45:00 27.76 kg/m2 Comm on [facility] blood pressure systolic 2023-04-26 10:45:00 128 mm[Hg] Common [facility] blood pressure diastolic 2023-04-26 10:45:00 76 mm[Hg] [facility] Systolic blood pressure 2023-04-06 14:34:00 120 mm[Hg] Daisy Seybo ld - External Diastolic blood pressure 2023-04-06 14:34:00 68 mm[Hg] Daisy Seybo ld - External Heart rate 2023-04-06 14:34:00 65 /min Kelse y Seybold - External Body temperature 2023-04-06 14:34:00 36.44 Luisana Daisy Seybold - External Respiratory rate 2023-04-06 14:34:00 15 /min Daisy Seybold - External Body height 2023-04-06 14:34:00 175.3 cm Megha ey Seybold - External Body weight 2023-04-06 14:34:00 87.998 kg Megha ey Seybold - External BMI 2023-04-06 14:34:00 28.65 kg/m2 Megha ey Seybold - External height 2023-03-25 09:15:00 69 [in_i] Commo n [facility] weight 2023-03-25 09:15:00 188.8 [lb_av] Co mmon [facility] temperature 2023-03-25 09:15:00 98.3 [degF] Com mon [facility] bmi 2023-03-25 09:15:00 27.88 kg/m2 Comm on [facility] blood pressure systolic 2023-03-25 09:15:00 136 mm[Hg] Common [facility] blood pressure diastolic 2023-03-25 09:15:00 74 mm[Hg] [facility] Systolic blood pressure 2023-03-09 13:09:00 134 mm[Hg] Daisy Seybo ld - External Diastolic blood pressure 2023-03-09 13:09:00 62 mm[Hg] Daisy Seybo ld - External Heart rate 2023-03-09 13:09:00 62 /min Kelse y Seybold - External Body temperature 2023-03-09 13:09:00 35.78 Luisana Daisy Seybold - External Respiratory rate 2023-03-09 13:09:00 14 /min Daisy Seybold - External Body height 2023-03-09 13:09:00 175.3 cm Megha ey Seybold - External Body weight 2023-03-09 13:09:00 87.998 kg Megha ey Seybold - External BMI 2023-03-09 13:09:00 28.65 kg/m2 Megha ey Seybold - External height 2023-02-11 08:30:00 69 [in_i] Commo n [facility] weight 2023-02-11 08:30:00 193.8 [lb_av] Co mmon [facility] temperature 2023-02-11 08:30:00 97.9 [degF] Com mon [facility] bmi 2023-02-11 08:30:00 28.62 kg/m2 Comm on [facility] blood pressure systolic 2023-02-11 08:30:00 128 mm[Hg] Common [facility] blood pressure diastolic 2023-02-11 08:30:00 74 mm[Hg] Common [facility] height 2023-01-28 08:15:00 69 [in_i] Commo n [facility] weight 2023-01-28 08:15:00 185 [lb_av] Comm on [facility] bmi 2023-01-28 08:15:00 27.32 kg/m2 Comm on [facility] blood pressure systolic 2023-01-28 08:15:00 127 mm[Hg] Common Spiri [facility] blood pressure diastolic 2023-01-28 08:15:00 74 mm[Hg] Common [facility] Systolic blood pressure 2022-12-24 18:10:00 119 mm[Hg] Daisy Seybo ld - External Diastolic blood pressure 2022-12-24 18:10:00 53 mm[Hg] Daisy Seybo ld - External Heart rate 2022-12-24 18:10:00 78 /min Kelse y Seybold - External Body temperature 2022-12-24 18:10:00 36.61 Luisana Daisy Seybold - External Respiratory rate 2022-12-24 18:10:00 14 /min Daisy Seybold - External Body height 2022-12-24 18:10:00 175.3 cm Megha ey Seybold - External Body weight 2022-12-24 18:10:00 84.823 kg Megha ey Seybold - External BMI 2022-12-24 18:10:00 27.62 kg/m2 Megha khan Seybold - External Oxygen saturation in Arterial blood by Pulse oximetry 2022-12-24 18:10:00 99 /min Daisy Seybo ld - External Systolic blood pressure 2022-11-24 18:34:00 118 mm[Hg] Daisy Seybo ld - External Diastolic blood pressure 2022-11-24 18:34:00 50 mm[Hg] Daisy Seybo ld - External Heart rate 2022-11-24 18:34:00 90 /min Kelse y Seybold - External Body temperature 2022-11-24 18:34:00 36.67 Luisana Daisy Seybold - External Respiratory rate 2022-11-24 18:34:00 16 /min Daisy Seybold - External Body height 2022-11-24 18:34:00 175.3 cm Megha ey Seybold - External Body weight 2022-11-24 18:34:00 82.963 kg Megha ey Seybold - External BMI 2022-11-24 18:34:00 27.01 kg/m2 Megha ey Seybold - External Oxygen saturation in Arterial blood by Pulse oximetry 2022-11-24 18:34:00 99 /min Daisy Iveyybo ld - External Systolic blood pressure 2022-11-13 15:06:00 128 mm[Hg] Daisy Seybo ld - External Diastolic blood pressure 2022-11-13 15:06:00 73 mm[Hg] Daisy Seybo ld - External Heart rate 2022-11-13 15:06:00 68 /min Denny y Seybold - External Respiratory rate 2022-11-13 15:06:00 19 /min Daisy Iveyybold - External Body height 2022-11-13 15:06:00 175.3 cm Megha ey Seybold - External Body weight 2022-11-13 15:06:00 81.647 kg Megha ey Seybold - External BMI 2022-11-13 15:06:00 26.58 kg/m2 Megha ey Seybold - External Oxygen saturation in Arterial blood by Pulse oximetry 2022-11-13 15:06:00 97 /min Daisy Martinezo ld - External height 2022-10-29 08:00:00 69 [in_i] Commo n [facility] weight 2022-10-29 08:00:00 188 [lb_av] Comm on [facility] temperature 2022-10-29 08:00:00 97.7 [degF] Com mon [facility] bmi 2022-10-29 08:00:00 27.76 kg/m2 Comm on [facility] blood pressure systolic 2022-10-29 08:00:00 126 mm[Hg] Common [facility] blood pressure diastolic 2022-10-29 08:00:00 74 mm[Hg] Common [facility] height 2022-09-28 09:30:00 69 [in_i] Commo n [facility] weight 2022-09-28 09:30:00 188 [lb_av] Comm on [facility] temperature 2022-09-28 09:30:00 98.0 [degF] Com mon [facility] bmi 2022-09-28 09:30:00 27.76 kg/m2 Comm on [facility] blood pressure systolic 2022-09-28 09:30:00 120 mm[Hg] Common [facility] blood pressure diastolic 2022-09-28 09:30:00 74 mm[Hg] Common [facility] height 2022-08-27 10:30:00 69 [in_i] Commo n [facility] weight 2022-08-27 10:30:00 188 [lb_av] Comm on [facility] bmi 2022-08-27 10:30:00 27.76 kg/m2 Comm on [facility] Systolic blood pressure 2022-08-24 20:21:00 104 mm[Hg] Daisy Mixon ld - External Diastolic blood pressure 2022-08-24 20:21:00 57 mm[Hg] Daisy Mixon ld - External Respiratory rate 2022-08-24 20:21:00 14 /min Daisy Sewell - External Body height 2022-08-24 20:21:00 175.3 cm Megha Sewell - External Body weight 2022-08-24 20:21:00 82.101 kg Megha Sewell - External BMI 2022-08-24 20:21:00 26.73 kg/m2 Megha Sewell - External Oxygen saturation in Arterial blood by Pulse oximetry 2022-08-24 20:21:00 99 /min Daisy Mixon ld - External height 2022-08-11 08:30:00 69 [in_i] Commo n [facility] weight 2022-08-11 08:30:00 188.1 [lb_av] Co mmon [facility] temperature 2022-08-11 08:30:00 98.1 [degF] Com mon [facility] bmi 2022-08-11 08:30:00 27.77 kg/m2 Comm on [facility] blood pressure systolic 2022-08-11 08:30:00 130 mm[Hg] Common [facility] blood pressure diastolic 2022-08-11 08:30:00 69 mm[Hg] Common [facility] Systolic blood pressure 2022-07-30 17:44:00 115 mm[Hg] Daisy Seybo ld - External Diastolic blood pressure 2022-07-30 17:44:00 67 mm[Hg] Daisy Seybo ld - External Heart rate 2022-07-30 17:44:00 72 /min Kel y Seybold - External Body temperature 2022-07-30 17:44:00 36.72 Luisana Daisy Seybold - External Respiratory rate 2022-07-30 17:44:00 14 /min Daisy Seybold - External Body height 2022-07-30 17:44:00 175.3 cm Megha ey Seybold - External Body weight 2022-07-30 17:44:00 84.823 kg Megha ey Seybold - External BMI 2022-07-30 17:44:00 27.62 kg/m2 Megha ey Seybold - External Oxygen saturation in Arterial blood by Pulse oximetry 2022-07-30 17:44:00 99 /min Daisy Iveyybo ld - External height 2022-07-30 10:15:00 69 [in_i] Commo n [facility] weight 2022-07-30 10:15:00 187.4 [lb_av] Co mmon [facility] temperature 2022-07-30 10:15:00 97.9 [degF] Com mon [facility] bmi 2022-07-30 10:15:00 27.67 kg/m2 Comm on [facility] blood pressure systolic 2022-07-30 10:15:00 136 mm[Hg] Common [facility] blood pressure diastolic 2022-07-30 10:15:00 72 mm[Hg] Common Spiri t [facility] Systolic blood pressure 2022-06-08 16:09:00 140 mm[Hg] Daisy Seybo ld - External Diastolic blood pressure 2022-06-08 16:09:00 62 mm[Hg] Daisy Seybo ld - External Heart rate 2022-06-08 16:09:00 88 /min Kelse y Seybold - External Body temperature 2022-06-08 16:09:00 36.56 Luisana Daisy Seybold - External Respiratory rate 2022-06-08 16:09:00 14 /min Daisy Seybold - External Body height 2022-06-08 16:09:00 175.3 cm Megha ey Seybold - External Body weight 2022-06-08 16:09:00 88.451 kg Megha ey Seybold - External BMI 2022-06-08 16:09:00 28.80 kg/m2 Megha ey Seybold - External Systolic blood pressure 2022-05-13 14:03:00 110 mm[Hg] Daisy Seybo ld - External Diastolic blood pressure 2022-05-13 14:03:00 60 mm[Hg] Daisy Seybo ld - External Heart rate 2022-05-13 13:50:00 70 /min Kelse y Seybold - External Body temperature 2022-05-13 13:50:00 35.67 Luisana Daisy Seybold - External Respiratory rate 2022-05-13 13:50:00 16 /min Daisy Seybold - External Body height 2022-05-13 13:50:00 175.3 cm Megha ey Seybold - External Body weight 2022-05-13 13:50:00 87.998 kg Megha ey Seybold - External BMI 2022-05-13 13:50:00 28.65 kg/m2 Megha ey Seybold - External height 2022-04-28 08:00:00 69 [in_i] Commo n [facility] weight 2022-04-28 08:00:00 183 [lb_av] Comm on [facility] temperature 2022-04-28 08:00:00 97.5 [degF] Com mon [facility] bmi 2022-04-28 08:00:00 27.02 kg/m2 Comm on [facility] blood pressure systolic 2022-04-28 08:00:00 126 mm[Hg] Common Spiri t - [facility] blood pressure diastolic 2022-04-28 08:00:00 76 mm[Hg] [facility] Systolic blood pressure 2022-04-08 14:45:00 123 mm[Hg] Daisy Seybo ld - External Diastolic blood pressure 2022-04-08 14:45:00 59 mm[Hg] Daisy Seybo ld - External Heart rate 2022-04-08 14:45:00 65 /min Kelse y Seybold - External Body temperature 2022-04-08 14:45:00 36.56 Luisana Daisy Seybold - External Respiratory rate 2022-04-08 14:45:00 14 /min Daisy Seybold - External Body height 2022-04-08 14:45:00 175.3 cm Megah ey Seybold - External Body weight 2022-04-08 14:45:00 84.278 kg Megha ey Seybold - External BMI 2022-04-08 14:45:00 27.44 kg/m2 Megha ey Seybold - External Oxygen saturation in Arterial blood by Pulse oximetry 2022-04-08 14:45:00 99 /min Daisy Seybo ld - External Systolic blood pressure 2021-10-20 13:00:00 116 mm[Hg] Daisy Seybo ld Diastolic blood pressure 2021-10-20 13:00:00 54 mm[Hg] Daisy Seybo ld Heart rate 2021-10-20 13:00:00 66 /min Kelse y Seybold Body temperature 2021-10-20 13:00:00 36.67 Luisana Daisy Seybold Respiratory rate 2021-10-20 13:00:00 15 /min Daisy Seybold Body height 2021-10-20 13:00:00 175.3 cm Megha ey Seybold Body weight 2021-10-20 13:00:00 82.555 kg Megha ey Seybold BMI 2021-10-20 13:00:00 26.88 kg/m2 Megha ey Seybold Systolic blood pressure 2021-10-06 19:17:00 104 mm[Hg] Daisy Seybo ld Diastolic blood pressure 2021-10-06 19:17:00 53 mm[Hg] Daisy Seybo ld Heart rate 2021-10-06 19:17:00 75 /min Kelse y Seybold Body temperature 2021-10-06 19:17:00 37.83 Luisana Daisy Seybold Respiratory rate 2021-10-06 19:17:00 15 /min Daisy Seybold Body height 2021-10-06 19:17:00 175.3 cm Megha ey Seybold Body weight 2021-10-06 19:17:00 83.008 kg Megha ey Seybold BMI 2021-10-06 19:17:00 27.02 kg/m2 Megha ey Seybold Oxygen saturation in Arterial blood by Pulse oximetry 2021-10-06 19:17:00 98 /min Daisy Seybo ld Systolic blood pressure 2021-09-16 13:23:00 102 mm[Hg] Daisy Seybo ld Diastolic blood pressure 2021-09-16 13:23:00 58 mm[Hg] Daisy Seybo ld Heart rate 2021-09-16 13:23:00 76 /min Kelse y Seybold Body temperature 2021-09-16 13:23:00 36.06 Luisana Daisy Seybold Respiratory rate 2021-09-16 13:23:00 14 /min Daisy Seybold Body height 2021-09-16 13:23:00 175.3 cm Megha ey Seybold Body weight 2021-09-16 13:23:00 80.74 kg Megha ey Seybold BMI 2021-09-16 13:23:00 26.29 kg/m2 Megha ey Seybold Systolic blood pressure 2021-08-26 14:53:00 126 mm[Hg] Daisy Seybo ld Diastolic blood pressure 2021-08-26 14:53:00 52 mm[Hg] Daisy Seybo ld Heart rate 2021-08-26 14:53:00 99 /min Kelse y Seybold Body temperature 2021-08-26 14:53:00 36 Luisana Daisy Seybold Respiratory rate 2021-08-26 14:53:00 14 /min Daisy Seybold Body height 2021-08-26 14:53:00 175.3 cm Megha ey Seybold Body weight 2021-08-26 14:53:00 83.462 kg Megha ey Seybold BMI 2021-08-26 14:53:00 27.17 kg/m2 Megha ey Seybold Systolic blood pressure 2021-08-19 15:44:00 103 mm[Hg] Daisy Seybo ld Diastolic blood pressure 2021-08-19 15:44:00 66 mm[Hg] Daisy Seybo ld Heart rate 2021-08-19 15:44:00 67 /min Kelse y Seybold Body temperature 2021-08-19 15:44:00 36.94 Luisana Daisy Seybold Respiratory rate 2021-08-19 15:44:00 14 /min Daisy Seybold Body height 2021-08-19 15:44:00 175.3 cm Megha ey Seybold Body weight 2021-08-19 15:44:00 83.462 kg Megha ey Seybold BMI 2021-08-19 15:44:00 27.17 kg/m2 Megha ey Seybold Systolic blood pressure 2021-08-07 19:35:00 100 mm[Hg] Daisy Seybo ld Diastolic blood pressure 2021-08-07 19:35:00 62 mm[Hg] Daisy Seybo ld Heart rate 2021-08-07 19:35:00 98 /min Kelse y Seybold Body temperature 2021-08-07 19:35:00 36.56 Luisana Daisy Seybold Respiratory rate 2021-08-07 19:35:00 14 /min Daisy Seybold Body height 2021-08-07 19:35:00 175.3 cm Megha ey Seybold Body weight 2021-08-07 19:35:00 81.194 kg Megha ey Seybold BMI 2021-08-07 19:35:00 26.43 kg/m2 Megha ey Seybold Systolic blood pressure 2021-07-15 15:34:00 100 mm[Hg] Daisy Seybo ld Diastolic blood pressure 2021-07-15 15:34:00 52 mm[Hg] Daisy mosley Heart rate 2021-07-15 15:34:00 84 /min Denny Sewell Body temperature 2021-07-15 15:34:00 36.39 Luisana Daisy Sewell Respiratory rate 2021-07-15 15:34:00 14 /min Daisy Sewell Body height 2021-07-15 15:34:00 175.3 cm Megha Sewell Body weight 2021-07-15 15:34:00 82.555 kg Megha Sewell BMI 2021-07-15 15:34:00 26.88 kg/m2 Megha Sewell Systolic blood pressure 2019-12-13 15:37:00 127 mm[Hg] [facility] Diastolic blood pressure 2019-12-13 15:37:00 82 mm[Hg] [facility] Heart rate 2019-12-13 15:37:00 66 /min Un[facility] Body temperature 2019-12-13 15:37:00 36.56 Luisana [facility] Body height 2019-12-13 15:37:00 175.3 cm [facility] Body weight 2019-12-13 15:37:00 72.576 kg [facility] BMI 2019-12-13 15:37:00 23.63 kg/m2 [facility] Oxygen saturation in Arterial blood by Pulse oximetry 2019-12-13 15:37:00 95 /min [facility] Systolic blood pressure 2019-12-13 15:37:00 127 mm[Hg] [facility] Diastolic blood pressure 2019-12-13 15:37:00 82 mm[Hg] [facility] Heart rate 2019-12-13 15:37:00 66 /[facility] Body temperature 2019-12-13 15:37:00 36.56 Luisana [facility] Body height 2019-12-13 15:37:00 175.3 cm [facility] Body weight 2019-12-13 15:37:00 72.576 kg [facility] BMI 2019-12-13 15:37:00 23.63 kg/m2 [facility] Oxygen saturation in Arterial blood by Pulse oximetry 2019-12-13 15:37:00 95 /min [facility] Procedures Procedure Date / Time Performed Performing Clinicia n Source EXTERNAL IMAGING 2023-11-29 15:58:00 Shayna Diamond - External [facility] 2022-05-13 14:27:33 Juan Antonio Rogers Seybold - External XR CHEST 2 VW 2021-12-22 16:14:26 Alyssia Ocnonor [facility] ASSIGNMENT OF BENEFITS 2021-12-22 15:46:38 Docto r Unassigned, [place] [facility] Encounters Start Date/Time End Date/Time Encounter Type Admission Type Attending [facility] Facility Care Department Encounter ID Source 2023-12-27 08:05:00 Outpatient STLC STLC [id number] [facility] 2023-06-07 14:54:00 Outpatient STLC STLC [id number] [facility] 2022-08-14 09:26:02 Outpatient [id number] [facility] 2022-08-12 13:59:43 Outpatient 3 [id number] [id number] [facility] 2022-04-28 08:01:02 Outpatient STLMLC STLC [id number] [facility] 2024-07-11 09:00:00 2024-07-11 09:00:00 Outpatient SHAYNA DIAMOND [id number] Daisy Sewell 2024-04-19 10:30:00 2024-04-19 10:30:00 Outpatient FADY SCHAFFER [id number] Daisy Sewell 2024-04-18 00:00:00 2024-04-18 00:00:00 Outpatient SHAYNA DIAMOND [id number] Daisy Sewell 2024-04-18 00:00:00 2024-04-18 00:00:00 Outpatient HUNDL, SHAYNA DAISY HASKINS [id number] Daisy Seybold 2024-04-12 08:25:00 2024-04-12 08:25:00 Outpatient LAB90 DAISY HASKINS [id number] Daisy Seybold 2024-04-11 08:30:00 2024-04-11 08:30:00 Outpatient HUNDL, SHAYNA DAISY HASKINS [id number] Daisy Seybold 2024-02-29 09:30:00 2024-02-29 09:30:00 Outpatient HUNDL, SHAYNA DAISY HASKINS [id number] Daisy Seybold 2024-02-26 00:00:00 2024-02-26 00:00:00 Outpatient DAISY HASKINS [id number] Daisy Seybold 2024-02-24 09:00:00 2024-02-24 09:00:00 Outpatient NT90 DAISY HASKINS [id number] Daisy Seybold 2024-02-24 00:00:00 2024-02-24 00:00:00 Outpatient HUNDL, SHAYNA DAISY HASKINS [id number] Daisy Seybold 2024-02-24 00:00:00 2024-02-24 00:00:00 Outpatient PREZAS, JUAN ANTONIO DAISY HASKINS [id number] Daisy Seybold 2024-02-24 00:00:00 2024-02-24 00:00:00 Outpatient HUNDL, SHAYNA DAISY HASKINS [id number] Daisy Seybold 2024-02-24 00:00:00 2024-02-24 00:00:00 Outpatient DAISY HASKINS [id number] Daisy Seybold 2024-02-23 00:00:00 2024-02-23 00:00:00 Outpatient PREZASJUAN ANTONIO DAISY HASKINS [id number] Daisy Seybold 2023-12-06 08:30:00 2023-12-06 08:30:00 Outpatient SWAPNADINO DAISY HASKINS [id number] Daisy Seybold 2023-12-06 08:10:00 2023-12-06 08:10:00 Outpatient LAB90 DAISY HASKINS [id number] Daisy Seybold 2023-11-29 09:00:00 2023-11-29 09:00:00 Outpatient HUNDL, SHAYNA DAISY HASKINS [id number] Daisy Seybhoward 2023-11-17 00:00:00 2023-11-17 00:00:00 Outpatient HUNDL, SHAYNA DAISY HASKINS [id number] Daisy Seybhoward 2023-11-12 00:00:00 2023-11-12 00:00:00 Outpatient HUNDL, SHAYNA HASKINS [id number] Daisy Seybold 2023-11-09 00:00:00 2023-11-09 00:00:00 Outpatient HUNDL, SHAYNA HASKINS [id number] Daisy Seybold 2023-11-02 08:00:00 2023-11-02 08:00:00 Outpatient HUNDL, SHAYNA HASKINS [id number] Daisy Seybhoward 2023-11-01 00:00:00 2023-11-01 00:00:00 Outpatient HUNDL[facility] [id number] [facility]21 10:30:00 2023-10-21 10:30:00 Outpatient HUNDL, [facility]ASK[facility] [id number] [facility] 2023-10-12 10:30:00 2023-10-12 10:30:00 Outpatient MATEUS RICHARDS DAISY HASKINS [id number] Daisy Seybhoward 2023-09-02 13:45:00 2023-09-02 13:45:00 Outpatient LAB90 DAISY HASKINS [id number] [facility] 2023-09-02 13:00:00 2023-09-02 13:00:00 Outpatient HUNDL, SHAYNA HASKINS [id number] [facility] 2023-08-17 11:30:00 2023-08-17 11:30:00 Outpatient PREZASJUAN ANTONIO [id number] [facility] 2023-08-04 00:00:00 2023-08-04 00:00:00 Outpatient HUNDL, SHAYNA HASKINS [id number] [facility] 2023-07-29 00:00:00 2023-07-29 00:00:00 OFFICE VISIT ESTAB PT LEVEL 3 STLMLC STLMLC [id number] [facility] 2023-07-27 00:00:00 2023-07-27 00:00:00 Outpatient DAISY HASKINS [id number] [facility] 2023-07-22 15:00:00 2023-07-22 15:00:00 Outpatient SHAYNA DIAMOND [id number] [facility] 2023-07-22 00:00:00 2023-07-22 00:00:00 Outpatient DAISY HASKINS [id number] [facility] 2023-07-08 00:00:00 2023-07-08 00:00:00 Outpatient DAISY HASKINS [id number] [facility] 2023-07-05 00:00:00 2023-07-05 00:00:00 Outpatient SAMUEL HASKINS [id number] [facility] 2023-07-01 13:00:00 2023-07-01 13:00:00 Outpatient SHAYNA DIAMOND [id number] [facility] 2023-06-30 13:30:00 2023-06-30 13:30:00 Outpatient MADHAVI GOLDMAN [id number] [facility] 2023-06-16 00:00:00 2023-06-16 00:00:00 Outpatient NATA COELHO [id number] [facility] 2023-06-11 00:00:00 2023-06-11 00:00:00 Outpatient JUAN ANTONIO ROGERS [id number] [facility] 2023-06-07 00:00:00 2023-06-07 00:00:00 OFFICE VISIT ESTAB PT LEVEL 3 STLMLC STLMLC [id number] [facility] 2023-06-04 00:00:00 2023-06-04 00:00:00 Outpatient JUAN ANTONIO ROGERS [id number] [facility] 2023-06-03 10:45:00 2023-06-03 10:45:00 Outpatient LAB90 DAISY HASKINS [id number] [facility] 2023-06-03 10:00:00 2023-06-03 10:00:00 Outpatient SHAYNA DIAMOND DAISY HASKINS [id number] [facility] 2023-06-02 00:00:00 2023-06-02 00:00:00 Outpatient DAISY HASKINS [id number] [facility] 2023-06-02 00:00:00 2023-06-02 00:00:00 Outpatient DAISY HASKINS [id number] [facility] 2023-05-10 09:00:00 2023-05-10 09:00:00 Outpatient SHAYNA DIAMOND DAISY HASKINS [id number] [facility] 2023-05-05 00:00:00 2023-05-05 00:00:00 Outpatient DAISY HASKINS [id number] [facility] 2023-05-04 09:00:00 2023-05-04 09:00:00 Outpatient SHAYNA DIAMOND DAISY HASKINS [id number] [facility] 2023-04-28 00:00:00 2023-04-28 00:00:00 (TEL) STLMLC STLMLC [id number] [facility] 2023-04-26 00:00:00 2023-04-26 00:00:00 OFFICE VISIT ESTAB PT LEVEL 4 STLMLC STLMLC [id number] [facility] 2023-04-23 00:00:00 2023-04-23 00:00:00 Outpatient DMG DMG [id number] [facility] 2023-04-23 00:00:00 2023-04-23 00:00:00 Outpatient JUAN ANTONIO ROGERS [id number] [facility] 2023-04-23 00:00:00 2023-04-23 00:00:00 Outpatient DAISY HASKINS [id number] [facility] 2023-04-23 00:00:00 2023-04-23 00:00:00 Outpatient DAISY HASKINS [id number] [facility] 2023-04-21 00:00:00 2023-04-21 00:00:00 Outpatient EDELMIRA ROGERSAND DAISY HASKINS [id number] [facility] 2023-04-08 10:00:00 2023-04-08 10:00:00 Outpatient HARIKA CLEMENT DAISY HASKINS [id number] [facility] 2023-04-06 09:30:00 2023-04-06 09:30:00 Outpatient SHAYNA DIAMOND [id number] [facility] 2023-04-06 00:00:00 2023-04-06 00:00:00 Outpatient DAISY HASKINS [id number] [facility] 2023-04-05 00:00:00 2023-04-05 00:00:00 Outpatient LOW JUAN ANTONIO HASKINS [id number] [facility] 2023-04-05 00:00:00 2023-04-05 00:00:00 Outpatient DAISY HASKINS [id number] [facility] 2023-03-25 00:00:00 2023-03-25 00:00:00 [id number] 2023-03-25 00:00:00 2023-03-25 00:00:00 (TEL) [facility] [id number] [facility] 2023-03-16 00:00:00 2023-03-16 00:00:00 Outpatient LAURENINES JUAN ANTONIO DAISY HASKINS [id number] [facility] 2023-03-15 09:30:00 2023-03-15 09:30:00 Outpatient DAISY HASKINS [id number] [facility] 2023-03-09 10:15:00 2023-03-09 10:15:00 Outpatient LAB90 DAISY HASKINS [id number] [facility] 2023-03-09 09:00:00 2023-03-09 09:00:00 Outpatient SHAYNA DIAMOND [id number] [facility] 2023-02-24 00:00:00 2023-02-24 00:00:00 Outpatient JUAN ANTONIO ROGERS [id number] [facility] 2023-02-11 00:00:00 2023-02-11 00:00:00 OFFICE VISIT ESTAB PT LEVEL 4 STLMLC STLMLC [id number] [facility] 2023-01-28 00:00:00 2023-01-28 00:00:00 OFFICE VISIT NEW PT LEVEL 3 STLMLC STLMLC [id number] [facility] 2023-01-19 00:00:00 2023-01-19 00:00:00 Outpatient DAISY HASKINS [id number] [facility] 2023-01-13 00:00:00 2023-01-13 00:00:00 Outpatient DAISY HASKINS [id number] [facility] 2023-01-12 00:00:00 2023-01-12 00:00:00 Outpatient DAISY HASKINS [id number] [facility] 2023-01-06 09:45:00 2023-01-06 09:45:00 Outpatient DINO BARCENAS [id number] [facility] 2022-12-24 14:30:00 2022-12-24 14:30:00 Outpatient JUAN ANTONIO ROGERS [id number] [facility] 2022-12-09 08:30:00 2022-12-09 08:30:00 Outpatient DINO BARCENAS [id number] [facility] 2022-12-09 00:00:00 2022-12-09 00:00:00 Outpatient JUAN ANTONIO ROGERS [id number] [facility] 2022-12-09 00:00:00 2022-12-09 00:00:00 Outpatient JUAN ANTONIO ROGERS [id number] [facility] 2022-12-09 00:00:00 2022-12-09 00:00:00 Outpatient DAISY HASKINS [id number] [facility] 2022-11-25 00:00:00 2022-11-25 00:00:00 Outpatient JUAN ANTONIO ROGERS [id number] [facility] 2022-11-24 16:00:00 2022-11-24 16:00:00 Outpatient SHAYNA DIAMOND DAISY [id number] [facility] 2022-11-24 14:45:00 2022-11-24 14:45:00 Outpatient LABMaury HASKINS DAISY [id number] [facility] 2022-11-24 14:00:00 2022-11-24 14:00:00 Outpatient SHAYNA DIAMONDCHRIST HASKINS [id number] [facility] 2022-11-15 00:00:00 2022-11-15 00:00:00 Outpatient PREZAJUAN ANTONIO Stanley DAISY HASKINS [id number] [facility] 2022-11-13 10:30:00 2022-11-13 10:30:00 Outpatient LABMaury GUERREROCHRIST HASKINS [id number] [facility] 2022-11-13 10:00:00 2022-11-13 10:00:00 Outpatient PREZASJUAN ANTONIO DAISY HASKINS [id number] [facility] 2022-11-05 00:00:00 2022-11-05 00:00:00 Outpatient PREZAS, JUAN ANTONIO DAISY HASKINS [id number] [facility] 2022-11-04 00:00:00 2022-11-04 00:00:00 Outpatient PREZAS, JUAN ANTONIO DAISY HASKINS [id number] [facility] 2022-11-04 00:00:00 2022-11-04 00:00:00 Outpatient DAISY HASKINS [id number] [facility] 2022-10-29 00:00:00 2022-10-29 00:00:00 [facility] [id number] 2022-10-14 00:00:00 2022-10-14 00:00:00 Outpatient LAURENZAJUAN ANTONIO Stanley DAISY HASKINS [id number] [facility] 2022-10-02 00:00:00 2022-10-02 00:00:00 Outpatient PREZASJUAN ANTONIO DAISY HASKINS [id number] [facility] 2022-09-28 00:00:00 2022-09-28 00:00:00 Outpatient DAISY HASKINS [id number] [facility] 2022-09-28 00:00:00 2022-09-28 00:00:00 NON-BILLAB LE VISIT STLMLC STLMLC [id number] [facility] 2022-09-08 00:00:00 2022-09-08 00:00:00 Outpatient SHAWNEE HAAS DAISY HASKINS [id number] [facility] 2022-08-27 00:00:00 2022-08-27 00:00:00 NON-BILLAB LE VISIT STLMLC STLMLC [id number] [facility] 2022-08-24 14:15:00 2022-08-24 14:15:00 Outpatient JUAN ANTONIO ROGERS [id number] [facility] 2022-08-19 00:00:00 2022-08-19 00:00:00 Outpatient MADHAVI GOLDMAN [id number] [facility] 2022-08-19 00:00:00 2022-08-19 00:00:00 Outpatient JUAN ANTONIO ROGERS [id number] [facility] 2022-08-17 00:00:00 2022-08-17 00:00:00 Outpatient DAISY HASKINS [id number] [facility] 2022-08-14 00:00:00 2022-08-14 00:00:00 Outpatient FRANCOISE CARY [id number] [facility] 2022-08-13 00:00:00 2022-08-13 00:00:00 Outpatient DAISY HASKINS [id number] [facility] 2022-08-13 00:00:00 2022-08-13 00:00:00 (TEL) STLMLC STLMLC [id number] [facility] 2022-08-11 00:00:00 2022-08-11 00:00:00 Outpatient JUAN ANTONIO ROGERS [id number] [facility] 2022-08-11 00:00:00 2022-08-11 00:00:00 OFFICE VISIT ESTAB PT LEVEL 3 STLMLC STLMLC [id number] [facility] 2022-08-06 00:00:00 2022-08-06 00:00:00 Outpatient DAISY HASKINS [id number] [facility] 2022-07-30 11:45:00 2022-07-30 11:45:00 Outpatient JUAN ANTONIO ROGERS [id number] [facility] 2022-07-30 00:00:00 2022-07-30 00:00:00 OFFICE VISIT ESTAB PT LEVEL 4 STLMLC STLMLC [id number] [facility] 2022-07-29 00:00:00 2022-07-29 00:00:00 (TEL) STLMLC STLMLC [id number] [facility] 2022-07-29 00:00:00 2022-07-29 00:00:00 (TEL) STLMLC STLMLC [id number] [facility] 2022-07-27 00:00:00 2022-07-27 00:00:00 Outpatient JUAN ANTONIO ROGERS [id number] [facility] 2022-07-08 00:00:00 2022-07-08 00:00:00 Outpatient DAISY HASKINS [id number] [facility] 2022-06-30 00:00:00 2022-06-30 00:00:00 Outpatient DAISY HASKINS [id number] [facility] 2022-06-28 00:00:00 2022-06-28 00:00:00 Outpatient JUAN ANTONIO ROGERS [id number] [facility] 2022-06-26 00:00:00 2022-06-26 00:00:00 Outpatient DAISY HASKINS [id number] [facility] 2022-06-18 00:00:00 2022-06-18 00:00:00 Outpatient JUAN ANTONIO ROGERS [id number] [facility] 2022-06-08 16:45:00 2022-06-08 16:45:00 Outpatient JUAN ANTONIO ROGERS [id number] [facility] 2022-06-08 00:00:00 2022-06-08 00:00:00 (TEL) STLMLC STLMLC [id number] [facility] 2022-06-05 00:00:00 2022-06-05 00:00:00 Outpatient DAISY HASKINS [id number] [facility] 2022-05-13 08:45:00 2022-05-13 08:45:00 Outpatient LAB90 DAISY HASKINS [id number] [facility] 2022-05-13 08:15:00 2022-05-13 08:15:00 Outpatient JUAN ANTONIO ROGERS [id number] [facility] 2022-05-12 08:00:00 2022-05-12 08:00:00 Outpatient JUAN ANTONIO ROGERS [id number] [facility] 2022-04-29 00:00:00 2022-04-29 00:00:00 (TEL) STLMLC STLMLC [id number] [facility] 2022-04-28 00:00:00 2022-04-28 00:00:00 OFFICE VISIT ESTAB PT LEVEL 4 STLMLC STLC [id number] [facility] 2022-04-08 10:15:00 2022-04-08 10:15:00 Outpatient LAB90 DAISY HASKINS [id number] [facility] 2022-04-08 09:45:00 2022-04-08 09:45:00 Outpatient JUAN ANTONIO ROGERS [id number] [facility] 2022-04-08 00:00:00 2022-04-08 00:00:00 Outpatient JUAN ANTONIO ROGERS [id number] [facility] 2022-03-18 00:00:00 2022-03-18 00:00:00 Outpatient MADHAVI GOLDMAN [id number] [facility] 2022-03-16 10:30:00 2022-03-16 10:30:00 Outpatient JUAN ANTONIO ROGERS [id number] [facility] 2022-03-12 00:00:00 2022-03-12 00:00:00 Outpatient JUAN ANTONIO ROGERS DAISY [id number] [facility] 2022-03-10 00:00:00 2022-03-10 00:00:00 Outpatient JUAN ANTONIO ROGERS DAISY [id number] [facility] 2022-03-05 11:45:00 2022-03-05 12:00:00 Office Visit Juan Antonio Rogers 1.2.840.114 350.1.13.13 1.2.7.2.686 [id number] [facility] 2022-03-05 11:05:00 2022-03-05 11:05:00 Outpatient LAB90 DAISY HASKINS [id number] [facility] 2022-02-27 11:30:00 2022-02-27 11:30:00 Outpatient DINO BARCENAS DAISY [id number] [facility] 2022-02-27 11:00:00 2022-02-27 11:00:00 Outpatient DINO BARCENAS DAISY [id number] [facility] 2022-02-27 00:00:00 2022-02-27 00:00:00 Outpatient JUAN ANTONIO ROGERS DAISY [id number] [facility] 2022-02-25 00:00:00 2022-02-25 00:00:00 Outpatient MADHAVI GOLDMAN [id number] [facility] 2022-02-19 09:00:00 2022-02-19 09:00:00 Outpatient LAB90 DAISY HASKINS [id number] [facility] 2022-02-19 08:00:00 2022-02-19 08:45:00 Office Visit Madhavi Goldman 1.2.840.114 350.1.13.13 1.2.7.2.686 [id number] [facility] 2022-02-18 00:00:00 2022-02-18 00:00:00 Outpatient SHAYNA DIAMOND [id number] [facility] 2022-02-17 14:45:00 2022-02-17 15:15:00 Office Visit Madhavi Goldman 1.2.840.114 350.1.13.13 1.2.7.2.686 [id number] [facility] 2022-02-17 00:00:00 2022-02-17 00:00:00 Outpatient MADHAVI GOLDMAN DAISY [id number] [facility] 2022-02-12 10:10:00 2022-02-12 10:10:00 Outpatient LAB90 DAISY HASKINS [id number] [facility] 2022-02-12 09:15:00 2022-02-12 09:45:00 Office Visit Madhavi Goldman 1.2.840.114 350.1.13.13 1.2.7.2.686 [id number] [facility] 2022-02-09 00:00:00 2022-02-09 00:00:00 Outpatient MADHAVI GOLDMAN DAISY HASKINS [id number] [facility] 2022-02-02 00:00:00 2022-02-02 00:00:00 Outpatient SHIKHA STALLINGS DAISY HASKINS [id number] [facility] 2022-01-26 00:00:00 2022-01-26 00:00:00 Outpatient MADHAVI GOLDMAN DAISY HASKINS [id number] [facility] 2021-12-22 10:51:29 2021-12-22 23:59:00 Outpatient R RADIOLOGY [facility] [id number] [facility] 2021-12-22 10:45:00 2021-12-22 23:59:00 Hospital Encounter Radiology [facility] 1.2.840.114 350.1.13.10 4.2.7.2.686 [id number] [facility] 2021-12-22 00:00:00 2021-12-22 00:00:00 Orders Only Doctor Unassigned, [place] [facility] 1.2.840.114 350.1.13.10 4.2.7.2.686 [id number] [facility] 2021-11-20 09:05:00 2021-11-20 09:05:00 Outpatient LAB90 DAISY HASKINS [id number] [facility] 2021-11-19 00:00:00 2021-11-19 00:00:00 Outpatient MADHAVI GOLDMAN [id number] [facility] 2021-11-19 00:00:00 2021-11-19 00:00:00 Outpatient MADHAVI GOLDMAN [id number] [facility] 2021-10-27 00:00:00 2021-10-27 00:00:00 Outpatient MADHAVI GOLDMAN [id number] [facility] 2021-10-20 09:00:00 2021-10-20 09:00:00 Outpatient LAB90 DAISY HASKINS [id number] [facility] 2021-10-20 08:00:00 2021-10-20 08:45:00 Office Visit Madhavi Goldman [place] 1.2.840.114 350.1.13.13 1.2.7.2.686 [id number] [facility] 2021-10-20 00:00:00 2021-10-20 00:00:00 Outpatient MADHAVI GOLDMAN [id number] [facility] 2021-10-15 00:00:00 2021-10-15 00:00:00 Outpatient JONES MADHAVI HASKINS [id number] [facility] 2021-10-07 00:00:00 2021-10-07 00:00:00 Outpatient JUAN ANTONIO ROGERS [id number] [facility] 2021-10-06 15:05:00 2021-10-06 15:05:00 Outpatient LAB90 DAISY HASKINS [id number] [facility] 2021-10-06 14:15:00 2021-10-06 14:30:00 Office Visit Juan Antonio Rogers 1.2.840.114 350.1.13.13 1.2.7.2.686 [id number] [facility] 2021-09-16 09:20:00 2021-09-16 09:20:00 Outpatient LAB90 DAISY HASKINS [id number] [facility] 2021-09-16 08:45:00 2021-09-16 09:00:00 Office Visit Madhavi Goldman [place] 1.2.840.114 350.1.13.13 1.2.7.2.686 [id number] [facility] 2021-09-16 00:00:00 2021-09-16 00:00:00 Outpatient DAISY HASKINS [id number] [facility] 2021-09-16 00:00:00 2021-09-16 00:00:00 Outpatient DAISY HASKINS [id number] [facility] 2021-08-26 10:00:00 2021-08-26 10:00:00 Outpatient MADHAVI GOLDMAN DAISY HASKINS [id number] [facility] 2021-08-26 09:00:00 2021-08-26 09:45:00 Office Visit Madhavi Goldman [place] 1.2.840.114 350.1.13.13 1.2.7.2.686 [id number] [facility] 2021-08-19 10:00:00 2021-08-19 10:15:00 Office Visit Madhavi Goldman [place] 1.2.840.114 350.1.13.13 1.2.7.2.686 [id number] [facility] 2021-08-08 00:00:00 2021-08-08 00:00:00 Outpatient LOBO SHAYNA DAISY HASKINS [id number] [facility] 2021-08-07 13:30:00 2021-08-07 14:00:00 Office Visit Shayna Diamond 1.2.840.114 350.1.13.13 1.2.7.2.686 [id number] [facility] 2021-08-07 00:00:00 2021-08-07 00:00:00 Outpatient SHAYNA DIAMONDCHRIST HASKINS [id number] [facility] 2021-08-01 00:00:00 2021-08-01 00:00:00 Outpatient JONES MADHAVI HASKINS [id number] [facility] 2021-07-29 00:00:00 2021-07-29 00:00:00 Outpatient JONES, MADHAVI HASKINS [id number] [facility] 2021-07-17 00:00:00 2021-07-17 00:00:00 Outpatient SHAYNA DIAMOND DAISY HASKINS [id number] [facility] 2021-07-15 10:30:00 2021-07-15 10:30:00 Outpatient KELSIE DAISY HASKINS [id number] [facility] 2021-07-15 09:45:00 2021-07-15 10:15:00 Office Visit Shayna Diamond 1.2.840.114 350.1.13.13 1.2.7.2.686 [id number] [facility] 2021-07-06 00:00:00 2021-07-06 00:00:00 Outpatient MADHAVI GOLDMAN [id number] [facility] 2021-06-23 00:00:00 2021-06-23 00:00:00 Outpatient MADHAVI GOLDMAN [id number] [facility] 2021-06-23 00:00:00 2021-06-23 00:00:00 Outpatient MADHAVI GOLDMAN [id number] [facility] 2021-06-23 00:00:00 2021-06-23 00:00:00 Outpatient MADHAVI GOLDMAN [id number] [facility] 2021-06-12 00:00:00 2021-06-12 00:00:00 Outpatient MADHAVI GOLDMANCHRIST HASKINS [id number] [facility] 2021-05-21 00:00:00 2021-05-21 00:00:00 Outpatient MADHAVI GOLDMANCHRIST HASKINS [id number] [facility] 2021-03-10 10:25:00 2021-03-10 10:25:00 Outpatient LAB90 DAISY HASKINS [id number] [facility] 2021-02-28 13:30:00 2021-02-28 13:30:00 Outpatient MADHAVI GOLDMAN DAISY HASKINS [id number] [facility] 2021-02-20 00:00:00 2021-02-20 00:00:00 Outpatient MADHAVI GOLDMAN DAISY HASKINS [id number] [facility] 2021-02-10 09:15:00 2021-02-10 09:15:00 Outpatient LABMaury DAISY HASKINS [id number] [facility] 2021-02-07 08:30:00 2021-02-07 08:30:00 Outpatient MADHAVI GOLDMAN DAISY HASKINS [id number] [facility] 2021-01-07 13:45:00 2021-01-07 13:45:00 Outpatient IMER LEIJAIA DAISY HASKINS [id number] [facility] 2021-01-07 13:05:00 2021-01-07 13:05:00 Outpatient DAISY HASKINS [id number] [facility] 2021-01-06 00:00:00 2021-01-06 00:00:00 Outpatient KIRAN LEIJA [id number] [facility] 2020-05-16 10:30:00 2020-05-16 10:30:00 Outpatient DARRIAN CAMPOVERDE [facility] [id number] [facility] 2020-02-15 08:30:00 2020-02-15 08:30:00 Outpatient ANA REY [facility] [id number] [facility] 2019-12-13 10:19:19 2019-12-13 11:35:41 Office Visit Darrian Siddiqui [facility] Building 1.2.840.114 350.1.13.10 4.2.7.2.686 [id number] [facility] 2019-12-13 10:19:19 2019-12-13 11:35:41 Office Visit Darrian Siddiqui [facility] 1.2.840.114 350.1.13.10 4.2.7.2.686 [id number] 2019-12-13 11:00:00 2019-12-13 11:00:00 Outpatient R DARRIAN SIDDIQUI [facility] [id number] [facility] 2019-07-25 00:00:00 2019-07-25 00:00:00 Letter (Out) Clinic, [facility] Neurology Continuity [facility] 1.2.840.114 350.1.13.10 4.2.7.2.686 [id number] [facility] 2019-06-13 11:21:12 2019-06-13 23:59:00 Outpatient R RADIOLOGY [facility] [id number] [facility] Results Test Description Test Time Test Comments Results Resul t Comments Source EXTERNAL IMAGING 2023-11-29 16:07:00 EXAM: RAD-Chest Pa and Lat (2 Views)-11/29/2023 10:58 am FINDINGS: The lungs are clear. The heart is normal in size. No displaced fractures. Sternotomy. IMPRESSION: No acute or concerning finding suspected. [facility] - External [facility] - ExternalMRI Shoulder Left Wo ContMRI Shoulder Left Wo ContMRI Knee Right Wo ContMRI Knee Right Wo Cont Notes Date/Time Note Provider Source 2024-04-11 08:30:30 Chief Complaint Patient presents with Physical HRA Falling HE FELL THIS MORNING AND HAS A SCRATCH ON HIS BACK. Lin[facility] Galindo [facility] 2024-02-29 09:15:26 Chief Complaint Patient presents with Diabetes Diabetic follow up Linh Hurst, MA II [facility] 2023-11-29 09:28:32 Chief Complaint Patient presents with Diabetes 6 week diabetic follow up Cough Cough, chest congestion Linh Galindo MA II [facility] 2023-11-02 08:02:42 Chief Complaint Patient presents with Shoulder Pain Right shoulder pain. [facility] Ibupro[facility] 300mg TID. They did xrays but no results yet. Linh Galindo MA II [facility] 2023-10-21 10:15:51 Chief Complaint Patient presents with Diabetes 3 month diabetic follow up Linh Galindo MA II [facility] 2023-09-02 12:57:43 Chief Complaint Patient presents with Follow-up Follow up on Trulicity Linh Galindo MA II [facility] 2023-07-22 14:35:28 Chief Complaint Patient presents with Diabetes 3 week diabetic follow up Linh Galindo MA II [facility] 2023-06-30 13:16:56 Chief Complaint Patient presents with Congestion Cough Symptoms for about 4 days now Carleen Velez LVN [facility] 2023-03-09 08:13:33 Formatting of this n ote is different from the original. Chief Complaint Patient presents with Physical Patient is fasting. Linh Galindo MA II [facility]
--- NOTE | 2024-04-18 17:29 | RAD REPORT ---
EXAMINATION: Shoulder Right 2+ Views CLINICAL INDICATION: Male, 84 years old. PAIN RIGHT COMPARISON: 08/08/2021 FINDINGS: No shoulder fracture or dislocation. Mild right AC joint spurring. Mildly high riding humeral head which could indicate rotator cuff patho logy. Right glenohumeral joint spurring. Other findings: n/a IMPRESSION: No acute shoulder abnormalities.
[2024-04-18] MEDS ORDERED: KETOROLAC 30 MG/ML INJ ONE (17:55)
--- NOTE | 2024-04-18 18:18 | ER ---
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 hb Denies recent injury. Coronavirus screen: At this time, the client does not indicate any symptoms associated with coronavirus-19. Ebola Screen: No symptoms or risks identified at this time. Initial Sepsis Screen: Does the patient meet any 2 criteria? No. Patient's initial sepsis screen is negative. Does the patient have a suspected source of infection? No. Patient's initial sepsis screen is negative. Risk Assessment: Do you want to hurt yourself or someone else? Patient reports no desire to harm self or others. Onset of symptoms was April 17, 2024. 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 - Infectious Disease History:: Denies. - Social history:: Smoking status: Patient denies any tobacco usage or history of. Screenin:40 [facility] ED Fall Risk Assessment (Adult) History of falling in the last 3 months, jb4 including since admission No falls in past 3 months (0 pts) Confusion or Disorientation No (0 pts) Intoxicated or Sedated No (0 pts) Impaired Gait No (0 pts) Mobility Assist Device Used No (0 pt) Altered Elimination No (0 pt) Score/Fall Risk Level 0 - 2 = Low Risk Oriented to surroundings, Maintained a safe environment. Abuse screen: Denies threats or abuse. Nutritional screening: No deficits noted. Tuberculosis screening: No symptoms or risk factors identified. Vital Signs: 16:50 BP 119 / 71; Pulse 94; Resp 18; Temp 98.4; Pulse Ox 100% on R/A; Weight 83.46 kg; hb Height 5 ft. 10 in. ; Pain 10/10; 16:50 Body Mass Index 26.40 (83.46 kg, 177.8 cm) hb 16:50 Pain Scale: Adult hb ED Course: 16:43 Patient arrived in ED. mr 16:46 Tank Campa DO is Attending Physician. ms3 16:51 Triage completed. hb 16:52 Arm band placed on. hb 17:22 Shoulder Right (2 View) XRAY In Process Unspecified. EDMS 17:50 Patient placed in an exam room, on a stretcher. ap3 18:06 Eyal Boss MD is Referral Physician. ms3 18:27 Patient did not have IV access during this emergency room visit. ap3 18:40 Provided Education on: discharge instructions.. jb4 18:40 Patient has correct armband on for positive identification. Call light in reach. Side jb4 rails up X 1. 18:40 No provider procedures requiring assistance completed. jb4 Administered Medications: 17:59 Drug: Ketorolac IM 15 mg IM once Route: IM; Site: left deltoid; jb4 18:26 Follow up: Response: No adverse reaction; Pain is decreased ap3 Medication: 18:27 VIS not applicable for this client. ap3 Outcome: 18:17 Discharge ordered by MD. ms3 18:27 Discharged to home ambulatory, with family, ap3 18:27 Condition: good 18:27 Discharge instructions given to patient, family, Instructed on discharge instructions, follow up and referral plans. Demonstrated understanding of instructions, follow-up care, 18:47 Patient left the ED. jb4 Signatures: Dispatcher [employer] EDAK Lian Armendariz, Luigi Reg Michelle Mendez, RN ZEKE Sai Nichols RN RN jb4 Claudine Clark RN RN ap3 Tank Campa DO DO ms3 Corrections: (The following items were deleted from the chart) 18:43 18:40 Patient has correct armband on for positive identification. Bed in low position. jb4 Call light in reach. Side rails up X 1. jb4 18:43 18:40 Irrigation of Skin tear jb4 jb4 18:43 18:40 Dressings: Kerlix X 1; left elbow non-adherent dressing x 1 left elbow jb4 jb4 18:43 18:40 Wound care: to skin tear located on left elbow was cleaned with with jb4 Chlorahexadine scrub, debrided using chlorahexadine scrub and saline Patient tolerated well. jb4
--- NOTE | 2024-04-18 18:18 | EDPHYS ---
Physician Documentation [facility] Name: Bebeto Wells Age: 84 yrs Sex: Male : 1940 Arrival Date: 04/18/2024 Time: 16:41 Bed 11 Private MD: ED Physician Tank Campa HPI: 04/18 20:42 This 84 yrs old Male presents to ER via Ambulatory with complaints of Shoulder Pain. ms3 20:42 84-year-old male with past medical history of diabetes, gout, hypertension presents to [facility] the emergency department for right shoulder pain that has been ongoing for 2 days. Patient states the discomfort is a 9/10. Patient denies fevers or chills. Patient states he has had pain in that shoulder due to arthritis and problems with his tendon. Historical: - Allergies: 16:51 Codeine; hb 16:51 PENICILLINS; hb 16:51 Sulfa (Sulfonamide Antibiotics); hb - PMHx: 16:51 Diabetes - NIDDM; Gout; Hypertension; hb - PSHx: 16:51 triple bypass; hb - Immunization history:: Adult Immunizations up to date. - Infectious Disease History:: Denies. - Social history:: Smoking status: Patient denies any tobacco usage or history of. ROS: 20:42 Constitutional: Negative for fever, and chills. Cardiovascular: Negative for chest ms3 pain, and palpitations. Respiratory: Negative for shortness of breath, cough, wheezing, and pleuritic chest pain, Abdomen/GI: Negative for abdominal pain, nausea, vomiting, diarrhea, and constipation, 20:42 MS/extremity: Positive for pain, of the Right shoulder, Exam: 20:42 Constitutional: This is a well developed, well nourished patient who is awake, alert, ms3 and in no acute distress. Head/Face: Normocephalic, atraumatic. Chest/axilla: Normal chest wall appearance and motion. Nontender with no deformity. Cardiovascular: Regular rate and rhythm with a normal S1 and S2. No gallops, murmurs, or rubs. Normal PMI, no JVD. No pulse deficits. Respiratory: Lungs have equal breath sounds bilaterally, clear to auscultation and percussion. No rales, rhonchi or wheezes noted. No increased work of breathing, no retractions or nasal flaring. Abdomen/GI: Soft, non-tender, with normal bowel sounds. No distension or tympany. No guarding or rebound. No evidence of tenderness throughout. Skin: Warm, dry with normal turgor. Normal color with no rashes, no lesions, and no evidence of cellulitis. 20:42 Musculoskeletal/extremity: Extremities: noted in the Right shoulder: pain, There is no evidence of ecchymosis, erythema, swelling, Vital Signs: 16:50 BP 119 / 71; Pulse 94; Resp 18; Temp 98.4; Pulse Ox 100% on R/A; Weight 83.46 kg; hb Height 5 ft. 10 in. ; Pain 10/10; 16:50 Body Mass Index 26.40 (83.46 kg, 177.8 cm) hb 16:50 Pain Scale: Adult hb MDM: 17:40 Medical Screening Exam initiated ms3 20:42 Differential diagnosis: humeral head fracture, glenoid fracture, tendonitis. Data ms3 reviewed: vital signs, nurses notes, radiologic studies, and as a result, I will discharge patient. I considered the following discharge prescriptions or medication management in the emergency department Medications were administered in the Emergency Department. See MAR. Historians other than the Patient: Spouse/Significant Other: Patient's . Counseling: I had a detailed discussion with the patient and/or guardian regarding the historical points, exam findings, and any diagnostic results supporting the discharge/admit diagnosis, radiology results, the need for outpatient follow up, to return to the emergency department if symptoms worsen or persist or if there are any questions or concerns that arise at home. Special discussion: I discussed with the patient/guardian in detail that at this point there is no indication for admission to the hospital. It is understood, however, that if the symptoms persist or worsen the patient needs to return immediately for re-evaluation. ED course: Discussed x-ray findings with patient and his . They understand and agree with plan. Patient to follow-up Dr. Boss in 2 to 3 days. Patient placed in arm sling for comfort. All questions were answered. On reevaluation patient is alert and oriented x 4, no apparent distress, nontoxic-appearing, speaking full sentences, without signs of compartment syndrome. 04/18 17:00 Order name: Shoulder Right (2 View) XRAY; Complete Time: 17:50 ms3 04/18 18:18 Order name: Kasi; Complete Time: 18:26 ms3 Administered Medications: 17:59 Drug: Ketorolac IM 15 mg IM once Route: IM; Site: left deltoid; jb4 18:26 Follow up: Response: No adverse reaction; Pain is decreased ap3 Disposition Summary: 04/18/24 18:17 Discharge Ordered Notes: Location: Home ms3 Condition: Stable ms3 Diagnosis - Pain in right shoulder ms3 Followup: ms3 - With: Eyal Boss MD - When: 2 - 3 days - Reason: Recheck today's complaints Discharge Instructions: - Discharge Summary Sheet ms3 - Shoulder Pain ms3 Forms: - Medication Reconciliation Form ms3 - Antibiotic Education ms3 - Prescription Opioid Use ms3 - Patient Portal Instructions ms3 - Leadership Thank You Letter ms3 Signatures: Dispatcher [employer] Michelle Amador RN RN Sai Nichols RN RN jb4 Tank Campa DO DO ms3 Claudine Clark RN ap3
[2024-04-18 22:50] VITALS: BP 119/71; TEMP 98.4; O2SAT 100
== END 2024-04-18 18:47 | disposition home or self-care (01) ==
LOC: ER 16:41
DX: M25.511 Pain in right shoulder (principal)
CPT/HCPCS: 96372; 99284